=== PATIENT | female | born 1975 | race Two or more races ===

== ENCOUNTER 2020-11-19 09:10 | Emergency (ER) | payer MEDICARE, MEDICAID, SELFPAY ==
--- NOTE | ~2020-11-19 | XR_ITS ---
EXAMINATION: XR ELBOW, RIGHT CLINICAL INFORMATION: Pain right elbow COMPARISON: None TECHNIQUE: AP, lateral, and oblique views of the right elbow. FINDINGS: There is no fracture, dislocation, or elbow capsular effusion. Bony density is normal. There is no joint narrowing or erosive change. XR/XR elbow RT min 3V IMPRESSION: Normal right elbow.
--- NOTE | ~2020-11-19 | US_ITS ---
EXAMINATION: US VENOUS WITH DOPPLER UPPER EXTREMITY, RIGHT CLINICAL INFORMATION: Right upper extremity pain and swelling. Assess for occult DVT. COMPARISON: None TECHNIQUE: Ultrasound of the upper extremity is performed using compression sonography and color and pulse Doppler flow with assessment of augmentation of flow. There is also imaging and Doppler assessment of the jugular and subclavian veins. Spectral analysis with color-flow imaging is performed. FINDINGS: Respiratory variation, normal compression, and augmented flow are noted throughout the upper extremity including the axillary, brachial, cubital, and radial and ulnar veins. There is normal flow in the internal jugular and subclavian veins. There is no visible deep or superficial thrombophlebitis. US/US venous duplex UE RT IMPRESSION: No DVT demonstrated in the right upper extremity.
[2020-11-19 09:14] VITALS: BP 140/81; PULSE 94; RESP 18; TEMP 36.9; O2SAT 97; BMI 35.6
--- NOTE | 2020-11-19 10:20 | ED_ITS ---
HPI - Extremity Problem General Chief complaint: Extremity Problem Stated complaint: rt elbow pain Time Seen by Provider: 11/19/20 09:40 Source: patient Mode of arrival: ambulatory History of Present Illness HPI Narrative: 45-year-old female no significant past medical history presenting to the ED complaining of right elbow/forearm pain x1 month. Reports worsening swelling x1 week, has been taking OTC medications without relief. Denies numbness, tingling, weakness, known injury/trauma or falls, recent travel, history of blood clots, SOB/CP. Does smoke cigarettes Complaint: extremity pain and extremity swelling Related Data Previous Rx's Medication Instructions Recorded acetaminophen [Tylenol Extra 500 mg PO Q6H PRN #20 tab 11/19/20 Strength] cyclobenzaprine 5 mg PO Q8H PRN 5 Days #14 tab 11/19/20 lidocaine [Lidoderm] 1 patch TOPICAL DAILY PRN #30 ea 11/19/20 MDD remove after 12 hours naproxen 500 mg PO BID PRN 10 Days #20 tab 11/19/20 Allergies Allergy/AdvReac Type Severity Reaction Status Date / Time Penicillins [PENICILLINS] Allergy Severe SWELLING/IT Verified 11/19/20 09:13 JOE vancomycin [VANCOMYCIN] Allergy Intermediate RASH AND Verified 11/19/20 09:13 ITCHING penicillin V Allergy Unknown redness Verified 11/19/20 09:13 and itching/ inflammation Review of Systems Review of Systems: Constitutional: No Fever, No Chills Cardiovascular: No Chest Pain, No SOB Respiratory: No Cough Gastrointestinal: No Nausea, No Vomiting, No Diarrhea, No Abdominal pain Musculoskeletal: + joint pain, No Myalgias, +Joint Swelling Skin: No Skin Lesions, No rash Neuro: No Weakness, No Numbness, No Paresthesias Yes all other systems are reviewed and are negative [facility]LY [facility] Past Medical History Attestation statement: The following information was validated with the patient. Social History Social History Advance Directives: No Advance Directives Information Provided: No Physical Exam Vital Signs: Vital Signs: Last Vital Signs Temp 98.5 F 11/19/20 09:14 Pulse 94 11/19/20 09:14 Resp 18 11/19/20 09:14 BP 140/81 H 11/19/20 09:14 Pulse Ox 97 11/19/20 09:14 Body Mass Index 35.6 Const: General: cooperative, healthy appearing, comfortable and no acute distress Orientation/consciousness: patient oriented x3 Limitations: no limitations HENMT: Head: Yes normal to inspection Ears: hearing grossly normal bilaterally General nose exam: Normal external nose present Face and sinus: Yes normal facial exam Eyes: General: appearance normal, both eyes and all related structures EOM: EOMs intact bilaterally Neck: Neck: Yes normal visual inspection Resp: Effort & Inspection: normal respiratory effort Cardio: Rate: regular rate Peripheral pulses: radial pulses present GI: Inspection: Yes normal to inspection Skin: Rashes: no rashes Wounds: no wounds Neuro: General: patient oriented x3, tone normal and moves all extremities Motor exam (neuro): 5/5 motor strength present throughout Extrem: Other: Right elbow with a visible lump/swelling and slight ecchymosis. Tender to palpation. FROM intact. NV intact distally General: Yes normal to inspection Course Course Course Narrative: US venous duplex UE RT IMPRESSION: No DVT demonstrated in the right upper extremity. >> results discussed with patient with community sports coordinator. Is to follow-up with PCP. XR elbow RT min 3V IMPRESSION: Normal right elbow. MDM - Extremity (Nontraumatic) MDM Narrative Medical decision making narrative: 45-year-old female no significant past medical history presenting to the ED complaining of right elbow/forearm pain x1 month. On exam vital signs stable, NAD, well appearing, physical exam as above. Concern for MSK pain vs DVT. Low concern for PE Plan: Venous duplex ultrasound Discharge Plan Discharge Clinical Impression: Elbow pain, right Patient Disposition: Home, Self-Care Instructions: Arthralgia (ED) Additional Instructions: Your x-ray and ultrasound were negative for any acute findings or blood clots. It is important for you to were Rinku wrap for compression/stability. Ice and elevate your arm. Naproxen as an anti-inflammatory/pain medication, take with food. Lidoderm patches or numbing patches, apply to painful area. Flexeril as a muscle relaxer, take at night as it makes you drowsy, do not drive, drink alcohol, or operate machinery while taking it. In addition take Tylenol. Follow up with her primary care doctor If area begins to look infected, is red, or swelling increases please return to the ED Hopkins radiograf?a y ultrasonido fueron negativos para cualquier hallazgo leah o co?gulos de ravindra. Es importante que usted tenga mi envoltura Rinku para la compresi?n / estabilidad. Hielo y levante el brazo. El naproxeno candice m edicamento antiinflamatorio / analg?sico, t?matta con las comidas. Los parches de Lidoderm o los parches adormecedores se aplican en el ?aysha dolorida. Flexeril candice relajante muscular, t?matta por la noche ya que le produce juan j?o, no conduzca, no kalyan alcohol ni maneje maquinaria mientras lo danis. Adem?s, tome Tylenol. Venecia un seguimiento con hopkins m?dico de atenci?n primaria Si el ?aysha comienza a verse infectada, enrojecida o aumenta la hinchaz?n, regrese al servicio de urgencias Prescriptions: New cyclobenzaprine 5 mg tablet 5 mg PO Q8H PRN (Reason: pain (scale score 7-10)) 5 Days Qty: 14 RF: 0 lidocaine [Lidoderm] 5 % adhesive patch,medicated 1 patch topical DAILY MDD remove after 12 hours PRN (Reason: pain) Qty: 30 RF: 0 acetaminophen [Tylenol Extra Strength] 500 mg tablet 500 mg PO Q6H PRN (Reason: pain or fever) Qty: 20 RF: 0 naproxen 500 mg tablet 500 mg PO BID PRN (Reason: pain) 10 Days Qty: 20 RF: 0 Referrals: [facility] [Primary Care Provider] - 2 days Print Language: [place]
[2020-11-19 12:18] VITALS: BP 131/77; PULSE 88; RESP 16; TEMP 36.9; O2SAT 97
== END 2020-11-19 12:33 | disposition home or self-care (01) ==
PROVIDERS: Emergency Provider Emergency Medicine
DX: M25.521 Pain in right elbow (principal); R22.31 Localized swelling, mass and lump, right upper limb; F17.210 Nicotine dependence, cigarettes, uncomplicated
CPT/HCPCS: 73080; 93971; 99284

== ENCOUNTER → 2021-01-02 12:53 | Outpatient (BNVA) | payer MEDICARE, MEDICAID, SELFPAY | PROVIDERS: Visit Provider Physician Assistant | DX: M77.11 Lateral epicondylitis, right elbow (principal) | CPT/HCPCS: 99202; 99212 ==

== ENCOUNTER 2021-02-10 13:30 | Emergency (ER) | payer MEDICARE, MEDICAID, SELFPAY ==
--- NOTE | 2021-02-10 | ECG_ITS ---
Test Reason : HTN,RAPID HR Blood Pressure : / mmHG Vent. Rate : 097 BPM Atrial Rate : 097 BPM P-R Int : 128 ms QRS Dur : 074 ms QT Int : 326 ms P-R-T Axes : 054 056 037 degrees QTc Int : 414 ms Normal sinus rhythm Normal ECG When compared with ECG of 07-AUG-2019 20:20, No significant change was found Referred By: Generic ED Physician Electronically Signed By:BEATRICE RIZZO
--- NOTE | ~2021-02-10 | CT_ITS ---
EXAMINATION: CT HEAD WITHOUT CONTRAST CLINICAL INFORMATION: Headache. Hypertension. COMPARISON: Previous head CT June 2017 TECHNIQUE: Contiguous axial imaging was performed from the skull base to vertex without intravenous administration of contrast. This CT examination was performed using dose optimization techniques as appropriate, variously including the following: *Automated exposure control *Adjustment of mA and/or kV according to patient size (this includes techniques or standardized protocols for targeted exams where dose is matched to indication/reason for exam; i.e. extremities or head) *Use of iterative reconstruction technique DLP: 701 mGy-cm FINDINGS: There is no evidence of acute intracranial hemorrhage or territorial infarction. No abnormal mass effect or midline shift is seen. Hernandez to white matter differentiation is well preserved. No extra-axial fluid collections are identified. The ventricles are normal in size. There is no abnormal attenuation within the brain parenchyma. The osseous structures and soft tissues are normal. The mastoid air cells and visualized portions of the paranasal sinuses are well aerated. CT/CT head/brain wo con IMPRESSION: Unremarkable exam.
--- NOTE | ~2021-02-10 | XR_ITS ---
EXAMINATION: XR CHEST CLINICAL INFORMATION: Chest pain COMPARISON: Previous chest x-ray most recent July 2019 TECHNIQUE: Frontal view of the chest was obtained. FINDINGS: The cardiac and mediastinal contours are normal. The lungs are clear. There is no pleural effusion or pneumothorax. There are degenerative changes of the spine. XR/XR chest 1V IMPRESSION: No evidence for acute disease in the chest.
[2021-02-10 13:35] VITALS: BP 151/74; PULSE 101; RESP 16; TEMP 37; O2SAT 94; BMI 34.0
[2021-02-10 13:58] LABS: MANUAL DIFF FLAG NO
[2021-02-10 14:02] LABS: Basophils Absolute Auto 0.1 X10*3/uL (0.0-0.2); Basophils Percent Auto 0.6 % (0-2); Eosinophils Absolute Auto 0.1 X10*3/uL (0.0-0.4); Hematocrit 41.9 % (37-47); Hemoglobin 14.3 g/dl (12.0-16.0); Imm Gran Abs Auto 0.04 X10*3/uL (0.00-0.03); Imm Gran Pct Auto 0.4 % (0.0-0.4); Lymphocytes Percent Auto 31.2 % (20-40); Mean Corpuscular HGB Conc 34.1 g/dl (31.0-35.0); Mean Corpuscular Hemoglobin 32.1 pg (27.0-33.0); Mean Corpuscular Volume 94.2 fL (80-98); Mean Platelet Volume 11.1 fL (9.4-12.3); Monocytes Absolute Auto 0.7 X10*3/uL (0.1-1.2); Neutrophils Absolute Auto 5.8 X10*3/uL (2.0-8.3); Neutrophils Percent Auto 59.8 % (45-73); Platelet Count 205 X10*3/uL (160-400); Red Blood Count 4.45 X10*6/uL (4.20-5.50); Red Cell Distribution Width 10.7 % (11.0-16.0); White Blood Count 9.7 X10*3/uL (4.8-10.8)
[2021-02-10 14:16] LABS: Anion Gap 11 (12-20); Blood Urea Nitrogen 12 mg/dL (9-16); Calcium 8.8 mg/dL (8.4-10.2); Carbon Dioxide 24 mmol/L (22-29); Chloride 105 mmol/L (96-108); Creatinine Clr Calc Pharmacy 83.7; Estimated Glomerular Filt Rate > 60; Glucose Random 326 mg/dL (60-115); Sodium 136 mmol/L (135-145)
[2021-02-10 16:00] VITALS: RESP 18
--- NOTE | 2021-02-10 16:15 | ECG_ITS ---
Test Reason : WEAK Blood Pressure : / mmHG Vent. Rate : 076 BPM Atrial Rate : 076 BPM P-R Int : 142 ms QRS Dur : 072 ms QT Int : 358 ms P-R-T Axes : 047 047 039 degrees QTc Int : 402 ms Normal sinus rhythm Normal ECG When compared with ECG of 10-FEB-2021 13:32, No significant change was found Referred By: Sheba Woods Electronically Signed By:BEATRICE RIZZO
--- NOTE | 2021-02-10 16:19 | ED_ITS ---
HPI - General Adult General Chief complaint: General Medical Stated complaint: hbp, rapid heartbeat Time Seen by Provider: 02/10/21 15:55 Source: patient Mode of arrival: ambulatory History of Present Illness HPI narrative: 45-year-old female with a past medical history of asthma, diabetes, HTN not on medication, hyperthyroid, presenting to the ED complaining of hypertension noted this morning 161/141 on home BP monitor, headache since T hursday, and intermittent CP. Admits to history of migraines, reports this headache is similar to prior, not maximal onset. Denies lightheadedness/dizziness, new visual change, nausea/vomiting, abdominal pain, SOB, numbness, tingling, weakness. Does not take anticoagulation Onset (ago): day(s) Related Data Previous Rx's Medication Instructions Recorded acetaminophen 500 mg tablet 500 mg PO Q6H PRN #20 tab 11/19/20 (Tylenol Extra Strength) cyclobenzaprine 5 mg tablet 5 mg PO Q8H PRN 5 Days #14 tab 11/19/20 lidocaine 5 % topical patch 1 patch TOPICAL DAILY PRN #30 ea 11/19/20 (Lidoderm) MDD remove after 12 hours naproxen 500 mg tablet 500 mg PO BID PRN 10 Days #20 tab 11/19/20 Allergies Allergy/AdvReac Type Severity Reaction Status Date / Time Penicillins [PENICILLINS] Allergy Severe SWELLING/IT Verified 01/02/21 13:03 JOE vancomycin [VANCOMYCIN] Allergy Intermediate RASH AND Verified 01/02/21 13:03 ITCHING penicillin V Allergy Unknown redness Verified 01/02/21 13:03 and itching/ inflammation Review of Systems Review of Systems: Constitutional: No Fever, No Chills, No Malaise ENT/Mouth: No Ear Pain, No Nasal Congestion, No Hoarseness, No sore throat Eyes: No Eye Pain, No Swelling, No Redness,No Discharge, No Vision Changes Cardiovascular: No Chest Pain, No SOB, No Palpitations Respiratory: No Cough, No Dyspnea Gastrointestinal: No Nausea, No Vomiting, No Diarrhea, No Abdominal pain Genitourinary: No Dysuria, No Urinary Frequency, No Hematuria, No Urinary Incontinence, No Urgency, No Flank Pain Musculoskeletal: No joint pain, No Myalgias Skin: No Skin Lesions, No rash Neuro: No Weakness, No Numbness, No Paresthesias, No Dizziness, + Headache Yes all other systems are reviewed and are negative Neurologic: Denies Abnormal speech present FOR[facility]LY [facility], [facility] Past Medical History Medical History (Updated 02/10/21 @ 17:55 by GABRIELLE Resendiz) Asthma Diabetes Hypertension Hyperthyroidism Social History Social History (Updated 01/02/21 @ 13:04 by Shay Pierre) Advance Directives: No Advance Directives Information Provided: No Current occupational status: disabled Current occupation: rt handed Physical Exam Vital Signs: Vital Signs: Last Vital Signs Temp 98.6 F 02/10/21 13:35 Pulse 101 H 02/10/21 13:35 Resp 18 02/10/21 16:00 BP 151/74 H 02/10/21 13:35 Pulse Ox 94 02/10/21 13:35 Body Mass Index 34.0 Const: General: cooperative, healthy appearing and no acute distress Orientation/consciousness: patient oriented x3 Limitations: no limitations HENMT: Head: Yes normal to inspection Ears: hearing grossly normal bilaterally General nose exam: Normal external nose present Face and sinus: Yes normal facial exam Eyes: General: appearance normal, both eyes and all related structures Pupils: Equal, round and reactive pupils present EOM: EOMs intact bilaterally Neck: Neck: Yes normal visual inspection and Yes no meningeal signs Resp: Effort & Inspection: normal respiratory effort Auscultation: clear to auscultation bilaterally, no rales, no rhonchi and no wheezes Cardio: Rate: regular rate Heart sounds: S1 normal heart sound present and S2 normal heart sound present GI: Inspection: Yes normal to inspection Palpation (GI): Soft to palpation, nontender, no guarding and not rigid Skin: Rashes: no rashes Wounds: no wounds Neuro: General: patient oriented x3, tone normal, moves all extremities, no meningeal signs, no focal motor deficits and CN's II-XI intact bilaterally Cranial nerves: Yes Equal, round and reactive pupils present Cognition (Neuro): normal cognition Speech: No Abnormal speech present Gait exam (Neuro): Normal gait present Motor exam (neuro): 5/5 motor strength present throughout, Pronator motor function not present and no tremor noted Coordination: [id number] test normal Romberg Test: Negative Extrem: General: Yes normal to inspection Course Course Course Narrative: -6704--no leukocytosis. Glucose 326, no anion gap CT head/brain wo con IMPRESSION: Unremarkable exam. XR chest 1V IMPRESSION: No evidence for acute disease in the chest. -1751--repeat POC 163. On re-evaluation patient reports symptomatic improvement. Results discussed with veterinary assistant technician. Discussed with patient she needs to follow up with PCP, in continue monitoring BP is at home. Worrisome signs and symptoms and strict return precautions discussed, she verbalized u nderstanding feel safe for discharge home Medical Decision Making MDM Narrative Medical decision making narrative: 45-year-old female with a past medical history of asthma, diabetes, HTN not on medication, hyperthyroid, presenting to the ED complaining of hypertension noted this morning 161/141 on home BP monitor, headache since , and intermittent CP. On exam initially hypertensive/tachycardic, on my repeat during evaluation BP 137/60, NAD, nontoxic appearing, no focal neuro deficits. Concern for migraine headache vs hypertensive urgency. Low concern for hypertensive emergency with normotensive BP at this time. Low concern for ICH. Rule out ACS although symptoms atypical Plan: EKG, labs, CXR, head CT, symptomatic treatment, reassess Lab Data Result diagrams: 02/10/21 13:43 02/10/21 13:43 Labs: Lab Results 02/10/21 02/10/21 02/10/21 Range/Units 13:43 13:43 16:47 WBC 9.7 (4.8-10.8) X10*3/uL RBC 4.45 (4.20-5.50) X10*6/uL Hgb 14.3 (12.0-16.0) g/dl Hct 41.9 (37-47) % MCV 94.2 (80-98) fL MCH 32.1 (27.0-33.0) pg MCHC 34.1 (31.0-35.0) g/dl RDW 10.7 L (11.0-16.0) % Plt Count 205 (160-400) X10*3/uL MPV 11.1 (9.4-12.3) fL Immature Gran % (Auto) 0.4 (0.0-0.4) % Neut % (Auto) 59.8 (45-73) % Lymph % (Auto) 31.2 (20-40) % [place] % (Auto) 7.0 (2-11) % Eos % (Auto) 1.0 (0-4) % Baso % (Auto) 0.6 (0-2) % Lymph # (Auto) 3.0 (1.2-4.9) X10*3/uL [place] # (Auto) 0.7 (0.1-1.2) X10*3/uL Eos # (Auto) 0.1 (0.0-0.4) X10*3/uL Baso # (Auto) 0.1 (0.0-0.2) X10*3/uL Abs Immat Gran (auto) 0.04 H (0.00-0.03) X10*3/uL Absolute Neuts (auto) 5.8 (2.0-8.3) X10*3/uL Absolute Nucleated RBC 0.000 (0.0-0.012) X10*3/uL Nucleated RBC % (auto) 0.0 (0.0-0.2) /100WBC Sodium 136 (135-145) mmol/L Potassium 4.0 (3.3-5.1) mmol/L Chloride 105 (96-108) mmol/L Carbon Dioxide 24 (22-29) mmol/L Anion Gap 11 L (12-20) BUN 12 (9-16) mg/dL Creatinine 0.74 (0.5-1.4) mg/dL Estim Creat Clear Calc 83.7 Estimated GFR > 60 Random Glucose 326 H (60-115) mg/dL Calcium 8.8 (8.4-10.2) mg/dL Magnesium 2.1 (1.6-2.6) mg/dL Total Bilirubin 0.3 (0.0-1.0) mg/dL Direct Bilirubin < 0.2 (0.0-0.5) mg/dL AST 19 (5-31) U/L ALT 30 (0-31) U/L Alkaline Phosphatase 97 (39-117) U/L Troponin I High Sens (<3.5-17.0) ng/L Total Protein 6.7 (6.5-8.0) g/dL Albumin 3.7 (3.5-5.0) g/dL 02/10/21 Range/Units 16:47 WBC (4.8-10.8) X10*3/uL RBC (4.20-5.50) X10*6/uL Hgb (12.0-16.0) g/dl Hct (37-47) % MCV (80-98) fL MCH (27.0-33.0) pg MCHC (31.0-35.0) g/dl RDW (11.0-16.0) % Plt Count (160-400) X10*3/uL MPV (9.4-12.3) fL Immature Gran % (Auto) (0.0-0.4) % Neut % (Auto) (45-73) % Lymph % (Auto) (20-40) % [place] % (Auto) (2-11) % Eos % (Auto) (0-4) % Baso % (Auto) (0-2) % Lymph # (Auto) (1.2-4.9) X10*3/uL [place] # (Auto) (0.1-1.2) X10*3/uL Eos # (Auto) (0.0-0.4) X10*3/uL Baso # (Auto) (0.0-0.2) X10*3/uL Abs Immat Gran (auto) (0.00-0.03) X10*3/uL Absolute Neuts (auto) (2.0-8.3) X10*3/uL Absolute Nucleated RBC (0.0-0.012) X10*3/uL Nucleated RBC % (auto) (0.0-0.2) /100WBC Sodium (135-145) mmol/L Potassium (3.3-5.1) mmol/L Chloride (96-108) mmol/L Carbon Dioxide (22-29) mmol/L Anion Gap (12-20) BUN (9-16) mg/dL Creatinine (0.5-1.4) mg/dL Estim Creat Clear Calc Estimated GFR Random Glucose (60-115) mg/dL Calcium (8.4-10.2) mg/dL Magnesium (1.6-2.6) mg/dL Total Bilirubin (0.0-1.0) mg/dL Direct Bilirubin (0.0-0.5) mg/dL AST (5-31) U/L ALT (0-31) U/L Alkaline Phosphatase (39-117) U/L Troponin I High Sens < 3.5 (<3.5-17.0) ng/L Total Protein (6.5-8.0) g/dL Albumin (3.5-5.0) g/dL ECG Data Attestation: I personally reviewed and interpreted this ECG as follows: Interpretation: EKG normal sinus rhythm with a rate of 76. Nonischemic/no STEMI Discharge Plan Discharge Clinical Impression: Hypertension Qualifiers: Hypertension type: unspecified Qualified Code(s): I10 - Essential (primary) hypertension Headache Qualifiers: Headache type: unspecified Headache chronicity pattern: unspecified pattern Intractability: not intractable Qualified Code(s): R51.9 - Headache, unspecified Patient Disposition: Home, Self-Care Instructions: Acute Headache (ED), Hypertension (ED) Additional Instructions: Your blood work and head CT were unremarkable today in the ED. Her x-ray was unremarkable. It is very important for you to follow-up with her primary care doctor, you will likely need to be started on a low-dose blood pressure medication. It is important for you to monitor her blood worse at home. If he developed very high blood pressure, headache, lightheadedness, chest pain, dizziness please return to the ED Zelaya an?lisis de ravindra y la tomograf?a computarizada de la filomena no fueron destacables hoy en el servicio de urgencias. Zelaya radiograf?a no tuvo nada especial. Es muy importante que realice un seguimiento con zelaya m?dico de atenci?n primaria, es probable que deba comenzar con un medicamento para la presi?n breonna rial en dosis bajas. Es importante que controle peor zelaya ravindra en casa. Si desarroll? presi?n arterial muy jv, dolor de filomena, aturdimiento, dolor en el pecho, mareos, regrese al servicio de urgencias. Prescriptions: No Action cyclobenzaprine 5 mg tablet 5 mg PO Q8H PRN (Reason: pain (scale score 7-10)) 5 Days Qty: 14 RF: 0 lidocaine [Lidoderm] 5 % adhesive patch,medicated 1 patch topical DAILY MDD remove after 12 hours PRN (Reason: pain) Qty: 30 RF: 0 acetaminophen [Tylenol Extra Strength] 500 mg tablet 500 mg PO Q6H PRN (Reason: pain or fever) Qty: 20 RF: 0 naproxen 500 mg tablet 500 mg PO BID PRN (Reason: pain) 10 Days Qty: 20 RF: 0 Referrals: Nathalie Wang, DEVELOPMENT ANALYST [Primary Care Provider] - 2 days Print Language: Icelandic
[2021-02-10] MEDS: Magnesium Sulfate/H2O 2 GM/50 ML PIGGYBACK IV (16:54)
[2021-02-10] MEDS: Metoclopramide HCl 10 MG/2 ML VIAL IVPUSH (16:54)
[2021-02-10] MEDS: Acetaminophen 325 MG TABLET 650 MG PO (16:54)
[2021-02-10] MEDS: 0.9 % Sodium Chloride 1,000 ML 999 ML IVCONT (16:54)
[2021-02-10] MEDS: diphenhydrAMINE HCL 50 MG/ML VIAL 12.5 MG IVPUSH (16:54)
[2021-02-10 17:18] LABS: Alanine Aminotransferase 30 U/L (0-31); Albumin Level 3.7 g/dL (3.5-5.0); Alkaline Phosphatase 97 U/L (39-117); Aspartate Amino Transferase 19 U/L (5-31); Bilirubin Direct < 0.2 mg/dL (0.0-0.5); Bilirubin Total 0.3 mg/dL (0.0-1.0); Magnesium 2.1 mg/dL (1.6-2.6); Total Protein 6.7 g/dL (6.5-8.0)
[2021-02-10 17:24] LABS: Troponin-I High Sensitivity < 3.5 ng/L (<3.5-17.0)
[2021-02-10 17:53] VITALS: BP 137/70; PULSE 84; RESP 18; O2SAT 99
[2021-02-10 17:53] LABS: Glucose, Whole Blood 163 mg/dL (60-115)
== END 2021-02-10 17:58 | disposition home or self-care (01) ==
PROVIDERS: Physician Assistant; Emergency Provider Internal Medicine; PCP Nurse Practitioner Primary Care
DX: R51.9 Headache, unspecified (principal); I10 Essential (primary) hypertension; E11.9 Type 2 diabetes mellitus without complications
CPT/HCPCS: 36415; 70450; 71045; 80048; 80076; 82947; 83735; 84484; 85025; 93005; 96365; 96366; 96375; 99284; J1200; J2765; J3475

== ENCOUNTER 2021-07-30 13:09 | Emergency (ER) | payer MEDICARE, MEDICAID, SELFPAY ==
--- NOTE | ~2021-07-30 | XR_ITS ---
EXAMINATION: AP PELVIS AND RIGHT HIP AND LUMBAR SPINE. CLINICAL INFORMATION: Hip pain COMPARISON: December 14, 2016 TECHNIQUE: AP pelvis and 2 views of the right hip. 3 views of the lumbar spine. FINDINGS: AP film of the pelvis does not demonstrate any evidence of acute fracture or diastases. Sacroiliac joints appear unremarkable. There is some increased sclerosis seen about the L5-S1 facet joints which may be related to some degree of facet arthropathy. The hip joint spaces appear maintained. There is bilateral greater trochanter spurring present. No destructive bony lesions are evident. 2 views of the right hip demonstrate some mild collar spurring without joint space narrowing. There is some spurring about the greater trochanter. No acute fracture or dislocation is evident. No abnormal lytic or sclerotic lesion is seen. No femoral head collapse is noted. No acute fracture, spondylolisthesis, spondylolysis is seen within the lumbar spine. There is some spurring about the anterior aspect of the lowest lumbar vertebra. The disc spaces are maintained. Pedicles are intact. There is degenerative spurring with some disc space narrowing seen involving the lower thoracic spine. XR/XR lumbar spine 2-3V IMPRESSION: No evidence of acute fracture, spondylolisthesis, or spondylolysis of the lumbar spine. No evidence of acute fracture or dislocation of the right hip. Greater trochanter spurring.
--- NOTE | ~2021-07-30 | XR_ITS ---
EXAMINATION: AP PELVIS AND RIGHT HIP AND LUMBAR SPINE. CLINICAL INFORMATION: Hip pain COMPARISON: December 14, 2016 TECHNIQUE: AP pelvis and 2 views of the right hip. 3 views of the lumbar spine. FINDINGS: AP film of the pelvis does not demonstrate any evidence of acute fracture or diastases. Sacroiliac joints appear unremarkable. There is some increased sclerosis seen about the L5-S1 facet joints which may be related to some degree of facet arthropathy. The hip joint spaces appear maintained. There is bilateral greater trochanter spurring present. No destructive bony lesions are evident. 2 views of the right hip demonstrate some mild collar spurring without joint space narrowing. There is some spurring about the greater trochanter. No acute fracture or dislocation is evident. No abnormal lytic or sclerotic lesion is seen. No femoral head collapse is noted. No acute fracture, spondylolisthesis, spondylolysis is seen within the lumbar spine. There is some spurring about the anterior aspect of the lowest lumbar vertebra. The disc spaces are maintained. Pedicles are intact. There is degenerative spurring with some disc space narrowing seen involving the lower thoracic spine. XR/XR hip RT w PEL1V IMPRESSION: No evidence of acute fracture, spondylolisthesis, or spondylolysis of the lumbar spine. No evidence of acute fracture or dislocation of the right hip. Greater trochanter spurring.
[2021-07-30 13:41] VITALS: BP 128/65; PULSE 100; RESP 19; TEMP 36.6; O2SAT 96; BMI 27.1
[2021-07-30 16:48] VITALS: BP 130/69; PULSE 89; RESP 18; TEMP 36.9
--- NOTE | 2021-07-30 17:43 | ED_ITS ---
HPI - General Adult General Chief complaint: Extremity Injury, Lower Stated complaint: leg pain Time Seen by Provider: 07/30/21 15:21 Source: patient Mode of arrival: ambulatory Limitations: no limitations History of Present Illness HPI narrative: 45-year-old female to ED for right hip pain radiating down leg for the past two weeks. Patient states no fever, chills, nausea, emesis, flank pain, abdominal pain, hematuria, dysurial, or any recent trauma. Related Data Previous Rx's Medication Instructions Recorded acetaminophen 500 mg tablet 500 mg PO Q6H PRN #20 tab 11/19/20 (Tylenol Extra Strength) cyclobenzaprine 5 mg tablet 5 mg PO Q8H PRN 5 Days #14 tab 11/19/20 lidocaine 5 % topical patch 1 patch TOPICAL DAILY PRN #30 ea 11/19/20 (Lidoderm) MDD remove after 12 hours naproxen 500 mg tablet 500 mg PO BID PRN 10 Days #20 tab 11/19/20 ketorolac 10 mg tablet 10 mg PO QID PRN 5 Days #20 tab 07/30/21 prednisone 20 mg tablet 40 mg PO DAILY 5 Days #10 tab 07/30/21 Allergies Allergy/AdvReac Type Severity Reaction Status Date / Time Penicillins [PENICILLINS] Allergy Severe SWELLING/IT Verified 01/02/21 13:03 JOE vancomycin [VANCOMYCIN] Allergy Intermediate RASH AND Verified 01/02/21 13:03 ITCHING penicillin V Allergy Unknown redness Verified 01/02/21 13:03 and itching/ inflammation Review of Systems Review of Systems: Right hip pain Yes all other systems are reviewed and are negative [facility] Past Medical History Medical History (Updated 07/30/21 @ 17:51 by GABRIELLE Hoyos) Asthma Diabetes Hypertension Hyperthyroidism Social History Social History (Updated 01/02/21 @ 13:04 by Shay Pierre) Advance Directives: No Advance Directives Information Provided: No Patient : No Current occupational status: disabled Current occupation: rt handed Physical Exam ED Vital Signs: Vital Signs - 24 hr 07/30/21 13:41 07/30/21 16:48 Temperature 98 F 98.5 F Pulse Rate 100 89 Respiratory Rate 19 18 Blood Pressure 128/65 130/69 Pulse Oximetry 96 BMI result Body Mass Index 27.1 Const General: cooperative, healthy appearing, comfortable, no acute distress, well developed, alert, awake and Physically active Orientation/consciousness: oriented to person, oriented to place, oriented to time and patient oriented x3 [facility] Head: Yes normal to inspection, Yes No palpable skull fracture present, Yes normocephalic, Yes atraumatic and No abrasion Eyes General: appearance normal, both eyes and all related structures Neck Neck: Yes normal visual inspection, Yes full ROM, Yes no lymphadenopathy, Yes no meningeal signs, Yes trachea midline and Yes supple Chest Chest palpation & inspection: normal inspection of the chest and normal palpation of entire chest wall Resp Effort & Inspection: normal respiratory effort and able to speak in complete sentences Auscultation: clear to auscultation bilaterally Cardio Jugular venous distension: no JVD Heart sounds: S1 normal heart sound present and S2 normal heart sound present GI Inspection: Yes normal to inspection and No abdominal wall ecchymosis Palpation (GI): Soft to palpation, not firm, nontender, no guarding and not rig id General: No CVA tenderness and Yes no CVA tenderness Back/Spine/Pelvis Back: no CVA tenderness, No CVA tenderness and No back tenderness Skin General skin exam: no rashes or lesions noted and elasticity normal Neuro General: oriented to person, oriented to place, oriented to time, patient oriented x3, gait normal, no meningeal signs and CN's II-XI intact bilaterally Extrem General: Yes normal to inspection and Yes full ROM Upper/lower leg/hip images: 1. Positive for tenderness on palpation and range of motion. Positive for right lower back pain on right leg straight test. For more pulses intact. Ne gative for any erythema, swelling, ecchymosis, or deformity. Rest of lower extremities normal. Motor/neuro/vascular exam is intact. Psych Appearance: grossly normal, well kempt and not disheveled Course Course Course Narrative: Patient sent for lumbar and hip x-ray Reevaluation(s) Reevaluation #1: Patient x-ray came back positive for lumbar radiculopathy and hip arthlagia. Time: 18:36 Medical Decision Making [facility] Narrative Medical decision making narrative: Lumbar radiculopathy/ hip arthlragia Discharge Plan Discharge Clinical Impression: Arthralgia of hip, Lumbar radiculopathy Patient Disposition: Home, Self-Care Instructions: Lumbar Radiculopathy (ED), Arthralgia (ED) Additional Instructions: Zelaya radiograf?a muestra artritis de la columna lumbar y articulaciones bilaterales de la cadera. Se le natalia? de jv con analg?sicos y esteroides. Regrese al servicio de urgencias de inmediato si empeora el dolor de espalda, la incontinencia urinaria o intestinal, las extremidades inferiores, el dolor en la pantorrilla, la fiebre, los escalofr?os, la tos con ravindra, el dolor tor?cico, la dificultad para respirar o cualquier otro s?ntoma preocupante. Por favor, melida un seguimiento con el proveedor de atenci?n primaria. No tome lorelei?n otro OBED con Toradol. Prescriptions: New ketorolac 10 mg tablet 10 mg PO QID PRN (Reason: pain) 5 Days Qty: 20 0RF Rx Instructions: Patient received 30 mg IM Toradol in the ED. prednisone 20 mg tablet 40 mg PO DAILY 5 Days Qty: 10 0RF No Action cyclobenzaprine 5 mg tablet 5 mg PO Q8H PRN (Reason: pain (scale score 7-10)) 5 Days Qty: 14 0RF lidocaine [Lidoderm] 5 % adhesive patch,medicated 1 patch topical DAILY MDD remove after 12 hours PRN (Reason: pain) Qty: 30 0RF Rx Instructions: leave on most painful area for up to 12 hrs acetaminophen [Tylenol Extra Strength] 500 mg tablet 500 mg PO Q6H PRN (Reason: pain or fever) Qty: 20 0RF naproxen 500 mg tablet 500 mg PO BID PRN (Reason: pain) 10 Days Qty: 20 0RF Stand Alone Forms: Work/School Release Interventions: ED Discharge Assessment Last Done: 07/30/21 18:01 Discharge Date/Time: 07/30/21 18:03 Print Language: Kazakh
[2021-07-30] MEDS: Ketorolac Tromethamine 30 MG/ML VIAL IM (17:49)
== END 2021-07-30 18:03 | disposition home or self-care (01) ==
PROVIDERS: Emergency Provider Emergency Medicine Emergency Medical Services; PCP Nurse Practitioner Primary Care
DX: M54.16 Radiculopathy, lumbar region (principal); M25.551 Pain in right hip; I10 Essential (primary) hypertension; E11.9 Type 2 diabetes mellitus without complications
CPT/HCPCS: 72100; 73502; 96372; 99284; J1885

== ENCOUNTER 2021-08-01 19:40 | Emergency (ER) | payer MEDICARE, MEDICAID, SELFPAY ==
[2021-08-01 20:08] VITALS: BP 110/53; PULSE 107; RESP 18; TEMP 36.9; O2SAT 97; BMI 36.1
[2021-08-01 20:19] LABS: Glucose, Whole Blood 243 mg/dL (60-115)
--- NOTE | 2021-08-01 22:31 | ED.RECABL ---
HPI - Recheck/Abnormal Lab/Rx General Chief Complaint: Recheck/Abnormal Lab/Rx Stated Complaint: elevated blood sugar Time Seen by Provider: 08/01/21 22:14 Source: patient and polysomnography technologist Mode of arrival: ambulatory Limitations: language barrier History of Present Illness HPI narrative: 45-year-old female with a history of insulin-dependent diabetes here with reports of elevated blood sugars for last 2 days. Patient tells me she was seen here for arthritis on July 30 and prescribed prednisone. Since taking the prednisone her blood sugars have been elevated up to 400 and when this happened she feels very weak and tired. She takes [place] once weekly. She denies any additional medications for her blood sugar. No vomiting, diarrhea, abdominal pain, fevers, chills. Patient reports continued pain in the right shoulder, right hip unrelieved with Toradol that was prescribed on 07/30 Related Data Previous Rx's Medication Instructions Recorded acetaminophen 500 mg tablet 500 mg PO Q6H PRN #20 tab 11/19/20 (Tylenol Extra Strength) cyclobenzaprine 5 mg tablet 5 mg PO Q8H PRN 5 Days #14 tab 11/19/20 lidocaine 5 % topical patch 1 patch TOPICAL DAILY PRN #30 ea 11/19/20 (Lidoderm) MDD remove after 12 hours naproxen 500 mg tablet 500 mg PO BID PRN 10 Days #20 tab 11/19/20 ketorolac 10 mg tablet 10 mg PO QID PRN 5 Days #20 tab 07/30/21 prednisone 20 mg tablet 40 mg PO DAILY 5 Days #10 tab 07/30/21 cyclobenzaprine 10 mg tablet 10 mg PO TID PRN #10 tab 08/01/21 Allergies Allergy/AdvReac Type Severity Reaction Status Date / Time Penicillins [PENICILLINS] Allergy Severe SWELLING/IT Verified 08/01/21 20:08 JOE vancomycin [VANCOMYCIN] Allergy Intermediate RASH AND Verified 08/01/21 20:08 ITCHING penicillin V Allergy Unknown redness Verified 08/01/21 20:08 and itching/ inflammation Review of Systems Review of Systems: Yes all other systems are reviewed and are negative Constitutional: Constitutional: Reports no additional constitutional complaints, Denies body ache(s), Denies chills, Denies fever(s), Denies headache(s) and Reports weakness Eyes: Eyes: Reports no additional eye complaints and Denies change in vision ENT: Reports system reviewed and no additional complaints, except as documented, Denies dizziness, Denies headache(s), Denies nasal congestion, Denies nasal discharge and Denies neck pain Cardiovascular: Cardiovascular: Reports no additional cardiovascular complaints, Denies chest pain, Denies leg edema and Denies dyspnea Respiratory: Respiratory: Reports no additional respiratory complaints, Denies cough and Denies dyspnea Gastrointestinal: Gastrointestinal: Reports no additional gastrointestinal complaints, Denies abdominal pain, Denies diarrhea, Denies nausea and Denies vomiting Genitourinary: Genitourinary: Reports no additional female genitourinary complaints and Denies urinary incontinence Musculoskeletal: Musculoskeletal: Reports no additional musculoskeletal complaints, Denies back pain, Reports arthralgias, Denies joint swelling, Denies neck pain, Denies numbness and Denies tingling Integumentary/Breasts: Skin/Breast: Reports system reviewed and no additional complaints, except as docu and Denies rash Neurologic: Reports system reviewed and no additional complaints, except as documented, Denies Abnormal speech present, Denies dizziness, Denies headache(s), Denies numbness, Denies tingling and Reports weakness PMF Past Medical History Attestation statement: The following information was validated with the patient. Source: old records reviewed and nursing notes reviewed Medical History Asthma Diabetes Hypertension Hyperthyroidism Social History Social History Current occupational status: disabled Current occupation: rt handed Physical Exam Vital Signs: Vital Signs: Last Vital Signs Temp 98.5 F 08/01/21 20:08 Pulse 107 H 08/01/21 20:08 Resp 18 08/01/21 20:08 BP 110/53 L 08/01/21 20:08 Pulse Ox 97 08/01/21 20:08 BMI result Body Mass Index 36.1 Const: General: cooperative, healthy appearing, comfortable and no acute distress Orientation/consciousness: patient oriented x3 Limitations: no limitations HENMT: Head: Yes normal to inspection Ears: hearing grossly normal bilaterally General nose exam: Normal external nose present Face and sinus: Yes normal facial exam Mouth: Normal oral and palatal mucosa present Throat: Yes posterior oropharynx normal Eyes: General: appearance normal, both eyes and all related structures Pupils: Equal, round and reactive pupils present Neck: Neck: Yes normal visual inspection Chest: Chest palpation & inspection: normal inspection of the chest Resp: Effort & Inspection: normal respiratory effort Auscultation: clear to auscultation bilaterally Cardio: Rate: regular rate Rhythm: regular rhythm Peripheral pulses: Peripheral pulses 2+ throughout GI: Inspection: Yes normal to inspection Palpation (GI): Soft to palpation and nontender Auscultation: normal bowel sounds Back/Spine/Pelvis: Thoracic/Lumbar Spine: thoracic and lumbar spine normal to inspection Skin: General skin exam: no rashes or lesions noted Neuro: General: patient oriented x3, no focal motor deficits and normal sensation to monofilament Cranial nerves: Yes Equal, round and reactive pupils present Cognition (Neuro): normal cognition Speech: No Abnormal speech present Gait exam (Neuro): Normal gait present Motor exam (neuro): 5/5 motor strength present throughout Extrem: Other: Tenderness over the posterior right shoulder with full range of motion. Tenderness over the right lateral hip with full range of motion General: Yes normal to inspection Course Course Course Narrative: 45-year-old female started on prednisone 2 days ago for arthritis of multiple joints here with reports of elevated blood sugars since starting the prednisone. In triage the patient's blood sugar was 243. Patient is on Trulicity once weekly. Denies any vomiting, abdominal pain, diarrhea, fevers. She is reporting continued joint pain despite taking Toradol and prednisone. No evidence of DKA. Patient well-appearing. Blood sugar only mildly elevated here. We discussed discontinuing prednisone. Will start Flexeril. Recommend continue Toradol. Recommend follow-up with orthopedics and primary care. Reviewed worrisome signs and symptoms of when to return to the emergency department. Comfortable discharge home. MDM - Recheck/Abnormal Lab/Rx Medical Records Attestation: I reviewed the patient's medical records. Lab Data Attestation: I reviewed the patient's lab results. Labs: Lab Results 08/01/21 Range/Units 20:15 POC Glucose 243 H (60-115) mg/dL Discharge Plan Discharge Clinical Impression: Hyperglycemia, Arthritis Patient Disposition: Home, Self-Care Instructions: Osteoarthritis (DC), Diabetic Hyperglycemia (ED) Additional Instructions: Stop it taking the prednisone Start taking the cyclobenzaprine Increase fluids over the next few days Follow-up with your primary care doctor and orthopedic Prescriptions: New cyclobenzaprine 10 mg tablet 10 mg PO TID PRN (Reason: muscle spasm) Qty: 10 0RF No Action cyclobenzaprine 5 mg tablet 5 mg PO Q8H PRN (Reason: pain (scale score 7-10)) 5 Days Qty: 14 0RF lidocaine [Lidoderm] 5 % adhesive patch,medicated 1 patch topical DAILY MDD remove after 12 hours PRN (Reason: pain) Qty: 30 0RF Rx Instructions: leave on most painful area for up to 12 hrs acetaminophen [Tylenol Extra Strength] 500 mg tablet 500 mg PO Q6H PRN (Reason: pain or fever) Qty: 20 0RF naproxen 500 mg tablet 500 mg PO BID PRN (Reason: pain) 10 Days Qty: 20 0RF ketorolac 10 mg tablet 10 mg PO QID PRN (Reason: pain) 5 Days Qty: 20 0RF Rx Instructions: Patient received 30 mg IM Toradol in the ED. prednisone 20 mg tablet 40 mg PO DAILY 5 Days Qty: 10 0RF Referrals: Jaleel Acuña MD [Physician] - 5 days Print Language: Sami
== END 2021-08-01 23:04 | disposition home or self-care (01) ==
LOC: HO.ED 22:49
PROVIDERS: Emergency Provider Internal Medicine; PCP Nurse Practitioner Primary Care
DX: M15.9 Polyosteoarthritis, unspecified (principal); E11.65 Type 2 diabetes mellitus with hyperglycemia; Z79.52 Long term (current) use of systemic steroids
CPT/HCPCS: 82947; 99283

== ENCOUNTER 2021-11-19 14:49 | Outpatient (REF) | payer MEDICARE, MEDICAID, SELFPAY ==
--- NOTE | ~2021-11-19 | US_ITS ---
EXAMINATION: US SOFT TISSUE HEAD/NECK CLINICAL INFORMATION: Posterior neck/upper back subcutaneous lump. COMPARISON: None TECHNIQUE: Linear transducer grayscale and color Doppler examination of the left posterior neck/upper neck. FINDINGS: No lymphadenopathy or solid or cystic soft tissue lesion is seen. US/US soft tiss head and/or neck IMPRESSION: No abnormality appreciated by ultrasound.
== END 2021-11-19 14:50 | disposition home or self-care (01) ==
LOC: HO.US 14:49
PROVIDERS: PCP Nurse Practitioner Primary Care; Visit Provider Nurse Practitioner Primary Care
DX: L72.0 Epidermal cyst (principal)
CPT/HCPCS: 76536; 99202

== ENCOUNTER → 2021-11-24 14:36 | Outpatient (BNVA) | payer MEDICARE, MEDICAID, SELFPAY | PROVIDERS: PCP Nurse Practitioner Primary Care; Visit Provider Surgery | DX: R22.1 Localized swelling, mass and lump, neck (principal) | CPT/HCPCS: 99212 ==

== ENCOUNTER 2022-02-19 12:32 | Emergency (ER) | payer MEDICARE, MEDICAID, SELFPAY ==
[2022-02-19 12:38] VITALS: BP 113/72; PULSE 110; RESP 18; TEMP 36.3; O2SAT 94; BMI 35.5
[2022-02-19 17:55] VITALS: BP 96/59; PULSE 96; O2SAT 96
--- NOTE | 2022-02-19 18:29 | ED_ITS ---
HPI - Eye Problem General Chief complaint: Headache Stated complaint: eye pain/blurred vision,headaches Time Seen by Provider: 02/19/22 18:16 Source: patient and family Mode of arrival: ambulatory History of Present Illness HPI Narrative: Patient is a 46 year old female with PMH of type 2 diabetes, osteoarthritis, hypothyroidism, ? glaucoma presenting with 1 week of left eye pain, redness, and blurred vision that has been worsening. Patient reports symptoms started all of a sudden 1 week ago, denies injury or irritation to the eye. States pain is currently 10 out 10 and throbbing, with associated left-sided headache and light sensitivity. Denies discharge from eye. Patient does report wearing glasses at baseline, denies use of contacts. Has not tried anything to relieve symptoms. Denies nausea, vomiting, dizziness, cough, shortness of breath, chest pain, diarrhea, weakness. MD chief complaint: eye pain, eye redness and vision change Onset (ago): week(s) Onset description: sudden Duration: constant and progressively worsening Location: left eye Related Data Home Medications Medication Instructions Recorded Confirmed albuterol sulfate 90 mcg/actuation inhalation 11/19/21 11/26/21 aerosol inhaler (Ventolin HFA) alcohol swabs (Alcohol Prep Pads) pad topical 11/19/21 11/19/21 betamethasone dipropionate 0.05 % 1 appl topical DAILY PRN 11/19/21 11/19/21 topical cream budesonide-formoterol HFA 160 inhalation 11/19/21 11/19/21 mcg-4.5 mcg/actuation aerosol inhaler (Symbicort) cholecalciferol (vitamin D3) 1,250 1,250 mcg PO QWEEK 11/19/21 11/19/21 mcg (50,000 unit) capsule diclofenac sodium 1 % topical gel 2 g topical QID 11/19/21 11/19/21 (Voltaren Arthritis Pain) insulin regular hum U-500 conc 500 unit subcut 11/19/21 11/19/21 unit/mL(3 mL) subcut pen (Humulin R U-500 (Conc) Insulin Kwikpen) levothyroxine 25 mcg capsule 25 mcg PO DAILY 11/19/21 11/19/21 lisinopril 10 mg tablet mg PO DAILY 11/19/21 11/19/21 meloxicam 15 mg tablet 15 mg PO DAILY 11/19/21 11/19/21 pantoprazole 40 mg tablet,delayed 40 mg PO DAILY 11/19/21 11/19/21 release pen needle, diabetic 31 gauge x #50 ea 11/19/21 11/19/2108/26 (Sure Comfort Pen Needle) semaglutide 1 mg/dose (4 mg/3 mL) mg subcut 11/19/21 11/19/21 subcutaneous pen injector (Ozempic) Previous Rx's Medication Instructions Recorded acetaminophen 500 mg tablet 500 mg PO Q6H PRN pain or fever 11/19/20 (Tylenol Extra Strength) #20 tabs cyclobenzaprine 5 mg tablet 5 mg PO Q8H PRN pain (scale score 11/19/20 7-10) 5 days #14 tabs lidocaine 5 % topical patch 1 patch topical DAILY PRN pain #30 11/19/20 (Lidoderm) ea naproxen 500 mg tablet 500 mg PO BID PRN pain 10 days #20 11/19/20 tabs ketorolac 10 mg tablet 10 mg PO QID PRN pain 5 days #20 07/30/21 tabs cyclobenzaprine 10 mg tablet 10 mg PO TID PRN muscle spasm #10 08/01/21 tabs erythromycin 5 mg/gram (0.5 %) eye 0.5 inch ophthalmic (eye) QID #3.5 02/19/22 ointment grams Allergies Allergy/AdvReac Type Severity Reaction Status Date / Time Penicillins [PENICILLINS] Allergy Severe SWELLING/IT Verified 11/24/21 14:48 JOE vancomycin [VANCOMYCIN] Allergy Intermediate RASH AND Verified 11/24/21 14:48 ITCHING penicillin V Allergy Unknown redness Verified 11/24/21 14:48 and itching/ inflammation Review of Systems Review of Systems: Constitutional: No Fever, No Chills ENT/Mouth: No sore throat, No Rhinorrhea, No Swallowing Difficulty Eyes: + Eye Pain, No Swelling, + Redness, +blurred vision, + light sensitivity Cardiovascular: No Chest Pain, No SOB, No Orthopnea, No Edema Respiratory: No Cough, No Sputum, No Wheezing, No dyspnea Gastrointestinal: No Nausea, No Vomiting, No Diarrhea, No abdominal Pain, No Hematochezia, No Melena Genitourinary: No Dysuria, No Urinary Frequency, No Hematuria Musculoskeletal: No joint pain, No Myalgias Skin: No Skin Lesions, No rash Neuro: No Weakness, No Numbness, No Dizziness, + Headache Psych: No Anxiety/Panic, No Depression Heme/Lymph: No Bruising, No Lymphadenopathy Endocrine: No Polyuria, No Polydipsia PMFSH Past Medical History Medical History Asthma Diabetes Hypertension Hyperthyroidism Surgical History History of cholecystectomy History of removal of cyst History of removal of cyst Social History Social History Advance Directives: No Advance Directives Information Provided: Yes Current occupational status: disabled Current occupation: rt handed Physical Exam Vital Signs: Vital Signs: Last Vital Signs Temp 97.3 F 02/19/22 12:38 Pulse 96 02/19/22 17:55 Resp 18 02/19/22 12:38 BP 96/59 L 02/19/22 17:55 Pulse Ox 96 02/19/22 17:55 O2 Del Method 02/19/22 17:55 BMI result Body Mass Index 35.5 Const: Other: Appearance: Alert. Oriented X3. No acute distress. Eyes: Pupils equal, round and reactive to light. Left eye with medial-sided injection, and small raised lesion/bump directly adjacent to iris, consistent with a pterygium ENT: Pharynx normal. Neck: Normal inspection. Neck supple. CVS: Normal heart rate and rhythm. Pulses normal. Respiratory: No respiratory distress. Breath sounds normal. Abdomen: Soft and nontender. +BS x4 Skin: Skin warm and dry. Normal skin color. Normal skin turgor. No rashes. Extremities: No lower extremity edema. Neuro: Oriented X 3. No motor deficit. No sensory deficit. Course Course Course Narrative: Patient is a 46 year old female with PMH of type 2 diabetes, osteoarthritis, hypothyroidism, ? glaucoma presenting with 1 week of left eye pain, redness, and blurred vision that has been worsening. On exam, left eye with mild medial sided injection and a small raised lesions/bump directly adjacent to iris, consistent with a pterygium. No drainage. Fluorescein stain revealed small linear corneal abrasion, and patient admitted to rubbing her eyes in the past week. IOP WNL at 14. Erythromycin ophthalmologic ointment prescribed due to corneal abrasion. Referral to Ophthalmology for follow-up. At this time patient is stable for discharge Fluoroscein stain: Revealed 2 mm linear corneal abrasion lateral to pupil. Tonometer: 14 mmHg Discharge Plan Discharge Clinical Impression: Abrasion, corneal, Pterygium Patient Disposition: Home, Self-Care Instructions: Corneal Abrasion (ED), Pterygium (ED) Additional Instructions: Apply antibiotic eye ointment as prescribed. Follow-up with Ophthalmology. If you develop new or worsening symptoms call 911 or come back to the ER for further evaluation. Prescriptions: New erythromycin 5 mg/gram (0.5 %) ointment 0.5 inch ophthalmic (eye) QID Qty: 3.5 0RF No Action cyclobenzaprine 5 mg tablet 5 mg PO Q8H PRN (Reason: pain (scale score 7-10)) 5 Days Qty: 14 0RF lidocaine [Lidoderm] 5 % adhesive patch,medicated 1 patch topical DAILY MDD remove after 12 hours PRN (Reason: pain) Qty: 30 0RF Rx Instructions: leave on most painful area for up to 12 hrs acetaminophen [Tylenol Extra Strength] 500 mg tablet 500 mg PO Q6H PRN (Reason: pain or fever) Qty: 20 0RF naproxen 500 mg tablet 500 mg PO BID PRN (Reason: pain) 10 Days Qty: 20 0RF ketorolac 10 mg tablet 10 mg PO QID PRN (Reason: pain) 5 Days Qty: 20 0RF Rx Instructions: Patient received 30 mg IM Toradol in the ED. cyclobenzaprine 10 mg tablet 10 mg PO TID PRN (Reason: muscle spasm) Qty: 10 0RF Humulin R U-500 (Conc) Kwikpen 500 unit/mL (3 mL) insulin pen subcut Ozempic 1 mg/dose (4 mg/3 mL) pen injector subcut (DME) pen needle, diabetic [Sure Comfort Pen Needle] 31 gauge x 3/16 needle See Rx Instructions .ROUTE .MEDSUPPLY Qty: 50 Rx Instructions: As directed alcohol swabs [Alcohol Prep Pads] Pads, Medicated topical lisinopril 10 mg tablet PO DAILY meloxicam 15 mg tablet 15 mg PO DAILY budesonide-formoterol [Symbicort] 160-4.5 mcg/actuation HFA aerosol inhaler inhalation albuterol sulfate [Ventolin HFA] 90 mcg/actuation HFA aerosol inhaler inhalation cholecalciferol (vitamin D3) 1,250 mcg (50,000 unit) capsule 1,250 mcg PO QWEEK diclofenac sodium [Voltaren Arthritis Pain] 1 % gel 2 g topical QID Rx Instructions: apply to single elbow, wrist or hand; for hand includes palm/fingers/back of hand betamethasone dipropionate 0.05 % cream 1 appl topical DAILY PRN pantoprazole 40 mg tablet,delayed release (DR/EC) 40 mg PO DAILY levothyroxine 25 mcg capsule 25 mcg PO DAILY Referrals: Jaxon Gibson [Physician] - Interventions: ED Discharge Assessment Last Done: 02/19/22 20:35 Discharge Date/Time: 02/19/22 20:34 Print Language: Citizen Of [place]
[2022-02-19] MEDS: Acetaminophen 325 MG TABLET 975 MG PO (20:06)
[2022-02-19] MEDS: Fluorescein Sodium STRIP 1 STRIP EYE-LEFT (20:06)
[2022-02-19] MEDS: Tetracaine HCl/PF 0.5% Oph Sol 4 ML DROPS 1 DROP EYE-LEFT (20:06)
[2022-02-19] MEDS: Erythromycin Base 0.5% Oph Oin 1 GM TUBE 1 CM EYE-LEFT (20:24)
== END 2022-02-19 20:34 | disposition home or self-care (01) ==
PROVIDERS: Emergency Provider Emergency Medicine; PCP Nurse Practitioner Primary Care
DX: H11.002 Unspecified pterygium of left eye (principal); R51.9 Headache, unspecified; Z79.899 Other long term (current) drug therapy
CPT/HCPCS: 99283

== ENCOUNTER 2022-05-20 12:56 | Emergency (ER) | payer MEDICARE, MEDICAID, SELFPAY ==
--- NOTE | ~2022-05-20 | US_ITS ---
EXAMINATION: US DIAGNOSTIC BREAST, LEFT CLINICAL INFORMATION: Left breast abscess. COMPARISON: None. TECHNIQUE: Ultrasound of the breast is performed with real-time kennedy scale imaging and color Doppler. FINDINGS: At approximately the 8 o'clock position, 8 to 10 cm from the nipple, there is a complex fluid collection with distal sound enhancement measuring approximately 3.0 x 0.7 x 2.3 cm in size with surrounding hypervascular rim. There does appear to be some vascularity within the low density collection as well. The region is wider than it is tall. By report of technologist, the lesion was hard, painful lump with the skin appearing reddened. US/US breast LT limited IMPRESSION: Left breast complex fluid collection likely representing an abscess measuring 3.0 x 0.7 x 2.3 cm in size. ASSESSMENT: BI-RADS 3: Probably Benign RECOMMENDATION: Clinical management. This patient's information was entered into a reminder system with a target due date for their next mammogram.
[2022-05-20 13:12] VITALS: BP 141/78; PULSE 95; RESP 20; TEMP 36.9; O2SAT 97; BMI 35.0
--- NOTE | 2022-05-20 13:12 | ED_ITS ---
HPI - Skin/Abscess/Foreign Bdy General Chief complaint: Skin/Abscess/Foreign Body Stated complaint: Lump in L breast sent by [facility] Related Data Home Medications Medication Instructions Recorded Confirmed albuterol sulfate 90 mcg/actuation inhalation 11/19/21 11/26/21 aerosol inhaler (Ventolin HFA) alcohol swabs (Alcohol Prep Pads) pad topical 11/19/21 11/19/21 budesonide-formoterol HFA 160 inhalation 11/19/21 11/19/21 mcg-4.5 mcg/actuation aerosol inhaler (Symbicort) cholecalciferol (vitamin D3) 1,250 1,250 mcg PO QWEEK 11/19/21 11/19/21 mcg (50,000 unit) capsule diclofenac sodium 1 % topical gel 2 g topical QID 11/19/21 11/19/21 (Voltaren Arthritis Pain) insulin regular hum U-500 conc 500 unit subcut 11/19/21 11/19/21 unit/mL(3 mL) subcut pen (Humulin R U-500 (Conc) Insulin Kwikpen) levothyroxine 25 mcg capsule 25 mcg PO DAILY 11/19/21 11/19/21 lisinopril 10 mg tablet mg PO DAILY 11/19/21 11/19/21 meloxicam 15 mg tablet 15 mg PO DAILY 11/19/21 11/19/21 pantoprazole 40 mg tablet,delayed 40 mg PO DAILY 11/19/21 11/19/21 release pen needle, diabetic 31 gauge x #50 ea 11/19/21 11/19/21 3/16 (Sure Comfort Pen Needle) semaglutide 1 mg/dose (4 mg/3 mL) mg subcut 11/19/21 11/19/21 subcutaneous pen injector (Ozempic) Previous Rx's Medication Instructions Recorded acetaminophen 500 mg tablet 500 mg PO Q6H PRN pain or fever 11/19/20 (Tylenol Extra Strength) #20 tabs naproxen 500 mg tablet 500 mg PO BID PRN pain 10 days #20 11/19/20 tabs ketorolac 10 mg tablet 10 mg PO QID PRN pain 5 days #20 07/30/21 tabs cyclobenzaprine 10 mg tablet 10 mg PO TID PRN muscle spasm #10 08/01/21 tabs erythromycin 5 mg/gram (0.5 %) eye 0.5 inch ophthalmic (eye) QID #3.5 02/19/22 ointment grams Allergies Allergy/AdvReac Type Severity Reaction Status Date / Time Penicillins [PENICILLINS] Allergy Severe SWELLING/IT Verified 03/11/22 14:11 JOE vancomycin [VANCOMYCIN] Allergy Intermediate RASH AND Verified 03/11/22 14:11 ITCHING penicillin V Allergy Unknown redness Verified 03/11/22 14:11 and itching/ inflammation PMFSH Past Medical History Medical History Asthma Diabetes Hypertension Hyperthyroidism Surgical History History of cholecystectomy History of removal of cyst History of removal of cyst Family History Family History (Updated 03/11/22 @ 14:15 by Kristi Holloway CMA) Mother Cancer Diabetes Hypertension Father No problems noted. Social History Social History (Updated 03/11/22 @ 14:15 by Kristi Holloway CMA) Alcohol intake: never Patient Tobacco Use Status: Never used Tobacco Advance Directives: No Advance Directives Information Provided: No Current occupational status: disabled Current occupation: rt handed Physical Exam Vital Signs: Vital Signs: Last Vital Signs Temp 98.4 F 05/20/22 13:12 Pulse 95 05/20/22 13:12 Resp 20 05/20/22 13:12 BP 141/78 H 05/20/22 13:12 Pulse Ox 97 05/20/22 13:12 O2 Del Method 05/20/22 13:12 BMI result Body Mass Index 35.0 Course Course Course Narrative: This is rapid medical exam. Deferred additional HPI, ROS, PE to primary provider. 46 yo female here with 1 week of redness, swelling, bump to left breast. Walked in to PCP office but no appointments today so came here. On exam at the 7 o'clock position there is a medium-sized abscess with central fluctuance that would benefit from an incision and drainage. Will check ultrasound to evaluate extent will patient is waiting to be seen. VSS Discharge Plan Discharge Clinical Impression: Abscess of skin or subcutaneous tissue Patient Disposition: Elopement Prescriptions: No Action acetaminophen [Tylenol Extra Strength] 500 mg tablet 500 mg PO Q6H PRN (Reason: pain or fever) Qty: 20 0RF naproxen 500 mg tablet 500 mg PO BID PRN (Reason: pain) 10 Days Qty: 20 0RF ketorolac 10 mg tablet 10 mg PO QID PRN (Reason: pain) 5 Days Qty: 20 0RF Rx Instructions: Patient received 30 mg IM Toradol in the ED. erythromycin 5 mg/gram (0.5 %) ointment 0.5 inch ophthalmic (eye) QID Qty: 3.5 0RF cyclobenzaprine 10 mg tablet 10 mg PO TID PRN (Reason: muscle spasm) Qty: 10 0RF Humulin R U-500 (Conc) Kwikpen 500 unit/mL (3 mL) insulin pen subcut Ozempic 1 mg/dose (4 mg/3 mL) pen injector subcut (DME) pen needle, diabetic [Sure Comfort Pen Needle] 31 gauge x 3/16 needle See Rx Instructions .ROUTE .MEDSUPPLY Qty: 50 Rx Instructions: As directed alcohol swabs [Alcohol Prep Pads] Pads, Medicated topical lisinopril 10 mg tablet PO DAILY meloxicam 15 mg tablet 15 mg PO DAILY budesonide-formoterol [Symbicort] 160-4.5 mcg/actuation HFA aerosol inhaler inhalation albuterol sulfate [Ventolin HFA] 90 mcg/actuation HFA aerosol inhaler inhalation cholecalciferol (vitamin D3) 1,250 mcg (50,000 unit) capsule 1,250 mcg PO QWEEK diclofenac sodium [Voltaren Arthritis Pain] 1 % gel 2 g topical QID Rx Instructions: apply to single elbow, wrist or hand; for hand includes palm/fingers/back of hand pantoprazole 40 mg tablet,delayed release (DR/EC) 40 mg PO DAILY levothyroxine 25 mcg capsule 25 mcg PO DAILY Discharge Date/Time: 05/20/22 19:29
== END 2022-05-20 19:29 | disposition left against medical advice (07) ==
PROVIDERS: Emergency Provider Emergency Medicine; PCP Nurse Practitioner Primary Care
DX: N63.0 Unspecified lump in unspecified breast (principal); Z79.899 Other long term (current) drug therapy
CPT/HCPCS: 76642; 99281; 99284

== ENCOUNTER 2022-05-21 18:07 | Emergency (ER) | payer MEDICARE, MEDICAID, SELFPAY ==
--- NOTE | 2022-05-21 18:54 | ED_ITS ---
HPI - General Adult General Chief complaint: Skin/Abscess/Foreign Body <GABRIELLE Lovett - Last Filed: 05/21/22 18:57> Stated complaint: Abdnormal Ultrasound/Called to return <GABRIELLE Lovett - Last Filed: 05/21/22 18:57> Time Seen by Provider: 05/21/22 20:51 <GABRIELLE Lovett - Last Filed: 05/21/22 18:57> Source: patient <Jenae Luis NP - Last Filed: 05/22/22 02:04> Mode of arrival: ambulatory <Jenae Luis NP - Last Filed: 05/22/22 02:04> Limitations: language barrier <Jenae Luis NP - Last Filed: 05/22/22 02:04> History of Present Illness HPI narrative: 46-year-old female presents for left breast pain and known abscess. Sarah whitney presented to the emergency department yesterday, had an ultrasound while she was in the emergency department waiting room, but the wait was over 8 hours long and she left go home because she was hungry and needed her medications. Patient was called back today for ?abnormal lab values?. <Jenae Luis NP - Last Filed: 05/22/22 02:04> Onset (ago): day(s) (5) <Jenae Luis NP - Last Filed: 05/22/22 02:04> Location: left (Her left breast) <Jenae Luis NP - Last Filed: 05/22/22 02:04> Radiation: non-radiation <Jenae Luis NP - Last Filed: 05/22/22 02:04> Severity scale (1-10): 6 <Jenae Luis NP - Last Filed: 05/22/22 02:04> Quality: aching and constant <Jenae Luis NP - Last Filed: 05/22/22 02:04> Pain Consistency: constant <Jenae Luis NP - Last Filed: 05/22/22 02:04> Relieving factors: immobilization <Jenae Luis NP - Last Filed: 05/22/22 02:04> Exacerbating factors: movement <RANDA Baxter Last Filed: 05/22/22 02:04> Associated symptoms: denies other symptoms <Jenae Luis NP - Last Filed: 05/22/22 02:04> Treatments prior to arrival: none <Jenae Luis NP - Last Filed: 05/22/22 02:04> Related Data Home medications: Home Medications Medication Instructions Recorded Confirmed albuterol sulfate 90 mcg/actuation inhalation 11/19/21 11/26/21 aerosol inhaler (Ventolin HFA) alcohol swabs (Alcohol Prep Pads) pad topical 11/19/21 11/19/21 budesonide-formoterol HFA 160 inhalation 11/19/21 11/19/21 mcg-4.5 mcg/actuation aerosol inhaler (Symbicort) cholecalciferol (vitamin D3) 1,250 1,250 mcg PO QWEEK 11/19/21 11/19/21 mcg (50,000 unit) capsule diclofenac sodium 1 % topical gel 2 g topical QID 11/19/21 11/19/21 (Voltaren Arthritis Pain) insulin regular hum U-500 conc 500 unit subcut 11/19/21 11/19/21 unit/mL(3 mL) subcut pen (Humulin R U-500 (Conc) Insulin Kwikpen) levothyroxine 25 mcg capsule 25 mcg PO DAILY 11/19/21 11/19/21 lisinopril 10 mg tablet mg PO DAILY 11/19/21 11/19/21 meloxicam 15 mg tablet 15 mg PO DAILY 11/19/21 11/19/21 pantoprazole 40 mg tablet,delayed 40 mg PO DAILY 11/19/21 11/19/21 release pen needle, diabetic 31 gauge x #50 ea 11/19/21 11/19/21 3/16 (Sure Comfort Pen Needle) semaglutide 1 mg/dose (4 mg/3 mL) mg subcut 11/19/21 11/19/21 subcutaneous pen injector (Ozempic) Previous Rx's Medication Instructions Recorded acetaminophen 500 mg tablet 500 mg PO Q6H PRN pain or fever 11/19/20 (Tylenol Extra Strength) #20 tabs naproxen 500 mg tablet 500 mg PO BID PRN pain 10 days #20 11/19/20 tabs ketorolac 10 mg tablet 10 mg PO QID PRN pain 5 days #20 07/30/21 tabs cyclobenzaprine 10 mg tablet 10 mg PO TID PRN muscle spasm #10 08/01/21 tabs erythromycin 5 mg/gram (0.5 %) eye 0.5 inch ophthalmic (eye) QID #3.5 02/19/22 ointment grams doxycycline monohydrate 100 mg 100 mg PO BID 10 days #20 tabs 05/21/22 tablet <GABRIELLE Lovett - Last Filed: 05/21/22 18:57> Allergies/adverse reactions: Allergies Allergy/AdvReac Type Severity Reaction Status Date / Time Penicillins [PENICILLINS] Allergy Severe SWELLING/IT Verified 03/11/22 14:11 JOE vancomycin [VANCOMYCIN] Allergy Intermediate RASH AND Verified 03/11/22 14:11 ITCHING penicillin V Allergy Unknown redness Verified 03/11/22 14:11 and itching/ inflammation <GABRIELLE Lovett - Last Filed: 05/21/22 18:57> Review of Systems Review of Systems: Constitutional: No Fever, No Chills Cardiovascular: No Chest Pain, No SOB Respiratory: No Cough, No Dyspnea Gastrointestinal: No Nausea, No Vomiting, No Diarrhea, No abdominal Pain Genitourinary: No Dysuria, No Hematuria Musculoskeletal: positive left breast pain, No Myalgias, No Joint Swelling Skin: No Skin lacerations, No rash Neuro: No Weakness, No Numbness, No Paresthesias, No Loss of Consciousness, No Dizziness, No Headache <Jenae Luis NP - Last Filed: 05/22/22 02:04> Yes all other systems are reviewed and are negative <Jenae Luis NP - Last Filed: 05/22/22 02:04> [facility] Past Medical History Attestation statement: The following information was validated with the patient. <Jenae Luis NP - Last Filed: 05/22/22 02:04> Source: old records reviewed <Jenae Luis NP - Last Filed: 05/22/22 02:04> Medical History: Medical History Asthma Diabetes Hypertension Hyperthyroidism <GABRIELLE Lovett - Last Filed: 05/21/22 18:57> Surgical History: Surgical History History of cholecystectomy History of removal of cyst History of removal of cyst <GABRIELLE Lovett - Last Filed: 05/21/22 18:57> Family History Family History: Family History Mother Cancer Diabetes Hypertension Father No problems noted. <GABRIELLE Lovett - Last Filed: 05/21/22 18:57> Social History Social History: Social History Alcohol intake: never Patient Tobacco Use Status: Never used Tobacco Advance Directives: No Advance Directives Information Provided: No Current occupational status: disabled Current occupation: rt handed <GABRIELLE Lovett - Last Filed: 05/21/22 18:57> Physical Exam ED Vital Signs: Vital Signs - 24 hr 05/21/22 18:55 Temperature 97.5 F Pulse Rate 94 Respiratory Rate 16 Blood Pressure 149/71 H Pulse Oximetry 97 Oxygen Delivery Method Room Air BMI result Body Mass Index 32.3 <GABRIELLE Lovett - Last Filed: 05/21/22 18:57> Vital Signs - 24 hr 05/21/22 18:55 Temperature 97.5 F Pulse Rate 94 Respiratory Rate 16 Blood Pressure 149/71 H Pulse Oximetry 97 Oxygen Delivery Method Room Air BMI result Body Mass Index 32.3 <Jenae Luis NP - Last Filed: 05/22/22 02:04> Appearance: Alert. Oriented X3. No acute distress. Eyes: Pupils equal, round and reactive to light. ENT: Pharynx normal. Neck: Normal inspection. Neck supple. CVS: 2 cm area of cellulitis to the left breast at the 3 o'clock position about 3 cm from the nipple. Hard indurated nonfluctuant area noted deep under cellulitis. Normal heart rate and rhythm. Pulses normal. Respiratory: No respiratory distress. Breath sounds normal. Abdomen: Soft and nontender. Skin: Skin warm and dry. Normal skin color. Normal skin turgor. Extremities: No lower extremity edema. Gait well-balanced well coordinated. Neuro: No motor deficit. No sensory deficit. Cranial nerves 2-12 intact. <Jenae Luis NP - Last Filed: 05/22/22 02:04> Course Course Course Narrative: 1854 46 year old female presents w/ bump to left breast was seen here yesterday left due to wait time today got call for abnml US of L breast. Tells me lump has been there for 1 week worsening. No family hx of breast cancer. US shows left breast complex fluid collection likely representing an abscess. PE: benign, will not too sensitive exam in triage due to privacy. Vital signs stable. Plan at this time place patient back in waiting room. <GABRIELLE Lovett - Last Filed: 05/21/22 18:57> 185 46 year old female presents w/ bump to left breast was seen here yesterday left due to wait time today got call for abnml US of L breast. Tells me lump has been there for 1 week worsening. No family hx of breast cancer. US shows left breast complex fluid collection likely representing an abscess. PE: benign, will not too sensitive exam in triage due to privacy. Vital signs stable. Plan at this time place patient back in waiting room. 46-year-old female presents for known left breast abscess. Patient noted to have a red spot on her left breast 4 days ago, states that the swelling and tenderness has increased it to the point where she can not wear a bra or put assured on comfortably. She does not report any fevers or chills. Physical exam indicates a 2 cm area of cellulitis and a hard indurated area without fluctuance underneath that area of cellulitis. Patient states that it is so uncomfortable that she does not want me to touch it any more. She does not have any cervical or axillary lymphadenopathy. Does not report having a mammogram. I did stress the importance of having a mammogram with this patient, and will reach out to Dr. Quinn. 23:[address] Quinn, patient can be treated as an outpatient, will have patient follow up with [facility] for mammogram, and call Dr. Quinn office for surgical consult. Will start doxycycline. Patient verbalized understanding of and agrees to plan of care discharge home. Verbali zed understanding of signs and symptoms indicating need for emergent intervention. <Jenae Luis NP - Last Filed: 05/22/22 02:04> Consultations Consultation #1: Dr. Quinn <Jenae Luis NP - Last Filed: 05/22/22 02:04> Time: 23:10 <Jenae Luis NP - Last Filed: 05/22/22 02:04> Medications Administered Discontinued Medications Generic Name Dose Route Start Last Admin Trade Name Freq PRN Reason Stop Dose Admin Doxycycline Monohydrate 100 mg 05/21/22 23:00 05/21/22 23:10 Doxycycline Monohydrate 100 Mg Capsule PO 05/21/22 23:01 100 mg ONCE ONE Administration <GABRIELLE Lovett - Last Filed: 05/21/22 18:57> Medications Administered Discontinued Medications Generic Name Dose Route Start Last Admin Trade Name Freq PRN Reason Stop Dose Admin Doxycycline Monohydrate 100 mg 05/21/22 23:00 05/21/22 23:10 Doxycycline Monohydrate 100 Mg Capsule PO 05/21/22 23:01 100 mg ONCE ONE Administration <Jenae Luis NP - Last Filed: 05/22/22 02:04> Medical Decision Making Medical Decision Making Differential Diagnoses: Differential diagnosis (Breast cancer, abscess, cellulitis, sepsis) <Jenae Luis NP - Last Filed: 05/22/22 02:04> Consideration of admission/observation: Consideration of Admission/Observation (Admission considered, patient is not septic, able to tolerate fluids, and will follow up with surgery & [facility] for mammogram) <Jenae Luis NP - Last Filed: 05/22/22 02:04> Discussion of management with other physician/healthcare provider/other source (e.g., hospitalist, executive talent acquisition consultant, behavioral health): Discussion w/other physician/healthcare provider (Dr. 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 <Jenae Luis NP - Last Filed: 05/22/22 02:04> Discussion of test interpretation with radiology: Discussion of test interpretation with radiology Breast ultrasound reviewed from 05/20/2022. <Jenae Luis NP - Last Filed: 05/22/22 02:04> Tests considered but not performed: Tests Considered But Not Performed (CT scan of chest, not required as ultrasound with sufficient. Mammogram required.) <Jenae Luis NP - Last Filed: 05/22/22 02:04> Discharge Plan Discharge Clinical Impression: Abscess of breast <GABRIELLE Lovett - Last Filed: 05/21/22 18:57> Patient Disposition: Home, Self-Care <GABRIELLE Lovett - Last Filed: 05/21/22 18:57> Instructions: Abscess (ED) <GABRIELLE Lovett - Last Filed: 05/21/22 18:57> Additional Instructions: Se le evalu? por un absceso en el seno tawnya. Debe hacer un seguimiento con Bridget de la [facility] y hacerse mi mamograf?a. Discut? hopkins amanda con el Dr. Quinn, llame a la oficina para programar mi jenni para la incisi?n quir?rgica y el drenaje. [place] doxiciclina 100 mg dos veces al d?a temi los pr?ximos 10 d?as. Claire por elegir harini departamento de emergencias para hopkins evaluaci?n. Por favor, melida un seguimiento con el m?dico de atenci?n primaria seg?n sea necesario. Regrese al departamento de emergencias por cualquier s?ntoma nuevo, preocupante o que empeore. You were evaluated for abscess to your left breast. You must follow-up with [facility] and have mammogram. I discussed your case with Dr. Quinn, please call the office for an appointment for surgical incision and drainage. Take doxycycline 100 mg twice a day for the next 10 days. Thank you for choosing this emergency department for evaluation. Please follow-up with primary care physician as needed. Return to the emergency department for any new, concerning, or worsening symptoms. <GABRIELLE Lovett - Last Filed: 05/21/22 18:57> Prescriptions: New doxycycline monohydrate 100 mg tablet 100 mg PO BID 10 Days Qty: 20 0RF No Action acetaminophen [Tylenol Extra Strength] 500 mg tablet 500 mg PO Q6H PRN (Reason: pain or fever) Qty: 20 0RF naproxen 500 mg tablet 500 mg PO BID PRN (Reason: pain) 10 Days Qty: 20 0RF ketorolac 10 mg tablet 10 mg PO QID PRN (Reason: pain) 5 Days Qty: 20 0RF Rx Instructions: Patient received 30 mg IM Toradol in the ED. erythromycin 5 mg/gram (0.5 %) ointment 0.5 inch ophthalmic (eye) QID Qty: 3.5 0RF cyclobenzaprine 10 mg tablet 10 mg PO TID PRN (Reason: muscle spasm) Qty: 10 0RF Humulin R U-500 (Conc) Kwikpen 500 unit/mL (3 mL) insulin pen subcut Ozempic 1 mg/dose (4 mg/3 mL) pen injector subcut (DME) pen needle, diabetic [Sure Comfort Pen Needle] 31 gauge x 3/16 needle See Rx Instructions .ROUTE .MEDSUPPLY Qty: 50 Rx Instructions: As directed alcohol swabs [Alcohol Prep Pads] Pads, Medicated topical lisinopril 10 mg tablet PO DAILY meloxicam 15 mg tablet 15 mg PO DAILY budesonide-formoterol [Symbicort] 160-4.5 mcg/actuation HFA aerosol inhaler inhalation albuterol sulfate [Ventolin HFA] 90 mcg/actuation HFA aerosol inhaler inhalation cholecalciferol (vitamin D3) 1,250 mcg (50,000 unit) capsule 1,250 mcg PO QWEEK diclofenac sodium [Voltaren Arthritis Pain] 1 % gel 2 g topical QID Rx Instructions: apply to single elbow, wrist or hand; for hand includes palm/fingers/back of hand pantoprazole 40 mg tablet,delayed release (DR/EC) 40 mg PO DAILY levothyroxine 25 mcg capsule 25 mcg PO DAILY <GABRIELLE Lovett - Last Filed: 05/21/22 18:57> [place]: [facility] [place] [facility] [place] Group] - 1 day (Emergent mammogram needed) Christofer Quinn MD [Physician] - 1 day (Left breast abscess) <GABRIELLE Lovett - Last Filed: 05/21/22 18:57> Interventions: ED Discharge Assessment Last Done: 05/21/22 23:22 <GABRIELLE Lovett - Last Filed: 05/21/22 18:57> Discharge Date/Time: 05/21/22 23:24 <GABRIELLE Lovett - Last Filed: 05/21/22 18:57>
[2022-05-21 18:55] VITALS: BP 149/71; PULSE 94; RESP 16; TEMP 36.4; O2SAT 97; BMI 32.3
[2022-05-21 22:16] LABS: Basophils Absolute Auto 0.1 X10*3/uL (0.0-0.2); Basophils Percent Auto 0.7 % (0-2); Eosinophils Absolute Auto 0.4 X10*3/uL (0.0-0.4); Eosinophils Percent Auto 3.5 % (0-4); Hemoglobin 14.8 g/dl (12.0-16.0); Imm Gran Abs Auto 0.03 X10*3/uL (0.00-0.03); Imm Gran Pct Auto 0.3 % (0.0-0.4); Lymphocytes Absolute Auto 4.1 X10*3/uL (1.2-4.9); Lymphocytes Percent Auto 37.6 % (20-40); MANUAL DIFF FLAG NO; Mean Corpuscular HGB Conc 34.4 g/dl (31.0-35.0); Mean Corpuscular Hemoglobin 31.6 pg (27.0-33.0); Mean Corpuscular Volume 91.7 fL (80.0-98.0); Mean Platelet Volume 10.5 fL (9.4-12.3); Monocytes Absolute Auto 0.8 X10*3/uL (0.1-1.2); Monocytes Percent Auto 7.5 % (2-11); Neutrophils Absolute Auto 5.6 x10*3/uL (2.0-8.3); Neutrophils Percent Auto 50.4 % (45-73); Platelet Count 216 X10*3/uL (160-400); Red Blood Count 4.69 X10*6/uL (4.20-5.50); Red Cell Distribution Width 11.6 % (11.0-16.0)
[2022-05-21 22:35] LABS: Anion Gap 12 (12-20); Blood Urea Nitrogen 23 mg/dL (9-16); Calcium 8.9 mg/dL (8.4-10.2); Carbon Dioxide 24 mmol/L (22-29); Chloride 107 mmol/L (96-108); Creatinine Clr Calc Pharmacy 86.4; Estimated Glomerular Filt Rate > 60; Glucose Random 124 mg/dL (60-115); Potassium 4.8 mmol/L (3.3-5.1); Sodium 138 mmol/L (135-145)
[2022-05-21] MEDS: Doxycycline Monohydrate 100 MG CAPSULE PO (23:10)
== END 2022-05-21 23:24 | disposition home or self-care (01) ==
PROVIDERS: Nurse Practitioner Family; Emergency Provider Emergency Medicine; PCP Nurse Practitioner Primary Care
DX: N61.1 Abscess of the breast and nipple (principal); R93.5 Abnormal findings on diagnostic imaging of other abdominal regions, including retroperitoneum; Z79.899 Other long term (current) drug therapy
CPT/HCPCS: 36415; 80048; 85025; 99282; 99283

== ENCOUNTER 2022-05-27 13:43 | Outpatient (REF) | payer MEDICARE, MEDICAID, SELFPAY | END 2022-05-27 13:44 | disposition home or self-care (01) | LOC: HO.LNP 13:43 | PROVIDERS: Visit Provider Surgery | DX: N61.1 Abscess of the breast and nipple (principal) | CPT/HCPCS: 10160; 87070; 87077; 87186; 87205; 99212 ==

== ENCOUNTER → 2022-06-03 10:00 | Outpatient (BNVA) | payer MEDICARE, MEDICAID, SELFPAY | PROVIDERS: PCP Nurse Practitioner Primary Care; Referring Provider Nurse Practitioner Primary Care; Visit Provider Physician Assistant Surgical | DX: N61.1 Abscess of the breast and nipple (principal) | CPT/HCPCS: 10060; 99212 ==

== ENCOUNTER 2022-06-04 20:59 | Emergency (ER) | payer MEDICARE, MEDICAID, SELFPAY ==
--- NOTE | ~2022-06-04 | XR_ITS ---
EXAMINATION: XR KNEE, LEFT CLINICAL INFORMATION: Left knee pain status post fall. COMPARISON: None
[2022-06-04 21:06] VITALS: BP 118/71; PULSE 110; RESP 18; TEMP 37; O2SAT 98; BMI 32.1
--- NOTE | 2022-06-04 22:28 | ED.FALL ---
HPI - Fall General Chief Complaint: Fall Stated Complaint: fall down stairs Time Seen by Provider: 06/04/22 22:22 Source: patient Mode of arrival: ambulatory Limitations: language barrier History of Present Illness HPI Narrative: 46-year-old female presents for injuries after a slip and fall on the ice. She is reporting left hand left knee and left ankle pain. She does have an abrasion to the left knee and some swelling to the left ankle. She did not hit her head or lose consciousness. MD complaint: fall Onset (ago): hour(s) (Within the hour of arrival) Fall from: standing Fall witnessed: yes, by bystander Place fall occurred: street Loss of consciousness: none Prolonged down time: no Symptoms prior to fall: none Context: tripped/slipped (Ice) Location of injury - extremities: left: knee and ankle Severity: moderate Severity scale (1-10): 6 Quality: aching Associated symptoms (after fall): denies Related Data Home Medications Medication Instructions Recorded Confirmed albuterol sulfate 90 mcg/actuation inhalation 11/19/21 11/26/21 aerosol inhaler (Ventolin HFA) alcohol swabs (Alcohol Prep Pads) pad topical 11/19/21 11/19/21 budesonide-formoterol HFA 160 inhalation 11/19/21 11/19/21 mcg-4.5 mcg/actuation aerosol inhaler (Symbicort) cholecalciferol (vitamin D3) 1,250 1,250 mcg PO QWEEK 11/19/21 11/19/21 mcg (50,000 unit) capsule diclofenac sodium 1 % topical gel 2 g topical QID 11/19/21 11/19/21 (Voltaren Arthritis Pain) insulin regular hum U-500 conc 500 unit subcut 11/19/21 11/19/21 unit/mL(3 mL) subcut pen (Humulin R U-500 (Conc) Insulin Kwikpen) levothyroxine 25 mcg capsule 25 mcg PO DAILY 11/19/21 11/19/21 lisinopril 10 mg tablet mg PO DAILY 11/19/21 11/19/21 meloxicam 15 mg tablet 15 mg PO DAILY 11/19/21 11/19/21 pantoprazole 40 mg tablet,delayed 40 mg PO DAILY 11/19/21 11/19/21 release pen needle, diabetic 31 gauge x #50 ea 11/19/21 11/19/21 3/16 (Sure Comfort Pen Needle) semaglutide 1 mg/dose (4 mg/3 mL) mg subcut 11/19/21 11/19/21 subcutaneous pen injector (Ozempic) Previous Rx's Medication Instructions Recorded acetaminophen 500 mg tablet 500 mg PO Q6H PRN pain or fever 11/19/20 (Tylenol Extra Strength) #20 tabs naproxen 500 mg tablet 500 mg PO BID PRN pain 10 days #20 11/19/20 tabs ketorolac 10 mg tablet 10 mg PO QID PRN pain 5 days #20 07/30/21 tabs cyclobenzaprine 10 mg tablet 10 mg PO TID PRN muscle spasm #10 08/01/21 tabs erythromycin 5 mg/gram (0.5 %) eye 0.5 inch ophthalmic (eye) QID #3.5 02/19/22 ointment grams doxycycline monohydrate 100 mg 100 mg PO BID 10 days #20 tabs 05/21/22 tablet levofloxacin 500 mg tablet 500 mg PO DAILY #7 tabs 06/03/22 ibuprofen 600 mg tablet 600 mg PO Q6H PRN pain #90 tabs 06/05/22 Allergies Allergy/AdvReac Type Severity Reaction Status Date / Time Penicillins [PENICILLINS] Allergy Severe SWELLING/IT Verified 06/03/22 10:41 JEO vancomycin [VANCOMYCIN] Allergy Intermediate RASH AND Verified 06/03/22 10:41 ITCHING penicillin V Allergy Unknown redness Verified 06/03/22 10:41 and itching/ inflammation Review of Systems Review of Systems: Constitutional: No Fever, No Chills Cardiovascular: No Chest Pain, No SOB Respiratory: No Cough, No Dyspnea Gastrointestinal: No abdominal Pain Musculoskeletal: positive left hand, left knee and left ankle pain, No Myalgias, positive left ankle Swelling Skin: No Skin lacerations, No rash Neuro: No Weakness, No Numbness, No Paresthesias, No Loss of Consciousness, No Dizziness, No Headache Yes all other systems are reviewed and are negative [facility] Past Medical History Attestation statement: The following information was validated with the patient. Source: old records reviewed Medical History Asthma Diabetes Hypertension Hyperthyroidism Surgical History History of cholecystectomy History of removal of cyst History of removal of cyst Family History Family History Mother Cancer Diabetes Hypertension Father No problems noted. Social History Social History Alcohol intake: never Patient Tobacco Use Status: Never used Tobacco Advance Directives: No Current occupational status: disabled Current occupation: rt handed Physical Exam Vital Signs: Vital Signs: Last Vital Signs Temp 98.8 F 06/05/22 00:25 Pulse 108 H 06/05/22 00:25 Resp 19 06/05/22 00:25 BP 120/75 06/05/22 00:25 Pulse Ox 94 06/05/22 00:25 O2 Del Method 06/05/22 00:25 BMI result Body Mass Index 32.1 Appearance: Alert. Oriented X3. No acute distress. Eyes: Pupils equal, round and reactive to light. Neck: Normal inspection. Neck supple. CVS: Normal heart rate and rhythm. Pulses normal. Respiratory: No respiratory distress. Breath sounds normal. Skin: Superficial abrasion noted to the right knee. Extremities: Decreased range of motion with flexion extension supination and pronation to the left hand. Consistent with wrist sprain. Right knee has full range of motion, no effusion or tendon laxity noted. Negative anterior-posterior drawer. Left ankle has some lateral malleolar bruising and swelling. Tenderness noted to the malleolar process and the 5th metatarsal. Neuro: No motor deficit. No sensory deficit. Cranial nerves 2-12 intact. Course Course Course Narrative: 46-year-old female presents for injuries sustained from a fall. She slipped on the ice landed on her left wrist, left knee and twisted her left ankle. Patient did not hit her head or lose consciousness. X-rays ordered of the knee and hand. During my physical assessment I did notice that she does have some left malleolar process swelling, bruising, with tenderness to the process and proximal 5th metatarsal. Will add on foot and ankle x-rays. Tdap vaccine is updated. Superficial abrasion to the left knee cleaned with sterile saline and Betadine. 00:24 fracture noted to the lateral aspect of the calcaneus, dorsal navicular, distal fibula. Plan is for boot and crutches. Left wrist negative for fracture. Considering patient has decreased range of motion injuries are consistent with a sprain. Will give velcro wrist splint. Patient does have an appointment with orthopedics on Tuesday. Will add Kiarra to referrals. Patient was advised for nonweightbearing. Medications Administered Discontinued Medications Generic Name Dose Route Start Last Admin Trade Name Yunielq PRN Reason Stop Dose Admin Ibuprofen 600 mg 06/05/22 00:18 06/05/22 00:23 Ibuprofen 600 Mg Tablet PO 06/05/22 00:19 600 mg ONCE ONE Administration Medical Decision Making Differential Diagnosis Differential Diagnoses: The differential diagnosis associated with the presentation includes Fracture, dislocation, effusion abrasion Independent Interpretation I performed an independent interpretation of an: Plain X-Ray Radiology Impression Discussion of test interpretation with radiology: I have reviewed the radiologist's reading. Radiologist Impression: EXAMINATION: XR ANKLE, LEFT XR FOOT, LEFT CLINICAL INFORMATION: Pain status-post fall.? COMPARISON: Radiographs dated 03/31/2019.? TECHNIQUE: AP, lateral, and mortise views of the left ankle. AP, lateral, and oblique views of the left foot. FINDINGS: Bony alignment and mineralization are normal. The ankle mortise is intact. There is a small avulsion fragment newly seen at the lateral aspect of the anterior surface of the calcaneus, adjacent to the calcaneocuboid joint. As well, on the lateral view, a tiny avulsion fragment is newly noted towards the dorsal margin of the navicular bone. There is are small probable fracture fragments situated adjacent to the distal margin of the fibula, possibly acute given adjacent mild soft tissue swelling. Boehler's angle is normal. There are large posterior and mild plantar calcaneal spurs. There is no focal periosteal thickening or bone erosion. No foreign body or soft tissue gas is noted. XR/XR ankle LT min 3V IMPRESSION: There are acute fractures noted of the lateral aspect of the anterior surface of the calcaneus and adjacent to the dorsal navicular bone on the lateral view. Further small fracture fragments are suspected of the distal fibula, possibly acute given mild adjacent soft tissue swelling. Please correlate with clinical findings. Together, these findings could be more fully evaluated with CT, if clinically indicated. EXAMINATION: XR KNEE, LEFT CLINICAL INFORMATION: Left knee pain status post fall.? COMPARISON: None? TECHNIQUE: Four views of the left knee. FINDINGS: Bones and soft tissues are normal. No fracture or joint effusion. Alignment is anatomic. Joint spaces are well maintained. No abnormal soft tissue calcification.? XR/XR knee LT 2V IMPRESSION: Unremarkable left knee. ? EXAMINATION: XR HAND, LEFT CLINICAL INFORMATION: Left hand pain status post fall.? COMPARISON: Left hand radiographs dated 01/04/2013.? TECHNIQUE: PA, lateral, and oblique views of the left hand. FINDINGS: There is no acute fracture or dislocation. The joint spaces are unremarkable. The carpal bones are normally aligned. The distal radius and ulna are intact. There is mild soft tissue swelling. XR/XR hand LT 2V IMPRESSION: Soft tissue swelling, similar to the previous study. No acute underlying osseous abnormality or significant degenerative changes. External Record Review External record reviewed: Prior outpatient radiology Prescription Management I considered prescription management with: Pain Medication Discharge Plan Discharge Clinical Impression: Calcaneus fracture, left, Fracture of distal end of fibula, Fx navicular, foot-closed, Left wrist sprain, Abrasion of knee Patient Disposition: Home, Self-Care Instructions: Crutch Instructions (ED), Foot Fracture in Adults (ED), Calcaneal Fracture (ED), Abrasion (ED), R.I.C.E. Treatment (ED), Wrist Sprain (ED) Additional Instructions: Fue evaluado por lesiones sufridas por mi ca?da. Zelaya tobillo tawnya est? roto en varios lugares. Zelaya hueso escafoides, calc?mayte y peron? distal est?n rotos. Por favor, mant?n zelaya bota puesta. No aplique peso a zelaya pie. Debe usar muletas. Puede considerar comprar o alquilar un scooter de rodilla. Debes hacer un seguimiento con ortopedia. Tienes mi jenni el 30 con Sheri Kiarra ANTHONY. Le enviar? zelaya historial para que pueda estar al tanto de zac nuevas lesiones. Claire por elegir harini departamento de emergencias para zelaya evaluaci?n. Por favor, melida un seguimiento con el m?dico de atenci?n primaria seg?n sea necesario. Regrese al departamento de emergencias por cualquier s?ntoma nuevo, preocupante o que empeore. You were evaluated for injury sustained from a fall. Your left ankle is broken in multiple places. Your navicular bone, calcaneus and distal fibula are broken. Please keep her boot on. Do not apply weight to your foot. You must use crutches. You may consider purchasing or renting a knee scooter. You must follow-up with Orthopedics. You do have an appointment on the with Sheri ANTHONY. I will forward your chart to her so she can be updated on your new injuries. Thank you for choosing this emergency department for evaluation. Please follow-up with primary care physician as needed. Return to the emergency department for any new, concerning, or worsening symptoms. Prescriptions: New ibuprofen 600 mg tablet 600 mg PO Q6H PRN (Reason: pain) Qty: 90 0RF No Action acetaminophen [Tylenol Extra Strength] 500 mg tablet 500 mg PO Q6H PRN (Reason: pain or fever) Qty: 20 0RF naproxen 500 mg tablet 500 mg PO BID PRN (Reason: pain) 10 Days Qty: 20 0RF ketorolac 10 mg tablet 10 mg PO QID PRN (Reason: pain) 5 Days Qty: 20 0RF Rx Instructions: Patient received 30 mg IM Toradol in the ED. erythromycin 5 mg/gram (0.5 %) ointment 0.5 inch ophthalmic (eye) QID Qty: 3.5 0RF cyclobenzaprine 10 mg tablet 10 mg PO TID PRN (Reason: muscle spasm) Qty: 10 0RF doxycycline monohydrate 100 mg tablet 100 mg PO BID 10 Days Qty: 20 0RF levofloxacin 500 mg tablet 500 mg PO DAILY Qty: 7 0RF Humulin R U-500 (Conc) Kwikpen 500 unit/mL (3 mL) insulin pen subcut Ozempic 1 mg/dose (4 mg/3 mL) pen injector subcut (DME) pen needle, diabetic [Sure Comfort Pen Needle] 31 gauge x 3/16 needle See Rx Instructions .ROUTE .MEDSUPPLY Qty: 50 Rx Instructions: As directed alcohol swabs [Alcohol Prep Pads] Pads, Medicated topical lisinopril 10 mg tablet PO DAILY meloxicam 15 mg tablet 15 mg PO DAILY budesonide-formoterol [Symbicort] 160-4.5 mcg/actuation HFA aerosol inhaler inhalation albuterol sulfate [Ventolin HFA] 90 mcg/actuation HFA aerosol inhaler inhalation cholecalciferol (vitamin D3) 1,250 mcg (50,000 unit) capsule 1,250 mcg PO QWEEK diclofenac sodium [Voltaren Arthritis Pain] 1 % gel 2 g topical QID Rx Instructions: apply to single elbow, wrist or hand; for hand includes palm/fingers/back of hand pantoprazole 40 mg tablet,delayed release (DR/EC) 40 mg PO DAILY levothyroxine 25 mcg capsule 25 mcg PO DAILY Referrals: Sheri Plunkett PA-C [Physician Boiler Shop Supervisor] - 3 days (Calcaneus distal fibula and navicular fracture of the left extremity) Stand Alone Forms: Work/School Release
--- NOTE | 2022-06-04 22:47 | PC.NURSE ---
This RN cleaned pt left knee wound out. Some rock debris in the wound. Left to air dry at this time
[2022-06-05 00:25] VITALS: BP 120/75; PULSE 108; RESP 19; TEMP 37.1; O2SAT 94
--- NOTE | 2022-06-05 01:10 | PC.NURSE ---
Reviewed discharge instruction with pt. pt verbalized understanding. Notified RN Isabelle
== END 2022-06-05 01:12 | disposition home or self-care (01) ==
PROVIDERS: Emergency Provider Internal Medicine; PCP Nurse Practitioner Primary Care
DX: S80.212A Abrasion, left knee, initial encounter (principal); S82.402A Unspecified fracture of shaft of left fibula, initial encounter for closed fracture; S92.252A Displaced fracture of navicular [scaphoid] of left foot, initial encounter for closed fracture; S63.502A Unspecified sprain of left wrist, initial encounter; S92.002A Unspecified fracture of left calcaneus, initial encounter for closed fracture; M25.472 Effusion, left ankle; W10.9XXA Fall (on) (from) unspecified stairs and steps, initial encounter; Y93.9 Activity, unspecified; Y92.9 Unspecified place or not applicable; Y99.9 Unspecified external cause status; Z79.899 Other long term (current) drug therapy
CPT/HCPCS: 29125; 73120; 73560; 73610; 73630; 99283; 99284

== ENCOUNTER → 2022-06-09 12:55 | Outpatient (BNVA) | payer MEDICARE, MEDICAID, SELFPAY | PROVIDERS: PCP Nurse Practitioner Primary Care; Visit Provider Physician Assistant Surgical | DX: N61.1 Abscess of the breast and nipple (principal) | CPT/HCPCS: 99212 ==

== ENCOUNTER → 2022-06-11 13:44 | Outpatient (BNVA) | payer MEDICARE, MEDICAID, SELFPAY | PROVIDERS: PCP Nurse Practitioner Primary Care; Visit Provider Physician Assistant | DX: S92.251A Displaced fracture of navicular [scaphoid] of right foot, initial encounter for closed fracture (principal) | CPT/HCPCS: 99202 ==

== ENCOUNTER → 2022-07-06 15:08 | Outpatient (BNVA) | payer MEDICARE, MEDICAID, SELFPAY | PROVIDERS: PCP Nurse Practitioner Primary Care; Visit Provider Physician Assistant | DX: S92.251D Displaced fracture of navicular [scaphoid] of right foot, subsequent encounter for fracture with routine healing (principal) | CPT/HCPCS: 99212 ==

== ENCOUNTER 2022-07-09 16:33 | Outpatient (REF) | payer MEDICARE, MEDICAID, SELFPAY ==
--- NOTE | ~2022-07-09 | XR_ITS ---
EXAMINATION: XR SHOULDER, RIGHT CLINICAL INFORMATION: Pain COMPARISON: None TECHNIQUE: Three views of the right shoulder. FINDINGS: Mild glenohumeral joint arthritis, mild joint space loss, acetabular osteophytes. No acute fracture or dislocation. Mild acromioclavicular arthritis. No abnormal soft tissue calcification. Lucencies projected over the soft tissues of the humerus, seen on the axillary view, could be related to overlapping densities/technical. Clinically correlate. Repeat radiographs as clinically warranted. XR/XR shoulder RT min 2V IMPRESSION: Mild glenohumeral joint arthritis. Mild acromioclavicular arthritis. Lucencies projected over the image on the axillary view, could be technical. Clinically correlate. Repeat radiographs as clinically warranted.
== END 2022-07-09 16:34 | disposition home or self-care (01) ==
LOC: HO.HOSX 16:33
PROVIDERS: Visit Provider Physician Assistant
DX: M75.101 Unspecified rotator cuff tear or rupture of right shoulder, not specified as traumatic (principal)
CPT/HCPCS: 20610; 73030; 99212; J1020

== ENCOUNTER 2022-08-17 14:15 | Outpatient (REF) | payer MEDICARE, MEDICAID, SELFPAY ==
--- NOTE | ~2022-08-17 | XR_ITS ---
EXAMINATION: XR ANKLE, LEFT CLINICAL INFORMATION: Left ankle pain. COMPARISON: None TECHNIQUE: AP, lateral, and mortise views of the left ankle. FINDINGS: The bones and soft tissues are normal. No fracture. Alignment is anatomic. Small plantar and retrocalcaneal spurs are seen. A corticated osseous density is seen subjacent to the lateral malleolus. No joint effusion. XR/XR ankle LT min 3V IMPRESSION: Degenerative changes without acute abnormality.
== END 2022-08-17 14:16 | disposition home or self-care (01) ==
LOC: HO.HOSX 14:15
PROVIDERS: Visit Provider Physician Assistant
DX: S92.252D Displaced fracture of navicular [scaphoid] of left foot, subsequent encounter for fracture with routine healing (principal); M75.101 Unspecified rotator cuff tear or rupture of right shoulder, not specified as traumatic; W00.0XXA Fall on same level due to ice and snow, initial encounter; Y93.9 Activity, unspecified; Y92.9 Unspecified place or not applicable; Y99.9 Unspecified external cause status
CPT/HCPCS: 73610; 99212

== ENCOUNTER 2022-10-08 10:23 | Outpatient (RCR) | payer MEDICARE, MEDICAID, SELFPAY ==
--- NOTE | 2022-10-08 14:08 | MHC.PT.EP ---
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 OBJECTIVE FINDINGS: LIMITED AROM Lt ANKLE AND VERONICA HIPS, TIGHT PSOAS AND CALF MM VERONICA ; DECR STRENGTH IN PROX / LUMBOPELVIC AND Lt LE,ALTERED SENSATION IN Lt LE, AND SIGNIF PAIN IN LEFT DISTAL LE. FUNCTIONALLY, Pt DISPLAYS A COMPENSATORY GAIT-> AMB W ABSENT HEEL STRIKE AND TOE OFF STANCE/ WT BEARING THRU Lt LE- ALTERED STAIR MGMT, DECR STANDING, SQUATTING, AND DECR JOAN TO REG ADLs. Pt IS A GOOD PT CANDIDATE TO GUIDE HER IN ADDRESSING THE ABOVE FINDINGS, DEV A HEP, PAIN MGMT, AND MAXIMIZING FUNCTIONAL INDEPENDENCE. 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 Manual therapy to restore motion and function. Therapeutic exercise to improve strength and flexibility. Neuromuscular re-education for posture and balance. Therapeutic activities to return to functional activities of daily living. Electronically signed by: VASQUEZ ARAMBULA,PT Please sign and return to therapist. Thank you for your referral.
--- NOTE | 2022-10-29 12:26 | MHC.PT.DC ---
[facility] [place] Office [place] Office [place] Office [address] Navin Melgoza [address] [phone] F: [phone] F: [phone] F: [phone] F: [phone] Physical Therapy Discharge Report Diagnosis: FRACTURE OF NAVICULAR BONE Rt FOOT-> ROM, STRENGTHENING Date of Surgery: Date of Evaluation: 10/08/22 Date of Discharge: Treatments to Date: 1 Cancellations to Date: 0 No Shows to Date: 3 Discharge Status: Visit Non-compliance Discharge Summary: Pt IS D/C THIS DATE FROM PT DUE TO POOR ATTENDANCE FOR SCHED PT APPTS, EVEN AFTER PHONING Pt. SHE, THEREFORE, DID NOT MEET HER PT GOALS AND IS D/C THIS DTAE- A HEP WAS INITIATED. Electronically signed by: VASQUEZ ARAMBULA,PT Please sign and return to therapist. Thank you for your referral.
== END 2022-10-29 12:25 | disposition home or self-care (01) ==
LOC: HO.PT 10:23
PROVIDERS: Visit Provider Physician Assistant
DX: S92.251D Displaced fracture of navicular [scaphoid] of right foot, subsequent encounter for fracture with routine healing (principal)
CPT/HCPCS: 97110; 97162

== ENCOUNTER 2022-12-04 14:28 | Emergency (ER) | payer MEDICARE, MEDICAID, SELFPAY ==
--- NOTE | ~2022-12-04 | XR_ITS ---
EXAMINATION: XR CHEST CLINICAL INFORMATION: Rib pain bilaterally. COMPARISON: 02/10/2021. TECHNIQUE: 2 views of the chest were obtained. FINDINGS: No significant abnormality is noted involving the heart, lungs, mediastinum, soft tissues. No pneumothorax or pleural fluid identified. No acute fracture identified. Mild degenerative changes of the spine. Status post cholecystectomy. XR/XR chest 2V IMPRESSION: No acute finding.
[2022-12-04 14:45] VITALS: BP 132/72; PULSE 103; RESP 16; TEMP 36.4; O2SAT 96; BMI 32.5
--- NOTE | 2022-12-04 14:45 | ED_ITS ---
HPI - General Adult General Chief complaint: General Medical Stated complaint: rib pain Time Seen by Provider: 12/04/22 17:08 Source: patient and RN notes reviewed Mode of arrival: ambulatory Limitations: no limitations History of Present Illness HPI narrative: This is a 47-year-old female presenting to the emergency department for evaluation of bilateral anterior rib pain x3 days. Patient reports that over the weekend she was picked up by a male individual and throat over his shoulder at a [employer]. She did not initially have pain however reports that 3 days later she developed this pain. Patient denies any fevers, chills, palpitations, shortness of breath or diarrhea. Patient reports that the pain occurs with movement and with palpation. Patient denies history of blood clots, cancer history, recent travel or surgery, or being on control pills. She has been taking Tylenol for her symptoms without any relief. No other complaints or concerns at this time. MD complaint: Rib pain Onset (ago): day(s) Radiation: non-radiation Severity: mild Quality: aching Pain Consistency: constant Relieving factors: none Exacerbating factors: none Associated symptoms: denies other symptoms Treatments prior to arrival: none Related Data Home Medications Medication Instructions Recorded Confirmed albuterol sulfate 90 mcg/actuation inhalation 11/19/21 11/26/21 aerosol inhaler (Ventolin HFA) alcohol swabs (Alcohol Prep Pads) pad topical 11/19/21 11/19/21 budesonide-formoterol HFA 160 inhalation 11/19/21 11/19/21 mcg-4.5 mcg/actuation aerosol inhaler (Symbicort) cholecalciferol (vitamin D3) 1,250 1,250 mcg PO QWEEK 11/19/21 11/19/21 mcg (50,000 unit) capsule diclofenac sodium 1 % topical gel 2 g topical QID 11/19/21 11/19/21 (Voltaren Arthritis Pain) insulin regular hum U-500 conc 500 unit subcut 11/19/21 11/19/21 unit/mL(3 mL) subcut pen (Humulin R U-500 (Conc) Insulin Kwikpen) levothyroxine 25 mcg capsule 25 mcg PO DAILY 11/19/21 11/19/21 lisinopril 10 mg tablet mg PO DAILY 11/19/21 11/19/21 pantoprazole 40 mg tablet,delayed 40 mg PO DAILY 11/19/21 11/19/21 release pen needle, diabetic 31 gauge x #50 ea 11/19/21 11/19/21/ (Sure Comfort Pen Needle) semaglutide 1 mg/dose (4 mg/3 mL) mg subcut 11/19/21 11/19/21 subcutaneous pen injector (Ozempic) Previous Rx's Medication Instructions Recorded acetaminophen 500 mg tablet 500 mg PO Q6H PRN pain or fever 11/19/20 (Tylenol Extra Strength) #20 tabs naproxen 500 mg tablet 500 mg PO BID PRN pain 10 days #20 11/19/20 tabs ketorolac 10 mg tablet 10 mg PO QID PRN pain 5 days #20 07/30/21 tabs cyclobenzaprine 10 mg tablet 10 mg PO TID PRN muscle spasm #10 08/01/21 tabs erythromycin 5 mg/gram (0.5 %) eye 0.5 inch ophthalmic (eye) QID #3.5 02/19/22 ointment grams doxycycline monohydrate 100 mg 100 mg PO BID 10 days #20 tabs 05/21/22 tablet levofloxacin 500 mg tablet 500 mg PO DAILY #7 tabs 06/03/22 ibuprofen 600 mg tablet 600 mg PO Q6H PRN pain #90 tabs 06/05/22 ibuprofen 600 mg tablet 600 mg PO Q6H PRN pain #30 tabs 12/04/22 Allergies Allergy/AdvReac Type Severity Reaction Status Date / Time Penicillins [PENICILLINS] Allergy Severe SWELLING/IT Verified 12/04/22 14:44 JOE vancomycin [VANCOMYCIN] Allergy Intermediate RASH AND Verified 12/04/22 14:44 ITCHING penicillin V Allergy Unknown redness Verified 12/04/22 14:44 and itching/ inflammation Review of Systems Review of Systems: Constitutional: No Weight loss, No Fever, No Chills, No Night Sweats, No Fatigue, No Malaise ENT/Mouth: No Hearing loss, No Ear Pain, No Nasal Congestion, No Sinus Pain, No Hoarseness, No sore throat, No Rhinorrhea, No Swallowing Difficulty Eyes: No Eye Pain, No Swelling, No Redness, No Foreign Body, No Discharge, No Vision Changes Cardiovascular: No Chest Pain, No SOB, No Dyspnea on Exertion, No Orthopnea, No Edema, No Palpitations Respiratory: No Cough, No Sputum, No Wheezing, No Smoke Exposure, No Dyspnea Gastrointestinal: No Nausea, No Vomiting, No Diarrhea, No Constipation, No Abdominal pain, No Hematochezia, No Melena Genitourinary: No irregular bleeding, No Dysuria, No Urinary Frequency, No Hematuria, No Urinary Incontinence/retention, No Urgency, No Flank Pain, No Urinary Flow Changes, No Hesitancy Musculoskeletal: No joint pain, No Myalgias, No Joint Swelling Skin: No Skin Lesions, No rash Neuro: No Weakness, No Numbness, No Paresthesias, No Loss of Consciousness, No Dizziness, No Headache Psych: No Anxiety/Panic, No Depression, No SI/HI/AH/VH, No Social Issues, Heme/Lymph: No Bruising, No Bleeding,No Lymphadenopathy Endocrine: No Polyuria, No Polydipsia, No Temperature Intolerance Yes all other systems are reviewed and are negative Constitutional: Constitutional: Reports as per [facility] Past Medical History Medical History Asthma Diabetes Hypertension Hyperthyroidism Surgical History History of cholecystectomy History of removal of cyst History of removal of cyst Family History Family History Mother Cancer Diabetes Hypertension Father No problems noted. Social History Social History Alcohol intake: never Patient Tobacco Use Status: Never used Tobacco Smoked in Last 30 Days: Yes Use of substances other than those prescribed or required for medical reasons: No Advance Directives: No Advance Directives Information Provided: Yes Current occupational status: employed Current occupation: [employer]/ rt handed dominant Physical Exam ED Vital Signs: Vital Signs - 24 hr 12/04/22 14:45 12/04/22 17:09 Temperature 97.6 F 98.4 F Pulse Rate 103 H 95 Respiratory Rate 16 18 Blood Pressure 132/72 117/64 Pulse Oximetry 96 95 Oxygen Delivery Method Room Air Room Air BMI result Body Mass Index 32.5 Const General: cooperative, comfortable and no acute distress Orientation/consciousness: patient oriented x3 Limitations: no limitations HENMT Head: Yes normal to inspection, Yes normocephalic and Yes atraumatic Ears: hearing grossly normal bilaterally General nose exam: Normal external nose present Face and sinus: Yes normal facial exam Mouth: Normal oral and palatal mucosa present, oropharynx normal and moist mucous membranes Throat: Yes posterior oropharynx normal Eyes General: appearance normal, both eyes and all related structures Eyelids: Yes eyelids normal Conjunctivae: conjunctivae normal Sclerae: sclerae normal Pupils: Equal, round and reactive pupils present EOM: EOMs intact bilaterally Neck Neck: Yes normal visual inspection, Yes full ROM and Yes no lymphadenopathy Lymphatic: no lymphadenopathy noted Chest Other: Tenderness to palpation along the anterior chest wall bilaterally, just below bilateral breasts. No ecchymosis, or overlying skin changes. Chest palpation & inspection: normal inspection of the chest Chest/axillae images: 1. 2. Resp Effort & Inspection: normal respiratory effort and able to speak in complete sentences Auscultation: clear to auscultation bilaterally, no crackles, no rales, no rhonchi and no wheezes Cardio Rate: regular rate Rhythm: regular rhythm Heart sounds: S1 normal heart sound present and S2 normal heart sound present GI Inspection: Yes normal to inspection Skin General skin exam: no rashes or lesions noted Trauma: no lacerations or abrasions Wounds: no wounds Neuro General: patient oriented x3 and moves all extremities Cranial nerves: Yes Equal, round and reactive pupils present Extrem General: Yes normal to inspection Right upper extremity: normal to inspection Left upper extremity: normal to inspection Right lower extremity: normal to inspection Left lower extremity: normal to inspection Course Course Course Narrative: This is an RME: Additional HPI, ROS, PE not included below will be deferred to primary provider. Patient is a 47-year-old female presents to emergency department for evaluation of rib pain bilaterally, pointing to lower costal margin. Exacerbated by deep inspiration and movement. unrelievevd by tylenol. No precipitating injury. Denies fevers, chills, cough, shortness of breath, difficulty breathing, cold-like symptoms. Denies abdominal pain, nausea, vomiting. Plan: CXR Medical Decision Making Medical Decision Making [facility] Narrative: 47-year-old female presenting to the emergency department for evaluation bilateral pain under bilateral breasts for the last 3 days. Patient was picked up by an individual 5 days ago and has had increasing pain since. Patient reports that the pain worsens with palpation and with movement. On examination, patient heart rate 95 beats per minute, O2 saturation 96% on room air. Patient is afebrile. Patient is PERC negative. No recent illness. Tenderness to pa lpation along the anterior chest, consistent with musculoskeletal pain. Will treat with NSAIDs. Given return precautions if any new or worsening symptoms occur. Patient understands and agrees with plan. Stable for discharge. Differential Diagnosis Differential Diagnoses: The differential diagnosis associated with the presentation includes Rib fracture, rib contusion, rib pain, pneumothorax, Costochondritis, PE Admission/Observation Consideration of admission/observation: Escalation of care including admission/observation considered Given chest wall pain, consideration of admission or observation pending chest x-ray. Chest x-ray was unremarkable without any evidence of pneumothorax or rib fractures. Independent Interpretation I performed an independent interpretation of an: Plain X-Ray Interpretation: I have reviewed the chest x-ray and agree with radiology report. Radiology Impression Discussion of test interpretation with radiology: I have reviewed the radiologist's reading. Radiologist Impression: EXAMINATION: XR CHEST CLINICAL INFORMATION: Rib pain bilaterally. COMPARISON: 02/10/2021. TECHNIQUE: 2 views of the chest were obtained. FINDINGS: No significant abnormality is noted involving the heart, lungs, mediastinum, soft tissues. No pneumothorax or pleural fluid identified. No acute fracture identified. Mild degenerative changes of the spine. Status post cholecystectomy. XR/XR chest 2V IMPRESSION: No acute finding. Dictated By: Marshall Mcginnis Signed By: <Electronically signed by Marshall? Ras in OV> 12/04/22 1656 DD/ 1516 TD/TT:? Outdoor Studies Director: Independent Historian Clinical information obtained from an independent historian. History obtained from or confirmed by: Spouse Discharge Plan Discharge Clinical Impression: Rib pain Patient Disposition: Home, Self-Care Instructions: Musculoskeletal Pain (ED) Additional Instructions: Your x-ray showed no pneumonia or fractures. Your symptoms are likely due to muscle straining. Please take prescribed ibuprofen as directed as needed for your pain and symptoms. This will help reduce inflammation. You may apply ice or heat to the area whichever feels better. Follow-up with your primary care physician regarding this visit. If any new or worsening symptoms occur including but not limited to worsening pain, shortness of breath, palpitations, please return for re-evaluation. Hopkins radiograf?a no mostr? neumon?a ni fracturas. Es probable que zac s?ntomas se deban a un esfuerzo muscular. [place] el ibuprofeno recetado seg?n las indicaciones seg?n sea necesario para hopkins dolor y s?ntomas. Dunlo ayudar? a reducir la inflamaci?n. Puede aplicar hielo o calor en el ?aysha, lo que se sienta mejor. [place] un seguimiento con hopkins m?dico de atenci?n primaria con respecto a esta visita. Si se presentan s?ntomas nuevos o que empeoran, incluidos, entre otros, dolor que empeora, dificultad para respirar, palpitaciones, regrese para mi nueva evaluaci?n. Prescriptions: New ibuprofen 600 mg tablet 600 mg PO Q6H PRN (Reason: pain) Qty: 30 0RF No Action acetaminophen [Tylenol Extra Strength] 500 mg tablet 500 mg PO Q6H PRN (Reason: pain or fever) Qty: 20 0RF naproxen 500 mg tablet 500 mg PO BID PRN (Reason: pain) 10 Days Qty: 20 0RF ketorolac 10 mg tablet 10 mg PO QID PRN (Reason: pain) 5 Days Qty: 20 0RF Rx Instructions: Patient received 30 mg IM Toradol in the ED. erythromycin 5 mg/gram (0.5 %) ointment 0.5 inch ophthalmic (eye) QID Qty: 3.5 0RF cyclobenzaprine 10 mg tablet 10 mg PO TID PRN (Reason: muscle spasm) Qty: 10 0RF doxycycline monohydrate 100 mg tablet 100 mg PO BID 10 Days Qty: 20 0RF ibuprofen 600 mg tablet 600 mg PO Q6H PRN (Reason: pain) Qty: 90 0RF levofloxacin 500 mg tablet 500 mg PO DAILY Qty: 7 0RF Humulin R U-500 (Conc) Kwikpen 500 unit/mL (3 mL) insulin pen subcut Ozempic 1 mg/dose (4 mg/3 mL) pen injector subcut (DME) pen needle, diabetic [Sure Comfort Pen Needle] 31 gauge x 3/16 needle See Rx Instructions .ROUTE .MEDSUPPLY Qty: 50 Rx Instructions: As directed alcohol swabs [Alcohol Prep Pads] Pads, Medicated topical lisinopril 10 mg tablet PO DAILY budesonide-formoterol [Symbicort] 160-4.5 mcg/actuation HFA aerosol inhaler inhalation albuterol sulfate [Ventolin HFA] 90 mcg/actuation HFA aerosol inhaler inhalation cholecalciferol (vitamin D3) 1,250 mcg (50,000 unit) capsule 1,250 mcg PO QWEEK diclofenac sodium [Voltaren Arthritis Pain] 1 % gel 2 g topical QID Rx Instructions: apply to single elbow, wrist or hand; for hand includes palm/fingers/back of hand pantoprazole 40 mg tablet,delayed release (DR/EC) 40 mg PO DAILY levothyroxine 25 mcg capsule 25 mcg PO DAILY Print Language: [place]
[2022-12-04 17:09] VITALS: BP 117/64; PULSE 95; RESP 18; TEMP 36.9; O2SAT 95
== END 2022-12-04 18:00 | disposition home or self-care (01) ==
PROVIDERS: Emergency Provider Internal Medicine; PCP Nurse Practitioner Primary Care
DX: R07.81 Pleurodynia (principal); E11.9 Type 2 diabetes mellitus without complications; I10 Essential (primary) hypertension; Z79.4 Long term (current) use of insulin; Z79.899 Other long term (current) drug therapy
CPT/HCPCS: 71046; 99283; 99284

== ENCOUNTER 2023-03-11 10:29 | Outpatient (REF) | payer MEDICARE, MEDICAID, SELFPAY ==
[2023-03-11 11:58] LABS: Anion Gap 13 (12-20); Blood Urea Nitrogen 13 mg/dL (9-16); Calcium 9.2 mg/dL (8.4-10.2); Carbon Dioxide 23 mmol/L (22-29); Chloride 109 mmol/L (96-108); Cholesterol 171 mg/dL (<200); Estimated Glomerular Filt Rate > 60; Glucose Random 105 mg/dL (60-115); HDL Cholesterol 47 mg/dL (>40); LDL Cholesterol Calculated 108 mg/dL (<100); Potassium 4.1 mmol/L (3.3-5.1); Sodium 141 mmol/L (135-145); Triglycerides 82 mg/dL (<150)
[2023-03-11 12:08] LABS: Creatinine Urine 83.94 mg/dL; Microalbum/Creatinine Ratio Ur 8.3 ug/mg cr (<30)
[2023-03-11 12:16] LABS: TSH reflex Free T4 1.47 uIU/mL (0.32-4.0)
== END 2023-03-11 10:30 | disposition home or self-care (01) ==
LOC: HO.HHCL 10:29
PROVIDERS: Visit Provider Nurse Practitioner Primary Care
DX: E11.3299 Type 2 diabetes mellitus with mild nonproliferative diabetic retinopathy without macular edema, unspecified eye (principal); Z79.4 Long term (current) use of insulin; E03.9 Hypothyroidism, unspecified
CPT/HCPCS: 36415; 80048; 80061; 82043; 82570; 84443

== ENCOUNTER 2023-04-13 13:47 | Outpatient (REF) | payer MEDICARE, MEDICAID, SELFPAY ==
--- NOTE | 2023-04-13 14:09 | EMG_ITS ---
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 Nerve Conduction Studies Anti Sensory Summary Table ?Stim Site NR Onset (ms) Norm Onset (ms) Peak (ms) Norm Peak (ms) O-P Amp (?V) Norm O-P Amp Site1 Site2 Delta-0 (ms) Dist (cm) Vickey (m/s) Norm Vickey (m/s) Left Median Anti Sensory (2nd Digit) Wrist ? 4.1 4.7 <3.6 8.2 >10 Wrist 2nd Digit 4.1 14.0 34 Left Radial Anti Sensory (Thumb) Forearm ? 1.2 2.1 <3.1 43.4 Forearm Thumb 1.2 0.0 Left Ulnar Anti Sensory (5th Digit) Wrist ? 2.6 3.1 <3.7 20.4 >15.0 Wrist 5th Digit 2.6 14.0 54 Motor Summary Table ?Stim Site NR Onset (ms) Norm Onset (ms) O-P Amp (mV) Norm O-P Amp iAmp (mV) Amp (1st) (%) Site1 Site2 Delta-0 (ms) Dist (cm) Vickey (m/s) Norm Vickey (m/s) Left Median Motor (Abd Poll Brev) Wrist ? 4.5 <3.9 8.8 >4.5 10.0 100.0 Elbow Wrist 2.7 16.0 59 >45 Elbow ? 7.2 10.8 12.1 122.7 Left Ulnar Motor (Abd Dig Minimi) Wrist ? 2.4 <3.0 10.5 >5 12.2 100.0 B Elbow Wrist 2.7 15.5 57 >45 B Elbow ? 5.1 10.7 12.5 101.9 A Elbow B Elbow 1.6 10.0 62 >45 A Elbow ? 6.7 10.7 12.8 101.9 EMG ?Side Muscle Nerve Root Ins Act Fibs Psw Amp Dur Poly Recrt Int Pat Comment Left 1stDorInt Ulnar C8-T1 Nml Nml Nml Nml Nml 0 Nml Complete Left FlexCarRad Median C6-7 Nml Nml Nml Nml Nml 0 Nml Complete Left Biceps Musculocut C5-6 Nml Nml Nml Nml Nml 0 Nml Complete Left Triceps Radial C6-7-8 Nml Nml Nml Nml Nml 0 Nml Complete Left Deltoid Axillary C5-6 Nml Nml Nml Nml Nml 0 Nml Complete FINDINGS: Left median motor nerve showed prolonged distal latency, normal amplitude and normal conduction velocity. Left median sensory nerve showed prolonged peak latency and small amplitude. All other nerves tested were within normal. Concentric needle EMG was performed in selected muscles of the left upper extremity. Study did not reveal signs of electric abnormalities as shown in the table below. IMPRESSION: 1. This is an abnormal study. 2. There is electrodiagnostic evidence for left moderate-severe median neuropathy at the wrist, consistent with carpal tunnel syndrome. 3. There is no electrodiagnostic evidence for ulnar neuropathy, brachial plexopathy, or cervical radiculopathy. Thank you for your kind referral. Jeanne Carrillo MD, ANGEL Board Certified, [place] [employer] and [employer] (ABPMR) Board Certified, [place] Board [employer] Electrodiagnostic Medicine (ABEM) CODIN [id number] MTDD
== END 2023-04-13 13:48 | disposition home or self-care (01) ==
LOC: HO.NEURO 13:47
PROVIDERS: PCP Nurse Practitioner Primary Care; Visit Provider Emergency Medicine
DX: M25.532 Pain in left wrist (principal); M25.432 Effusion, left wrist; M21.332 Wrist drop, left wrist
CPT/HCPCS: 95886; 95909

== ENCOUNTER → 2023-04-13 14:09 | Outpatient (BNV) | payer MEDICARE, MEDICAID, SELFPAY | PROVIDERS: PCP Nurse Practitioner Primary Care; Visit Provider Physical Medicine & Rehabilitation | DX: G56.12 Other lesions of median nerve, left upper limb (principal); G56.02 Carpal tunnel syndrome, left upper limb | CPT/HCPCS: 95886; 95909 ==

== ENCOUNTER 2023-09-22 14:38 | Outpatient (AMB) | payer MEDICARE, MEDICAID, SELFPAY ==
--- NOTE | 2023-09-22 14:57 | MHC.OFFVIS ---
Intake Vital Signs 09/22/23 15:10 Height 4 ft 10 in Weight 152 lb BMI 31.8 BP 134/74 Blood Pressure Location Lt brachial Position Sitting Respiration 16 Pulse 100 Pulse Source Pulse Oximeter Pulse Oximetry (%) 97 Oxygen Delivery Method Room Air Intake Visit Reasons: Low back pain radiating to right leg, R hip pain Intake Note: Patient comes in for initial visit was referred by primary care. Reports pain 10/10. Allergies Penicillins [PENICILLINS] Allergy (Severe, Verified 09/22/23 15:09) SWELLING/ITCHING vancomycin [VANCOMYCIN] Allergy (Intermediate, Verified 09/22/23 15:09) RASH AND ITCHING penicillin V Allergy (Unknown, Verified 09/22/23 15:09) redness and itching/ inflammation HPI HPI Comments History of Present Illness Details Heather is very pleasant Moldovan-speaking 47 years old female who presents in my office with widespread pain all over the body. She reports pain in bilateral shoulders bilateral lower back bilateral thighs bilateral hips. She reports that pain started 1 year ago. 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 She can not sleep normally she can not do activities of daily living she can not take care of himself she can not function normally. She is not working for 1 year. She reports that cold weather and weather changes aggravate her pain. The pain is most severe at night. She attempted meloxicam cyclobenzaprine Aleve ibuprofen and diclofenac gel to help her pain. Nothing helps her pain. She had physical therapy 5 months ago with no pain relief. She had x-ray of the lower lumbar spine available and dictated as below. Her past medical history significant for diabetes arthritis asthma and fatigue. She reports some minor procedures for skin abscess and 4 wrist surgery otherwise no surgical history. She denies smoking cigarettes drinking alcohol she denies recreational drugs. [facility] Medical History Asthma Diabetes Hypertension Hyperthyroidism Surgical History History of cholecystectomy History of removal of cyst History of removal of cyst Family History Mother Cancer Diabetes Hypertension Father No problems noted. Social History Alcohol intake: never Patient Tobacco Use Status: Never used Tobacco Current occupational status: employed Current occupation: [employer]/ rt handed dominant Review of Systems Const Denies chills and Denies fever(s) ENT Reports Normal hearing present and Denies dizziness Card Denies chest pain and Denies dyspnea Resp Denies dyspnea GI Denies abdominal pain, Denies nausea and Denies vomiting Skin/Breast Denies erythema and Denies rash Neuro Reports Normal hearing present, Denies Abnormal speech present, Denies confusion, Denies dizziness, Denies focal weakness and Denies Sensory deficit (Neuro) Psych Denies confusion Physical Exam Vital Signs: Last Vital Signs Pulse 100 09/22/23 15:10 Resp 16 09/22/23 15:10 BP 134/74 09/22/23 15:10 Pulse Ox 97 09/22/23 15:10 Oxygen Delivery Method Room Air 09/22/23 15:10 BMI result Body Mass Index 31.8 Const General: no acute distress; No confusion Orientation/consciousness: patient oriented x3 and No confusion Eyes General: appearance normal, both eyes and all related structures Pupils: Equal, round and reactive pupils present EOM: EOMs intact bilaterally Neck Neck: Yes full ROM Chest Chest palpation & inspection: normal inspection of the chest Resp Effort & Inspection: normal respiratory effort, able to speak in complete sentences, normal respiratory pattern, no audible wheezes and no cough Cardio Jugular venous distension: no JVD GI Inspection: Yes normal to inspection Back/Spine/Pelvis Other: Able to stand on bilateral tiptoes in bilateral heels. Denies numbness in bilateral lower extremities. Able to flex herself forward but unable to flex herself backwards reports severe pain in the back with attempt to flex backwards. Reports tenderness on palpation in bilateral paraspinal as well as spinal region over lower lumbar spine. Valsalva maneuver is negative for pain increase. Loading test is positive bilaterally. SLR is negative bilaterally. Dorsiflexion of the foot is negative bilaterally with maximal SLR. Neuro General: patient oriented x3, gait normal and No confusion Cranial nerves: Yes CN's II-XII intact bilaterally, Yes Equal, round and reactive pupils present, Yes Normal hearing present and Yes Ability to bilaterally elevate shoulders present Speech: No Abnormal speech present Gait exam (Neuro): Normal gait present Motor exam (neuro): 5/5 motor strength present throughout Sensory Exam: No Sensory deficit (Neuro) Extrem General: No pedal edema Psych Speech and movement: Normal speech and movement present Affect: normal affect Attitude: cooperative Thought process: Normal thought process present Thought content: Normal thought content present Insight: Good insight present (Psych) Judgement: Good judgement present (Psych) Results Reviewed Results Reviewed: Examination AP pelvis and right hip and lumbar spine 07/30/2021. Findings: AP film of the pelvis does not demonstrate any evidence of acute fracture or diastasis. Sacroiliac joints appear unremarkable. There is some increased sclerotic seen about L5-S1 facet joints which may be related to some degree of facet arthropathy. The hip joint spaces appear maintained. There is bilateral greater trochanter spurring present. No destructive bone lesion is evident. Two views of the right hip demonstrates some mild collar spurring without joint space narrowing. There is some spurring about the greater trochanter. No acute fracture or dislocation is evident. No abnormal lytic or sclerotic lesion is seen. No femoral head collapse is noted. No acute fracture spondylolisthesis spondylolysis is seen within the lumbar spine. There is some spurring about the anterior aspect of the lower lumbar vertebra. The disc spaces are maintained. Pedicles are intact. There is degenerative spurring with some disc space narrowing seen involving lower lumbar spine. 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 This will be her lower back pain. It looks like this pain is secondary to spondylosis of lumbar spine. I offered the patient the bilateral diagnostic L3-L4 L5 medial branch block to help her pain. Patient agreed to go for the procedure. Considering that this widespread pain of the patient could be related to fibromyalgia I will start her on gabapentin 400 mg t.i.d.. I will see this patient as a follow-up after the injection of the medial branches. Sprint PNS can be considered if the injection in the lower lumbar spine will help her pain. Medications: New gabapentin 400 mg PO TID 90 caps 5RF 30 days Patient Instructions: I here by testify that I spent 45 minutes in conversation with this patient as well as evaluating her prior records, evaluating her diagnostic studies and organizing this note. Voice stave inspector Sebastian Mcfadden [id number] was glass tube bender in conversation with this patient day. Coding Level of Care Code New Pt Level 4 (31237) Diagnoses Spondylosis of lumbar region without myelopathy or radiculopathy M47.816 Osteoarthritis, generalized M15.9 Trochanteric bursitis of both hips M70.61; M70.62 Chronic pain syndrome G89.4 Fibromyalgia M79.7
[2023-09-22 15:10] VITALS: BP 134/74; PULSE 100; RESP 16; O2SAT 97; BMI 31.8
== END 2023-09-22 15:38 | disposition home or self-care (01) ==
PROVIDERS: PCP Nurse Practitioner Primary Care; Visit Provider Anesthesiology
DX: M47.816 Spondylosis without myelopathy or radiculopathy, lumbar region (principal); M15.9 Polyosteoarthritis, unspecified; M70.61 Trochanteric bursitis, right hip; M70.62 Trochanteric bursitis, left hip; G89.4 Chronic pain syndrome; M79.7 Fibromyalgia
CPT/HCPCS: 99204

== ENCOUNTER → 2023-09-22 14:38 | Outpatient (BNVA) | payer MEDICARE, MEDICAID, SELFPAY | PROVIDERS: PCP Nurse Practitioner Primary Care; Visit Provider Anesthesiology | DX: M70.61 Trochanteric bursitis, right hip (principal); M70.62 Trochanteric bursitis, left hip; G89.4 Chronic pain syndrome; M79.7 Fibromyalgia; M15.9 Polyosteoarthritis, unspecified; M47.816 Spondylosis without myelopathy or radiculopathy, lumbar region | CPT/HCPCS: 99202 ==

== ENCOUNTER 2023-10-11 06:18 | Outpatient (REF) | payer MEDICARE, MEDICAID, SELFPAY ==
--- NOTE | ~2023-10-11 | FL_ITS ---
EXAMINATION: XR FLUOROSCOPY WITH IMAGES CLINICAL INFORMATION: Lumbar injection. Spondylosis without myelopathy or radiculopathy. COMPARISON: None available. TECHNIQUE: Fluoroscopy Supervised By: Dr. Trent Hernandez. Fluoroscopy Time: 0.6 MIN. Cumulative Dose: 3.3 mGy. DAP: 3.62 Gycm2. Images: 12. FINDINGS: Intraoperative fluoroscopy and spot films were performed during a procedure in the OR. Spinal needles are seen at multiple levels in the lumbar spine with contrast around the tips of the needles. Please see Dr. Trent Hernandez's report for complete details. FL/FL guidance in treatment room IMPRESSION: Intraoperative fluoroscopy and spot films were obtained. Please see Dr. Trent Hernandez's report for complete details.
== END 2023-10-11 06:19 | disposition home or self-care (01) ==
LOC: CF 06:18
PROVIDERS: Visit Provider Anesthesiology
DX: M47.816 Spondylosis without myelopathy or radiculopathy, lumbar region (principal); M15.9 Polyosteoarthritis, unspecified; M70.61 Trochanteric bursitis, right hip; M70.62 Trochanteric bursitis, left hip; G89.4 Chronic pain syndrome; M79.7 Fibromyalgia
CPT/HCPCS: 64493; 64494; J2795; Q9967

== ENCOUNTER 2023-10-11 13:31 | Outpatient (AMB) | payer MEDICARE, MEDICAID, SELFPAY ==
--- NOTE | 2023-10-11 13:58 | A.OFFVIS_ITS ---
Vital Signs 10/11/23 14:54 10/11/23 14:56 Height 4 ft 10 in Weight 152 lb BMI 31.8 BP 116/68 122/74 Blood Pressure Location Lt brachial Lt brachial Position Sitting Sitting Respiration 18 16 Pulse 98 88 Pulse Source Pulse Oximeter Pulse Oximeter Pulse Oximetry (%) 100 98 Oxygen Delivery Method Room Air Room Air Comment Pre-Op Post-Op Intake Visit Reasons: BILATERAL DIAGNOSTIC L3,L4, DRL5 MBB Allergies Penicillins [PENICILLINS] Allergy (Severe, Verified 09/22/23 15:09) SWELLING/ITCHING vancomycin [VANCOMYCIN] Allergy (Intermediate, Verified 09/22/23 15:09) RASH AND ITCHING penicillin V Allergy (Unknown, Verified 09/22/23 15:09) redness and itching/ inflammation PFSH Medical History Asthma Diabetes Hypertension Hyperthyroidism Surgical History History of cholecystectomy History of removal of cyst History of removal of cyst Family History Mother Cancer Diabetes Hypertension Father No problems noted. 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 ? ?Informed consent was explained to the patient. All questions were explained and? answered.? The patient was taken inside the operating room where she was positioned prone on the operating table. Time-out was performed delineating correct site, side, the nature of the procedure, patient's allergy, . All operating room staff was participating in OR time-out procedure. ? ? The lower back was prepped with ChloraPrep and draped with sterile towels.? C- arm was brought over the operating field and sq picture of L4-, L5 vertebra and S1 AREA were delineated on the screen.? Point of interest were delineated as confluence of superior articular process of L4 and L5 vertebra bilaterally with corresponding transverse processes as well as confluence of the sacral alae bilaterally with superior articular process of S1.? The projection of the point of interest to the skin were injected with the small amount of local anesthetic lidocaine 2% 1-1.5 cc.? After that 22 gauge 3.5 inch spinal needle was driven sequentially to the points of interest in tunnel vision fashion. After needles gently contacted the bone at the point of interests the needle was injected with small amount of the contrast.? The injection of the contrast did not demonstrate any intravascular or intrathecal spread of the contrast.? After that injection of the? ropivacaine 0.5%-1cc was performed at each needle location.??after that the needles were removed and Bandaids were applied. ? Upon completion of the injections? needle was? removed and sterile Band-Aids were applied.? The patient tolerated procedure very well. (2) Osteoarthritis, generalized: Code(s): M15.9 - Polyosteoarthritis, unspecified Category: Medical (3) Trochanteric bursitis of both hips: Code(s): M70.61 - Trochanteric bursitis, right hip; M70.62 - Trochanteric bursitis, left hip Category: Medical (4) Chronic pain syndrome: Code(s): G89.4 - Chronic pain syndrome Category: Medical Plan: One (5) Fibromyalgia: Code(s): M79.7 - Fibromyalgia Category: Medical Plan Considering that this pain is widespread I recommend to this patient to concentrate on 1 pain only. This will be her lower back pain. It looks like this pain is secondary to spondylosis of lumbar spine. I offered the patient the bilateral diagnostic L3-L4 L5 medial branch block to help her pain. Patient agreed to go for the procedure. Considering that this widespread pain of the patient could be related to fibro myalgia I will start her on gabapentin 400 mg t.i.d.. I will see this patient as a follow-up after the injection of the medial branches. Sprint PNS can be considered if the injection in the lower lumbar spine will help her pain. Orders: Orders FL guidance in treatment room Today M47.816 - Spondylosis without myelopathy or radiculopathy, lumbar region Coding Level of Care Code Procedure Only Diagnoses Spondylosis of lumbar region without myelopathy or radiculopathy M47.816 Osteoarthritis, generalized M15.9 Trochanteric bursitis of both hips M70.61; M70.62 Chronic pain syndrome G89.4 Fibromyalgia M79.7
[2023-10-11 14:54] VITALS: BP 116/68; PULSE 98; RESP 18; O2SAT 100; BMI 31.8
[2023-10-11 14:56] VITALS: BP 122/74; PULSE 88; RESP 16; O2SAT 98
== END 2023-10-11 14:47 | disposition home or self-care (01) ==
LOC: HO.PMCPRC 13:31
PROVIDERS: PCP Nurse Practitioner Primary Care; Visit Provider Anesthesiology
DX: M47.816 Spondylosis without myelopathy or radiculopathy, lumbar region (principal); M15.9 Polyosteoarthritis, unspecified; M70.61 Trochanteric bursitis, right hip; M70.62 Trochanteric bursitis, left hip; G89.4 Chronic pain syndrome; M79.7 Fibromyalgia
CPT/HCPCS: 64493; 64494

== ENCOUNTER 2023-10-17 13:25 | Outpatient (AMB) | payer MEDICARE, MEDICAID, SELFPAY ==
--- NOTE | 2023-10-17 13:34 | A.OFFVIS_ITS ---
Vital Signs 10/17/23 13:45 Height 4 ft 10 in Weight 149 lb 8 oz BMI 31.2 BP 140/78 H Blood Pressure Location Lt brachial Position Sitting Respiration 16 Pulse 95 Pulse Source Pulse Oximeter Pulse Oximetry (%) 98 Oxygen Delivery Method Room Air Intake Visit Reasons: BILATERAL DIAGNOSTIC L3, L4, DRL5 MBB Intake Note: Patient comes in for post-op appointment. Reports pain 8/10. Allergies Penicillins [PENICILLINS] Allergy (Severe, Verified 10/17/23 13:47) SWELLING/ITCHING vancomycin [VANCOMYCIN] Allergy (Intermediate, Verified 10/17/23 13:47) RASH AND ITCHING penicillin V Allergy (Unknown, Verified 10/17/23 13:47) redness and itching/ inflammation HPI Comments Details: Heather is very pleasant Hebrew-speaking 47 years old female who presents in my office with widespread pain all over the body. The most prominent pain of this patient is actually lower back pain. She went for bilateral diagnostic L3-L4 dorsal ramus L5 bilateral medial branch block 6 days ago. She reported absence of pain for the 1st 7 hours after the procedure. In fact she reported that for 3 days after the procedure she had very minimal pain in her lower back. I explained to the patient sprint PNS. The brochure of sprint PNS was given to the patient. The patient is eager to go for the procedure. The time limitations in activity limitations are explained to the patient. She reports pain in bilateral shoulders bilateral lower back bilateral thighs bilateral hips. She reports that pain started 1 year ago. 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 She can not sleep normally she can not do activities of daily living she can not take care of himself she can not function normally. She is not working for 1 year. She reports that cold weather and weather changes aggravate her pain. The pain is most severe at [facility]. She attempted meloxicam cyclobenzaprine Aleve ibuprofen and diclofenac gel to help her pain. Nothing helps her pain. She had physical therapy 5 months ago with no pain relief. She had x-ray of the lower lumbar spine available and dictated as below. [facility] Medical History Asthma Diabetes Hypertension Hyperthyroidism Surgical History History of cholecystectomy History of removal of cyst History of removal of cyst Family History Mother Cancer Diabetes Hypertension Father No problems noted. Social History Alcohol intake: never Patient Tobacco Use Status: Never used Tobacco Current occupational status: employed Current occupation: [employer]/ rt handed dominant Review of Systems Const All systems reviewed & are unremarkable except as noted in HPI and below ENT Reports Normal hearing present Neuro Reports Normal hearing present, Denies Abnormal speech present, Denies confusion and Denies Sensory deficit (Neuro) Psych Denies confusion Physical Exam Vital Signs: Last Vital Signs Pulse 95 10/17/23 13:45 Resp 16 10/17/23 13:45 BP 140/78 H 10/17/23 13:45 Pulse Ox 98 10/17/23 13:45 Oxygen Delivery Method Room Air 10/17/23 13:45 BMI result Body Mass Index 31.2 Const General: no acute distress; No confusion Orientation/consciousness: patient oriented x3 and No confusion Eyes General: appearance normal, both eyes and all related structures Pupils: Equal, round and reactive pupils present EOM: EOMs intact bilaterally Neck Neck: Yes full ROM Chest Chest palpation & inspection: normal inspection of the chest Resp Effort & Inspection: normal respiratory effort, able to speak in complete sentences, normal respiratory pattern, no audible wheezes and no cough Cardio Jugular venous distension: no JVD GI Inspection: Yes normal to inspection Back/Spine/Pelvis Other: Able to stand on bilateral tiptoes in bilateral heels. Denies numbness in bilateral lower extremities. Able to flex herself forward but unable to flex herself backwards reports severe pain in the back with attempt to flex backwards. Reports tenderness on palpation in bilateral paraspinal as well as spinal region over lower lumbar spine. Valsalva maneuver is negative for pain increase. Loading test is positive bilaterally. SLR is negative bilaterally. Dorsiflexion of the foot is negative bilaterally with maximal SLR. Neuro General: patient oriented x3, gait normal and No confusion Cranial nerves: Yes CN's II-XII intact bilaterally, Yes Equal, round and reactive pupils present, Yes Normal hearing present and Yes Ability to bilaterally elevate shoulders present Speech: No Abnormal speech present Gait exam (Neuro): Normal gait present Motor exam (neuro): 5/5 motor strength present throughout Sensory Exam: No Sensory deficit (Neuro) Extrem General: No pedal edema Psych Speech and movement: Normal speech and movement present Affect: normal affect Attitude: cooperative Thought process: Normal thought process present Thought content: Normal thought content present Insight: Good insight present (Psych) Judgement: Good judgement present (Psych) Assessment & Plan Assessment & Plan (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: Code(s): M47.816 - Spondylosis without myelopathy or radiculopathy, lumbar region Category: Medical (2) Osteoarthritis, generalized: Code(s): M15.9 - Polyosteoarthritis, unspecified Category: Medical (3) Trochanteric bursitis of both hips: Code(s): M70.61 - Trochanteric bursitis, right hip; M70.62 - Trochanteric bursitis, left hip Category: Medical (4) Chronic pain syndrome: Code(s): G89.4 - Chronic pain syndrome Category: Medical Plan: One (5) Fibromyalgia: Code(s): M79.7 - Fibromyalgia Category: Medical Plan Considering that this pain is widespread I recommend to this patient to concentrate on 1 pain only. This will be her lower back pain. Very impressive results of bilateral diagnostic L3 L4-L5 MBB, described as above. Sprint PNS was explained. The patient is eager to go for the procedure. I will schedule her for the sprint PNS trial on the right and then on the left. The left procedure will be scheduled 2 weeks after the right procedure. She will continue gabapentin 400 mg t.i.d.. I will see this patient as a follow-up after the injection of the medial branches. Sprint PNS can be considered if the injection in the lower lumbar spine will help her pain. Coding Level of Care Code Est Pt Level 3 (90953) Diagnoses Spondylosis of lumbar region without myelopathy or radiculopathy M47.816 Osteoarthritis, generalized M15.9 Trochanteric bursitis of both hips M70.61; M70.62 Chronic pain syndrome G89.4 Fibromyalgia M79.7
[2023-10-17 13:45] VITALS: BP 140/78; PULSE 95; RESP 16; O2SAT 98; BMI 31.2
== END 2023-10-17 13:58 | disposition home or self-care (01) ==
PROVIDERS: PCP Nurse Practitioner Primary Care; Visit Provider Anesthesiology
DX: M47.816 Spondylosis without myelopathy or radiculopathy, lumbar region (principal); M15.9 Polyosteoarthritis, unspecified; M70.61 Trochanteric bursitis, right hip; M70.62 Trochanteric bursitis, left hip; G89.4 Chronic pain syndrome; M79.7 Fibromyalgia
CPT/HCPCS: 99213

== ENCOUNTER → 2023-10-17 13:25 | Outpatient (BNVA) | payer MEDICARE, MEDICAID, SELFPAY | PROVIDERS: PCP Nurse Practitioner Primary Care; Visit Provider Anesthesiology | DX: M47.816 Spondylosis without myelopathy or radiculopathy, lumbar region (principal); M15.9 Polyosteoarthritis, unspecified; M70.61 Trochanteric bursitis, right hip; M70.62 Trochanteric bursitis, left hip; M79.7 Fibromyalgia; G89.4 Chronic pain syndrome | CPT/HCPCS: 99212 ==

== ENCOUNTER 2023-11-22 06:13 | Outpatient (REF) | payer MEDICARE, MEDICAID, SELFPAY ==
--- NOTE | ~2023-11-22 | FL_ITS ---
EXAMINATION: XR FLUOROSCOPY WITH IMAGES CLINICAL INFORMATION: Spondylosis, lumbar. COMPARISON: None available. TECHNIQUE: Fluoroscopy Supervised By: Dr. Trent Hernandez. Fluoroscopy Time: 0.1 minute. Cumulative Dose: 2.33 mGy. DAP: 0.0405 Gycm2. Images: 1. FINDINGS: Intraoperative fluoroscopy and spot films were performed during a procedure in the OR. A thin curvilinear structure is seen on the right side of the spine with its tip just beneath the right L5 pedicle. Please correlate with Dr. Trent Hernandez's report for complete details. FL/FL guidance in treatment room IMPRESSION: Intraoperative fluoroscopy and spot films were obtained. Please see Dr. Trent Hernandez's report for complete details.
== END 2023-11-22 06:14 | disposition home or self-care (01) ==
LOC: CF 06:13
PROVIDERS: Visit Provider Anesthesiology
DX: M47.816 Spondylosis without myelopathy or radiculopathy, lumbar region (principal); M15.9 Polyosteoarthritis, unspecified; M70.61 Trochanteric bursitis, right hip; M70.62 Trochanteric bursitis, left hip; M79.7 Fibromyalgia; G89.4 Chronic pain syndrome
CPT/HCPCS: 64555; C1778

== ENCOUNTER 2023-11-22 09:46 | Outpatient (AMB) | payer MEDICARE, MEDICAID, SELFPAY ==
--- NOTE | 2023-11-22 10:35 | MHC.OFFVIS ---
Vital Signs 11/22/23 11:37 11/22/23 11:37 Height 4 ft 10 in Weight 149 lb BMI 31.1 BP 124/68 128/74 Blood Pressure Location Lt brachial Lt brachial Position Sitting Sitting Respiration 18 18 Pulse 88 72 Pulse Source Pulse Oximeter Pulse Oximeter Pulse Oximetry (%) 97 96 Oxygen Delivery Method Room Air Room Air Comment Pre-Op Post-Op Intake Visit Reasons: RIGHT L5 SPRINT PNS TRIAL(POSSIBLE L4, S1) Allergies Penicillins [PENICILLINS] Allergy (Severe, Verified 10/17/23 13:47) SWELLING/ITCHING vancomycin [VANCOMYCIN] Allergy (Intermediate, Verified 10/17/23 13:47) RASH AND ITCHING penicillin V Allergy (Unknown, Verified 10/17/23 13:47) redness and itching/ inflammation PFSH Medical History Asthma Diabetes Hypertension Hyperthyroidism Surgical History History of cholecystectomy History of removal of cyst History of removal of cyst Family History Mother Cancer Diabetes Hypertension Father No problems noted. 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 After the risks, benefits and alternatives were discussed with the patient and informed consent was obtained, patient was placed in the prone position and padded to foster comfort. Time out was performed delineating correct site and side of the procedure , name and of the patient, patient participated in time out procedure. Sterily draped C-arm was brought over the operating field and clear picture of the L5 lamina on the right t was delineated on the screen. The upper central portion of the lamina was chosen as a target of the needle tip insertion . After identifying and marking the intended target, the skin around the planned entry point and the subcutaneous tissues were injected with local anesthetic forming skin wheal.. A percutaneous sleeve and stimulating probe lead introduction system were assembled, inserted and advanced through the skin wheal to the point of interest under C-arm view in tunnel vision fashion, the introducer needle was delivered to a location in proximity to the nerve. Multiple stimulation parameters were used to deliver stimulation to the nerve in concert with stimulating at multiple positions around the nerve. nerve target acquisition was confirmed noting generation of in the corresponding to the nerve being stimulated. Various electrical parameter combinations were tested, and the lead location was adjusted (physically relocated) until the patient indicated overlapping the distribution of the patient?s typical region of pain. The stimulating probe was removed from the introducer and a percutaneous lead was guided through the needle and delivered to a location in similar proximity to the nerve. Final location was verified with electrical stimulation. The introducer needle was removed, and the exposed end of the percutaneous lead was attached to an external stimulator unit. At the end of the case various electrical parameter combinations were again tested until the patient indicated paresthesia or muscle tension overlapping the distribution of the patient?s typical region of pain. After confirming that lead impedance was in the normal range, the external unit was detached, the needle was removed, and the lead was anchored at the skin. The lead was threaded into the connector block and electrical continuity and desired patient response was confirmed. The connector block was attached to the external stimulator unit. The site was covered with a sterile occlusive dressing and a image was taken to document final placement. Upon completion of the procedure the patient was taken outside the OR where she recovered uneventfully he went home without immediate complications (2) Osteoarthritis, generalized: Code(s): M15.9 - Polyosteoarthritis, unspecified Category: Medical (3) Trochanteric bursitis of both hips: Code(s): M70.61 - Trochanteric bursitis, right hip; M70.62 - Trochanteric bursitis, left hip Category: Medical (4) Chronic pain syndrome: Code(s): G89.4 - Chronic pain syndrome Category: Medical Plan: One (5) Fibromyalgia: Code(s): M79.7 - Fibromyalgia Category: Medical Plan Considering that this pain is widespread I recommend to this patient to concentrate on 1 pain only. This will be her lower back pain. Very impressive results of bilateral diagnostic L3 L4-L5 MBB, described as above. Sprint PNS was explained. The patient is eager to go for the procedure. I will schedule her for the sprint PNS trial on the right and then on the left. The left procedure will be scheduled 2 weeks after the right procedure. She will continue gabapentin 400 mg t.i.d.. I will see this patient as a follow-up after the injection of the medial branches. Sprint PNS can be considered if the injection in the lower lumbar spine will help her pain. Orders: Orders [place] guidance in treatment room Today Coral Garrido APRN, PRINCIPAL SECURITY ARCHITECT M47.816 - Spondylosis without myelopathy or radiculopathy, lumbar region AMB Sprint PNS Today Coral Garrido APRN, PRINCIPAL SECURITY ARCHITECT M47.816 - Spondylosis without myelopathy or radiculopathy, lumbar region Medications: New lidocaine (PF) 5 mL subcut ONCE 5 mL 0RF Trent Hernandez MD M47.816 - Spondylosis without myelopathy or radiculopathy, lumbar region Coding Level of Care Code Procedure Only Diagnoses Spondylosis of lumbar region without myelopathy or radiculopathy M47.816 Osteoarthritis, generalized M15.9 Trochanteric bursitis of both hips M70.61; M70.62 Chronic pain syndrome G89.4 Fibromyalgia M79.7
[2023-11-22 11:37] VITALS: BP 124/68; BP 128/74; PULSE 72; PULSE 88; RESP 18; O2SAT 96; O2SAT 97; BMI 31.1
== END 2023-11-22 11:47 | disposition home or self-care (01) ==
LOC: HO.PMCPRC 09:46
PROVIDERS: PCP Nurse Practitioner Primary Care; Visit Provider Anesthesiology
DX: G89.4 Chronic pain syndrome (principal); M47.816 Spondylosis without myelopathy or radiculopathy, lumbar region; M15.9 Polyosteoarthritis, unspecified; M70.61 Trochanteric bursitis, right hip; M70.62 Trochanteric bursitis, left hip; M79.7 Fibromyalgia
CPT/HCPCS: 64555

== ENCOUNTER 2023-11-28 10:33 | Outpatient (AMB) | payer MEDICARE, MEDICAID, SELFPAY ==
--- NOTE | 2023-11-28 10:39 | A.OFFVIS_ITS ---
Vital Signs 11/28/23 10:53 Height 4 ft 10 in Weight 148 lb BMI 30.9 BP 128/82 Blood Pressure Location Lt brachial Position Sitting Respiration 18 Pulse 99 Pulse Source Pulse Oximeter Pulse Oximetry (%) 96 Oxygen Delivery Method Room Air Intake Visit Reasons: RIGHT L5 SPRINT PNS/11/22/23 Intake Note: Patient comes in for post-op appointment. Site was cleared no redness/drainage/swelling at site. Site clean with alcohol prep pad, and new dsd/tegaderm applied. Today stimulation was set at 70 with good tolerance and reports at times she needs to increase stimulation to 100 due to not feeling any stimulations at all. Pain level 8/10. Allergies Penicillins [PENICILLINS] Allergy (Severe, Verified 11/28/23 10:53) SWELLING/ITCHING vancomycin [VANCOMYCIN] Allergy (Intermediate, Verified 11/28/23 10:53) RASH AND ITCHING penicillin V Allergy (Unknown, Verified 11/28/23 10:53) redness and itching/ inflammation HPI Comments Details: Heather is back in my office after insertion of sprint PNS on the right side L5 positioned. Although her level of stimulation is as high as 80 mA patient reports excellent activities and excellent mobility during the daytime. She reports minimal pain at the daytime. At nighttime she was informed to stop the stimulation before she is going to bed and then she reports that this make her not to sleep very well. She wishes that she could continue the stimulation during the nighttime. She is scheduled for left-sided insertion, we will discuss this in the presence of sprint PNS small business sales representative. Prior: very pleasant Greenlandic-speaking 47 years old female who presents in my office with widespread pain all over the body. The most prominent pain of this patient is actually lower back pain. She went for bilateral diagnostic L3-L4 dorsal ramus L5 bilateral medial branch block 6 days ago. She reported absence of pain for the 1st 7 hours after the procedure. In fact she reported that for 3 days after the procedure she had very minimal pain in her lower back. I explained to the patient sprint PNS. The brochure of sprint PNS was given to the patient. The patient is eager to go for the procedure. The time limitations in activity limitations are explained to the patient. She reports pain in bilateral shoulders bilateral lower back bilateral thighs bilateral hips. She reports that pain started 1 year ago. 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 She can not sleep normally she can not do activities of daily living she can not take care of himself she can not function normally. She is not working for 1 year. She reports that cold weather and weather changes aggravate her pain. The pain is most severe at night. She attempted meloxicam cyclobenzaprine Aleve ibuprofen and diclofenac gel to help her pain. Nothing helps her pain. She had physical therapy 5 months ago with no pain relief. She had x-ray of the lower lumbar spine available and dictated as below. [facility] Medical History Asthma Diabetes Hypertension Hyperthyroidism Surgical History History of cholecystectomy History of removal of cyst History of removal of cyst Family History Mother Cancer Diabetes Hypertension Father No problems noted. Social History Alcohol intake: never Patient Tobacco Use Status: Never used Tobacco Current occupational status: employed Current occupation: [employer]/ rt handed dominant Review of Systems Const All systems reviewed & are unremarkable except as noted in HPI and below ENT Reports Normal hearing present Neuro Reports Normal hearing present, Denies Abnormal speech present, Denies confusion and Denies Sensory deficit (Neuro) Psych Denies confusion Physical Exam Vital Signs: Last Vital Signs Pulse 99 11/28/23 10:53 Resp 18 11/28/23 10:53 BP 128/82 11/28/23 10:53 Pulse Ox 96 11/28/23 10:53 Oxygen Delivery Method Room Air 11/28/23 10:53 BMI result Body Mass Index 30.9 Const General: no acute distress; No confusion Orientation/consciousness: patient oriented x3 and No confusion Eyes General: appearance normal, both eyes and all related structures Pupils: Equal, round and reactive pupils present EOM: EOMs intact bilaterally Neck Neck: Yes full ROM Chest Chest palpation & inspection: normal inspection of the chest Resp Effort & Inspection: normal respiratory effort, able to speak in complete sentences, normal respiratory pattern, no audible wheezes and no cough Cardio Jugular venous distension: no JVD GI Inspection: Yes normal to inspection Back/Spine/Pelvis Other: Able to stand on bilateral tiptoes in bilateral heels. Denies numbness in bilateral lower extremities. Able to flex herself forward but unable to flex herself backwards reports severe pain in the back with attempt to flex backwards. Reports tenderness on palpation in bilateral paraspinal as well as spinal region over lower lumbar spine. Valsalva maneuver is negative for pain increase. Loading test is positive bilaterally. SLR is negative bilaterally. Dorsiflexion of the foot is negative bilaterally with maximal SLR. Neuro General: patient oriented x3, gait normal and No confusion Cranial nerves: Yes CN's II-XII intact bilaterally, Yes Equal, round and reactive pupils present, Yes Normal hearing present and Yes Ability to bilaterally elevate shoulders present Speech: No Abnormal speech present Gait exam (Neuro): Normal gait present Motor exam (neuro): 5/5 motor strength present throughout Sensory Exam: No Sensory deficit (Neuro) Extrem General: No pedal edema Psych Speech and movement: Normal speech and movement present Affect: normal affect Attitude: cooperative Thought process: Normal thought process present Thought content: Normal thought content present Insight: Good insight present (Psych) Judgement: Good judgement present (Psych) Assessment & Plan Assessment & Plan (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: Code(s): M47.816 - Spondylosis without myelopathy or radiculopathy, lumbar region Category: Medical (2) Osteoarthritis, generalized: Code(s): M15.9 - Polyosteoarthritis, unspecified Category: Medical (3) Trochanteric bursitis of both hips: Code(s): M70.61 - Trochanteric bursitis, right hip; M70.62 - Trochanteric bursitis, left hip Category: Medical (4) Chronic pain syndrome: Code(s): G89.4 - Chronic pain syndrome Category: Medical Plan: One (5) Fibromyalgia: Code(s): M79.7 - Fibromyalgia Category: Medical Plan The patient's amplitude is increased to 80 milliamper. However she feels very good pain relief on the stimulation when though it is slightly elevated. She wishes to continue the stimulation at night. At night she does not have good night's sleep because she does not have stimulation. We will discuss the situation with the presence of small business sales representative next time she will come for the insertion of the left side device. Possibility exists that the night pain is coming from completely diff and pain generators. Coding Level of Care Code Est Pt Level 3 (64449) Diagnoses Spondylosis of lumbar region without myelopathy or radiculopathy M47.816 Osteoarthritis, generalized M15.9 Trochanteric bursitis of both hips M70.61; M70.62 Chronic pain syndrome G89.4 Fibromyalgia M79.7
[2023-11-28 10:53] VITALS: BP 128/82; PULSE 99; RESP 18; O2SAT 96; BMI 30.9
== END 2023-11-28 10:57 | disposition home or self-care (01) ==
PROVIDERS: PCP Nurse Practitioner Primary Care; Visit Provider Anesthesiology
DX: M47.816 Spondylosis without myelopathy or radiculopathy, lumbar region (principal); M15.9 Polyosteoarthritis, unspecified; M70.61 Trochanteric bursitis, right hip; M70.62 Trochanteric bursitis, left hip; G89.4 Chronic pain syndrome; M79.7 Fibromyalgia
CPT/HCPCS: 99024

== ENCOUNTER → 2023-11-28 10:33 | Outpatient (BNVA) | payer MEDICARE, MEDICAID, SELFPAY | PROVIDERS: PCP Nurse Practitioner Primary Care; Visit Provider Anesthesiology | DX: M47.816 Spondylosis without myelopathy or radiculopathy, lumbar region (principal); M15.9 Polyosteoarthritis, unspecified; M70.61 Trochanteric bursitis, right hip; M70.62 Trochanteric bursitis, left hip; M79.7 Fibromyalgia; G89.4 Chronic pain syndrome | CPT/HCPCS: 99212 ==

== ENCOUNTER 2023-12-06 06:19 | Outpatient (REF) | payer MEDICARE, MEDICAID, SELFPAY | END 2023-12-06 06:20 | disposition home or self-care (01) | LOC: CF 06:19 | PROVIDERS: Visit Provider Anesthesiology | DX: M47.816 Spondylosis without myelopathy or radiculopathy, lumbar region (principal); M15.9 Polyosteoarthritis, unspecified; M70.61 Trochanteric bursitis, right hip; M70.62 Trochanteric bursitis, left hip; G89.4 Chronic pain syndrome; M79.7 Fibromyalgia | CPT/HCPCS: 99212 ==

== ENCOUNTER 2023-12-06 10:13 | Outpatient (AMB) | payer MEDICARE, MEDICAID, SELFPAY ==
--- NOTE | 2023-12-06 10:26 | A.OFFVIS_ITS ---
Vital Signs 12/06/23 10:49 Height 4 ft 10 in Weight 148 lb BMI 30.9 BP 120/82 Blood Pressure Location Lt brachial Position Sitting Respiration 16 Pulse 106 H Pulse Source Pulse Oximeter Pulse Oximetry (%) 98 Oxygen Delivery Method Room Air Comment pre-op Intake Visit Reasons: LEFT L5 SPRINT PNS TRIAL(POSSIBLE L4, S1) Allergies Penicillins [PENICILLINS] Allergy (Severe, Verified 12/06/23 10:52) SWELLING/ITCHING vancomycin [VANCOMYCIN] Allergy (Intermediate, Verified 12/06/23 10:52) RASH AND ITCHING penicillin V Allergy (Unknown, Verified 12/06/23 10:52) redness and itching/ inflammation HPI Comments Details: Heather came today into the office for receiving completion of the procedure of sprint PNS on the lumbar spine. He stated that the right side PNS does not help her pain. She insisted on removal of the right-sided sprint PNS wire instead of completing the procedure. The patient was explained that the completion of the procedure might be required to see the full effect of the stimulation. She also was explained that sometimes it is 3-4 weeks which requires for the both leads to reach maximum effect. Nevertheless patient insisted on removal of the stimulating device. The dressing was removed stimulating device was pulled out sterile I have Band-Aid was applied. No complications were observed no fracture of the lead, no redness no swelling no pathological discharge. The patient was informed that it is unlikely we will be able to help her with anything else. Prior: very pleasant Luxembourger-speaking 47 years old female who presents in my office with widespread pain all over the body. The most prominent pain of this patient is actually lower back pain. She went for bilateral diagnostic L3-L4 dorsal ramus L5 bilateral medial branch block 6 days ago. She reported absence of pain for the 1st 7 hours after the procedure. In fact she reported that for 3 days after the procedure she had very minimal pain in her lower back. I explained to the patient sprint PNS. The brochure of sprint PNS was given to the patient. The patient is eager to go for the procedure. The time limitations in activity limitations are explained to the patient. She reports pain in bilateral shoulders bilateral lower back bilateral thighs bilateral hips. She reports that pain started 1 year ago. 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 She can not sleep normally she can not do activities of daily living she can not take care of himself she can not function normally. She is not working for 1 year. She reports that cold weather and weather changes aggravate her pain. The pain is most severe at night. She attempted meloxicam cyclobenzaprine Aleve ibuprofen and diclofenac gel to help her pain. Nothing helps her pain. She had physical therapy 5 months ago with no pain relief. She had x-ray of the lower lumbar spine available and dictated as below. [facility] Medical History Asthma Diabetes Hypertension Hyperthyroidism Surgical History History of cholecystectomy History of removal of cyst History of removal of cyst Family History Mother Cancer Diabetes Hypertension Father No problems noted. Social History Alcohol intake: never Patient Tobacco Use Status: Never used Tobacco Current occupational status: employed Current occupation: [employer]/ rt handed dominant Review of Systems Const All systems reviewed & are unremarkable except as noted in HPI and below ENT Reports Normal hearing present Neuro Reports Normal hearing present, Denies Abnormal speech present, Denies confusion and Denies Sensory deficit (Neuro) Psych Denies confusion Physical Exam Vital Signs: Last Vital Signs Pulse 106 H 12/06/23 10:49 Resp 16 12/06/23 10:49 BP 120/82 12/06/23 10:49 Pulse Ox 98 12/06/23 10:49 Oxygen Delivery Method Room Air 12/06/23 10:49 BMI result Body Mass Index 30.9 Const General: no acute distress; No confusion Orientation/consciousness: patient oriented x3 and No confusion Eyes General: appearance normal, both eyes and all related structures Pupils: Equal, round and reactive pupils present EOM: EOMs intact bilaterally Neck Neck: Yes full ROM Chest Chest palpation & inspection: normal inspection of the chest Resp Effort & Inspection: normal respiratory effort, able to speak in complete sentences, normal respiratory pattern, no audible wheezes and no cough Cardio Jugular venous distension: no JVD GI Inspection: Yes normal to inspection Back/Spine/Pelvis Other: Able to stand on bilateral tiptoes in bilateral heels. Denies numbness in bilateral lower extremities. Able to flex herself forward but unable to flex herself backwards reports severe pain in the back with attempt to flex backwards. Reports tenderness on palpation in bilateral paraspinal as well as spinal region over lower lumbar spine. Valsalva maneuver is negative for pain increase. Loading test is positive bilaterally. SLR is negative bilaterally. Dorsiflexion of the foot is negative bilaterally with maximal SLR. Neuro General: patient oriented x3, gait normal and No confusion Cranial nerves: Yes CN's II-XII intact bilaterally, Yes Equal, round and reactive pupils present, Yes Normal hearing present and Yes Ability to bilaterally elevate shoulders present Speech: No Abnormal speech present Gait exam (Neuro): Normal gait present Motor exam (neuro): 5/5 motor strength present throughout Sensory Exam: No Sensory deficit (Neuro) Extrem General: No pedal edema Psych Speech and movement: Normal speech and movement present Affect: normal affect Attitude: cooperative Thought process: Normal thought process present Thought content: Normal thought content present Insight: Good insight present (Psych) Judgement: Good judgement present (Psych) Assessment & Plan Assessment & Plan (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 All explanations were given to her. She continued to insist on removal of the device. The device was removed. The patient was informed that it is unlikely we will be able to help her with anything else in this office. Orders: Orders [place] guidance in treatment room Today M47.816 - Spondylosis without myelopathy or radiculopathy, lumbar region Coding Level of Care Code Est Pt Level 3 (04720) Diagnoses Spondylosis of lumbar region without myelopathy or radiculopathy M47.816 Osteoarthritis, generalized M15.9 Trochanteric bursitis of both hips M70.61; M70.62 Chronic pain syndrome G89.4 Fibromyalgia M79.7
[2023-12-06 10:49] VITALS: BP 120/82; PULSE 106; RESP 16; O2SAT 98; BMI 30.9
== END 2023-12-06 10:26 | disposition home or self-care (01) ==
LOC: HO.PMCPRC 10:13
PROVIDERS: PCP Nurse Practitioner Primary Care; Visit Provider Anesthesiology
DX: M47.816 Spondylosis without myelopathy or radiculopathy, lumbar region (principal); M15.9 Polyosteoarthritis, unspecified; M70.61 Trochanteric bursitis, right hip; M70.62 Trochanteric bursitis, left hip; G89.4 Chronic pain syndrome; M79.7 Fibromyalgia
CPT/HCPCS: 99213

== ENCOUNTER 2023-12-10 13:03 | Emergency (ER) | payer MEDICARE, MEDICAID, SELFPAY ==
--- NOTE | ~2023-12-10 | XR_ITS ---
EXAMINATION: XR WRIST, LEFT CLINICAL INFORMATION: Pain and swelling COMPARISON: None available. TECHNIQUE: PA, lateral, and oblique views of the left wrist. 4 views FINDINGS: The bones and soft tissues are normal. No fracture. Alignment is anatomic with normal joint spaces. No erosions or abnormal soft tissue calcifications. XR/XR wrist LT min 3V IMPRESSION: No fracture or dislocation
--- NOTE | ~2023-12-10 | CT_ITS ---
EXAMINATION: CT hand LT w IV con INDICATION: left third finger pain, ?tenosynovitis COMPARISON: Wrist radiograph 12/10/2023 TECHNIQUE: Helical scanning was performed utilizing 0.6 mm axial collimation through the left hand after the uneventful administration of 85 mL Omnipaque 350 intravenous contrast. Sagittal and coronal reformatted images were obtained on the technologist workstation. This CT examination was performed using dose optimization techniques as appropriate, variously including the following: * Automated exposure control * Adjustment of mA and/or kV according to patient size (this includes techniques or standardized protocols for targeted exams where dose is matched to indication/reason for exam; i.e. extremities or head) Use of iterative reconstruction technique DLP: 126 mGy-cm FINDINGS: The third digit flexor digitorum profundus and flexor digitorum superficialis tendons are swollen which could represent fluid within the tendon sheath (series 9 axial image 93). There is surrounding inflammatory stranding (series #9 axial image 87/272). No organized fluid collection. No significant emphysema. The osseous structures of the hand are in anatomic alignment. No acute fracture. CT/CT hand LT w IV con IMPRESSION: Tenosynovitis of the third digit flexor digitorum profundus and flexor digitorum superficialis tendons.
[2023-12-10 13:33] VITALS: BP 151/72; PULSE 91; RESP 16; TEMP 36.1; O2SAT 98; BMI 32.0
--- NOTE | 2023-12-10 13:33 | ED.UPPEXIN ---
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 She denies any recent trauma or injury. She states that she had carpal tunnel surgery performed at [facility] on October 11. There were no complications following the surgery. She states that she has had increased pain, swelling in her hand without any trauma. She denies any fevers, chills, numbness or tingling. She states that the pain worsens with movement and with palpation. Eyes taking any medications at home to treat her current symptoms. No other complaints or concerns at this time. MD complaint: injury to: left and hand Onset (ago): day(s) Other injuries: none Relieving factors: none Exacerbating factors: movement of extremity Associated symptoms: denies other symptoms Related Data Home Medications ?Medication ?Instructions ?Recorded ?Confirmed albuterol sulfate 90 mcg/actuation inhalation 11/19/21 11/26/21 aerosol inhaler (Ventolin HFA) alcohol swabs (Alcohol Prep Pads) pad topical 11/19/21 11/19/21 budesonide-formoterol HFA 160 inhalation 11/19/21 11/19/21 mcg-4.5 mcg/actuation aerosol inhaler (Symbicort) cholecalciferol (vitamin D3) 1,250 1,250 mcg PO QWEEK 11/19/21 11/19/21 mcg (50,000 unit) capsule diclofenac sodium 1 % topical gel 2 g topical QID 11/19/21 11/19/21 (Voltaren Arthritis Pain) insulin regular hum U-500 conc 500 unit subcut 11/19/21 11/19/21 unit/mL(3 mL) subcut pen (Humulin R U-500 (Conc) Insulin Kwikpen) levothyroxine 25 mcg capsule 25 mcg PO DAILY 11/19/21 11/19/21 lisinopril 10 mg tablet mg PO DAILY 11/19/21 11/19/21 pantoprazole 40 mg tablet,delayed 40 mg PO DAILY 11/19/21 11/19/21 release pen needle, diabetic 31 gauge x #50 ea 11/19/21 11/19/21 3/16 (Sure Comfort Pen Needle) semaglutide 1 mg/dose (4 mg/3 mL) mg subcut 11/19/21 11/19/21 subcutaneous pen injector (Ozempic) Previous Rx's ?Medication ?Instructions ?Recorded acetaminophen 500 mg tablet 500 mg PO Q6H PRN pain or fever 11/19/20 (Tylenol Extra Strength) #20 tabs naproxen 500 mg tablet 500 mg PO BID PRN pain 10 days #20 11/19/20 tabs ketorolac 10 mg tablet 10 mg PO QID PRN pain 5 days #20 07/30/21 tabs cyclobenzaprine 10 mg tablet 10 mg PO TID PRN muscle spasm #10 08/01/21 tabs erythromycin 5 mg/gram (0.5 %) eye 0.5 inch ophthalmic (eye) QID #3.5 02/19/22 ointment grams levofloxacin 500 mg tablet 500 mg PO DAILY #7 tabs 06/03/22 ibuprofen 600 mg tablet 600 mg PO Q6H PRN pain #30 tabs 12/04/22 gabapentin 400 mg capsule 400 mg PO TID 30 days #90 caps 09/22/23 clindamycin HCl 300 mg capsule 300 mg PO TID 10 days #30 caps 12/10/23 Allergies Allergy/AdvReac Type Severity Reaction Status Date / Time Penicillins [PENICILLINS] Allergy Severe SWELLING/IT Verified 12/10/23 13:34 JOE vancomycin [VANCOMYCIN] Allergy Intermediate RASH AND Verified 12/10/23 13:34 ITCHING penicillin V Allergy Unknown redness Verified 12/10/23 13:34 and itching/ inflammation Review of Systems Review of Systems: Yes all other systems are reviewed and are negative Constitutional: Constitutional: Reports as per [facility] Past Medical History Medical History Asthma Diabetes Hypertension Hyperthyroidism Surgical History History of cholecystectomy History of removal of cyst History of removal of cyst Family History Family History Mother Cancer Diabetes Hypertension Father No problems noted. Social History Social History Alcohol intake: never Patient Tobacco Use Status: Never used Tobacco Advance Directives: No Advance Directives Information Provided: No Do you have a plan to hurt others: No Plan Current occupational status: employed Current occupation: [employer]/ rt handed dominant Physical Exam Vital Signs: Vital Signs: Last Vital Signs Temp 98.7 F 12/10/23 22:44 Pulse 76 12/10/23 22:44 Resp 16 12/10/23 22:44 BP 106/40 L 12/10/23 22:44 Pulse Ox 97 12/10/23 22:44 O2 Del Method Room Air 12/10/23 22:44 BMI result Body Mass Index 32.0 Const: General: cooperative, comfortable and no acute distress Orientation/consciousness: patient oriented x3 Limitations: no limitations HEENT: Head: Yes normal to inspection, Yes normocephalic and Yes atraumatic Ears: hearing grossly normal bilaterally General nose exam: Normal external nose present Face and sinus: Yes normal facial exam Mouth: Normal oral and palatal mucosa present, oropharynx normal and moist mucous membranes Throat: Yes posterior oropharynx normal Eyes: General: appearance normal, both eyes and all related structures Eyelids: Yes eyelids normal Conjunctivae: conjunctivae normal Sclerae: sclerae normal Pupils: Equal, round and reactive pupils present EOM: EOMs intact bilaterally Neck: Neck: Yes normal visual inspection, Yes full ROM and Yes no lymphadenopathy Lymphatic: no lymphadenopathy noted Chest: Chest palpation & inspection: normal inspection of the chest Resp: Effort & Inspection: normal respiratory effort and able to speak in complete sentences Auscultation: clear to auscultation bilaterally, no crackles, no rales, no rhonchi and no wheezes Cardio: Rate: regular rate Rhythm: regular rhythm Heart sounds: S1 normal heart sound present and S2 normal heart sound present GI: Inspection: Yes normal to inspection Skin: General skin exam: no rashes or lesions noted Trauma: no lacerations or abrasions Wounds: no wounds Neuro: General: patient oriented x3 and moves all extremities Cranial nerves: Yes Equal, round and reactive pupils present Extrem: Other: Left hand palmar aspect, there are well healed surgical incisions noted just inferior to the distal MCP no surrounding erythema or warmth. She also a well-healed surgical scar noted to the palm, no surrounding erythema or warmth. She has tenderness overlying the 3rd digit extending throughout her palm and into her mid forearm. Pain worsens with extension and flexion. She does have range of motion however with significant pain. Strong radial pulse. She does have mild edema noted to her mid lateral forearm, radial aspect, no fluctuance or induration however tenderness palpation in this region, General: Yes normal to inspection Right upper extremity: normal to inspection Left upper extremity: normal to inspection Right lower extremity: normal to inspection Left lower extremity: normal to inspection Course Course Course Narrative: This is a Rapid Medical Examination (RME) performed by Suhail Grant PA-C in triage. Full HPI, ROS, assessment and treatment plan per primary provider in the Main ED. 48 yo panamanian speaking female hx of hyperthyroidism, HTN, asthma, and DM here for eval of 10/10 left wrist pain since (3 days ago). reports taking motrin last night for pain. carpal tunnel surgery x2 months ago at [facility]. did not speak to the surgeon as their office was closed yesterday. vertical scar noted to dorsal left wrist. Plan: xrs ordered Reevaluation(s) Reevaluation #1: Discussed case with orthopedic PA, Lisandro Becerril, due to concern for flexor tenosynovitis. She states that if there is any concerns for cellulitis, can admit to medicine with IV antibiotics. If does not qualify for admission, will dose with IV antibiotics and sent home with p.o. antibiotics and to follow-up with Dr. Miranda. I discussed findings and workup with my attending physician, Dr. Govea, who recommends CT with IV contrast. Labs, CT, and IV clindamycin ordered. Patient has an allergy to penicillin and vanco therefore unable to medicate with those antibiotics. We will continue to closely monitor. Time: 17:16 Reevaluation #2: CT still pending at this time. Sign-out given to my colleague, Tracee Mari PA-C pending CT of the hand. Time: 19:15 Reevaluation #3: Discussed this case with ortho recommends hospital admission for IV antibiotics. CT scan does show evidence of tenosynovitis. Plan hospital admission. Time: 20:54 Additional Reevaluation(s): Patient no longer wants to stay in the hospital and hospitalist do not feel as though it is necessary, hospitalist also discuss this case with ortho who feels the patient can be discharged home with p.o. antibiotics and follow up with Dr. Miranda who is patients hand surgeon strict return percautions given to patient Medications Administered Discontinued Medications Generic Name Dose Route Start Last Admin Trade Name Freq PRN Reason Stop Dose Admin Clindamycin Phosphate 600 mg in 50 mls @ 100 mls/hr 12/10/23 17:51 12/10/23 19:11 Cleocin IV 12/10/23 18:20 Infused ONCE ONE Infusion Iohexol 100 ml 12/10/23 18:57 12/10/23 18:57 Iohexol 350 Mg/Ml 100 Ml Infus..Btl IV 12/10/23 18:58 85 ml ONCE ONE Administration Medical Decision Making Medical Decision Making [facility] Narrative: This is a 48-year-old female who presents emergency department with complaints of left hand pain x2 days. Patient had carpal tunnel surgery performed at [facility] October 11. She states that since she has had increased pain and swelling to her hand particularly over her right 3rd digit extending down into her mid forearm. Pain worsens with extension and flexion. Physical examination concerning for flexor tenosynovitis. Given findings, labs, as well as IV antibiotics and CT of the hand and wrist ordered. X-ray was ordered by previous provider, which was unremarkable. Differential Diagnosis Differential Diagnoses: The differential diagnosis associated with the presentation includes Flexor tenosynovitis, cellulitis, carpal tunnel syndrome Admission/Observation Consideration of admission/observation: Escalation of care including admission/observation considered Consult Healthcare Provider Management of the patient was discussed with: [employer]els Product Manager Lisandro Becerril PA-C - orthopedics Lab Data [facility] Lab Attestation statement: I reviewed the patient's lab results. Patient with slight leukocytosis at 10.9, no inflammatory elevation. Chemistry nondiagnostic. Slight hyperglycemia 118, she is diabetic. 12/10/23 17:47 12/10/23 17:47 Labs: Lab Results 12/10/23 12/10/23 Range/Units 17:47 18:00 WBC 10.9 H (4.8-10.8) X10*3/uL RBC 4.51 (4.20-5.50) X10*6/uL Hgb 14.8 (12.0-16.0) g/dl Hct 42.1 (37.0-47.0) % MCV 93.3 (80.0-98.0) fL MCH 32.8 (27.0-33.0) pg MCHC 35.2 H (31.0-35.0) g/dl RDW 11.9 (11.0-16.0) % Plt Count 221 (160-400) X10*3/uL MPV 10.6 (9.4-12.3) fL Immature Gran % (Auto) 0.5 H (0.0-0.4) % Neut % (Auto) 57.3 (45-73) % Lymph % (Auto) 31.6 (20-40) % [place] % (Auto) 7.3 (2-11) % Eos % (Auto) 2.5 (0-4) % Baso % (Auto) 0.8 (0-2) % Lymph # (Auto) 3.5 (1.2-4.9) X10*3/uL [place] # (Auto) 0.8 (0.1-1.2) X10*3/uL Eos # (Auto) 0.3 (0.0-0.4) X10*3/uL Baso # (Auto) 0.1 (0.0-0.2) X10*3/uL Abs Immat Gran (auto) 0.05 H (0.00-0.03) X10*3/uL Absolute Neuts (auto) 6.3 (2.0-8.3) x10*3/uL Absolute Nucleated RBC 0.000 (0.0-0.012) X10*3/uL Nucleated RBC % (auto) 0.0 (0.0-0.2) /100WBC ESR 13 (0-20) MM/HR Sodium 142 (135-145) mmol/L Potassium 4.0 (3.3-5.1) mmol/L Chloride 109 H (96-108) mmol/L Carbon Dioxide 25 (22-29) mmol/L Anion Gap 12 (12-20) BUN 11 (9-16) mg/dL Creatinine 0.64 (0.5-1.4) mg/dL Estim Creat Clear Calc 90.6 Estimated GFR > 60 Random Glucose 118 H (60-115) mg/dL Calcium 9.5 (8.4-10.2) mg/dL Total Bilirubin 0.3 (0.0-1.0) mg/dL Direct Bilirubin 0.1 (0.0-0.5) mg/dL AST 25 (5-31) U/L ALT 29 (0-31) U/L Alkaline Phosphatase 74 (39-117) U/L C-Reactive Protein 0.24 (< or = 0.50) mg/dL Total Protein 7.5 (6.5-8.0) g/dL Albumin 4.0 (3.5-5.0) g/dL Radiology Impression Discussion of test interpretation with radiology: I have reviewed the radiologist's reading. Radiologist Impression: XR/XR wrist LT min 3V IMPRESSION: No fracture or dislocation Dictated By: Conner Rm MD External Record Review External record reviewed: Inpatient record, Office record, Outpatient record, Prior outpatient labs, Prior outpatient radiology, Primary care record and Outside ED record Critical Care Time Critical Care Time Critical Care Time: Yes Total Critical Care Time: 35 Attestation: I attest to this time spent taking care of the patient, obtaining history, physical, reviewing labs, imaging, speaking to my attending, specialist or hospitalist. Discharge Plan Discharge Clinical Impression: Tenosynovitis Patient Disposition: Home, Self-Care Instructions: Tenosynovitis (ED) Additional Instructions: Take your medications as prescribed. If you were prescribed antibiotics today, it is important that you take your medication to their entirety, do not skip any doses, do not finish them early. Follow-up with your primary care provider this week. Return to the emergency department with new or worsening symptoms. Such as fevers, chills, chest pain, shortness of breath, nausea, vomiting, dizziness, headache, vision changes, lethargy In case of emergency call 911 Please follow-up with your orthopedic surgeon. Prescriptions: New clindamycin HCl 300 mg capsule 300 mg PO TID 10 Days Qty: 30 0RF No Action acetaminophen [Tylenol Extra Strength] 500 mg tablet 500 mg PO Q6H PRN (Reason: pain or fever) Qty: 20 0RF naproxen 500 mg tablet 500 mg PO BID PRN (Reason: pain) 10 Days Qty: 20 0RF ketorolac 10 mg tablet 10 mg PO QID PRN (Reason: pain) 5 Days Qty: 20 0RF Rx Instructions: Patient received 30 mg IM Toradol in the ED. erythromycin 5 mg/gram (0.5 %) ointment 0.5 inch ophthalmic (eye) QID Qty: 3.5 0RF cyclobenzaprine 10 mg tablet 10 mg PO TID PRN (Reason: muscle spasm) Qty: 10 0RF ibuprofen 600 mg tablet 600 mg PO Q6H PRN (Reason: pain) Qty: 30 0RF levofloxacin 500 mg tablet 500 mg PO DAILY Qty: 7 0RF Humulin R U-500 (Conc) Kwikpen 500 unit/mL (3 mL) insulin pen subcut Ozempic 1 mg/dose (4 mg/3 mL) pen injector subcut (DME) pen needle, diabetic [Sure Comfort Pen Needle] 31 gauge x 3/16 needle See Rx Instructions .ROUTE .MEDSUPPLY Qty: 50 Rx Instructions: As directed alcohol swabs [Alcohol Prep Pads] Pads, Medicated topical lisinopril 10 mg tablet PO DAILY budesonide-formoterol [Symbicort] 160-4.5 mcg/actuation HFA aerosol inhaler inhalation albuterol sulfate [Ventolin HFA] 90 mcg/actuation HFA aerosol inhaler inhalation cholecalciferol (vitamin D3) 1,250 mcg (50,000 unit) capsule 1,250 mcg PO QWEEK diclofenac sodium [Voltaren Arthritis Pain] 1 % gel 2 g topical QID Rx Instructions: apply to single elbow, wrist or hand; for hand includes palm/fingers/back of hand pantoprazole 40 mg tablet,delayed release (DR/EC) 40 mg PO DAILY levothyroxine 25 mcg capsule 25 mcg PO DAILY lidocaine (PF) 50 mg/5 mL (1 %) syringe 5 ml subcut ONCE Qty: 5 0RF gabapentin 400 mg capsule 400 mg PO TID 30 Days Qty: 90 5RF Referrals: Nathalie Wang INVENTORY CLERK [Primary Care Provider] - 2 days Stand Alone Forms: Work/School Release Interventions: ED Discharge Assessment Last Done: 12/10/23 22:44 Discharge Date/Time: 12/10/23 22:44 Print Language: Georgian
[2023-12-10 17:19] VITALS: BP 159/74; PULSE 87; RESP 16; TEMP 36.6; O2SAT 99
[2023-12-10 17:52] LABS: MANUAL DIFF FLAG NO
[2023-12-10 17:55] LABS: Basophils Absolute Auto 0.1 X10*3/uL (0.0-0.2); Basophils Percent Auto 0.8 % (0-2); Eosinophils Absolute Auto 0.3 X10*3/uL (0.0-0.4); Eosinophils Percent Auto 2.5 % (0-4); Hematocrit 42.1 % (37.0-47.0); Hemoglobin 14.8 g/dl (12.0-16.0); Imm Gran Abs Auto 0.05 X10*3/uL (0.00-0.03); Imm Gran Pct Auto 0.5 % (0.0-0.4); Lymphocytes Absolute Auto 3.5 X10*3/uL (1.2-4.9); Lymphocytes Percent Auto 31.6 % (20-40); Mean Corpuscular HGB Conc 35.2 g/dl (31.0-35.0); Mean Corpuscular Hemoglobin 32.8 pg (27.0-33.0); Mean Corpuscular Volume 93.3 fL (80.0-98.0); Mean Platelet Volume 10.6 fL (9.4-12.3); Monocytes Absolute Auto 0.8 X10*3/uL (0.1-1.2); Monocytes Percent Auto 7.3 % (2-11); Neutrophils Absolute Auto 6.3 x10*3/uL (2.0-8.3); Neutrophils Percent Auto 57.3 % (45-73); Platelet Count 221 X10*3/uL (160-400); Red Blood Count 4.51 X10*6/uL (4.20-5.50); Red Cell Distribution Width 11.9 % (11.0-16.0); White Blood Count 10.9 X10*3/uL (4.8-10.8)
[2023-12-10 18:04] VITALS: TEMP 36.8; O2SAT 98
[2023-12-10 18:10] LABS: Alanine Aminotransferase 29 U/L (0-31); Alkaline Phosphatase 74 U/L (39-117); Anion Gap 12 (12-20); Aspartate Amino Transferase 25 U/L (5-31); Bilirubin Direct 0.1 mg/dL (0.0-0.5); Bilirubin Total 0.3 mg/dL (0.0-1.0); Blood Urea Nitrogen 11 mg/dL (9-16); C Reactive Protein 0.24 mg/dL (< or = 0.50); Calcium 9.5 mg/dL (8.4-10.2); Carbon Dioxide 25 mmol/L (22-29); Chloride 109 mmol/L (96-108); Creatinine Clr Calc Pharmacy 90.6; Estimated Glomerular Filt Rate > 60; Glucose Random 118 mg/dL (60-115); Sodium 142 mmol/L (135-145); Total Protein 7.5 g/dL (6.5-8.0)
[2023-12-10] MEDS: Clindamycin Phosphate/D5W 600 MG/50 ML PIGGYBACK 100 MG IV (18:11)
[2023-12-10 18:49] LABS: Erythrocyte Sedimentation Rate 13 MM/HR (0-20)
[2023-12-10] MEDS: iohexoL 350 MG/ML 100 ML INFUS..BTL IV (18:57)
[2023-12-10 19:51] VITALS: BP 121/57; PULSE 80; RESP 16; TEMP 37.1; O2SAT 98
--- NOTE | 2023-12-10 21:37 | P.HPHOSP_ITS ---
History of Present Illness Date of Service: 12/10/23 Attending physician on admission: Khadijah Burks Pt is a 48-year-old female with a PMH significant for?asthma, insulin-dependent type 2 diabetes, carpal tunnel syndrome, who presents to the ED with? In the ED pt head stable vitals. Labs were largely unremarkable. Mild leukocytosis of 10.9. Stable H&H. No significant electrolyte abnormalities. Renal and hepatic function baseline. ESR and CRP WNL. CXR showed CT? EKG demonstrated Pt was treated with Pt will be admitted to the hospital [facility] Medical History Asthma Diabetes Hypertension Hyperthyroidism Family History Mother Cancer Diabetes Hypertension Father No problems noted. Surgical History History of cholecystectomy History of removal of cyst History of removal of cyst Social History Alcohol intake: never Patient Tobacco Use Status: Never used Tobacco Advance Directives: No Advance Directives Information Provided: No Do you have a plan to hurt others: No Plan Current occupational status: employed Current occupation: [employer]/ rt handed dominant Meds Allergies Allergy/AdvReac Type Severity Reaction Status Date / Time Penicillins [PENICILLINS] Allergy Severe SWELLING/IT Verified 12/10/23 13:34 JOE vancomycin [VANCOMYCIN] Allergy Intermediate RASH AND Verified 12/10/23 13:34 ITCHING penicillin V Allergy Unknown redness Verified 12/10/23 13:34 and itching/ inflammation Home Medications ?Medication ?Instructions ?Recorded ?Confirmed ?Last Taken ?Type albuterol sulfate 90 mcg/actuation inhalation 11/19/21 11/26/21 Unknown History aerosol inhaler (Ventolin HFA) alcohol swabs (Alcohol Prep Pads) pad topical 11/19/21 11/19/21 Unknown History budesonide-formoterol HFA 160 inhalation 11/19/21 11/19/21 Unknown History mcg-4.5 mcg/actuation aerosol inhaler (Symbicort) cholecalciferol (vitamin D3) 1,250 1,250 mcg PO QWEEK 11/19/21 11/19/21 Unknown History mcg (50,000 unit) capsule diclofenac sodium 1 % topical gel 2 g topical QID 11/19/21 11/19/21 Unknown History (Voltaren Arthritis Pain) insulin regular hum U-500 conc 500 unit subcut 11/19/21 11/19/21 Unknown History unit/mL(3 mL) subcut pen (Humulin R U-500 (Conc) Insulin Kwikpen) levothyroxine 25 mcg capsule 25 mcg PO DAILY 11/19/21 11/19/21 Unknown History lisinopril 10 mg tablet mg PO DAILY 11/19/21 11/19/21 Unknown History pantoprazole 40 mg tablet,delayed 40 mg PO DAILY 11/19/21 11/19/21 Unknown History release pen needle, diabetic 31 gauge x #50 ea 11/19/21 11/19/21 Unknown History 08/26 (Sure Comfort Pen Needle) semaglutide 1 mg/dose (4 mg/3 mL) mg subcut 11/19/21 11/19/21 Unknown History subcutaneous pen injector (Ozempic) Physical Exam 2 Vital Signs and Narrative: Vital Signs: Last Vital Signs Temp 98.7 F 12/10/23 19:51 Pulse 80 12/10/23 19:51 Resp 16 12/10/23 19:51 BP 121/57 L 12/10/23 19:51 Pulse Ox 98 12/10/23 19:51 O2 Del Method Room Air 12/10/23 19:51 BMI result Body Mass Index 32.0 Results Labs 12/10/23 17:47 12/10/23 17:47 Labs: Laboratory Results - last 24 hr 12/10/23 12/10/23 17:47 18:00 MCV 93.3 MCH 32.8 MCHC 35.2 H RDW 11.9 Plt Count 221 MPV 10.6 Immature Gran % (Auto) 0.5 H Neut % (Auto) 57.3 Lymph % (Auto) 31.6 [place] % (Auto) 7.3 Eos % (Auto) 2.5 Baso % (Auto) 0.8 Lymph # (Auto) 3.5 [place] # (Auto) 0.8 Eos # (Auto) 0.3 Baso # (Auto) 0.1 Abs Immat Gran (auto) 0.05 H Absolute Neuts (auto) 6.3 Absolute Nucleated RBC 0.000 Nucleated RBC % (auto) 0.0 ESR 13 Anion Gap 12 Estim Creat Clear Calc 90.6 Estimated GFR > 60 Random Glucose 118 H Calcium 9.5 Total Bilirubin 0.3 Direct Bilirubin 0.1 AST 25 ALT 29 Alkaline Phosphatase 74 C-Reactive Protein 0.24 Total Protein 7.5 Albumin 4.0 Imaging Radiologist's Impressions: Impressions Wrist X-Ray 12/10/23 13:53 IMPRESSION: No fracture or dislocation Hand CT 12/10/23 19:08 IMPRESSION: Tenosynovitis of the third digit flexor digitorum profundus and flexor digitorum superficialis tendons.
[2023-12-10 22:18] VITALS: BP 106/40; PULSE 76; RESP 16; TEMP 37.1; O2SAT 97
--- NOTE | 2023-12-10 22:25 | PM.EVENT ---
Documented by User: GABRIELLE Mireles 12/10/23 22:35 Event Note Date of Service: 12/10/23 Event Note: Patient seen and evaluated for possible hospital admission for tenosynovitis. CT of left hand found evidence of tenosynovitis of 3rd digit flexor digitorum profundus and flexor digitorum superficialis tendons. Patient given IV clindamycin in the ED and she noted almost immediate improvement in her symptoms. Upon physical examination pt with well-healed scars on wrist/palm and on MCP joint of third digit. No evidence of overlying cellulitis: No erythema or swelling of forearm, hand, or fingers. Patient denies fever or chills. No leukocytosis. 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 Does not meet inpatient criteria for admission. Patient can be sent home on clindamycin p.o. with follow-up with Dr. Miranda in orthopedics at [facility]. Patient told to take antibiotics with food and to return to the ED if she develops diarrhea or if symptoms in her hand worsen. Time Spent With Patient Time: Total time managing care of this patient today ____ minutes. Documented by User: Khadijah Burks MD 12/11/23 19:02 Event Note Date of Service: 12/11/23
[2023-12-10 22:44] VITALS: BP 106/40; PULSE 76; RESP 16; TEMP 37.1; O2SAT 97
== END 2023-12-10 22:44 | disposition home or self-care (01) ==
PROVIDERS: Physician Assistant Medical; Emergency Provider Emergency Medicine; PCP Nurse Practitioner Primary Care
DX: M65.9 Synovitis and tenosynovitis, unspecified (principal); M25.532 Pain in left wrist; M79.642 Pain in left hand; Z98.890 Other specified postprocedural states
CPT/HCPCS: 36415; 73110; 73201; 80048; 80076; 85025; 85652; 86140; 87040; 96365; 99283; 99284; J0736; Q9967

== ENCOUNTER 2024-02-07 16:11 | Outpatient (REF) | payer MEDICARE, MEDICAID, SELFPAY ==
[2024-02-07 16:24] LABS: Appearance Urine Clear; Color Urine Yellow; Glucose Urine UA Negative (Negative); Leukocyte Esterase Urine Trace (Negative); Nitrite Urine Negative (Negative); PH 6.5 (5.0-9.0); UMIC TRIGGER UACC YES; Urine Blood Negative (Negative); Urine Ketones Negative (Negative); Urine Protein Negative (Neg-Trace)
[2024-02-07 16:30] LABS: Bacteria Urine None Seen (None Seen); Hyaline Casts Urine 0-2 /LPF (0-2); RBC Urine 0-2 /HPF (0-2); Squamous Epithelial Cell Urine 0-2 /HPF (0-2); WBC Urine 0-5 /HPF (0-5)
== END 2024-02-07 16:12 | disposition home or self-care (01) ==
LOC: HO.HHCLNP 16:11
PROVIDERS: Visit Provider Student in an Organized Health Care Education/Training Program
DX: E11.59 Type 2 diabetes mellitus with other circulatory complications (principal); Z79.4 Long term (current) use of insulin
CPT/HCPCS: 81001

== ENCOUNTER 2024-02-10 08:50 | Outpatient (REF) | payer MEDICARE, MEDICAID, SELFPAY ==
[2024-02-10 12:15] LABS: Alanine Aminotransferase 32 U/L (0-31); Albumin Level 3.7 g/dL (3.5-5.0); Alkaline Phosphatase 80 U/L (39-117); Anion Gap 9 (12-20); Aspartate Amino Transferase 27 U/L (5-31); Bilirubin Total 0.2 mg/dL (0.0-1.0); Blood Urea Nitrogen 13 mg/dL (9-16); Calcium 8.6 mg/dL (8.4-10.2); Carbon Dioxide 23 mmol/L (22-29); Chloride 108 mmol/L (96-108); Cholesterol 156 mg/dL (<200); Estimated Glomerular Filt Rate > 60; Glucose Random 217 mg/dL (60-115); HCG Quantitative < 2 mIU/mL; HDL Cholesterol 35 mg/dL (>40); LDL Cholesterol Calculated 100 mg/dL (<100); Potassium 3.6 mmol/L (3.3-5.1); Sodium 136 mmol/L (135-145); TSH reflex Free T4 1.45 uIU/mL (0.32-4.0); Total Protein 6.8 g/dL (6.5-8.0); Triglycerides 108 mg/dL (<150)
[2024-02-12 16:13] LABS: Follicle Stimulating Hormone 6.4 mIU/mL
[2024-02-17 12:13] LABS: Testosterone, Total 24 ng/dL (2-45)
== END 2024-02-10 08:51 | disposition home or self-care (01) ==
LOC: HO.HHCL 08:50
PROVIDERS: PCP Student in an Organized Health Care Education/Training Program; Visit Provider Nurse Practitioner Primary Care
DX: L68.0 Hirsutism (principal); E08.36 Diabetes mellitus due to underlying condition with diabetic cataract; E11.59 Type 2 diabetes mellitus with other circulatory complications; Z79.4 Long term (current) use of insulin; R93.49 Abnormal radiologic findings on diagnostic imaging of other urinary organs; I15.2 Hypertension secondary to endocrine disorders
CPT/HCPCS: 36415; 80053; 80061; 83001; 83498; 84146; 84402; 84403; 84443; 84702

== ENCOUNTER 2024-04-05 15:29 | Outpatient (REF) | payer MEDICARE, MEDICAID, SELFPAY ==
--- NOTE | ~2024-04-05 | CT_ITS ---
EXAMINATION: CT ABDOMEN WITHOUT AND WITH CONTRAST CLINICAL INFORMATION: 17 hydroxyprogesterone, concern for adrenal hyperplasia. COMPARISON: CT abdomen and pelvis 07/18/2019. TECHNIQUE: Contiguous axial thin section helical images of the abdomen were performed before and after the administration of oral contrast and 85 mL of Omnipaque 350 intravenous contrast. The data set was reformatted in the coronal and sagittal planes and reviewed on an independent workstation. This CT examination was performed using dose optimization techniques as appropriate, variously including the following: *Automated exposure control *Adjustment of mA and/or kV according to patient size (this includes techniques or standardized protocols for targeted exams where dose is matched to indication/reason for exam; i.e. extremities or head) *Use of iterative reconstruction technique DLP: 514 mGy-cm FINDINGS: LUNG BASES: Imaged lung bases are clear bilaterally. Heart size is normal. LIVER, GALLBLADDER, AND BILIARY TREE: Diffuse mild fatty infiltration of the liver. No focal liver lesion. Patent portal veins and hepatic veins. Gallbladder is surgically absent. Normal biliary system. PANCREAS: Normal. SPLEEN: Normal. ADRENAL GLANDS: Normal Bilaterally. No Evidence of Lesion or Hyperplasia. KIDNEYS: There are four 3 mm nonobstructing calculi in the left kidney lower pole. There are approximately 7 tiny 2 mm nonobstructing calculi in the right kidney. No focal renal lesions. No hydronephrosis or hydroureter. Symmetric nephrograms. BOWEL LOOPS: -Normal in appearance. -Probable small type I hiatus hernia at the GE junction. LYMPH NODES: Normal. VASCULAR: Unremarkable. OSSEOUS STRUCTURES: Normal. CT/CT abdomen wo/w IV con IMPRESSION: 1. No evidence of adrenal mass or hyperplasia. 2. Nonobstructing bilateral nephrolithiasis. 3. Fatty infiltration of the liver. No focal liver lesion. 4. Cholecystectomy. Fleischner guidelines were followed. Electronically signed by: Dustin Sparks MD 05/29/2024 10:50 AM SONIA
[2024-04-05] MEDS: iohexoL 350 MG/ML 100 ML INFUS..BTL 85 ML IV (16:06)
[2024-04-06 08:16] LABS: Creatinine POC 0.9 mg/dL (0.5-1.4); GFR POC > 60
== END 2024-04-05 15:30 | disposition home or self-care (01) ==
LOC: HO.CT 15:29
PROVIDERS: PCP Nurse Practitioner Primary Care; Visit Provider Nurse Practitioner Primary Care
DX: R79.89 Other specified abnormal findings of blood chemistry (principal)
CPT/HCPCS: 74170; 82565; Q9967

== ENCOUNTER → 2024-04-05 15:31 | Outpatient (BNV) | payer MEDICARE, MEDICAID, SELFPAY | PROVIDERS: PCP Nurse Practitioner Primary Care; Visit Provider Radiology Diagnostic Radiology | DX: K76.0 Fatty (change of) liver, not elsewhere classified (principal) | CPT/HCPCS: 74170 ==

== ENCOUNTER 2024-12-07 10:37 | Outpatient (REF) | payer MEDICARE, MEDICAID, SELFPAY ==
--- OUTSIDE RECORDS SUMMARY | 2024-12-07 11:30 | XMS_ITS | Encounter Summary ---
Author Organization [employer] Address [address] [place] [address] [address] [place] [address] Care Team Providers Care Melt House Centrifugal Operator Name Role Phone Nathalie Wang Primary Care Provider [phone] Reason for Visit * Reason Onset Date Comments Medication Question 06/24/2023 Prior Authorization 06/24/2023 Ozempic Encounter Details Date Type Department Care Team ([facility] Contact Info) Description 06/24/2023 Telephone [facility] MEDICINE [address] [place] [address] Nathalie Wang ANP [address] [place] [address] Medication Question; Prior Authorization (Ozempic) Social History Tobacco Use Types Packs/Day Years Used Date Smoking Tobacco: Some Days Cigarettes Smokeless Tobacco: Never Alcohol Use Standard Drinks/Week Comments Not Currently 0 (1 standard drink = 0.6 oz pur e alcohol) Housing Stability Answer Date Recorded What is your housing situation today? I have jorden hewitt 05/19/[address] you li ve. Do you have problems with any of the following? None of the above 05/19/2023 Food Insecurity Answer Date Recorded Within the past 12 months, y ou worried that your food would run out before you got money to buy more: Never True 05/12/2023 Within the past 12 months,th e food you bought just didn't last and you didn't have enough money to get more: Never True Transportation Answer Date Recorded In the past 12 months, has l ack of transportation kept you from medical appts, meetings, work or from getting things needed for daily living? No 05/12/2023 Utilities Answer Date Recorded In the past 12 months, has t he electric, gas, oil or water company threatened to shut off services in your home? No 05/12/2023 Depression Answer Date Recorded Patient Health Questionnaire-2 Score 0 05/12/2023 Comments Unknown Sex and Gender Information Value Date Recorded Sex Assigned at Female 04/12/2022 10:22 AM EDT Legal Sex Female 10:22 AM EDT Gender Identity Choose not to disclose 10:22 AM EDT Sexual Orientation Lesbian or Grajeda 04/12/2022 10 :22 AM EDT documented as of this encounter Miscellaneous Notes * Telephone Encounter - VINAYAK Simpson - 06/28/2023 3:39 PM EST Hi - please generate PA for ozempic, perhaps hers ? Thank you * Telephone Encounter - Cinthia Webster - 06/24/2023 2:04 PM EST Tc from pt requesting Semaglutide, 2 MG/DOSE, (Ozempic, 2 MG/DOSE,) 8 MG/3ML solution pen-injector to be sent to [facility]/pharmacy #[id number] [place], [place] - [address] [place] [address]. [facility] pharmacy is currently on backorder and pt has not had injection in 2 weeks. 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
[2024-12-07 13:30] LABS: Estimated Average Glucose 134 mg/dL; Hemoglobin A1C 166.1473 umol/L; Hemoglobin A1c % 6.3 % (<6.0)
[2024-12-07 13:32] LABS: Alanine Aminotransferase 48 U/L (0-31); Albumin Level 3.9 g/dL (3.5-5.0); Alkaline Phosphatase 80 U/L (39-117); Anion Gap 8 (12-20); Aspartate Amino Transferase 31 U/L (5-31); Bilirubin Total 0.2 mg/dL (0.0-1.0); Blood Urea Nitrogen 10 mg/dL (9-16); Calcium 8.4 mg/dL (8.4-10.2); Carbon Dioxide 23 mmol/L (22-29); Chloride 108 mmol/L (96-108); Cholesterol 142 mg/dL (<200); Estimated Glomerular Filt Rate > 60; Glucose Random 168 mg/dL (60-115); HDL Cholesterol 47 mg/dL (>40); LDL Cholesterol Calculated 73 mg/dL (<100); Potassium 4.3 mmol/L (3.3-5.1); Sodium 135 mmol/L (135-145); Total Protein 6.9 g/dL (6.5-8.0); Triglycerides 113 mg/dL (<150)
[2024-12-07 13:38] LABS: Creatinine Urine 44.35 mg/dL; Microalbumin Urine < 5.0 mg/L
== END 2024-12-07 10:38 | disposition home or self-care (01) ==
LOC: HO.HHCL 10:37
PROVIDERS: PCP Nurse Practitioner Primary Care; Visit Provider Nurse Practitioner Primary Care
DX: E11.3293 Type 2 diabetes mellitus with mild nonproliferative diabetic retinopathy without macular edema, bilateral (principal)
CPT/HCPCS: 36415; 80053; 80061; 82043; 82570; 83036

== ENCOUNTER 2025-01-30 08:32 | Outpatient (REF) | payer MEDICARE, MEDICAID, SELFPAY ==
--- NOTE | 2025-01-30 09:04 | PFT_ITS ---
Indication: Asthma Spirometry FEV1 to FVC 82%; FEV1 1.98 L; FVC 2.42 L. There is a significant response to bronchodilators noted. Lung Volumes Total lung capacity 80% predicted; residual volume 92% predicted; expiratory reserve volume 36% predicted Diffusion Capacity DLCO 75% predicted; DLCO corrected for alveolar volume that is 97% predicted Comparisons None Interpretation No obstructive nor restrictive ventilatory defects identified. There is a significant response to bronchodilators noted. The patient also has some evidence of small airways disease suspicious for asthma. Lung volumes are low normal with a decrease in the expiratory reserve volume. In addition to that the patient does have a mild diffusion impairment. If asthma is in the differential, a methacholine challenge will be helpful to assess for hyperreactive airways. Clinical correlation warranted. MTDD
--- OUTSIDE RECORDS SUMMARY | 2025-01-30 09:15 | XMS_ITS | Encounter Summary ---
Author Organization [employer] Address [address] [place] [address] [address] [place] [address] Care Team Providers Care Dock Operations Supervisor Name Role Phone Nathalie Wang Primary Care Provider [phone] Reason for Visit * Reason Onset Date Comments Medication Question 06/24/2023 Prior Authorization 06/24/2023 Ozempic Encounter Details Date Type Department Care Team ([facility] st Contact Info) Description 06/24/2023 Telephone [facility] MEDICINE [address] [place] [address] Nathalie Wang ANP [address] [place] [address] Medication Question; Prior Authorization (Ozempic) Social History [...] MG/3ML solution pen-injector to be sent to [facility]/pharmacy #[id number] [place], [place] - [address] [place] [address]. [facility] pharmacy is currently on backorder and pt has not had injection in 2 weeks. documented in this encounter Plan of Treatment Upcoming Encounters Date Type Department Care Team (Late st Contact Info) Description 02/20/2025 3:45 PM EDT Office Visit [facility] MEDICINE [address] [place] [address] Nathalie Wang ANP [address] [place] [address] documented as of this encounter Visit Diagnoses Diagnosis Type 2 diabetes mellitus without complication, unspecified whether longterm insulin use ([facility]) documented in this encounter Care Teams Dock Operations Supervisor Relationship Specialty Start Date End Date Nathalie Wang ANP [address] [place] [address] PCP - General Family Medicine 05/23/20 documented as of this encounter
--- OUTSIDE RECORDS SUMMARY | 2025-01-30 09:15 | XMS_ITS | Clinical Summary ---
Author Organization [facility] Address [address] [place] [address] Phone Care Team Providers Care Home Energy Auditor Name Role Phone FelipeNathalie Peyton TOLENTINO Primary Care Provider [phone] Allergies Active Allergy Reactions Criticality Noted Date Comments Penicillins Itching,Rash 04/21/1983 Medications acetaminophen (TYLENOL) 500 mg tablet Take 1 tablet (500 mg total) by mouth. 10/12/19 24 Active Ventolin HFA 90 mcg/actuation inhaler 2 puffs every 6 (six) hours if needed for wheezing. Active Alcohol Prep Pads pads, medicated USE THREE TIMES DAILY DIRECTED 07/17/19 25 Active atorvastatin (LIPITOR) 10 mg tablet Take 1 tablet (10 mg total) by mouth. at bedtime. 07/17/19 25 Active blood sugar diagnostic (FreeStyle Lite Strips) test strip USE DIRECTED TO TEST BLOOD SUGAR THREE TIMES DAILY 11/17/19 24 Active clindamycin (CLEOCIN) 300 mg capsule Take 1 capsule (300 mg total) by mouth. 12/16/19 24 Active cyclobenzaprine (FLEXERIL) 10 mg tablet Take 1 tablet (10 mg total) by mouth 2 (two) times a day. for 10 days 09/02/19 24 Active FreeStyle Sondra 2 Sensor kit USE DIRECTED TO TEST BLOOD SUGAR CHANGE EVERY 14 DAYS 07/20/19 25 Active fluticasone HFA (FLOVENT HFA) 110 mcg/actuation inhaler Inhale by mouth. Act kirill gabapentin (NEURONTIN) 400 mg capsule Take 1 capsule (400 mg total) by mouth. 07/17/19 25 Active ibuprofen (ADVIL,MOTRIN) 600 mg tablet Take 1 tablet (600 mg total) by mouth every 8 (eight) hours if needed. for moderate pain 07/17/19 25 Active insulin regular (HumuLIN R U-500, Conc, Kwikpen) 500 unit/mL (3 mL) CONCENTRATED injection pen INJECT UP TO 100 UNITS SUBCUTANEOUSLY AT MEAL TIME IF BLOOD SUGAR > 200 DIRECTED BY SLIDING SCALE 12/01/19 23 Active lactulose (CHRONULAC) solution TAKE 30 ML BY MOUTH EVERY DAY NEEDED, MAY INCREASE TO TWICE DAILY IF no BOWEL MOVEMENT AFTER 2 DAYS 03/22/20 24 Active loratadine (CLARITIN) 10 mg tablet Take 1 tablet (10 mg total) by mouth. 06/15/19 25 Active meloxicam (MOBIC) 7.5 mg tablet Take 1 tablet (7.5 mg total) by mouth 2 (two) times a day. 11/17/19 24 Active metFORMIN (GLUCOPHAGE) 500 mg tablet take 1 tablet by mouth twice daily with breakfast and with dinner 05/14/20 24 Active omeprazole (PriLOSEC) [address] capsule TAKE 1 CAPSULE BY MOUTH EVERY DAY BEFORE BREAKFAST DO NOT BREAK, CRUSH, DISSOLVE OR CHEW 06/15/19 25 Active oxyCODONE (ROXICODONE) 5 mg immediate release tablet Take 1 tablet (5 mg total) by mouth. 10/12/19 24 Active polyvinyl alcohol (ARTIFICIAL TEARS) 1.4 % ophthalmic solution PLACE 1 DROP INTO THE AFFECTED EYE(S) FOUR TIMES DAILY NEEDED 07/17/19 25 Active Ozempic 2 mg/dose (8 mg/3 mL) injection pen Inject 2 MG SUBCUTANEOUSLY EVERY 7 DAYS IN THE ABDOMEN, THIGHS OR UPPER ARM. ROTATE INJECTION SITES. Active Stool Softener-Stimula nt Laxat 8.6-50 mg per tablet TAKE 1 OR 2 TABLETS BY MOUTH EVERY DAY NEEDED FOR CONSTIPATION 03/22/20 24 Active tiZANidine (ZANAFLEX) 2 mg tablet Take as needed for muscle pain, up to TID 05/27/20 23 Active Active Problems Problem Noted Date Diagnosed Date Acquired trigger finger of left index finger Postoperative infection 12/28/2023 Left carpal tunnel syndrome 07/07/2023 Trigger middle finger of left hand 07/07/2023 Essential hypertension 04/02/2022 Mild persistent asthma 04/28/2015 Asthma 03/15/2012 Gastroesophageal reflux disease 01/13/2012 Migraine 11/24/2011 Obesity 11/24/2011 Tobacco dependence syndrome 11/24/2011 Bipolar disorder ([facility] V24, [facility] V28) 10/12 Glaucoma 11/01/2011 Hypothyroidism 06/13/1959 Social History Tobacco Use Types Packs/Day Years Used Date Smoking Tobacco: Never Assessed Comments Unknown Sex and Gender Information Value Date Recorded Sex Assigned at Not on file Legal Sex Female 4:57 AM EST Gender Identity Not on file Sexual Orientation Not on file Last Filed Vital Signs Vital Sign Reading Time Taken Comments Blood Pressure 127/73 09/26/2023 8:33 AM EDT Pulse 105 09/26/2023 8:33 AM EDT Temperature - - Respiratory Rate - - Oxygen Saturation - - Inhaled Oxygen Concentration - - Weight 68 kg (150 lb) 10/23/2024 2:51 PM EDT Height 147.3 cm (4' 9.99 ) 10/23/2024 2:51 PM ED T Body Mass Index 31.36 10/23/2024 2:51 PM EDT Plan of Treatment Health Maintenance Due Date Last Done Comments Breast Cancer Screening 1977 Diabetes: Annual GFR (Glomerular Filtration Rate) 1977 Diabetes: Annual Foot Exam 10/18/1987 Diabetes: Annual Retina Eye Exam 10/18/1987 Hepatitis B Vaccines (1 of 3 - 19+ 3-dose series) 1996 Cervical Cancer Screening: P ap Smear 1998 DTaP,Tdap,and Td Vaccines (2 - Td or Tdap) 11/23/2021 11/24/2011 Colorectal Cancer Screening: Colonoscopy 07/17/2023 Hepatitis C Screening 07/17/2023 Medicare Annual Wellness Visit 07/17/2023 Social Influencers of Health Screening 07/17/2023 Hypertension/CHF/CAD Annual BMP Blood Test 07/29/2023 COVID-19 Vaccine (1 - 2023-2 5 season) 2024 Depression Screening 06/13/2024 Diabetes: Annual Urine Albumin-Creatinine Ratio (uACR) 07/23/2024 Influenza Vaccine (#1) 2025 3, 03/09/2012 Diabetes: Blood Sugar Contro l Test (HGBA1C) 03/15/2025 09/13/2024, 03/27/2024 Cholesterol Screening (Lipid Panel) 02/09/2029 02/10/2024 HIV Screening Completed 05/04/2021 Pneumococcal Vaccine: Pediatrics (0 to 5 Years) and At-Risk Patients (6 to 49 Years) Completed 09/13/2024, 11/24/2011 HIB Vaccines Aged Out No longer eligi ble based on patient's age to complete this topic HPV Vaccines Aged Out No longer eligi ble based on patient's age to complete this topic Hepatitis A Vaccines Aged Out No long er eligible based on patient's age to complete this topic IPV Vaccines Aged Out No longer eligi ble based on patient's age to complete this topic MMR Vaccines Aged Out No longer eligi ble based on patient's age to complete this topic Meningococcal ACWY Vaccine Aged Out N o longer eligible based on patient's age to complete this topic Meningococcal B Vaccine Aged Out No l onger eligible based on patient's age to complete this topic RSV Immunization Patients Under 20 months Aged Out No longer eligible b ased on patient's age to complete this topic Varicella Vaccines Aged Out No longer eligible based on patient's age to complete this topic Insurance MEDICAID - [place] MEDICARE Care Teams Home Energy Auditor Relationship Specialty Start Date End Date Nathalie Wang NP [address] [place] [phone] PCP - General 09/26/23
[2025-01-30 09:40] VITALS: PULSE 93; O2SAT 98
== END 2025-01-30 08:33 | disposition home or self-care (01) ==
LOC: HO.RESP 08:32
PROVIDERS: PCP Nurse Practitioner Primary Care; Visit Provider Nurse Practitioner Primary Care
DX: J45.40 Moderate persistent asthma, uncomplicated (principal); Z87.891 Personal history of nicotine dependence
CPT/HCPCS: 94010; 94640; 94727; 94729

== ENCOUNTER → 2025-01-30 09:04 | Outpatient (BNV) | payer MEDICARE, MEDICAID, SELFPAY | PROVIDERS: PCP Nurse Practitioner Primary Care; Visit Provider Hospitalist | DX: J98.4 Other disorders of lung (principal) | CPT/HCPCS: 94060; 94727; 94729 ==

== ENCOUNTER 2025-05-01 12:56 | Outpatient (AMB) | payer MEDICARE, MEDICAID, SELFPAY ==
--- NOTE | 2025-05-01 13:00 | MHC.OFFVIS ---
Vital Signs 05/01/25 13:01 Height 4 ft 10 in Weight 160 lb BMI 33.4 BP 126/66 Blood Pressure Location Rt brachial Position Sitting Respiration 16 Pulse 98 Pulse Source Pulse Oximeter Pulse Oximetry (%) 99 Oxygen Delivery Method Room Air Intake Visit Reasons: BILATERAL LOW BACK PAIN Sales Support Associate Required: Yes Sales Support Associate Language: Appliance Worker Name: Smiley [id number] Accompanied by: Self / Same As Patient Allergies Penicillins (PENICILLINS) Allergy (Severe, Verified 05/01/25 13:04) SWELLING/ITCHING vancomycin (VANCOMYCIN) Allergy (Intermediate, Verified 05/01/25 13:04) RASH AND ITCHING penicillin V Allergy (Unknown, Verified 05/01/25 13:04) redness and itching/ inflammation HPI Comments Details: Heather is back in my office with complains on axial pain in the cervical thoracic and lumbar spine, pain in bilateral shoulders pain in bilateral arms pain in bilateral thighs and bilateral knees, she also reports severe stiffness and pain I in bilateral hands in the morning lasting no more than 2 3 hours. I suspect that this patient is suffering from rheumatoid arthritis. In the past we attempted to treat her pain with peripheral nerve stimulation sprint PNS. Unfortunately patient did not like results of the stimulation. She was negative about the perspective with the treatment of the stimulation in the past. I will refer this patient to [facility] . I am left under impression that patient is suffering from rheumatoid arthritis.. . She reports that cold weather and weather changes aggravate her pain. The pain is most severe at night. She attempted meloxicam cyclobenzaprine Aleve ibuprofen and diclofenac gel to help her pain. Nothing helps her pain. She had physical therapy 5 months ago with no pain relief. She had x-ray of the lower lumbar spine available and dictated as below. [facility] Medical History Asthma Diabetes Hypertension Hyperthyroidism Surgical History History of cholecystectomy History of removal of cyst History of removal of cyst Family History Mother Cancer Diabetes Hypertension Father No problems noted. Social History Alcohol intake: never Patient Tobacco Use Status: Never used Tobacco Current occupational status: employed Current occupation: [employer]/ rt handed dominant Review of Systems Const All systems reviewed & are unremarkable except as noted in HPI and below ENT Reports Normal hearing present Neuro Reports Normal hearing present, Denies Abnormal speech present, Denies confusion and Denies Sensory deficit (Neuro) Psych Denies confusion Physical Exam Vital Signs: Last Vital Signs Pulse 98 05/01/25 13:01 Resp 16 05/01/25 13:01 BP 126/66 05/01/25 13:01 Pulse Ox 99 05/01/25 13:01 Oxygen Delivery Method Room Air 05/01/25 13:01 BMI result Body Mass Index 33.4 Const General: no acute distress; No confusion Orientation/consciousness: patient oriented x3 and No confusion Eyes General: appearance normal, both eyes and all related structures Pupils: Equal, round and reactive pupils present EOM: EOMs intact bilaterally Neck Neck: Yes full ROM Chest Chest palpation & inspection: normal inspection of the chest Resp Effort & Inspection: normal respiratory effort, able to speak in complete sentences, normal respiratory pattern, no audible wheezes and no cough Cardio Jugular venous distension: no JVD GI Inspection: Yes normal to inspection Back/Spine/Pelvis Other: Able to stand on bilateral tiptoes in bilateral heels. Denies numbness in bilateral lower extremities. Able to flex herself forward but unable to flex herself backwards reports severe pain in the back with attempt to flex backwards. Reports tenderness on palpation in bilateral paraspinal as well as spinal region over lower lumbar spine. Valsalva maneuver is negative for pain increase. Loading test is positive bilaterally. SLR is negative bilaterally. Dorsiflexion of the foot is negative bilaterally with maximal SLR. Neuro General: patient oriented x3, gait normal and No confusion Cranial nerves: Yes CN's II-XII intact bilaterally, Yes Equal, round and reactive pupils present, Yes Normal hearing present and Yes Ability to bilaterally elevate shoulders present Speech: No Abnormal speech present Gait exam (Neuro): Normal gait present Motor exam (neuro): 5/5 motor strength present throughout Sensory Exam: No Sensory deficit (Neuro) Extrem General: No pedal edema Psych Speech and movement: Normal speech and movement present Affect: normal affect Attitude: cooperative Thought process: Normal thought process present Thought content: Normal thought content present Insight: Good insight present (Psych) Judgement: Good judgement present (Psych) Assessment & Plan Assessment & Plan (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: Code(s): M47.816 - Spondylosis without myelopathy or radiculopathy, lumbar region Category: Medical (2) Osteoarthritis, generalized: Code(s): M15.9 - Polyosteoarthritis, unspecified Category: Medical (3) Trochanteric bursitis of both hips: Code(s): M70.61 - Trochanteric bursitis, right hip; M70.62 - Trochanteric bursitis, left hip Category: Medical (4) Chronic pain syndrome: Code(s): G89.4 - Chronic pain syndrome Category: Medical Plan: One (5) Rheumatoid arthritis: Code(s): M06.9 - Rheumatoid arthritis, unspecified Category: Medical Plan The patient is complaining on widespread pain including pain in bilateral shoulders entire spinal column bilateral knees and bilateral hips. She reports stiffness in bilateral hands in the morning. She reports stiffness lasting 2-3 hours after the waking up. My impression is that the patient is suffering from rheumatoid arthritis. I will schedule her for rheumatology consult at [facility]. In the past she tried sprint PNS to treat her axial back pain. She did not like the stimulation she requested us to remove the stimulating wires. Orders: Referrals Rheumatology Referral M06.9 - Rheumatoid arthritis, unspecified Patient Instructions: pulley mortiser operator from voice helped us to maintain conversation in Maltese. Coding Level of Care Code Est Pt Level 3 (02895) Diagnoses Spondylosis of lumbar region without myelopathy or radiculopathy M47.816 Osteoarthritis, generalized M15.9 Trochanteric bursitis of both hips M70.61; M70.62 Chronic pain syndrome G89.4 Rheumatoid arthritis M06.9
[2025-05-01 13:01] VITALS: BP 126/66; PULSE 98; RESP 16; O2SAT 99; BMI 33.4
--- OUTSIDE RECORDS SUMMARY | 2025-05-02 00:45 | XMS_ITS | Encounter Summary ---
Author Organization [employer] [facility] Address [address] [place] [address] [address] [place] [address] Care Team Providers Care Railway Track Plant Operator Name Role Phone Nathalie Wang Primary Care Provider [phone] Reason for Visit * Reason Comments Med Refill Encounter Details Date Type Department Care Team (Late st Contact Info) Description 03/25/2023 Refill [facility] [address] [place] [address] Rajiv Head FNP Pain and swelling of left wrist Social History Tobacco Use Types Packs/Day Years Used Date Smoking Tobacco: Some Days Cigarettes Smokeless Tobacco: Never Alcohol Use Standard Drinks/Week Comments Not Currently 0 (1 standard drink = 0.6 oz pur e alcohol) Comments Unknown Sex and Gender Information Value Date Recorded Sex Assigned at Female 04/12/2022 10:22 AM EDT Legal Sex Female 10:22 AM EDT Gender Identity Choose not to disclose 10:22 AM EDT Sexual Orientation Lesbian or Grajeda 04/12/2022 10 :22 AM EDT documented as of this encounter Plan of Treatment Upcoming Encounters Date Type Department Care Team (Late st Contact Info) Description 06/04/2025 10:15 AM EST Office Visit [facility] [address] [place] [address] Nathalie Wang ANP [address] [place] [address] documented as of this encounter Visit Diagnoses Diagnosis Pain and swelling of left wrist documented in this encounter Care Teams Railway Track Plant Operator Relationship Specialty Start Date End Date Nathalie Wang ANP [address] [place] [address] PCP - General Family Medicine 05/23/20 documented as of this encounter
--- OUTSIDE RECORDS SUMMARY | 2025-05-02 00:45 | XMS_ITS | Encounter Summary ---
Author Organization [employer] Address [address] [place] [address] 7[address] [place] [address] Care Team Providers Care Barrel Inspector Name Role Phone Nathalie Wang Primary Care Provider [phone] Reason for Visit * Reason Onset Date Comments Medication Question 06/24/2023 Prior Authorization 06/24/2023 Ozempic Encounter Details Date Type Department Care Team ([facility] st Contact Info) Description 06/24/2023 Telephone [facility] [address] [place] [address] Nathalie Wang ANP [address] [place] [address] Medication Question; Prior Authorization (Ozempic) Social History [...] MG/3ML solution pen-injector to be sent to [facility]/pharmacy #[id number] [place], [place] - [address] [place] [address]. [facility] pharmacy is currently on backorder and pt has not had injection in 2 weeks. 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
--- OUTSIDE RECORDS SUMMARY | 2025-05-02 00:45 | XMS_ITS | Encounter Summary ---
Author Organization [email or web address] Address [address] [place] [address] 7t [place] [address] Care Team Providers Care Waxer Operator Name Role Phone Nathalie Wang Primary Care Provider [phone] Reason for Visit * Reason Comments Med Refill Encounter Details Date Type Department Care Team (Late st Contact Info) Description 02/04/[address] [facility] [address] [place], [place] [phone] Nathalie Wang ANP [address] [place], [place] [phone] Mild intermittent asthma without complication Social History Tobacco Use Types Packs/Day Years [...] Description 06/04/2025 10:15 AM EST Office Visit [facility] [address] [place] [phone] Nathalie Wang ANP [address] [place], [place] [phone] documented as of this encounter Visit Diagnoses Diagnosis Mild intermittent asthma without complication documented in this encounter Care Teams Waxer Operator Relationship Specialty Start Date End Date Nathalie Wang ANP [address] [place] [address] PCP - General Family Medicine 05/23/20 documented as of this encounter
--- OUTSIDE RECORDS SUMMARY | 2025-05-02 00:45 | XMS_ITS | Encounter Summary ---
Author Organization [employer] Address [address] [place] [address] [address] [place] [address] Care Team Providers Care Travel Freight And Passenger Agent Name Role Phone Nathalie Wang Primary Care Provider [phone] Reason for Visit * Reason Comments Med Refill Encounter Details Date Type Department Care Team (Late st Contact Info) Description 11/29/2022 Refill [facility] [address] [place], [place] [phone] Dino, MD [place] [address] [place] [id number] Mild persistent asthma, unspecified whether complicated Social History Tobacco Use Types Packs/Day Years [...] Description 06/04/2025 10:15 AM EST Office Visit [facility] [address] [place] [address] [phone] Nathalie Wang ANP [address] [place] [address] [phone] documented as of this encounter Visit Diagnoses Diagnosis Mild persistent asthma, unspecified whether complicated documented in this encounter Care Teams Travel Freight And Passenger Agent Relationship Specialty Start Date End Date Nathalie Wang ANP [address] [place] [address] PCP - General Family Medicine 05/23/20 documented as of this encounter
--- OUTSIDE RECORDS SUMMARY | 2025-05-02 00:45 | XMS_ITS | Encounter Summary ---
Author Organization [employer] Address [address] [place] [address] [address] [place] [address] Care Team Providers Care Surgical First Assistant Name Role Phone Nathalie Wang Primary Care Provider [phone] Reason for Visit * Reason Onset Date Comments Nurse Triage 01/21/2023 Encounter Details Date Type Department Care Team ([facility] st Contact Info) Description 01/21/2023 Telephone [facility] [address] [place] [address] Nathalie Wang ANP [address] [place] [address] Nurse Triage Social History Tobacco Use Types Packs/Day Years [...] encounter Miscellaneous Notes * Telephone Encounter - Shama Norris RN - 01/21/2023 9:59 AM EDT Triage call with [place] [id number] Pt reports seeing the eye doctor and is scheduled for cataract removal in March. Pt reports that Pt was advised to follow up with PCP regarding DM prior to surgery. Pt BS this morning was 180. Ptreports it usually isn't that high but, just recently had steroid injection for arthritis and that always increases blood sugar. Apt with PCP for follow up for DM 02/18/23 @ 145pm with PCP Felipe. Pt agrees with this plan. Protocol Used: Vision Loss or Change (Adult) Protocol-Based Disposition: See in Office or Video Visit within 2 Weeks Video visit not offered Positive Triage Question: * Blurred vision or visual changes and gradual onset (e.g., weeks, months) * All higher-acuity triage questions were negative Care Advice Discussed: * Reasons To Call Back - Blurred vision occurs at other times - You become worse * Telephone Encounter - Gianluca Ekcert - 01/21/2023 9:28 AM EDT Symptom: Vision Loss or Change Outcome: Schedule an urgent appointment (within 1 hour) or talk to a nurse or provider soon Reason: Getting worse The caller accepted this outcome Please contact pt at [phone] Italian Speaker documented in this encounter Plan of Treatment Upcoming Encounters Date Type Department Care Team (Late st Contact Info) Description 06/04/2025 10:15 AM EST Office Visit [facility] [address] [place] [address] Nathalie Wang ANP [address] [place] [address] documented as of this encounter Visit Diagnoses Not on filedocumented in this encounter Care Teams Surgical First Assistant Relationship Specialty Start Date End Date Nathalie Wang ANP [address] [place] [address] PCP - General Family Medicine 05/23/20 documented as of this encounter
--- OUTSIDE RECORDS SUMMARY | 2025-05-02 00:46 | XMS_ITS | Encounter Summary ---
Author Organization [employer] Address [address] [place] [address] [address] [place] [address] Care Team Providers Care Trust And Estates Attorney Name Role Phone Nathalie Wang Primary Care Provider [phone] Encounter Details Date Type Department Care Team (Late st Contact Info) Description 05/27/2022 Orders Only [facility] [address] [place] [address] Kayce Ridley LPN Social History Tobacco Use Types Packs/Day Years [...] Description 06/04/2025 10:15 AM EST Office Visit [facility] [address] [place] [address] Nathalie Wang ANP [address] [place] [address] documented as of this encounter Procedures Procedure Name Priority Date/Time Associated Diagnosis Comments GRAM STAIN Routine 05/27/2022 3:39 PM EST documented in this encounter Results * Gram stain (05/27/2022 3:39 PM EST) 05/27/2022 3:39 PM EST 05/27/2022 3:39 PM EST Comment:Breast Narrative [facility] - 05/30/2022 8:55 AM EST Gram stain results: 3+ polys 3+ red blood cells 1+ Gram-positive cocci Klebsiella oxytoca Quant Org ID 2+ Klebsiella oxytoca: Ampicillin >=32(R) Klebsiella oxytoca: Cefazolin <=4(S) Klebsiella oxytoca: Ceftriaxone <=0.25(S) Klebsiella oxytoca: Gentamicin <=1(S) Klebsiella oxytoca: Levofloxacin <=0.12(S) Klebsiella oxytoca: Trimethoprim/Sulfamethoxazole <=20(S) Specimen Source: Breast us [facility] nal Provider LAB MICROBIOLOGY - GENERAL ORDERABLES Final Result Performing Organization Address City/State/[facility] Co de Phone Number [facility] [address] [place] [address] [phone] documented in this encounter Visit Diagnoses Not on filedocumented in this encounter Care Teams Trust And Estates Attorney Relationship Specialty Start Date End Date Nathalie Wang ANP [address] [place] [phone] PCP - General Family Medicine 05/23/20 documented as of this encounter
--- OUTSIDE RECORDS SUMMARY | 2025-05-02 00:46 | XMS_ITS | Clinical Summary ---
Author Organization [employer] Address [address] [place] [address] 7[address] [place] [address] Care Team Providers Care Bed Maker Name Role Phone Nathalie Wang VINAYAK Primary Care Provider [phone] Allergies Active Allergy Reactions Criticality Noted Date Comments Penicillins 11/24/2011 Vancomycin High 12/10/2023 Other Reaction(s): RASH AND ITCHING Medications buffered aspirin 81 MG tablet Active betamethasone dipropionate 0.05 % cream Apply topically at bed time. Active cholecalciferol (Vitamin D-3) 1.25 MG (77101 UT) capsule Active lidocaine (Xylocaine) 5 % ointment Apply topically at bed time. Active lidocaine (Lidoderm) 5 % patch Place 1 patch on the skin at bed time. Active Continuous Blood Gluc Cutting Machine Fixer (FreeStyle Sondra 2 [place]) device Active Sure Comfort [place] 31G X 5 MM misc USE THREE TIMES DAILY WITH HUMALOG KWIKPEN 100 each 5 Active Blood Glucose Monitoring Suppl (FreeStyle Lite) w/Device kit Inject 1 each under the skin 3 times daily. USE TO TEST BLOOD SUGAR THREE TIMES A DAY 1 kit Active Diclofenac Sodium 1 % gelIndications:P ain and swelling of left wrist Apply topically to affected area twice a day as needed for pain 50 g 023 Active fluticasone (Flonase) 50 MCG/ACT nasal sprayIndications :Mild persistent asthma, unspecified whether complicated USE 1-2 SPRAYS IN EACH NOSTRIL DAILY NEEDED 48 g 024 Active lactulose (Chronulac) 10 GM/15ML solutionIndicati ons:Constipation , unspecified constipation type Take 30 mL (20 g) by mouth Once per day. May increase to BID if no BM after 2 days. For short term use. 300 mL 024 Active senna-docusate sodium (Senokot-S) 8.6-50 MG tabletIndication s:Constipation, unspecified constipation type 1-2 tabs daily as needed for constipation 90 tablet 1 024 Active acetaminophen (Tylenol) 325 MG tabletIndication s:Upper respiratory tract infection, unspecified type Take 2 tablets (650 mg) by mouth every 6 (six) hours if needed for mild pain, moderate pain or fever. 90 tablet 1 025 Active Blood Glucose Monitoring Suppl (FreeStyle [place] Lite) w/Device kit Use to test blood sugar TID dx dm 1 kit 025 Active Alcohol Swabs (Alcohol Prep) 70 % pads USE to clean finger prior to checking blood sugar TID 100 each 5 025 Active glucose blood (FREESTYLE LITE) test stripIndications :Type 2 diabetes mellitus without complications (HCC) USE DIRECTED TO TEST BLOOD SUGAR EVERY DAY 100 each 025 Active TRUEplus Lancets 33G misc USE DIRECTED TO TEST BLOOD SUGAR EVERY DAY 100 each 025 Active albuterol 108 (90 Base) MCG/ACT inhalerIndicatio ns:Mild intermittent asthma without complication INHALE 2 PUFFS BY MOUTH EVERY 6 HOURS NEEDED FOR WHEEZING OR SHORTNESS OF BREATH 18 g 1 025 Active polyvinyl alcohol (Liquifilm Tears) 1.4 % ophthalmic solutionIndicati ons:Dry eye PLACE 1 DROP INTO THE AFFECTED EYE(S) FOUR TIMES DAILY NEEDED 15 mL 2 025 Active Ozempic, 2 MG/DOSE, 8 MG/3ML solution pen-injectorIndi cations:Hyperten tati associated with diabetes (HCC),Type 2 diabetes mellitus with other circulatory complication, with long-term current use of insulin ([facility]) Inject 2 MG SUBCUTANEOUSLY EVERY 7 DAYS IN THE ABDOMEN, THIGHS OR UPPER ARM. ROTATE INJECTION SITES. 3 mL 025 Active gabapentin (Neurontin) 400 MG capsule Take 400 mg by mouth 3 times daily. Active lisinopril 10 MG tablet TAKE 1 TABLET BY MOUTH EVERY DAY FOR BLOOD PRESSURE 90 tablet 3 025 Active omeprazole (PriLOSEC) [address] capsuleIndicatio ns:Gastroesophag eal reflux disease, unspecified whether esophagitis present TAKE 1 CAPSULE BY MOUTH EVERY DAY BEFORE BREAKFAST DO NOT BREAK, CRUSH, DISSOLVE OR CHEW 90 capsule 1 025 Active ibuprofen 600 MG tabletIndication s:Chronic right-sided low back pain without sciatica TAKE 1 TABLET BY MOUTH EVERY 8 HOURS NEEDED FOR MODERATE PAIN. TAKE WITH FOOD 60 tablet 025 Active meloxicam (Mobic) 7.5 MG tabletIndication s:Left hand pain TAKE 1 TABLET BY MOUTH TWICE DAILY NEEDED FOR PAIN (HAND) 60 tablet 025 Active albuterol (2.5 MG/3ML) 0.083% nebulizer solutionIndicati ons:Mild persistent asthma, uncomplicated INHALE 1 AMPULE USING A NEBULIZER EVERY 6 HOURS NEEDED FOR COUGH, WHEEZING, OR SHORTNESS OF BREATH 75 mL 1 025 Active fluticasone-salm eterol (Advair HFA) 115-21 MCG/ACT inhalerIndicatio ns:Moderate persistent asthma without complication Inhale 2 puffs in the morning and at bedtime. Rinse mouth with water after use to reduce aftertaste and incidence of candidiasis. Do not swallow. 12 g 11 025 2025 Active Tirzepatide (Mounjaro) 5 MG/0.5ML solution auto-injectorInd ications:Type 2 diabetes mellitus with other circulatory complication, with long-term current use of insulin ([facility]) Inject 5 mg under the skin 1 (one) time per week. 2 mL 2 025 Active metFORMIN XR (Glucophage-XR) 500 MG 24 hr tabletIndication s:Type 2 diabetes mellitus with other circulatory complication, with long-term current use of insulin (HCC) Take 1 tab twice daily with meals. Do not crush, chew, or split. 180 tablet 3 025 Active methocarbamol (Robaxin) 750 MG tablet Take 1 tablet (750 mg) by mouth if needed in the morning, at noon, in the evening, and at bedtime (pain). 40 tablet 025 Active loratadine (Claritin) 10 MG tabletIndication s:Seasonal allergic rhinitis due to other allergic trigger TAKE 1 TABLET BY MOUTH EVERY DAY NEEDED FOR ALLERGIES 90 tablet 3 025 Active atorvastatin (Lipitor) 10 MG tabletIndication s:Type 2 diabetes mellitus with other circulatory complication, with long-term current use of insulin (HCC) TAKE 1 TABLET BY MOUTH AT BEDTIME 90 tablet 3 025 Active Continuous Glucose Sensor (FreeStyle Sondra 2 Sensor) [facility] [place] USE DIRECTED TO TEST BLOOD SUGAR CHANGE EVERY 14 DAYS 2 each 7 025 Active loratadine (Claritin) 10 MG tabletIndication s:Seasonal allergic rhinitis due to other allergic trigger Take 1 tablet (10 mg) by mouth Once daily as needed for allergies. 90 tablet 2 024 2024 Discontinued atorvastatin (Lipitor) 10 MG tabletIndication s:Type 2 diabetes mellitus with other circulatory complication, with long-term current use of insulin (HCC) Take 1 tablet (10 mg) by mouth at bedtime. 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 CHANGE EVERY 2 WEEKS 2 each 7 025 2024 Discontinued Active Problems Problem Noted Date Diagnosed Date Hirsutism 02/07/2024 Spondylosis of lumbar region without myelopathy or radiculopathy 11/22/2023 Overview (11/22/2023): [place] [facility] [place]mt 11/22/23 L side; R side to be scheduled Trochanteric bursitis of both hips 11/22/2023 Mild nonproliferative diabet ic retinopathy of both eyes without macular edema associated with type 2 diabetes mellitus 11/22/2023 Assessment & Plan (02/07/2024 10:53 PM EDT): -Last hb1Ac 05/2023 6.3 and today 7.1 capillary and CBG 123 -Urine dipstick : normal , neg ketones, neg LE,nitrates -12/10/2023 chem wnl Pt w reported home elevated CBGS ,here CBG today is wnl and mild elevated Hb1AC compare w previously checked -UA w reflex cx [place] [facility] [place]add metformin 500 mg daily for 7 days and then to increase to BID and continue ozempic 2 mg weekly -will do am hormonal test for hirsutism may have relationship w insulin resistance -f w PCP -has apt for 03/2024 -Pt to 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 w photographic 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 mechanic for f up -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 w waitstaff to f CBGs in 2 weeks Chronic pain in right shoulder 09/17/2022 Essential hypertension 04/02/2022 Overview (11/22/2023): Lisinopril 10mg Low salt diet Smoking cessation (quit as of Spring 2023, now uses vape) Mild persistent asthma 04/28/2015 Type 2 diabetes mellitus wit h circulatory disorder, with long-term current use of insulin 04/28/2015 Asthma 03/15/2012 Gastroesophageal reflux disease 01/13/2012 Migraine 11/24/2011 Obesity 11/24/2011 Diabetes mellitus due to und erlying condition with both eyes affected by mild nonproliferative retinopathy without macular edema, with long-term current use of insulin 11/24/2011 Bipolar disorder 11/01/2011 Glaucoma 11/01/2011 Hypertension associated with diabetes 06/13/1957 Overview (11/22/2023): Lab Results Component Value Date HGBA1C 6.1 (A) 11/22/2023 HGBA1C 6.3 (A) 05/27/2023 HGBA1C 6.1 (A) 02/18/2023 Doing great w/ ozempic 2mg/wk Used to be on high doses of basal and bolus insulin, has been able to stop both. On ACEi, not on statin or ASA Declines foot exam eye exam 07/18/23 mild nonprolif DM retinopathy at [facility] Declines IZs Lab update b/f follow-up Hypothyroidism 06/13/1959 Resolved Problems Problem Noted Date Diagnosed Date Resolved Date Tobacco dependence syndrome 11/24/2011 02/07/2024 Encounters Date Type Department Care Team Description 04/09/2025 Refill [facility] [address] [place] [address] Nathalie Wang ANP Seasonal allergic rhinitis due to other allergic trigger; Type 2 diabetes mellitus with other circulatory complication, with long-term current use of insulin ([facility]); Type 2 diabetes mellitus without complications (HCC) 04/03/2025 3:00 PM EDT Office Visit [facility] [address] [place] [phone] Lance Escobar MD Acute bilateral low back pain with bilateral sciatica (Primary Dx); Acute bilateral thoracic back pain 04/03/2025 Travel 03/04/2025 Telephone [facility] MED[facility] [address] [place] [phone] Nathalie Wang ANP dec recall 02/25/2025 Telephone [facility] [address] [place] [phone] Nathalie Wang ANP Prior Authorization 02/20/2025 3:45 PM EDT Office Visit [facility] [address] [place] [phone] Nathalie Wang ANP Type 2 diabetes mellitus with other circulatory complication, with long-term current use of insulin ([facility]) (Primary Dx); Screening for colon cancer; Moderate persistent asthma without complication; Diabetes mellitus due to underlying condition with both eyes affected by mild nonproliferative retinopathy without macular edema, with long-term current use of insulin ([facility]) 02/20/2025 Travel 02/19/2025 Telephone [facility] [address] [place] [phone] Nathalie Wang ANP chart prep 02/15/2025 Refill [facility] [address] [place] [phone] Nathalie Wang ANP Mild persistent asthma, uncomplicated 02/08/2025 Refill [facility] [address] [place] [phone] Nathalie Wang ANP Left hand pain; Mild persistent asthma without complication from Last 3 Months Immunizations Immunization Administration Dates Next Due Influenza, Split (incl. purified surface antigen ) 03/22/2013,03/09/2012 Pneumococcal Conjugate PCV 20 09/13/2024 Pneumococcal Polysaccharide PPSV23 11/24/2011 Tdap 11/24/2011 Family History Medical History Relation Name Comments Coronary artery disease Maternal Grandmother Diabetes Maternal Grandmother Glaucoma Mother Relation Name Status Comments Maternal Grandmother Mother Social History Tobacco Use Types Packs/Day Years Used Date Smoking Tobacco: Former Cigarettes Smokeless Tobacco: Current Tobacco Cessation:Ready to Q uit: Not Asked; Counseling Given: Not Answered Comments:Vaping nicotine Alcohol Use Standard Drinks/Week Comments Not Currently 0 (1 standard drink = 0.6 oz pur e alcohol) Depression Answer Date Recorded Patient Health Questionnaire-9 Score 20 11/08/2024 Patient Health Questionnaire-9 Score 20 11/08/2024 Last PHQ-9: Questionnaire Data Not on file 0 11/08/2024 Housing Stability Answer Date Recorded What is [...] Answer Date Recorded Patient Health Questionnaire-2 Score 5 11/08/2024 Internet Access Answer Date Recorded Internet Access Q1 Yes 03/13/2024 Internet Access Q2 Not on file 03/13/2024 Comments Unknown Sex and Gender Information Value Date Recorded Sex Assigned at Female 04/12/2022 10:22 AM EDT Legal Sex Female 10:22 AM EDT Gender Identity Choose not to disclose 10:22 AM EDT Sexual Orientation Lesbian or Grajeda 04/12/2022 10 :22 AM EDT Last Filed Vital Signs Vital Sign Reading Time Taken Comments Blood Pressure 137/76 04/03/2025 3:17 PM EDT Pulse 87 04/03/2025 3:17 PM EDT Temperature 37.1 C (98.7 F) 04/03/2025 3:17 PM EDT Respiratory Rate 20 04/03/2025 3:17 PM EDT Oxygen Saturation 98% 04/03/2025 3:17 PM EDT Inhaled Oxygen Concentration - - Weight 73.1 kg (161 lb 3.2 oz) 04/03/2025 3:17 P M EDT Height 147.3 cm (4' 10 ) 04/03/2025 3:17 PM EDT Body Mass Index 33.69 04/03/2025 3:17 PM EDT Plan of Treatment Upcoming Encounters Date Type Department Care Team (Late st Contact Info) Description 06/04/2025 10:15 AM EST Office Visit [facility] MED[facility] [address] [place], [place] [phone] Nathalie Wang ANP [address] [place], [place] [phone] Health Maintenance Due Date Last Done Comments CT Colonography 1977 Colonoscopy 1977 Colorectal Cancer Screening 1977 FIT DNA/Cologuard 1977 FIT 1977 FOBT 1977 Sigmoidoscopy 1977 Diabetes: Foot Exam 10/18/1987 Family Planning (PISQ) 1992 Hepatitis B Vaccines (1 of 3 - 19+ 3-dose series) 1996 Pap Smear 1998 HPV/Cotest 10/18/2007 Mammogram 2017 COVID-19 Vaccine ( season) 2025 Influenza Vaccine (#1) 2025 03/22/2013, 2011 Depression Monitoring 05/11/2025 11/08/2024, 025 Diabetes: Hemoglobin A1C 05/22/2025 025, 12/07/2024, 09/13/2024, Additional history exists DTaP/Tdap/Td Vaccines (2 - Td or Tdap) 09/13/2025 11/24/2011 Postponed from 11/23/2021 (Patient Refused) Alcohol/Substance Use Screening 10/22/2025 10/22/2024 Disability Screening 10/22/2025 10/22/2024 Eye Exam 11/14/2025 11/14/2024, 06/0 09/2024, 11/14/2024, Additional history exists Diabetes: Urine Protein Screening 12/07/2025 12/07/2024, 03/11/2023, 05/04/2021 Lipid Panel 12/07/2025 12/07/2024, 08/3 , 03/11/2023, Additional history exists Cervical Cancer Screening 02/20/2026 Po stponed from 10/18/2007 (Patient Refused) SDOH Screening 02/20/2026 02/20/2025 Tobacco Screening 04/03/2026 04/03/2025 Zoster Vaccines (1 of 2) 10/18/2027 RSV Patients and Patients Aged 60 years or older (1 - 1-dose 75+ series) 2052 HIV Screening Completed 05/04/2021 Hepatitis C Screening Completed 05/04/2021 Pneumococcal Vaccine: Pediatrics (0 to 5 Years) and At-Risk Patients (6 to 49) Years Completed 09/13/2024, 11/24/2011 HIB Vaccines Aged Out [...] patient's age to complete this topic Meningococcal Vaccine Aged Out No esmer layla eligible based on patient's age to complete this topic RSV under 20 months Aged Out No longe r eligible based on patient's age to complete this topic Rotavirus Vaccines Aged Out No longer eligible based on patient's age to complete this topic Procedures Procedure Name Priority Date/Time Associated Diagnosis Comments POCT GLYCATED HEMOGLOBIN, TOTAL Routine 02/20/2025 3:45 PM EDT Type 2 diabetes mellitus with other circulatory complication, with long-term current use of insulin ([facility]) POCT GLUCOSE Routine 02/20/2025 3:43 PM EDT Type 2 diabetes mellitus with other circulatory complication, with long-term current use of insulin (CMS/HCC) ALBUMIN, RANDOM URINE W/CREATININE Routine 12/07/2024 10:43 AM EDT Mild nonproliferative diabetic retinopathy of both eyes without macular edema associated with type 2 diabetes mellitus (CMS/HCC) LIPID PANEL, STANDARD Routine 12/07/2024 10:43 AM EDT Mild nonproliferative diabetic retinopathy of both eyes without macular edema associated with type 2 diabetes mellitus (CMS/HCC) ZZZ HISTORICAL HEPATITIS C AB W/REFL TO HCV RNA, QN, PCR Routine 05/04/2021 9:54 AM EST HIV 1/2 ANTIGEN/ANTIBODY, FOURTH GENERATION W/RFL Routine 05/04/2021 9:54 AM EST from Last 3 Months or Most Recently Relevant to Health Maintenance Results * (ABNORMAL) POCT Hgb A1c (02/20/2025 3:45 PM EDT) Hemoglobin A1C 6.6(A) 4.0 - 5.7 % QC Media Lot # [id number] Lot# Expiration Date Blood 02/20/2025 3:4 5 PM EDT us Nathalie LICEA POINT OF CARE TEST ENTER/EDIT OR DERABLES Final Result * POCT Glucose (02/20/2025 3:43 PM EDT) Glucose Blood, POC 161 60 - 200 mg/dL QC Media Lot # [id number] Lot# Expiration Date 2606, Blood Capillary blood specimen / Unknown 02/20/2025 3:43 PM EDT us Nathalie LICEA POINT OF CARE TEST ENTER/EDIT OR DERABLES Final Result * Albumin, Random Urine W/Creatinine (12/07/2024 10:43 AM EDT) Creatinine, Urine 44.35 mg/dL [facility] Microalbumin Urine <5.0 mg/L [facility] Microalbum Creatinine Ratio Ur TNP <30 ug/mg cr [facility] Comment:Unable to calculate albumin/creatinine ratio due to lowmicroalbumin or creatinine result. Urine (Urine, Random) 12/07/2024 10:43 AM EDT 12/07/2024 12:56 PM EDT Nathalie Wang ANP LAB URINE ORDERABLES Final Resul t Performing Organization Address City/[facility] Co de Phone Number [facility] [address] [place] [address] [phone] * Lipid Panel, Standard (12/07/2024 10:43 AM EDT) Triglycerides 113 <150 mg/dL [facility] Comment:Desirable Triglyceri de: less than 150 mg/dLBorderline High Triglyceride 150-199 mg/dLHigh Triglyceride: 200-499 mg/dLVery High Triglyceride: greater than or equal to 5OO mg/dL Cholesterol 142 <200 mg/dL [facility] Comment:Desirable Cholestero l: less than 200 mg/dLBorderline High Cholesterol: 200-239 mg/dLHigh Cholesterol: greater than 239 mg/dL LDL Cholesterol Calculated 73 <100 mg/dL [facility] Comment:Desirable LDL: less than 100 mg/dLNear Optimal/Above Optimal LDL: 110- 129 mg/dLBorderline High LDL: 130-159 mg/dLHigh LDL: 160-189 mg/dLVery High LDL: greater than or equal to 190 mg/dL HDL Cholesterol 47 >40 mg/dL [facility] Comment:Desirable HDL: great er than 40 mg/dL Note: This HDL assay may give artificially low results in patients with liver disease. Blood Venous blood specimen / Unknown 12/07/2024 10:43 AM EDT 12/07/2024 1:00 PM EDT us Nathalie Wang ANP LAB BLOOD ORDERABLES Final Resul t Performing Organization Address City/[facility]/ZIP Co de Phone Number [facility] [address] [place] [address] [phone] * HEPATITIS C AB W/REFL TO HCV RNA, QN, PCR (05/04/2021 9:54 AM EST) HEPATITIS C ANTIBODY NON-REACT NELLY NON-REACT NELLY [facility] INDEX 0.01 <1.00 [facility] Comment: HCV antibody was non-reactive. There is no laboratory evidence of HCV infection. In most cases, no further action is required. However, if recent HCV exposure is suspected, a test for HCV RNA (test code 47734) is suggested. For additional information please refer to http://Mango-Mate.Mechio/faq/SDY89s4 (This link is being provided for informational/ educational purposes only.) 05/04/2021 9:54 AM EST Nathalie [facility] HISTORICAL/NON ORDERABLE LABS Fi nal Result [facility] [address] * HIV 1/2 ANTIGEN/ANTIBODY,FOURTH GENERATION W/RFL (05/04/2021 9:54 AM EST) HIV-1/2 ANTIGEN AND ANTIBODIES, 4TH GENERATION W/ REFLEX NON-REACT NELLY NON-REACT NELLY [facility] Comment: HIV-1 antigen and HIV-1/HIV-2 antibodies were not detected. There is no laboratory evidence of HIV infection. PLEASE NOTE: This information has been disclosed to you from records whose confidentiality may be protected by state law. If your state requires such protection, then the state law prohibits you from making any further disclosure of the information without the specific written consent of the person to whom it pertains, or as otherwise permitted by law. A general authorization for the release of medical or other information is NOT sufficient for this purpose. For additional information please refer to http://Mango-Mate.Mechio/faq/DAL178 (This link is being provided for informational/ educational purposes only.) The performance of this assay has not been clinically validated in patients less than 2 years old. 05/04/2021 9:54 AM EST us Nathalie LICEA LAB BLOOD ORDERABLES Final Resul t [facility] [address] from Last 3 Months or Most Recently Relevant to Health Maintenance Insurance STANDARD MEDICARE Care Teams Bed Maker Relationship Specialty Start Date End Date Nathalie Wang ANP [address] [place] [address] [place] [address] PCP - General Family Medicine 05/23/20
--- OUTSIDE RECORDS SUMMARY | 2025-05-02 00:46 | XMS_ITS | Encounter Summary ---
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 ([facility]) Social History Tobacco Use Types Packs/Day Years [...] Description 06/04/2025 10:15 AM EST Office Visit [facility] [address] [place] [address] Nathalie Wang ANP [address] [place] [address] documented as of this encounter Visit Diagnoses Diagnosis Type 2 diabetes mellitus without complication, unspecified whether 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
--- OUTSIDE RECORDS SUMMARY | 2025-05-02 00:46 | XMS_ITS | Encounter Summary ---
Author Organization [employer] Address [address] [place] [address] [address] [place] [address] Care Team Providers Care Poacher Operator Name Role Phone Felipe Nathalie LICEA Primary Care Provider [phone] Reason for Visit * Reason Onset Date Comments Med Refill 12/19/2023 Encounter Details Date Type Department Care Team (Late st Contact Info) Description 12/19/2023 Refill [facility] [address] [place] [address] Sabina Hoang MD [address] [place] [address] Type 2 diabetes mellitus with hyperglycemia (CMS/HCC) Social History Tobacco Use Types Packs/Day Years Used Date Smoking Tobacco: Former Cigarettes Smokeless Tobacco: Current Comments:Vaping nicotine Alcohol Use Standard Drinks/Week Comments [...] Description 06/04/2025 10:15 AM EST Office Visit [facility] MEDICINE [address] [place] [phone] Nathalie Wang ANP [address] [place] [address] documented as of this encounter Visit Diagnoses Diagnosis Type 2 diabetes mellitus with hyperglycemia (HCC) documented in this encounter Care Teams Poacher Operator Relationship Specialty Start Date End Date Nathalie Wang ANP [address] [place] [phone] PCP - General Family Medicine 05/23/20 documented as of this encounter
--- OUTSIDE RECORDS SUMMARY | 2025-05-02 00:46 | XMS_ITS | Encounter Summary ---
Author Organization [employer] Address [address] [place] [address] 7t [place] [address] Care Team Providers Care Distributor Publications Name Role Phone Nathalie Wang Primary Care Provider [phone] Reason for Visit * Reason Onset Date Comments Status Request 01/23/2024 Encounter Details Date Type Department Care Team ([facility] st Contact Info) Description 01/23/2024 Telephone [facility] [address] [place] [address] Nathalie Wang ANP [address] [place] [address] Status Request Social History Tobacco Use Types Packs/Day Years [...] encounter Miscellaneous Notes * Telephone Encounter - Artie Yeboah - 01/23/2024 3:01 PM EDT Tc from [facility] requesting status on physician order form for pt to start Home health services. Please contact [facility] at [phone]. documented in this encounter Plan of Treatment Upcoming Encounters Date Type Department Care Team (Late st Contact Info) Description 06/04/2025 10:15 AM EST Office Visit [facility] [address] [place] [address] Nathalie Wang ANP [address] [place] [address] documented as of this encounter Visit Diagnoses Not on filedocumented in this encounter Care Teams Distributor Publications Relationship Specialty Start Date End Date Nathalie Wang ANP [address] [place] [address] PCP - General Family Medicine 05/23/20 documented as of this encounter
--- OUTSIDE RECORDS SUMMARY | 2025-05-02 00:46 | XMS_ITS | Encounter Summary ---
Author Organization [employer] Address [address] [place] [address] 7t [place] [address] Care Team Providers Care Licensed Loan Officer Assistant Name Role Phone Nathalie Wang Primary Care Provider [phone] Reason for Visit * Reason Comments Med Refill Encounter Details Date Type Department Care Team ([facility] st Contact Info) Description 04/24/2024 Refill [facility] [address] [place] [address] Nathalie Wang ANP [address] [place] [address] Upper respiratory tract infection, unspecified type Social History Tobacco Use Types Packs/Day Years [...] Recorded Patient Health Questionnaire-2 Score 0 05/12/2023 Internet Access Answer Date Recorded Internet Access [...] Description 06/04/2025 10:15 AM EST Office Visit [facility] [address] [place] [address] Nathalie Wang ANP [address] [place] [address] documented as of this encounter Visit Diagnoses Diagnosis Upper respiratory tract infection, unspecified type documented in this encounter Care Teams Licensed Loan Officer Assistant Relationship Specialty Start Date End Date Nathalie Wang ANP [address] [place] [address] PCP - General Family Medicine 05/23/20 documented as of this encounter
--- OUTSIDE RECORDS SUMMARY | 2025-05-02 00:46 | XMS_ITS | Encounter Summary ---
Author Organization [employer] Address [address] [place] [address] 7t [place] [address] Care Team Providers Care Assistant Librarian Name Role Phone Nathalie Wang Primary Care Provider [phone] Encounter Details Date Type Department Care Team ([facility] st Contact Info) Description 11/14/2023 Telephone [facility] [address] [place] [address] Nathalie Wang ANP [address] [place] [address] Social History Tobacco Use Types Packs/Day Years [...] Description 06/04/2025 10:15 AM EST Office Visit [facility] [address] [place] [address] Nathalie Wang ANP [address] [place] [address] documented as of this encounter Visit Diagnoses Not on filedocumented in this encounter Care Teams Assistant Librarian Relationship Specialty Start Date End Date Nathalie Wang ANP [address] [place] [address] PCP - General Family Medicine 05/23/20 documented as of this encounter
--- OUTSIDE RECORDS SUMMARY | 2025-05-02 00:46 | XMS_ITS | Encounter Summary ---
Author Organization [employer] Address [address] [place] [address] 7t [place] [address] Care Team Providers Care Manager Investigations Name Role Phone Nathalie Wang Primary Care Provider [phone] Reason for Visit * Reason Onset Date Comments Call Back Request 08/23/2024 Encounter Details Date Type Department Care Team ([facility] st Contact Info) Description 08/23/2024 Telephone [facility] [address] [place] [address] Nathalie Wang ANP [address] [place] [address] Call Back Request Social History Tobacco Use Types Packs/Day [...] encounter Miscellaneous Notes * Telephone Encounter - Shirley Lisa RN - 08/23/2024 11:27 AM EDT TC placed to Beverley at [facility] who states the the pt has several concerns that need to be addressed.Beverley visits the pt every other month and has noticed that the pt right hand and wrist have been swollen and painful. No injury has been noted but the pt has been concerned with this. The pt also needs some referrals placed out to GI, Pain Management and Endocrinology. The pt did previously see Nathalie Wang but wanted to transfer to a new PCP. The pt did have a transfer pt appt scheduled with Jeane moreno on 06/15 but the pt cancelled. The pt is going to need a transfer pt appt as soon as possible scheduled for this pt. Please help in assisting with this scheduling. * Telephone Encounter - Narciso Holloway - 08/23/2024 10:47 AM EDT Tc from [facility] with [facility] requesting to speak to a nurse Please return call to [phone] documented in this encounter Plan of Treatment Upcoming Encounters Date Type Department Care Team (Late st Contact Info) Description 06/04/2025 10:15 AM EST Office Visit [facility] [address] [place] [address] Nathalie Wang ANP [address] [place] [address] documented as of this encounter Visit Diagnoses Not on filedocumented in this encounter Care Teams Manager Investigations Relationship Specialty Start Date End Date Nathalie Wang ANP [address] [place] [address] PCP - General Family Medicine 05/23/20 documented as of this encounter
--- OUTSIDE RECORDS SUMMARY | 2025-05-02 00:46 | XMS_ITS | Encounter Summary ---
Author Organization [employer] Address [address] [place] [address] 7t [place] [address] Care Team Providers Care Fire Prevention Engineer Name Role Phone Nathalie Wang Primary Care Provider [phone] Reason for Visit * Reason Comments Med Refill Encounter Details Date Type Department Care Team (Late st Contact Info) Description 11/16/2022 Refill [facility] [address] [place], [place] [phone] Nathalie Wang ANP [address] [place], [place] [phone] Mild intermittent asthma without complication Social History [...] Description 06/04/2025 10:15 AM EST Office Visit [facility] MED[facility]INE [address] [place] [phone] Nathalie Wang ANP [address] [place], [place] [phone] documented as of this encounter Visit Diagnoses Diagnosis Mild intermittent asthma without complication documented in this encounter Care Teams Fire Prevention Engineer Relationship Specialty Start Date End Date Nathalie Wang ANP [address] [place] [address] PCP - General Family Medicine 05/23/20 documented as of this encounter
--- OUTSIDE RECORDS SUMMARY | 2025-05-02 00:46 | XMS_ITS | Encounter Summary ---
Author Organization [employer] Address [address] [place] [address] 7t [place] [address] Care Team Providers Care Paper Baler Name Role Phone Felipe Nathalie LICEA Primary Care Provider [phone] Reason for Visit * Reason Onset Date Comments Med Refill 10/06/2023 Encounter Details Date Type Department Care Team (Late st Contact Info) Description 10/06/2023 Refill [facility]EDS [address] [place] [address] Sabina Hoang MD [address] [place] [address] Type 2 diabetes mellitus with hyperglycemia (CMS/HCC) [...] 10:22 AM EDT Sexual Orientation Lesbian or Rgajeda 04/12/2022 10 :22 AM EDT documented as of this encounter Plan of Treatment Upcoming Encounters Date Type Department Care Team (Late st Contact Info) Description 06/04/2025 10:15 AM EST Office Visit [facility] [address] [place] [address] Nathalie Wang ANP [address] [place] [address] documented as of this encounter Visit Diagnoses Diagnosis Type 2 diabetes mellitus with hyperglycemia (HCC) documented in this encounter Care Teams Paper Baler Relationship Specialty Start Date End Date Nathalie Wang ANP [address] [place] [phone] PCP - General Family Medicine 05/23/20 documented as of this encounter
--- OUTSIDE RECORDS SUMMARY | 2025-05-02 00:46 | XMS_ITS | Encounter Summary ---
Author Organization [employer] Address [address] [place] [address] 7t [place] [address] Care Team Providers Care Inspector Machined Parts Name Role Phone Nathalie Wang Primary Care Provider [phone] Reason for Visit * Reason Comments Med Refill Encounter Details Date Type Department Care Team ([facility] st Contact Info) Description 07/22/2024 Refill [facility] [address] [place] [address] Nathalie Wang ANP [address] [place] [address] Upper respiratory tract infection, unspecified type Social [...] Description 06/04/2025 10:15 AM EST Office Visit [facility] [address] [place] [address] Nathalie Wang ANP [address] [place] [address] documented as of this encounter Visit Diagnoses Diagnosis Upper respiratory tract infection, unspecified type documented in this encounter Care Teams Inspector Machined Parts Relationship Specialty Start Date End Date Nathalie Wang ANP [address] [place] [phone] PCP - General Family Medicine 05/23/20 documented as of this encounter
== END 2025-05-01 13:33 | disposition home or self-care (01) ==
LOC: HO.PMC 12:56
PROVIDERS: PCP Nurse Practitioner Primary Care; Visit Provider Anesthesiology
DX: M47.816 Spondylosis without myelopathy or radiculopathy, lumbar region (principal); M15.0 Primary generalized (osteo)arthritis; M70.61 Trochanteric bursitis, right hip; M70.62 Trochanteric bursitis, left hip; G89.4 Chronic pain syndrome; M06.9 Rheumatoid arthritis, unspecified
CPT/HCPCS: 99213

== ENCOUNTER → 2025-05-01 12:56 | Outpatient (BNVA) | payer MEDICARE, MEDICAID, SELFPAY | PROVIDERS: PCP Nurse Practitioner Primary Care; Visit Provider Anesthesiology | DX: M06.9 Rheumatoid arthritis, unspecified (principal); M47.816 Spondylosis without myelopathy or radiculopathy, lumbar region; M70.61 Trochanteric bursitis, right hip; M70.62 Trochanteric bursitis, left hip; M15.9 Polyosteoarthritis, unspecified; G89.29 Other chronic pain | CPT/HCPCS: 99212 ==

== ENCOUNTER 2025-05-21 08:43 | Outpatient (REF) | payer MEDICARE, MEDICAID, SELFPAY ==
--- NOTE | ~2025-05-21 | XR_ITS ---
EXAMINATION: XR CHEST CLINICAL INFORMATION: J45.909 - Unspecified asthma, uncomplicated COMPARISON: Previous chest x-ray November 2022 TECHNIQUE: 2 views of the chest were obtained. FINDINGS: Lungs are clear. No consolidation or pulmonary edema. No pleural effusion or pneumothorax. Cardiac and mediastinal contours are normal. Degenerative changes of the spine. XR/XR chest 2V IMPRESSION: No evidence for acute disease in the chest. Electronically signed by: Claudia Scherer MD 05/21/2025 10:06 AM SONIA
[2025-05-21 09:43] LABS: MANUAL DIFF FLAG NO
[2025-05-21 09:49] LABS: Hematocrit 44.1 % (37.0-47.0); Hemoglobin 14.8 g/dl (12.0-16.0); Imm Gran Abs Auto 0.04 X10*3/uL (0.00-0.03); Imm Gran Pct Auto 0.6 % (0.0-0.4); Lymphocytes Absolute Auto 1.8 X10*3/uL (1.2-4.9); Mean Corpuscular HGB Conc 33.6 g/dl (31.0-35.0); Mean Corpuscular Hemoglobin 31.4 pg (27.0-33.0); Mean Corpuscular Volume 93.6 fL (80.0-98.0); NRBC Abs Auto 0.000 X10*3/uL (0.0-0.012); NRBC Pct Auto 0.0 /100WBC (0.0-0.2); Platelet Count 247 X10*3/uL (160-400); Red Blood Count 4.71 X10*6/uL (4.20-5.50); White Blood Count 7.0 X10*3/uL (4.8-10.8)
[2025-05-21 10:24] LABS: Anion Gap 11 (12-20); Blood Urea Nitrogen 12 mg/dL (9-16); Calcium 9.3 mg/dL (8.4-10.2); Carbon Dioxide 29 mmol/L (22-29); Chloride 107 mmol/L (96-108); Estimated Glomerular Filt Rate > 60; Potassium 4.4 mmol/L (3.3-5.1); Sodium 143 mmol/L (135-145)
[2025-05-21 10:30] LABS: Erythrocyte Sedimentation Rate 16 MM/HR (0-20)
[2025-05-24 02:43] LABS: Class Alternaria alternata 0; Class Aspergillus fumigatus 0; Class Bermuda Grass 0; Class Birch 2; Class Cat Dander 0/1; Class Cladosporium herbarum 0; Class Cockroach 0; Class Common Ragweed 0; Class Cottonwood 0; Class Derm. pterony 0; Class Dermatophagoides farinae 0; Class Dog Dander 0; Class Elm 0; Class Maple Box Elder 0; Class Mountain Cedar 0; Class Mouse Urine Protein 0; Class Mugwort 0; Class Oak 0; Class Penicillium crysogenum 0; Class Rough Pigweed 0; Class Sheep Sorrel 0; Class Sycamore 0; Class Timothy Grass 0; Class Walnut Tree 0; Class White Ash 0; Class White Mulberry 0; D002 - IgE D farinae <0.10 kU/L; E001 - IgE Cat Dander 0.16 kU/L; E005 - IgE Dog Dander <0.10 kU/L; G006 - IgE Timothy Grass <0.10 kU/L; I006-IgE Cockroach, German <0.10 kU/L; M002 - IgE Cladosporium herbar <0.10 kU/L; M003 - IgE Aspergillus fumigat <0.10 kU/L; M006 - IgE Alternaria alternat <0.10 kU/L; T001 IgE Maple/Box Elder <0.10 kU/L; T006 - IgE Cedar, Mountain <0.10 kU/L; T007 - IgE Oak, White <0.10 kU/L; T008 IgE Elm, American <0.10 kU/L; T010 - IgE Walnut <0.10 kU/L; T011 - IgE Maple Leaf Sycamore <0.10 kU/L; T014 - IgE Cottonwood <0.10 kU/L; T015 - IgE Ash, White <0.10 kU/L; T070 - IgE White Mulberry <0.10 kU/L; W001 - IgE Ragweed, Short <0.10 kU/L; W006 - IgE Mugwort <0.10 kU/L; W014 IgE Pigweed, Common <0.10 kU/L; W018 IgE Sheep Sorrel <0.10 kU/L
== END 2025-05-21 08:44 | disposition home or self-care (01) ==
LOC: HO.XRAY 08:43
PROVIDERS: PCP Nurse Practitioner Primary Care; Referring Provider Nurse Practitioner Primary Care; Visit Provider Hospitalist
DX: J45.41 Moderate persistent asthma with (acute) exacerbation (principal); J40 Bronchitis, not specified as acute or chronic; R91.8 Other nonspecific abnormal finding of lung field; R91.1 Solitary pulmonary nodule; T78.40XA Allergy, unspecified, initial encounter
CPT/HCPCS: 36415; 71046; 80048; 82103; 82784; 82785; 85025; 85652; 86003; 86331; 86606; 86609; 99212

== ENCOUNTER 2025-05-21 08:43 | Outpatient (AMB) | payer MEDICARE, MEDICAID, SELFPAY ==
[2025-05-21 08:56] VITALS: BP 112/60; PULSE 94; O2SAT 97; BMI 33.6
--- NOTE | 2025-05-21 08:56 | MHC.OFFVIS ---
Vital Signs 05/21/25 08:56 Height 4 ft 10 in Weight 160 lb 14.999 oz BMI 33.6 BP 112/60 Blood Pressure Location Rt brachial Position Sitting Pulse 94 Pulse Source Pulse Oximeter Pulse Oximetry (%) 97 Oxygen Delivery Method Room Air Intake Visit Reasons: Asthma Sociology Research Assistant Required: Yes Sociology Research Assistant Services: Sociology Research Assistant Offered & Declined Sociology Research Assistant Name: MD speaks tristanian Accompanied by: Self / Same As Patient Allergies Penicillins (PENICILLINS) Allergy (Severe, Verified 05/21/25 08:59) SWELLING/ITCHING vancomycin (VANCOMYCIN) Allergy (Intermediate, Verified 05/21/25 08:59) RASH AND ITCHING penicillin V Allergy (Unknown, Verified 05/21/25 08:59) redness and itching/ inflammation HPI Comments Details: The patient is here for pulmonary evaluation. The patient is a 49 year woman with known history of asthma who presents with worsening cough shortness of breath and productive phlegm. The patient states that she has been like this for many years. Goes off and on. She does use her inhalers with only minimal response. The patient started developing worsening cough with brownish phlegm. Moderate amount. Denies any hemoptysis. We did review her imaging studies. Her last chest x-ray on record is from 2022 without any significant disease. The patient also had blood work. No significant eosinophilia appreciated. The patient does have significant rhonchi and wheezing on exam. Will go ahead and maximize her respiratory medication by place him on Breztri. The patient had been on Symbicort before. In addition to that she does complain about palpitations when she uses albuterol. Will send Xopenex to the pharmacy to help her with that. The patient will start an antibiotic for what appears to be bronchitis. She will go for blood work in addition to an x-ray. [facility] Medical History (Updated 05/21/25 @ 20:15 by Robert Yeboah MD) Allergies Bronchitis Hyperthyroidism Hypertension Asthma Diabetes Surgical History History of removal of cyst History of removal of cyst History of cholecystectomy Family History Mother Cancer Diabetes Hypertension Father No problems noted. Social History Alcohol intake: never Patient Tobacco Use Status: Never used Tobacco Current occupational status: employed Current occupation: [employer]/ rt handed dominant Review of Systems Const Denies fever(s) Eyes Reports no additional complaints ENT Reports nasal congestion and Reports nasal discharge Card Denies chest pain and Reports dyspnea on exertion Resp Reports chest congestion, Reports cough, Reports dyspnea on exertion and Reports wheezing GI Reports heartburn Musc Denies abnormal gait and Reports myalgias Skin/Breast Denies rash Neuro Denies abnormal gait García/Lymph Reports no additional complaints Aller/Immun Reports wheezing Physical Exam Vital Signs: Last Vital Signs Pulse 94 05/21/25 08:56 BP 112/60 05/21/25 08:56 Pulse Ox 97 05/21/25 08:56 Oxygen Delivery Method Room Air 05/21/25 08:56 BMI result Body Mass Index 33.6 Const General: comfortable HEENT Head: Yes normocephalic Neck Neck: Yes supple Chest Chest palpation & inspection: normal inspection of the chest Resp Effort & Inspection: normal respiratory effort and prolonged expiratory phase Auscultation: rhonchi, wheezes and diminished lung sounds Cardio Heart sounds: S1 normal heart sound present and S2 normal heart sound present GI Palpation (GI): Soft to palpation Skin General skin exam: no rashes or lesions noted Extrem General: No cyanosis Assessment & Plan Assessment & Plan (1) Asthma: Code(s): J45.909 - Unspecified asthma, uncomplicated Category: Medical Qualifiers: Asthma severity: moderate Asthma persistence: persistent Asthma complication type: with acute exacerbation Qualified Code(s): J45.41 - Moderate persistent asthma with (acute) exacerbation (2) Bronchitis: Code(s): J40 - Bronchitis, not specified as acute or chronic Category: Medical (3) Allergies: Code(s): T78.40XA - Allergy, unspecified, initial encounter Category: Medical Qualifiers: Encounter type: initial encounter Qualified Code(s): T78.40XA - Allergy, unspecified, initial encounter Plan stop symbicort REJI as needed Start Doxycycline Bloodwork and allergy testing CXR PFTs F/U 6-10 weeks Orders: Orders Basic Metabolic Panel Today J40 - Bronchitis, not specified as acute or chronic, J45.909 - Unspecified asthma, uncomplicated, T78.40XA - Allergy, unspecified, initial encounter Hypersensitive Pneumonitis Prf Today J40 - Bronchitis, not specified as acute or chronic, J45.909 - Unspecified asthma, uncomplicated, R91.8 - Other nonspecific abnormal finding of lung field, T78.40XA - Allergy, unspecified, initial encounter Erythrocyte Sedimentation Rate Today J40 - Bronchitis, not specified as acute or chronic, J45.909 - Unspecified asthma, uncomplicated, T78.40XA - Allergy, unspecified, initial encounter Complete Blood Count Auto Diff Today J40 - Bronchitis, not specified as acute or chronic, J45.909 - Unspecified asthma, uncomplicated, T78.40XA - Allergy, unspecified, initial encounter Immunoglobulins,IgG IgA IgM Today J40 - Bronchitis, not specified as acute or chronic, J45.909 - Unspecified asthma, uncomplicated, T78.40XA - Allergy, unspecified, initial encounter Immunoglobulin E Today J40 - Bronchitis, not specified as acute or chronic, J45.90 - Unspecified asthma, uncomplicated, T78.40XA - Allergy, unspecified, initial encounter Resp Allergy Profile Region I Today J40 - Bronchitis, not specified as acute or chronic, J45. - Unspecified asthma, uncomplicated, R91.1 - Solitary pulmonary nodule, T78.40XA - Allergy, unspecified, initial encounter Alpha 1 Anti-trypsin Today J40 - Bronchitis, not specified as acute or chronic, J45.90 - Unspecified asthma, uncomplicated, T78.40XA - Allergy, unspecified, initial encounter XR chest 2V Today J45. - Unspecified asthma, uncomplicated PFT pulmonary function test Today J45.41 - Moderate persistent asthma with (acute) exacerbation Medications: New doxycycline monohydrate 100 mg PO BID 28 tabs 0RF 14 days fhubdpyeul-wsprnxsk-cphoczrbsu 160-9-4.8 mcg/actuation (Breztri Aerosphere) 2 inhalations inhalation BID 10.7 grams 0RF levalbuterol HCl 1.25 mg (3 mL) inhalation BID 180 mL 0RF 30 days J44.9 - Chronic obstructive pulmonary disease, unspecified Coding Level of Care Code New Pt Level 4 (36885) Diagnoses Moderate persistent asthma with acute exacerbation J45.41 Asthma severity: moderate Asthma persistence: persistent Asthma complication type: with acute exacerbation Bronchitis J40 Allergy, initial encounter T78.40XA Encounter type: initial encounter Time Spent (min) 40
== END 2025-05-21 09:26 | disposition home or self-care (01) ==
LOC: HO.HPS 08:44
PROVIDERS: PCP Nurse Practitioner Primary Care; Referring Provider Nurse Practitioner Primary Care; Visit Provider Hospitalist
DX: J45.41 Moderate persistent asthma with (acute) exacerbation (principal); J40 Bronchitis, not specified as acute or chronic; T78.40XA Allergy, unspecified, initial encounter
CPT/HCPCS: 99214

== ENCOUNTER → 2025-05-21 09:44 | Outpatient (BNV) | payer MEDICARE, MEDICAID, SELFPAY | PROVIDERS: PCP Nurse Practitioner Primary Care; Referring Provider Nurse Practitioner Primary Care; Visit Provider Radiology Diagnostic Radiology | DX: J45.909 Unspecified asthma, uncomplicated (principal) | CPT/HCPCS: 71046 ==

== ENCOUNTER 2025-06-02 01:04 | Emergency (ER) | payer MEDICARE, MEDICAID, SELFPAY ==
--- NOTE | ~2025-06-02 | XR_ITS ---
CLINICAL HISTORY: chest pain 1 view chest x-ray Comparison: 05/21/2025 Findings: Lung inflation is normal. Cardiac and mediastinal silhouettes are normal. Pulmonary venous vasculature is normal. There is no pneumothorax or pleural effusion. No consolidative opacities. Osseous structures are normal. IMPRESSION: 1. No acute cardiopulmonary process. This document has been electronically signed by: Avtar Martinez III, MD PHD on 06/02/2025 04:26:10
--- NOTE | 2025-06-02 01:05 | ECG_ITS ---
Test Reason : CHEST PAIN Blood Pressure : */* mmHG Vent. Rate : 87 BPM Atrial Rate : 87 BPM P-R Int : 136 ms QRS Dur : 68 ms QT Int : 320 ms P-R-T Axes : 61 64 43 degrees QTcB Int : 385 ms Normal sinus rhythm Normal ECG When compared with ECG of 10-Feb-2021 16:30, No significant change was found Referred By: Generic ED Physician Electronically Signed By: Kam Watts
[2025-06-02 01:10] VITALS: BP 127/59; PULSE 83; RESP 18; TEMP 36.7; O2SAT 98; BMI 33.4
[2025-06-02 01:24] LABS: Hematocrit 40.0 % (37.0-47.0); Hemoglobin 13.9 g/dl (12.0-16.0); Imm Gran Abs Auto 0.05 X10*3/uL (0.00-0.03); Imm Gran Pct Auto 0.5 % (0.0-0.4); Lymphocytes Absolute Auto 3.6 X10*3/uL (1.2-4.9); MANUAL DIFF FLAG NO; Mean Corpuscular HGB Conc 34.8 g/dl (31.0-35.0); Mean Corpuscular Hemoglobin 31.7 pg (27.0-33.0); Mean Corpuscular Volume 91.1 fL (80.0-98.0); NRBC Abs Auto 0.000 X10*3/uL (0.0-0.012); NRBC Pct Auto 0.0 /100WBC (0.0-0.2); Platelet Count 226 X10*3/uL (160-400); Red Blood Count 4.39 X10*6/uL (4.20-5.50); White Blood Count 9.3 X10*3/uL (4.8-10.8)
[2025-06-02 01:37] LABS: Alanine Aminotransferase 27 U/L (0-31); Albumin Level 3.9 g/dL (3.5-5.0); Alkaline Phosphatase 72 U/L (39-117); Anion Gap 11 (12-20); Aspartate Amino Transferase 33 U/L (5-31); Blood Urea Nitrogen 12 mg/dL (9-16); Calcium 9.2 mg/dL (8.4-10.2); Carbon Dioxide 21 mmol/L (22-29); Chloride 111 mmol/L (96-108); Creatinine Clr Calc Pharmacy 106.9; Estimated Glomerular Filt Rate > 60; Potassium 4.1 mmol/L (3.3-5.1); Sodium 139 mmol/L (135-145); Total Protein 6.7 g/dL (6.5-8.0)
[2025-06-02 01:49] LABS: Troponin-I High Sensitivity < 2.7 ng/L (<3.5-17.0)
--- NOTE | 2025-06-02 01:54 | ED.CHESTPAIN ---
HPI - Chest Pain General Chief Complaint: Chest Pain Stated Complaint: chest pain Time Seen by Provider: 06/02/25 01:54 Source: patient Mode of arrival: ambulatory Limitations: no limitations History of Present Illness ED Provider: Dr. Berg HPI narrative: 49-year-old female history of rheumatoid arthritis, asthma presented hospital today for 5 days of cough. Also complaining of left-sided chest pain that started yesterday that radiates to her left arm. It is sharp in nature. Continuously there. No alleviation or aggravating factor. Related Data Home Medications ?Medication ?Instructions ?Recorded ?Confirmed albuterol sulfate 90 mcg/actuation inhalation 11/19/21 11/26/21 aerosol inhaler (Ventolin HFA) alcohol swabs (Alcohol Prep Pads) pad topical 11/19/21 11/19/21 budesonide-formoterol HFA 160 inhalation 11/19/21 11/19/21 mcg-4.5 mcg/actuation aerosol inhaler (Symbicort) cholecalciferol (vitamin D3) 1,250 1,250 mcg PO QWEEK 11/19/21 11/19/21 mcg (50,000 unit) capsule diclofenac sodium 1 % topical gel 2 g topical QID 11/19/21 11/19/21 (Voltaren Arthritis Pain) levothyroxine 25 mcg capsule 25 mcg PO DAILY 11/19/21 11/19/21 lisinopril 10 mg tablet mg PO DAILY 11/19/21 11/19/21 pantoprazole 40 mg tablet,delayed 40 mg PO DAILY 11/19/21 11/19/21 release pen needle, diabetic 31 gauge x #50 ea 11/19/21 11/19/21/16 (Sure Comfort Pen Needle) tirzepatide 5 mg/0.5 mL 5 mg subcut QWEEK 05/21/25 subcutaneous pen injector (Debbie) Previous Rx's ?Medication ?Instructions ?Recorded acetaminophen 500 mg tablet 500 mg PO Q6H PRN pain or fever 11/19/20 (Tylenol Extra Strength) #20 tabs naproxen 500 mg tablet 500 mg PO BID PRN pain 10 days #20 11/19/20 tabs ketorolac 10 mg tablet 10 mg PO QID PRN pain 5 days #20 07/30/21 tabs cyclobenzaprine 10 mg tablet 10 mg PO TID PRN muscle spasm #10 08/01/21 tabs ibuprofen 600 mg tablet 600 mg PO Q6H PRN pain #30 tabs 12/04/22 gabapentin 400 mg capsule 400 mg PO TID 30 days #90 caps 05/14/24 budesonide 160 mcg-glycopyr 9 2 inh inhalation BID #10.7 grams 05/21/25 mcg-formot 4.8 mcg/actuation HFA inhaler (Breztri Aerosphere) doxycycline monohydrate 100 mg 100 mg PO BID 14 days #28 tabs 05/21/25 tablet levalbuterol HCl 1.25 mg/3 mL 1.25 mg (3 mL) inhalation BID 30 05/21/25 solution for nebulization days #180 mL benzonatate 200 mg capsule 200 mg PO TID PRN cough #20 caps 06/02/25 prednisone 20 mg tablet 20 mg PO DAILY 7 days #7 tabs 06/02/25 Allergies Allergy/AdvReac Type Severity Reaction Status Date / Time Penicillins (PENICILLINS) Allergy Severe SWELLING/IT Verified 06/02/25 01:12 JOE vancomycin (VANCOMYCIN) Allergy Intermediate RASH AND Verified 06/02/25 01:12 ITCHING penicillin V Allergy Unknown redness Verified 06/02/25 01:12 and itching/ inflammation Review of Systems Review of Systems: Pertinent review of systems as mentioned in HPI. All other system otherwise negative. [facility] Past Medical History [facility] Narrative: Medical history as mentioned in HPI Medical History (Updated 06/02/25 @ 02:51 by Yuliya Berg DO) Allergies Bronchitis Hyperthyroidism Hypertension Asthma Diabetes Surgical History History of removal of cyst History of removal of cyst History of cholecystectomy Family History Family History Mother Cancer Diabetes Hypertension Father No problems noted. Social History Social History Alcohol intake: never Patient Tobacco Use Status: Never used Tobacco Advance Directives: No Advance Directives Information Provided: Yes Do you have a plan to hurt others: No Plan Current occupational status: employed Current occupation: [employer]/ rt handed dominant Physical Exam Exam: Exam: General: Pleasant, no distress, interacting appropriately Head: Normacephalic, atraumatic ENT: oral mucosa moist, neck supple, no tracheal deviation Cardiovascular: regular rate, regular rhythm, no murmurs, rubbing, gallops Respiratory: CTAB, no wheeze, rales, rhonchi, patient appears to be Voluntarily stacking her breath. No sign of tachypnea. does not appear to be in acute respiratory distress. Gastrointestinal: Soft, non distended, non tender, non guarding Neurological: Awake and alert, no facial droop noted Skin: Warm and dry Psychiatric: Appropriate mood and thoughts Vital Signs: Vital Signs: Last Vital Signs Temp 98.0 F 06/02/25 01:10 Pulse 95 06/02/25 02:37 Resp 18 06/02/25 02:37 BP 127/59 L 06/02/25 01:10 Pulse Ox 98 06/02/25 01:10 O2 Del Method Room Air 06/02/25 01:10 BMI result Body Mass Index 33.4 Medications Administered Discontinued Medications Generic Name Dose Route Start Last Admin Trade Name Freq PRN Reason Stop Dose Admin Ipratropium [place] 0.5 mg 06/02/25 02:41 06/02/25 02:43 Ipratropium [place] 0.5 Mg/2.5 Ml Solution INHALE 06/02/25 02:42 0.5 mg ONCE ONE Administration Medical Decision Making Medical Decision Making [facility] Narrative: 49-year-old female presented hospital today for left-sided chest pain that radiates to left arm. EKG did not show any signs of STEMI. Troponins negative here. CBC chemistries unremarkable. Chest x-ray pending at this time. We will plan to give patient a dose of Atrovent here. Patient states she can not take albuterol as it causes tachycardia. Tylenol ibuprofen will be given her chest pain. I suspect this is muscular in nature given her coughing for the past couple of days. Low suspicion of ACS cause chest pain. No sign of consolidation on chest x-ray. We will plan to discharge patient with a course of prednisone to take for her coughing. Encouraged her to follow up with her primary care doctor. Tessalon Perles will also be prescribed for cough. Patient appears to be stable does not appear to be in acute distress. I do not think patient is in respiratory distress on time of evaluation. Differential Diagnosis Differential Diagnoses: The differential diagnosis associated with the presentation includes ACS, STEMI, pneumonia, costochondritis, asthma Lab Data MDM Lab Attestation statement: I reviewed the patient's lab results. 06/02/25 01:17 06/02/25 01:18 Labs: Lab Results 06/02/25 06/02/25 Range/Units 01:17 01:18 WBC 9.3 (4.8-10.8) X10*3/uL RBC 4.39 (4.20-5.50) X10*6/uL Hgb 13.9 (12.0-16.0) g/dl Hct 40.0 (37.0-47.0) % MCV 91.1 (80.0-98.0) fL MCH 31.7 (27.0-33.0) pg MCHC 34.8 (31.0-35.0) g/dl RDW 11.9 (11.0-16.0) % Plt Count 226 (160-400) X10*3/uL MPV 10.3 (9.4-12.3) fL Immature Gran % (Auto) 0.5 H (0.0-0.4) % Neut % (Auto) 47.9 (45-73) % Lymph % (Auto) 39.0 (20-40) % [place] % (Auto) 8.6 (2-11) % Eos % (Auto) 3.0 (0-4) % Baso % (Auto) 1.0 (0-2) % Lymph # (Auto) 3.6 (1.2-4.9) X10*3/uL [place] # (Auto) 0.8 (0.1-1.2) X10*3/uL Eos # (Auto) 0.3 (0.0-0.4) X10*3/uL Baso # (Auto) 0.1 (0.0-0.2) X10*3/uL Abs Immat Gran (auto) 0.05 H (0.00-0.03) X10*3/uL Absolute Neuts (auto) 4.4 (2.0-8.3) x10*3/uL Absolute Nucleated RBC 0.000 (0.0-0.012) X10*3/uL Nucleated RBC % (auto) 0.0 (0.0-0.2) /100WBC Sodium 139 (135-145) mmol/L Potassium 4.1 (3.3-5.1) mmol/L Chloride 111 H (96-108) mmol/L Carbon Dioxide 21 L (22-29) mmol/L Anion Gap 11 L (12-20) BUN 12 (9-16) mg/dL Creatinine 0.55 (0.5-1.4) mg/dL Estim Creat Clear Calc 106.9 Estimated GFR > 60 Random Glucose 137 H (60-115) mg/dL Calcium 9.2 (8.4-10.2) mg/dL Total Bilirubin 0.4 (0.0-1.0) mg/dL AST 33 H (5-31) U/L ALT 27 (0-31) U/L Alkaline Phosphatase 72 (39-117) U/L Troponin I High Sens < 2.7 (<3.5-17.0) ng/L Total Protein 6.7 (6.5-8.0) g/dL Albumin 3.9 (3.5-5.0) g/dL Influenza Type A (PCR) NEGATIVE (Negative) Influenza Type B (PCR) NEGATIVE (Negative) RSV RNA Qual (PCR) NEGATIVE (Negative) SARS-CoV-2 RNA (RT-PCR) NEGATIVE (Negative) Independent Interpretation I performed an independent interpretation of an: EKG and Plain X-Ray Discharge Plan Discharge Clinical Impression: Chest wall pain Cough Qualifiers: Cough type: acute Qualified Code(s): R05.1 - Acute cough Patient Disposition: Home, Self-Care Instructions: Chest Wall Pain (ED) Additional Instructions: Your chest pain is from your coughing. Take the cough medicine as needed. You may take 1000mg tylenol every 8 hours or ibuprofen 400mg every 8 hours. Follow up with your primary care doctor. Prescriptions: New prednisone 20 mg tablet 20 mg PO DAILY 7 Days Qty: 7 0RF benzonatate 200 mg capsule 200 mg PO TID PRN (Reason: cough) Qty: 20 0RF No Action gabapentin 400 mg capsule 400 mg PO TID 30 Days Qty: 90 5RF acetaminophen [Tylenol Extra Strength] 500 mg tablet 500 mg PO Q6H PRN (Reason: pain or fever) Qty: 20 0RF naproxen 500 mg tablet 500 mg PO BID PRN (Reason: pain) 10 Days Qty: 20 0RF ketorolac 10 mg tablet 10 mg PO QID PRN (Reason: pain) 5 Days Qty: 20 0RF Rx Instructions: Patient received 30 mg IM Toradol in the ED. cyclobenzaprine 10 mg tablet 10 mg PO TID PRN (Reason: muscle spasm) Qty: 10 0RF ibuprofen 600 mg tablet 600 mg PO Q6H PRN (Reason: pain) Qty: 30 0RF (DME) pen needle, diabetic [Sure Comfort Pen Needle] 31 gauge x 3/16 needle See Rx Instructions .ROUTE .MEDSUPPLY Qty: 50 Rx Instructions: As directed alcohol swabs [Alcohol Prep Pads] Pads, Medicated topical lisinopril 10 mg tablet PO DAILY budesonide-formoterol [Symbicort] 160-4.5 mcg/actuation HFA aerosol inhaler inhalation albuterol sulfate [Ventolin HFA] 90 mcg/actuation HFA aerosol inhaler inhalation cholecalciferol (vitamin D3) 1,250 mcg (50,000 unit) capsule 1,250 mcg PO QWEEK diclofenac sodium [Voltaren Arthritis Pain] 1 % gel 2 g topical QID Rx Instructions: apply to single elbow, wrist or hand; for hand includes palm/fingers/back of hand pantoprazole 40 mg tablet,delayed release (DR/EC) 40 mg PO DAILY levothyroxine 25 mcg capsule 25 mcg PO DAILY lidocaine (PF) 50 mg/5 mL (1 %) syringe 5 ml subcut ONCE Qty: 5 0RF Mounjaro 5 mg/0.5 mL pen injector 5 mg subcut QWEEK doxycycline monohydrate 100 mg tablet 100 mg PO BID 14 Days Qty: 28 0RF Breztri Aerosphere 160-9-4.8 mcg/actuation HFA aerosol inhaler 2 inh inhalation BID Qty: 10.7 0RF levalbuterol HCl 1.25 mg/3 mL solution for nebulization 1.25 mg inhalation BID 30 Days Qty: 180 0RF Print Language: Arabic
[2025-06-02 02:00] LABS: Resp Syncy Virus RNA Qual PCR NEGATIVE (Negative); SARS COV2 PCR INHOUSE NEGATIVE (Negative)
--- OUTSIDE RECORDS SUMMARY | 2025-06-02 02:22 | XMS_ITS | Encounter Summary ---
Author Organization [employer] Address [address] [place] [address] [address] [place] [address] Care Team Providers Care Manager Pe Name Role Phone Nathalie Wang Primary Care Provider [phone] Encounter Details Date Type Department Care Team (Late st Contact Info) Description 05/27/2022 Orders Only [facility] CH[facility] MED & PEDS [address] [place] [address] Kayce Ridley LPN Social History Tobacco Use [...] Description 06/04/2025 10:15 AM EST Office Visit [facility] MEDICINE [address] [place] [address] Nathalie Wang ANP [address] [place] [address] documented as of this encounter Procedures Procedure Name Priority Date/Time Associated Diagnosis Comments GRAM STAIN Routine 05/27/2022 3:39 PM EST documented in this encounter Results * Gram stain (05/27/2022 3:39 PM EST) 05/27/2022 3:39 PM EST 05/27/2022 3:39 PM EST Comment:Breast Narrative [facility] - 05/30/2022 8:55 AM EST Gram stain results: 3+ polys 3+ red blood cells 1+ Gram-positive cocci Klebsiella oxytoca Quant Org ID [id number] Klebsiella oxytoca: Ampicillin >=32(R) Klebsiella oxytoca: Cefazolin <=4(S) Klebsiella oxytoca: Ceftriaxone <=0.25(S) Klebsiella oxytoca: Gentamicin <=1(S) Klebsiella oxytoca: Levofloxacin <=0.12(S) Klebsiella oxytoca: Trimethoprim/Sulfamethoxazole <=20(S) Specimen Source: Breast us [facility] Exter nal Provider LAB MICROBIOLOGY - GENERAL ORDERABLES Final Result Performing Organization Address City/State/[facility] Co de Phone Number [facility] [address] [place] [address] [phone] documented in this encounter Visit Diagnoses Not on filedocumented in this encounter Care Teams Manager Pe Relationship Specialty Start Date End Date Nathalie Wang ANP [address] [place] [id number] PCP - General Family Medicine 05/23/20 documented as of this encounter
--- OUTSIDE RECORDS SUMMARY | 2025-06-02 02:22 | XMS_ITS | Encounter Summary ---
Author Organization [employer] Address [address] [place] [address] 7t [place] [address] Care Team Providers Care Fur Mixer Operator Name Role Phone Nathalie Wang Primary Care Provider [phone] Reason for Visit * Reason Onset Date Comments Med Refill 05/02/2025 Encounter Details Date Type Department Care Team ([facility] st Contact Info) Description 05/02/2025 Refill [facility] MEDICINE [address] [place] [address] Nathalie Wang ANP [address] [place] [address] Type 2 diabetes mellitus with other circulatory complication, with long-term current use of insulin ([facility]) Social History Tobacco Use Types Packs/Day Years [...] Description 06/04/2025 10:15 AM EST Office Visit [facility] MEDICINE [address] [place] [address] Nathalie Wang ANP [address] [place], [place] [phone] documented as of this encounter Goals Goal Patient Goal Type Associated Problems Recent Progress Patient-Stated? Author Help patients manage their type 2 diabetes Care Plan Help patients manage their type 2 diabetes Kayce Dc LPN Weekly blood pressure task Care Plan Weekly blood pressure task No Kayce Ridley LPN Help patients manage their type 2 diabetes Care Plan Help patients manage their type 2 diabetes No Kayce Ridley LPN Patient has diabetic eye disease Care Plan Patient has diabetic eye disease No Kayce Ridley LPN Help patients manage their type 2 diabetes Care Plan Help patients manage their type 2 diabetes Kayce Dc LPN Patient has chronic kidney disease Care Plan Patient has chronic kidney disease Kayce Dc LPN Weekly blood pressure task Care Plan Weekly blood pressure task No Kayce Ridley LPN Weekly blood pressure task Care Plan Weekly blood pressure task No Kayce Ridley LPN Patient has diabetic eye disease Care Plan Patient has diabetic eye disease No Kayce Ridley LPN Patient has diabetic eye disease Care Plan Patient has diabetic eye disease No Kayce Ridley LPN Patient has chronic kidney disease Care Plan Patient has chronic kidney disease No Kayce Ridley LPN Patient has chronic kidney disease Care Plan Patient has chronic kidney disease No Kayce Ridley LPN documented as of this encounter Visit Diagnoses Diagnosis Type 2 diabetes mellitus with other circulatory complication, with long-term current use of insulin (HCC) documented in this encounter Additional Health Concerns Active Problems Noted Date Diagnosed Date Help patients manage their type 2 diabetes 05/02 Weekly blood pressure task 05/02/2025 Help patients manage their type 2 diabetes 05/02 Patient has diabetic eye disease 05/02/2025 Help patients manage their type 2 diabetes 05/02 Patient has chronic kidney disease 05/02/2025 Weekly blood pressure task 05/02/2025 Weekly blood pressure task 05/02/2025 Patient has diabetic eye disease 05/02/2025 Patient has diabetic eye disease 05/02/2025 Patient has chronic kidney disease 05/02/2025 Patient has chronic kidney disease 05/02/2025 Assessment Noted Time PHQ-9 Depression Total Score: 025 12:02 PM EDT documented as of this encounter Care Teams Fur Mixer Operator Relationship Specialty Start Date End Date Nathalie Wang ANP [address] [place] [id number] PCP - General Family Medicine 05/23/20 documented as of this encounter
--- OUTSIDE RECORDS SUMMARY | 2025-06-02 02:22 | XMS_ITS | Encounter Summary ---
Author Organization [employer] Address [address] [place] [address] 7t [place] [address] Care Team Providers Care Tool Crib Lead Name Role Phone Nathalie Wang Primary Care Provider [phone] Reason for Visit * Reason Onset Date Comments Status Request 01/23/2024 Encounter Details Date Type Department Care Team ([facility] st Contact Info) Description 01/23/2024 Telephone [facility] MEDICINE [address] [place] [address] Nathalie Wang ANP [address] [place] [address] Status Request Social History Tobacco Use Types [...] 3:01 PM EDT Tc from [facility] with [facility] requesting status on physician order form for pt to start Home health services. Please contact [facility] at [phone]. documented in this encounter Plan of Treatment Upcoming Encounters Date Type Department Care Team (Late st Contact Info) Description 06/04/2025 10:15 AM EST Office Visit [facility] MEDICINE [address] [place] [address] Nathalie Wang ANP [address] [place] [address] documented as of this encounter Visit Diagnoses Not on filedocumented in this encounter Care Teams Tool Crib Lead Relationship Specialty Start Date End Date Nathalie Wang ANP [address] [place] [address] PCP - General Family Medicine 05/23/20 documented as of this encounter
--- OUTSIDE RECORDS SUMMARY | 2025-06-02 02:22 | XMS_ITS | Encounter Summary ---
Author Organization [employer] Address [address] [place] [address] 7[address] [place] [address] Care Team Providers Care Cheese Specialist Name Role Phone Nathalie Wang Primary Care Provider [phone] Reason for Visit * Reason Onset Date Comments Medication Question 06/24/2023 Prior Authorization 06/24/2023 Ozempic Encounter Details Date Type Department Care Team ([facility] Contact Info) Description 06/24/2023 Telephone [facility] MED[facility] [address] [place] [address] Nathalie Wang ANP [address] [place] [address] Medication Question; Prior Authorization (Ozempic) Social History [...] MG/3ML solution pen-injector to be sent to [facility]/pharmacy #[id number] [place], [place] - [address] [place] [address]. [facility] pharmacy is currently on backorder and pt has not had injection in 2 weeks. documented in this encounter Plan of Treatment Upcoming Encounters Date Type Department Care Team (Late st Contact Info) Description 06/04/2025 10:15 AM EST Office Visit [facility] [address] [place] [address] Nathalie Wang ANP [address] [place] [address] documented as of this encounter Visit Diagnoses Diagnosis Type 2 diabetes mellitus without complication, unspecified whether intermediate designer insulin use documented in this encounter Care Teams Cheese Specialist Relationship Specialty Start Date End Date Nathalie Wang ANP [address] [place] [address] PCP - General Family Medicine 05/23/20 documented as of this encounter
--- OUTSIDE RECORDS SUMMARY | 2025-06-02 02:22 | XMS_ITS | Encounter Summary ---
Author Organization [employer] Address [address] [place] [address] 7[address] [place] [address] Care Team Providers Care Fountain Dispenser Name Role Phone Nathalie Wang Primary Care Provider [phone] Reason for Visit * Reason Comments Med Refill Encounter Details Date Type Department Care Team ([facility] st Contact Info) Description 04/24/2024 Refill [facility] MEDICINE [address] [place] [address] Nathalie Wang ANP [address] [place] [address] Upper respiratory tract infection, unspecified type Social [...] Description 06/04/2025 10:15 AM EST Office Visit [facility] MEDICINE [address] [place] [address] Nathalie Wang ANP [address] [place] [phone] documented as of this encounter Visit Diagnoses Diagnosis Upper respiratory tract infection, unspecified type documented in this encounter Care Teams Fountain Dispenser Relationship Specialty Start Date End Date Nathalie Wang ANP [address] [place] [phone] PCP - General Family Medicine 05/23/20 documented as of this encounter
--- OUTSIDE RECORDS SUMMARY | 2025-06-02 02:22 | XMS_ITS | Encounter Summary ---
Author Organization [employer] Address [address] [place] [address] [address] [address] Care Team Providers Care General Store Manager Name Role Phone Nathalie Wang Primary Care Provider [phone] Reason for Visit * Reason Onset Date Comments Med Refill 03/29/2023 Encounter Details Date Type Department Care Team (Late st Contact Info) Description 03/29/2023 Refill [facility] CHC MED & PEDS [address] [place] [address] Ra Jacinto MD [address] [place] [address] Type 2 diabetes mellitus without complication, unspecified whether termite control service representative insulin use ([facility]) Social History Tobacco Use Types Packs/Day Years [...] 10:15 AM EST Office Visit [facility] MEDICINE [address] [place] [address] Nathalie Wang ANP [address] [place] [address] documented as of this encounter Visit Diagnoses Diagnosis Type 2 diabetes mellitus without complication, unspecified whether termite control service representative insulin use documented in this encounter Care Teams General Store Manager Relationship Specialty Start Date End Date Nathalie Wang ANP [address] [place] [address] PCP - General Family Medicine 05/23/20 documented as of this encounter
--- OUTSIDE RECORDS SUMMARY | 2025-06-02 02:22 | XMS_ITS | Encounter Summary ---
Author Organization [employer] Address [address] [place] [address] 7[address] [place] [address] Care Team Providers Care Heating Repair Technician Name Role Phone Nathalie Wang Primary Care Provider [phone] Reason for Visit * Reason Onset Date Comments Nurse Triage 01/21/2023 Encounter Details Date Type Department Care Team ([facility] st Contact Info) Description 01/21/2023 Telephone [facility] MEDICINE [address] [place] [address] Nathalie Wang ANP [address] [place] [address] Nurse Triage Social History Tobacco Use Types [...] 01/21/2023 9:59 AM EDT Triage call with [facility] [place] [id number] Pt reports seeing the eye doctor and [...] become worse * Telephone Encounter - Gianluca Eckert - 01/21/2023 9:28 AM EDT Symptom: Vision Loss or Change Outcome: Schedule an urgent appointment (within 1 hour) or talk to a nurse or provider soon Reason: Getting worse The caller accepted this outcome Please contact pt at [phone] American [employer] documented in this encounter Plan of Treatment Upcoming Encounters Date Type Department Care Team (Late st Contact Info) Description 06/04/2025 10:15 AM EST Office Visit [facility] MEDICINE [address] [place] [address] Nathalie Wang ANP [address] [place] [address] documented as of this encounter Visit Diagnoses Not on filedocumented in this encounter Care Teams Heating Repair Technician Relationship Specialty Start Date End Date Nathalie Wang ANP [address] [place] [address] PCP - General Family Medicine 05/23/20 documented as of this encounter
--- OUTSIDE RECORDS SUMMARY | 2025-06-02 02:22 | XMS_ITS | Encounter Summary ---
Author Organization [employer] Address [address] [place] [address] [address] [place] [address] Care Team Providers Care Director Of Accounts Receivable Name Role Phone Nathalie Wang Primary Care Provider [phone] Reason for Visit * Reason Comments Med Refill Encounter Details Date Type Department Care Team (Late st Contact Info) Description 11/16/2022 Refill [facility] CHC MED & PEDS [address] [place], [place] [phone] Nathalie Wang ANP [address] [place], [place] [phone] Mild intermittent asthma without complication Social History [...] Description 06/04/2025 10:15 AM EST Office Visit [facility] MEDICINE [address] [place] [phone] Nathalie Wang ANP [address] [place], [place] [phone] documented as of this encounter Visit Diagnoses Diagnosis Mild intermittent asthma without complication documented in this encounter Care Teams Director Of Accounts Receivable Relationship Specialty Start Date End Date Nathalie Wang ANP [address] [place] [address] PCP - General Family Medicine 05/23/20 documented as of this encounter
--- OUTSIDE RECORDS SUMMARY | 2025-06-02 02:22 | XMS_ITS | Encounter Summary ---
Author Organization [employer] Address [address] [place] [address] [address] [place] [address] Care Team Providers Care Licensed Sales Assistant Name Role Phone Nathalie Wang Primary Care Provider [phone] Reason for Visit * Reason Comments Med Refill Encounter Details Date Type Department Care Team ([facility] st Contact Info) Description 05/09/2025 Refill [facility] [address] [place] [address] Nathalie Wang ANP [address] [place] [address] Type 2 diabetes mellitus with other circulatory complication, with long-term current use of insulin (HCC) Social History Tobacco Use Types Packs/Day Years [...] 10:15 AM EST Office Visit [facility] [address] [place] [address] Nathalie Wang, ANP [address], [place] [phone] documented as of this encounter Goals Goal [...] 2 diabetes Kayce Dc LPN Patient has diabetic eye disease Care [...] chronic kidney disease No Kayce Ridley LPN Weekly blood pressure task Care Plan Weekly blood pressure task No Murphy Shawna Weekly blood pressure task Care Plan Weekly blood pressure task No Murphy, Shawna Weekly blood pressure task Care Plan Weekly blood pressure task No Murphy, Shawna Patient has diabetic eye disease Care Plan Patient has diabetic eye disease No Murphy Shawna Patient has diabetic eye disease Care Plan Patient has diabetic eye disease No Murphy, Shawna Patient has diabetic eye disease Care Plan Patient has diabetic eye disease No Murphy Shawna Patient has chronic kidney disease Care Plan Patient has chronic kidney disease No Murphy Shawna Patient has chronic kidney disease Care Plan Patient has chronic kidney disease No Murphy Shawna Patient has chronic kidney disease Care Plan Patient has chronic kidney disease No Murphy Shawna documented as of this encounter Visit Diagnoses [...] 05/02/2025 Patient has chronic kidney disease 05/02/2025 Weekly blood pressure task 05/08/2025 Weekly blood pressure task 05/08/2025 Weekly blood pressure task 05/08/2025 Patient has diabetic eye disease 05/08/2025 Patient has diabetic eye disease 05/08/2025 Patient has diabetic eye disease 05/08/2025 Patient has chronic kidney disease 05/08/2025 Patient has chronic kidney disease 05/08/2025 Patient has chronic kidney disease 05/08/2025 Assessment Noted Time PHQ-9 Depression Total Score: 20 025 12:02 PM EDT documented as of this encounter Care Teams Licensed Sales Assistant Relationship Specialty Start Date End Date Nathalie Wang ANP [address] [place] [address] PCP - General Family Medicine 05/23/20 documented as of this encounter
--- OUTSIDE RECORDS SUMMARY | 2025-06-02 02:22 | XMS_ITS | Encounter Summary ---
Author Organization [employer] Address [address] [place] [address] [address] [place] [address] Care Team Providers Care Tribal Delegate Name Role Phone Nathalie Wang Primary Care Provider [phone] Encounter Details Date Type Department Care Team ([facility] st Contact Info) Description 11/14/2023 Telephone [facility] [address] [place] [address] Nathalie Wang ANP [address] [place] [address] Social History Tobacco Use Types Packs/Day Years [...] Description 06/04/2025 10:15 AM EST Office Visit [facility] [address] [place] [address] Nathalie Wang ANP [address] [place] [address] documented as of this encounter Visit Diagnoses Not on filedocumented in this encounter Care Teams Tribal Delegate Relationship Specialty Start Date End Date Nathalie Wang ANP [address] [place] [id number] PCP - General Family Medicine 05/23/20 documented as of this encounter
--- OUTSIDE RECORDS SUMMARY | 2025-06-02 02:22 | XMS_ITS | Clinical Summary ---
Author Organization [employer] Address [address] [place] [address] [address] [place] [address] Care Team Providers Care Special Procedures Tech Name Role Phone Leon Wright VINAYAK Primary Care Provider [phone] Allergies Active Allergy Reactions Criticality Noted Date Comments Penicillins 11/24/2011 Vancomycin High 12/10/2023 Other Reaction(s): RASH AND ITCHING Medications buffered aspirin 81 MG tablet Active betamethasone dipropionate 0.05 % cream Apply topically at bed time. Active cholecalciferol (Vitamin D-3) 1.25 MG (90717 UT) capsule Active lidocaine (Xylocaine) 5 % ointment Apply topically at bed time. Active lidocaine (Lidoderm) 5 % patch Place 1 patch on the skin at bed time. Active Continuous Blood Gluc Training Designer (FreeStyle Sondra 2 [place]) device Active Sure Comfort [place] 31G X 5 MM misc USE THREE [...] 025 Active Blood Glucose Monitoring Suppl (FreeStyle [place] Lite) w/Device kit Use to test blood sugar TID dx dm 1 kit 025 Active Alcohol Swabs (Alcohol Prep) 70 % pads USE to clean finger prior to checking blood sugar TID 100 each 5 025 Active glucose blood (FREESTYLE LITE) test stripIndications :Type 2 diabetes mellitus without complications (HCC) USE DIRECTED TO TEST BLOOD SUGAR EVERY DAY 100 each 11 05/17/20 25 1:07 PM EST 025 Active TRUEplus Lancets 33G misc USE DIRECTED TO TEST BLOOD SUGAR EVERY DAY 100 each 4 05/17/20 25 1:07 PM EST 025 Active albuterol 108 (90 Base) MCG/ACT inhalerIndicatio ns:Mild intermittent asthma without complication INHALE 2 PUFFS BY MOUTH EVERY 6 HOURS NEEDED FOR WHEEZING OR SHORTNESS OF BREATH 18 g 1 025 Active polyvinyl alcohol (Liquifilm Tears) 1.4 % ophthalmic solutionIndicati ons:Dry eye PLACE 1 DROP INTO THE AFFECTED EYE(S) FOUR TIMES DAILY NEEDED 15 mL 2 025 Active gabapentin (Neurontin) 400 MG capsule [...] swallow. 12 g 11 025 2025 Active metFORMIN XR (Glucophage-XR) 500 MG 24 [...] Continuous Glucose Sensor (FreeStyle Sondra 2 Sensor) misc USE DIRECTED TO TEST BLOOD SUGAR CHANGE EVERY 14 DAYS 2 each 7 05/17/20 1:07 PM EST Active Mounjaro 5 MG/0.5ML solution auto-injectorInd ications:Type 2 diabetes mellitus with other circulatory complication, with long-term current use of insulin ([facility]) INJECT ONE PEN (=5MG) SUBCUTANEOUSLY ONCE A WEEK DIRECTED 2 mL 2 05/17/20 1:07 PM EST Active Ozempic, 2 MG/DOSE, 8 MG/3ML solution pen-injectorIndi cations:Hyperten tati associated with diabetes (HCC),Type 2 diabetes mellitus with other circulatory complication, with long-term current use of insulin ([facility]) Inject 2 MG SUBCUTANEOUSLY EVERY 7 DAYS IN THE ABDOMEN, THIGHS OR UPPER ARM. ROTATE INJECTION SITES. 3 mL 11 025 2024 Discontinued(F ormulary change) Tirzepatide (Mounjaro) 5 MG/0.5ML solution auto-injectorInd ications:Type 2 diabetes mellitus with other circulatory complication, with long-term current use of insulin ([facility]) Inject 5 mg under the skin 1 (one) time per week. 2 mL 2 025 2024 Discontinued Active Problems Problem Noted Date Diagnosed Date Hirsutism 02/07/2024 Spondylosis of lumbar region without myelopathy or radiculopathy 11/22/2023 Overview (11/22/2023): s/p Sprint [place] [place] [facility] [place] 11/22/23 L side; R side [...] reflex cx sent today [place] [facility] [place]add metformin 500 mg daily for 7 days and then to increase to BID and continue ozempic 2 mg weekly -will do am hormonal test for hirsutism may have relationship w insulin resistance -f w PCP -has apt for 03/2024 -Pt to 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 w rejogger for f up -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 w staff weapons officer to f CBGs in 2 weeks Chronic [...] Encounters Date Type Department Care Team Description 05/21/2025 Orders Only GENERIC EXTERNAL DATA DEPARTMENT Provider, Generic External Data 05/09/2025 Refill [facility] [address] [place] [address] [phone] Wright, Leon, ANP Type 2 diabetes mellitus with other circulatory complication, with long-term current use of insulin (HCC) 05/07/2025 Refill [facility] [address] [place] [address] Leon Wright ANP Type 2 diabetes mellitus with other circulatory complication, with long-term current use of insulin (HCC) 05/02/2025 Refill [facility] [address] [place] [address] Leon Wright ANP Type 2 diabetes mellitus with other circulatory complication, with long-term current use of insulin ([facility]) 04/09/2025 Refill [facility] [address] [place] [address] Leon Wright ANP Seasonal allergic rhinitis due to other allergic trigger; Type 2 diabetes mellitus with other circulatory complication, with long-term current use of insulin (HCC); Type 2 diabetes mellitus without complications ([facility]) 04/03/2025 3:00 PM EDT Office Visit [facility] [address] [place] [address] Lance Escobar MD Acute bilateral low back pain with bilateral sciatica (Primary Dx); Acute bilateral thoracic back pain 04/03/2025 Travel 03/04/2025 Telephone [facility] [address] [place] [address] Leon Wright ANP dec recall from Last 3 Months Immunizations Immunization Administration [...] Answer Date Recorded Patient Health Questionnaire-9 Score 11/08/2024 Patient Health Questionnaire-9 Score 11/08/2024 Last PHQ-9: Questionnaire Data Not on [...] Description 06/04/2025 10:15 AM EST Office Visit [facility] [address] [place], [place] [phone] Leon Wright ANP [address] [place] [phone] Health Maintenance Due Date Last Done Comments [...] on patient's age to complete this topic Goals Goal Patient Goal Type Associated Problems [...] diabetes No Kayce Ridley LPN Patient has chronic [...] Care Plan Weekly blood pressure task No Ivonne Arringtona Weekly blood pressure task Care Plan Weekly blood pressure task No Murphy Shawna Patient has diabetic eye disease Care Plan Patient has diabetic eye disease No Murphy, Shawna Patient has diabetic eye disease Care Plan Patient has diabetic eye disease No Murphy, Shawna Patient has diabetic eye disease Care Plan Patient has diabetic eye disease No Murphy, Shawna Patient has chronic kidney disease Care Plan Patient has chronic kidney disease No Murphy, Shawna Patient has chronic kidney disease Care Plan Patient has chronic kidney disease No Murphy Shawna Patient has chronic kidney disease Care Plan Patient has chronic kidney disease No Ivonne Arringtona Procedures Procedure Name Priority Date/Time Associated Diagnosis Comments HIGH SENSITIVITY TROPONIN I Routine 06/02/2025 1:18 AM EST COMPREHENSIVE METABOLIC PANEL Routine 06/02/2025 1:18 AM EST CBC WITH AUTO DIFFERENTIAL Routine 06/02/2025 1:17 AM EST SARS COV2/INFLUENZA A/B AND RSV RNA QL NAAT Routine 06/02/2025 1:17 AM EST XR CHEST 2 VIEWS Routine 05/21/2025 10:02 AM EST RAST ALLERGEN (NON ORDERABLE) Routine 05/21/2025 9:42 AM EST HYPERSENSITIVITY PNUEMONITIS PROFILE Routine 05/21/2025 9:42 AM EST RESPIRATORY ALLERGY PROFILE REGION I Routine 05/21/2025 9:42 AM EST IMMUNOGLOBULIN E Routine 05/21/2025 9:42 AM EST [id number] QN Routine 9:42 AM EST IMMUNOGLOBULINS, QUANTITATIVE, IGA, IGG, IGM Routine 05/21/2025 9:42 AM EST SED RATE BY MODIFIED WESTERGREN Routine 05/21/2025 9:42 AM EST BASIC METABOLIC PANEL Routine 05/21/2025 9:42 AM EST CBC WITH AUTO DIFFERENTIAL Routine 05/21/2025 9:42 AM EST POCT GLYCATED HEMOGLOBIN, TOTAL Routine 02/20/2025 3:45 [...] Recently Relevant to Health Maintenance Results * High Sensitivity Troponin I (06/02/2025 1:18 AM EST) TROPONIN I HIGH SENSITIVITY <2.7 <3.5 - 17.0 ng/L [facility] Comment:The Garcia high sens itivity Troponin-I results should beused in conjunction with other diagnostic information suchas ECG, clinical observations and information, and patientsymptoms to aid in the diagnosis of AK. 06/02/2025 1:18 AM EST 06/02/2025 1:21 AM EST us Generic External Data Provider LAB BLOOD ORDERAB LES Final Result [facility] [address] [place] [phone] * (ABNORMAL) Comprehensive Metabolic Panel (06/02/2025 1:18 AM EST) Sodium 139 135 - 145 mmol/L [facility] Potassium 4.1 3.3 - 5.1 mmol/L [facility] Chloride 111(H) 96 - 108 mmol/L [facility] Carbon Dioxide 21(L) 22 - 29 mmol/L [facility] Anion Gap 11(L) 12 - 20 [facility] Urea Nitrogen (BUN) 12 9 - 16 mg/dL [facility] Creatinine, Serum 0.55 0.5 - 1.4 mg/dL [facility] Creatinine Clr Calc Pharmacy 106.9 [facility] Comment:Provided height and weight: 147.32 cm,72.575 kg.eGFR (calculated from the MDRD study equation) and eCrCl(calculated from the Cockcroft-Gault equation) are based ondifferent parameters and may not yield comparable results.If eCrCl result is absurd, please check patient'sheight/weight. Estimated Glomerular Filt Rate >60 [facility] Comment:Chronic Kidney Disea se: Estimated GFR < 60 mL/min/1.55m8Ijzdij Kidney Disease: Estimated GFR < 15 mL/min/1.73m2 Glucose 137(H) 60 - 115 mg/dL [facility] Calcium 9.2 8.4 - 10.2 mg/dL [facility] Bilirubin, Total 0.4 0.0 - 1.0 mg/dL [facility] Aspartate Amino Transferase 33(H) 5 - 31 U/L [facility] Alanine Aminotransferase 27 0 - 31 U/L [facility] Total Protein 6.7 6.5 - 8.0 g/dL [facility] Albumin Level 3.9 3.5 - 5.0 g/dL [facility] Alkaline Phosphatase 72 39 - 117 U/L [facility] 06/02/2025 1:18 AM EST 06/02/2025 1:21 AM EST Generic External Data Provider LAB BLOOD ORDERAB LES Final Result Performing Organization Address [facility] de Phone Number [facility] [address] [place] [phone] * SARS-CoV-2 RNA, Influenza A/B, and RSV RNA, Ql NAAT (06/02/2025 1:17 AM EST) Influenza A PCR NEGATIVE Negative [facility] Influenza B PCR NEGATIVE Negative [facility] Resp Syncy Virus RNA Qual PCR NEGATIVE Negative [facility] SARS COV2 PCR NEGATIVE Negative [facility] Comment:All test results mus t be correlated with clinical findings.Negative results do not preclude SARS-CoV2, influenza Avirus, influenza B virus and/or RSV infectionand should not be used as the sole basis for treatment orother patient management decisions. Negative results must becombined with clinical observations, patient history, andepidemiological information.This test has not been evaluated for monitoring treatment ofinfection.This test has been authorized by the FDA under an EmergencyUse Authorization (EUA) for use by authorized laboratories.Testing performed on the [employer] GeneXpert utilizingreal-time RT-PCR.All SARS CoV2 and positive influenza A/B results arereported to [facility]. 06/02/2025 1:17 AM EST 06/02/2025 1:21 AM EST Generic External Data Provider LAB MICROBIOLOGY - GENERAL ORDERABLES Final Result Performing Organization Address [facility] Co de Phone Number [facility] [address] [place] [phone] * (ABNORMAL) CBC auto differential (06/02/2025 1:17 AM EST) Only the most recent of2 resultswithin the time period is included. White Blood Count 9.3 4.8 - 10.8 X10*3/uL [facility] Red Blood Count 4.39 4.20 - 5.50 X10*6/uL [facility] Hemoglobin 13.9 12.0 - 16.0 g/dl [facility] Hematocrit 40.0 37.0 - 47.0 % [facility] Mean Corpuscular Volume 91.1 80.0 - 98.0 fL [facility] Mean Corpuscular Hemoglobin 31.7 27.0 - 33.0 pg [facility] Mean Corpuscular HGB Conc 34.8 31.0 - 35.0 g/dl [facility] Red Cell Distribution Width 11.9 11.0 - 16.0 % [facility] Platelet Count 226 160 - 400 X10*3/uL [facility] Mean Platelet Volume 10.3 9.4 - 12.3 fL [facility] Neutrophils Percent Auto 47.9 45 - 73 % [facility] Imm Gran Pct Auto 0.5(H) 0.0 - 0.4 % [facility] Lymphocytes Percent Auto 39.0 20 - 40 % [facility] Monocytes Percent Auto 8.6 2 - 11 % [facility] Eosinophils Percent Auto 3.0 0 - 4 % [facility] Basophils Percent Auto 1.0 0 - 2 % [facility] NRBC Pct Auto 0.0 0.0 - 0.2 /100WBC [facility] Neutrophils Absolute Auto 4.4 2.0 - 8.3 x10*3/uL [facility] Imm Gran Abs Auto 0.05(H) 0.00 - 0.03 X10*3/uL [facility] Lymphocytes Absolute Auto 3.6 1.2 - 4.9 X10*3/uL [facility] Monocytes Absolute Auto 0.8 0.1 - 1.2 X10*3/uL [facility] Eosinophils Absolute Auto 0.3 0.0 - 0.4 X10*3/uL [facility] Basophils Absolute Auto 0.1 0.0 - 0.2 X10*3/uL [facility] NRBC Abs Auto 0.000 0.0 - 0.012 X10*3/uL [facility] 06/02/2025 1:17 AM EST 06/02/2025 1:21 AM EST us Generic External Data Provider LAB BLOOD ORDERAB LES Final Result [facility] [address] [place] [phone] * XR Chest 2 Views (05/21/2025 10:02 AM EST) Anatomical Region Laterality Modality Chest Radiographic Lupe ging 05/21/2025 10:0 2 AM EST Narrative 05/21/2025 10:09 AM EST [address] [address] XRay Report Signed Patient: Heather Pulido MR#: [id number] : 1975 Acct:[id number] Age/Sex: 49 / F ADM Date: 05/21/25 Loc: [facility] Attending Dr: Robert Yeboah MD Ordering Physician: Robert Yeboah MD Date of Service: 05/21/25 Procedure(s): XR chest 2V Accession Number(s): [id number] cc: Robert Yeboah MD; LEON WRIGHT NP Reason for Exam: J45.909 - Unspecified asthma, uncomplicated EXAMINATION: XR CHEST CLINICAL INFORMATION: J45.909 - Unspecified asthma, uncomplicated COMPARISON: Previous chest x-ray November 2022 TECHNIQUE: 2 views of the chest were obtained. FINDINGS: Lungs are clear. No consolidation or pulmonary edema. No pleural effusion or pneumothorax. Cardiac and mediastinal contours are normal. Degenerative changes of the spine. XR/XR chest 2V IMPRESSION: No evidence for acute disease in the chest. Electronically signed by: Claudia Scherer MD 05/21/2025 10:06 AM EST Dictated By: Claudia Scherer MD Signed By: <Electronically signed by Claudia Scherer MD in OV> 05/21/25 1006 DD/ 1002 TD/TT: 05/21/25 1003 Electrical Transmission Engineer: RENALDO Procedure Note Donotuseinterpreter, Image - 05/21/2025 [place] [address] XRay Report Signed Patient: Heather Pulido MR#: [id number] : 1975Acct:[id number] Age/Sex: 49 / FADM Date: 05/21/25 Loc: [facility] Attending Dr: Robert Yeboah MD Ordering Physician: Robert Yeboah MD Date of Service: 05/21/25 Procedure(s): XR chest 2V Accession Number(s): [id number] cc: Robert Yeboah MD; LEON WRIGHT NP Reason for Exam: J45.909 - Unspecified asthma, uncomplicated EXAMINATION: XR CHEST CLINICAL INFORMATION: J45.909 - Unspecified asthma, uncomplicated COMPARISON: Previous chest x-ray November 2022 TECHNIQUE: 2 views of the chest were obtained. FINDINGS: Lungs are clear. No consolidation or pulmonary edema. No pleural effusion or pneumothorax. Cardiac and mediastinal contours are normal. Degenerative changes of the spine. XR/XR chest 2V IMPRESSION: No evidence for acute disease in the chest. Electronically signed by: Claudia Scherer MD 05/21/2025 10:06 AM EST RP Dictated By: Claudia Scherer MD Signed By: <Electronically signed by Claudia Scherer MD in OV> 05/21/25 1006 DD/ 1002 TD/TT: 05/21/25 1003 Electrical Transmission Engineer: RENALDO [facility] External Provider IMG XR PROCEDURES Final Result * Rast Allergen (05/21/2025 9:42 AM EST) Rast Allergen SEE NOTE [facility] Comment:SEE SCANNED REPORT I N EMR 05/21/2025 9:42 AM EST 05/31/2025 8:13 AM EST Narrative [facility] - 05/31/2025 8:14 AM EST CAT DANDER REFLEX us Generic External Data Provider HISTORICAL/NON OR DERABLE LABS Final Result [facility] [address] [place] [phone] * (ABNORMAL) Respiratory Allergy Profile Region I (05/21/2025 9:42 AM EST) Mouse Urine Proteins (E72) IgE <0.10 kU/L [facility] Class 0 [facility] Cockroach (I6) IgE <0.10 kU/L [facility] Class 0 [facility] Dermatophagoides farinae (D2) IgE <0.10 kU/L [facility] Class 0 [facility] Cat Dander (E1) IgE 0.16(A) kU/L [facility] Class 0/1 [facility] Comment:THIS TEST WAS PERFOR MED AT:[facility] [address] [phone] MAYA MD Dog Dander (E5) IgE <0.10 kU/L [facility] Class 0 [facility] Comment:THIS TEST WAS PERFOR MED AT:[facility] [address] [phone] MAYA MD [place]amiro Grass (G6) IgE <0.10 kU/L [facility] Class 0 [facility] Cladosporium herbarum (M2) IgE <0.10 kU/L [facility] Class 0 [facility] Aspergillus Fumigatis (M3) IgE <0.10 kU/L [facility] Class 0 [facility] Alternaria alternata (M6) IgE <0.10 kU/L [facility] Class 0 [facility] Comment:THIS TEST WAS PERFOR MED AT:[facility] [address] [phone] MAYA MD [place] (t6) IgE <0.10 kU/L [facility] Class 0 [facility] [place] (T7) IgE <0.10 kU/L [facility] Class 0 [facility] [place] Tree (T10) IgE <0.10 kU/L [facility] Class 0 [facility] Co[place] (T11) IgE <0.10 kU/L [facility] Class 0 [facility] Yancey (T14) IgE <0.10 kU/L [facility] Class 0 [facility] White Erasmo (t15) IgE <0.10 kU/L [facility] Class 0 [facility] White [place] (T70) IgE <0.10 kU/L [facility] Class 0 [facility] Common Ragweed (Short) (W1) IgE <0.10 kU/L [facility] Class 0 [facility] Mugwort (w6) IgE <0.10 kU/L [facility] Class 0 [facility] Dermatophagoides pteronyssinus (D1) IgE <0.10 kU/L [facility] Class 0 [facility] B[place] Grass (g2) IgE <0.10 kU/L [facility] Class 0 [facility] Penicillium Notatum (M1) IgE <0.10 kU/L [facility] Class 0 [facility] Birch (T3) IgE 2.56(A) kU/L [facility] Class 2 [facility] Elm (t8) IgE <0.10 kU/L [facility] Class 0 [facility] Maple ([place]) (T1) IgE <0.10 kU/L [facility] Class 0 [facility] Rough Pigweed (W14) IgE <0.10 kU/L [facility] Class 0 [facility] Sheep [place] (W18) IgE <0.10 kU/L [facility] Class 0 [facility] Allergen Comment See Below [facility] Comment: Specific Level of AllergenIGE Class kU/L Specific IGE Antibody ----- --------- 0 <0.10 Absent/Undetectable 0/1 0.10-0.34 Very Low Level 1 0.35-0.69 Low Level 2 0.70-3.49 Moderate Level 3 3.50-17.4 High Level 4 17.5-49.9 Very High Level 5 50-100 Very High Level 6 >100 Very High LevelThe clinical relevance of allergen results of0.10-0.34 kU/L are undetermined and intended forspecialist use.Allergens denoted with a include results usingone or more analyte specific reagents. In thosecases, the test was developed and its analyticalperformance characteristics have been determined by[employer]. It has not been cleared or approvedby the U.S. Food and Drug Administration. This assayhas been validated pursuant to the CLIA regulationsand is used for clinical purposes.THIS TEST WAS PERFORMED AT:[facility] [place] [phone] MAYA MD 05/21/2025 9:42 AM EST 05/21/2025 9:42 AM EST us Generic External Data Provider LAB BLOOD ORDERAB LES Final Result [facility] [address] [place] [phone] * Yxlhl-9-Liwdyfmzgeu, Quantitative (05/21/2025 9:42 AM EST) Fpgad-5-Scngtzua sin QN 158 83 - 199 mg/dL [facility] Comment:THIS TEST WAS PERFOR MED AT:[facility] [place] [phone] MAYA MD 05/21/2025 9:42 AM EST 05/21/2025 9:42 AM EST us Generic External Data Provider LAB BLOOD ORDERAB LES Final Result Performing Organization Address [facility]/ZIP Co de Phone Number [facility] [address] [place] [phone] * Hypersensitivity Pneumonitis Screen (05/21/2025 9:42 AM EST) Aspergillus fumigatus Ab NEGATIVE [facility] Comment:REFERENCE RANGE NEGA TIVE Micropolyspora Faeni NEGATIVE [facility] Comment:REFERENCE RANGE NEGA TIVE [place] Serum Abs NEGATIVE [facility] Comment:REFERENCE RANGE NEGA TIVE Thermoactinomyces candidus NEGATIVE [facility] Comment:REFERENCE RANGE NEGA TIVE Thermoactinomyces vulgaris Ab NEGATIVE [facility] Comment:REFERENCE RANGE NEGA TIVE Saccharomonospora viridis Ab NEGATIVE [facility] Comment:REFERENCE RANGE NEGA TIVE 05/21/2025 9:42 AM EST 05/21/2025 9:42 AM EST us Generic External Data Provider LAB BLOOD ORDERAB LES Final Result Performing Organization Address [facility] Co de Phone Number [facility] [address] [place] [phone] * Sed Rate by Modified Romelren (05/21/2025 9:42 AM EST) Erythrocyte Sedimentation Rate 16 0 - 20 MM/HR [facility] Comment:Patients with polycy themia and many hemoglobin abnormalitiesmay have depressed sed rates whereas patients with anemiamay have elevated sed rates. 05/21/2025 9:42 AM EST 05/21/2025 9:42 AM EST us Generic External Data Provider LAB BLOOD ORDERAB LES Final Result Performing Organization Address City/[facility]/ZIP Co de Phone Number [facility] [address] [place] [phone] * Immunoglobulins, Quantitative, IgA, IgG, IgM (05/21/2025 9:42 AM EST) IMMUNOGLOBULIN G 1434 600 - 1640 mg/dL [facility] IMMUNOGLOBULIN A 285 47 - 310 mg/dL [facility] Immunoglobulin M 203 50 - 300 mg/dL [facility] Comment:THIS TEST WAS PERFOR MED AT:[facility] [place] [phone] MAYA MD 05/21/2025 9:42 AM EST 05/21/2025 9:42 AM EST Generic External Data Provider LAB BLOOD ORDERAB LES Final Result Performing Organization Address [facility] Co de Phone Number [facility] [address] [place] [phone] * Immunoglobulin E (05/21/2025 9:42 AM EST) Pathologist [facility] Immunoglobulin E 52 <IK=182 kU/L [facility] 05/21/2025 9:42 AM EST 05/21/2025 9:42 AM EST Generic External Data Provider LAB BLOOD ORDERAB LES Final Result Performing Organization Address [facility] Phone Number [facility] [address] [place] [phone] * (ABNORMAL) Basic Metabolic Panel (05/21/2025 9:42 AM EST) Pathologist [facility] Sodium 143 135 - 145 mmol/L [facility] Potassium 4.4 3.3 - 5.1 mmol/L [facility] Chloride 107 96 - 108 mmol/L [facility] Carbon Dioxide 29 22 - 29 mmol/L [facility] Anion Gap 11(L) 12 - 20 [facility] Urea Nitrogen (BUN) 12 9 - 16 mg/dL [facility] Creatinine, Serum 0.61 0.5 - 1.4 mg/dL [facility] Estimated Glomerular Filt Rate >60 [facility] Comment:Chronic Kidney Disea se: Estimated GFR < 60 mL/min/1.69h4Mstarb Kidney Disease: Estimated GFR < 15 mL/min/1.73m2 Glucose 116(H) 60 - 115 mg/dL [facility] Calcium 9.3 8.4 - 10.2 mg/dL [facility] 05/21/2025 9:42 AM EST 05/21/2025 9:42 AM EST us Generic External Data Provider LAB BLOOD ORDERAB LES Final Result Performing Organization Address [facility] Co de Phone Number [facility] [address] [place] [phone] * (ABNORMAL) POCT Hgb A1c (02/20/2025 3:45 PM EDT) Hemoglobin A1C 6.6(A) 4.0 - 5.7 % QC Media Lot # [id number] Lot# Expiration Date 976 Blood 02/20/2025 3:45 PM EDT Leon LICEA POINT OF CARE TEST ENTER/EDIT OR DERABLES Final Result * Albumin, Random Urine W/Creatinine (12/07/2024 10:43 AM EDT) Creatinine, Urine 44.35 mg/dL [facility] Microalbumin Urine <5.0 mg/L [facility] Microalbum Creatinine Ratio Ur TNP <30 ug/mg cr [facility] Comment:Unable to calculate albumin/creatinine ratio due to lowmicroalbumin or creatinine result. Urine (Urine, Random) 12/07/2024 10:43 AM EDT 12/07/2024 12:56 PM EDT us Leon Wright ANP LAB URINE ORDERABLES Final Resul t Performing Organization Address [facility] Co de Phone Number [facility] [address] [place] [phone] * Lipid Panel, Standard (12/07/2024 10:43 AM EDT) Triglycerides 113 <150 mg/dL [facility] Comment:Desirable Triglyceri de: less than 150 mg/dLBorderline High Triglyceride 150-199 mg/dLHigh Triglyceride: 200-499 mg/dLVery High Triglyceride: greater than or equal to 5OO mg/dL Cholesterol 142 <200 mg/dL [facility] Comment:Desirable Cholestero l: less than 200 mg/dLBorderline High Cholesterol: 200-239 mg/dLHigh Cholesterol: greater than 239 mg/dL LDL Cholesterol Calculated 73 <100 mg/dL [facility] Comment:Desirable LDL: less than 100 mg/dLNear Optimal/Above Optimal LDL: 110- 129 mg/dLBorderline High LDL: 130-159 mg/dLHigh LDL: 160-189 mg/dLVery High LDL: greater than or equal to 190 mg/dL HDL Cholesterol 47 >40 mg/dL [facility] Comment:Desirable HDL: great er than 40 mg/dL Note: This HDL assay may give artificially low results in patients with liver disease. Blood Venous blood specimen / Unknown 12/07/2024 10:43 AM EDT 12/07/2024 1:00 PM EDT [facility] LAB BLOOD ORDERABLES Final Resul t [facility] [address] [place] [address] [phone] * HEPATITIS C AB W/REFL TO HCV RNA, QN, PCR (05/04/2021 9:54 AM EST) HEPATITIS C ANTIBODY NON-REACT NELLY NON-REACT NELLY [facility] INDEX 0.01 <1.00 [facility] Comment: HCV antibody was non-reactive. There is no laboratory evidence of HCV infection. In most cases, no further action is required. However, if recent HCV exposure is suspected, a test for HCV RNA (test code 19799) is suggested. For additional information please refer to http://education.LookMedBook/faq/HVJ15z8 (This link is being provided for informational/ educational purposes only.) 05/04/2021 9:54 AM EST Leon Wright ANP HISTORICAL/NON ORDERABLE LABS Fi nal Result Performing Organization Address [facility] de Phone Number [facility] [address] * HIV 1/2 ANTIGEN/ANTIBODY,FOURTH GENERATION W/RFL (05/04/2021 9:54 AM EST) HIV-1/2 ANTIGEN AND ANTIBODIES, 4TH GENERATION W/ REFLEX NON-REACT NELLY NON-REACT NELLY [facility] Comment: HIV-1 antigen and HIV-1/HIV-2 [...] purpose. For additional information please refer to http://education.Trapmine.zwoor.com/faq/KUY456 (This link is being provided for informational/ educational purposes only.) The performance of this assay has not been clinically validated in patients less than 2 years old. 05/04/2021 9:54 AM EST Leon Wright ANP LAB BLOOD ORDERABLES Final Resul t Performing Organization Address [facility] Co de Phone Number [facility] [address] from Last 3 Months or Most Recently Relevant to Health Maintenance Additional Health Concerns Active Problems Noted Date [...] 05/08/2025 Patient has chronic kidney disease 05/08/2025 Insurance [facility] STANDARD MEDICARE Care Teams Special Procedures Tech Relationship Specialty Start Date End Date Leon Wright ANP [address] [place] [phone] PCP - General Family Medicine 05/23/20
--- OUTSIDE RECORDS SUMMARY | 2025-06-02 02:22 | XMS_ITS | Encounter Summary ---
Author Organization [employer] Address [address] [place] [address] 7t [place] [address] Care Team Providers Care Hand Reamer Name Role Phone Felipe Nathalie LICEA Primary Care Provider [phone] Reason for Visit * Reason Onset Date Comments Med Refill 12/19/2023 Encounter Details Date Type Department Care Team (Late st Contact Info) Description 12/19/2023 Refill [facility] & PEDS [address] [place] [address] Sabina Hoang MD [address] [place] [address] Type 2 diabetes mellitus with hyperglycemia (CMS/HCC) [...] Description 06/04/2025 10:15 AM EST Office Visit [facility] [address] [place] [phone] Nathalie Wang ANP [address] [place] [address] documented as of this encounter Visit Diagnoses Diagnosis Type 2 diabetes mellitus with hyperglycemia (HCC) documented in this encounter Care Teams Hand Reamer Relationship Specialty Start Date End Date Nathalie Wang ANP [address] [place] [phone] PCP - General Family Medicine 05/23/20 documented as of this encounter
--- OUTSIDE RECORDS SUMMARY | 2025-06-02 02:22 | XMS_ITS | Encounter Summary ---
Author Organization [employer] Address [address] [place] [address] 7t [place] [address] Care Team Providers Care Body Fitter Name Role Phone Nathalie Wang Primary Care Provider [phone] Reason for Visit * Reason Comments Med Refill Encounter Details Date Type Department Care Team ([facility] st Contact Info) Description 07/22/2024 Refill [facility] [address] [place] [address] Nathalie Wang ANP [address] [place] [address] Upper respiratory tract infection, unspecified type Social [...] Description 06/04/2025 10:15 AM EST Office Visit [facility] [address] [place] [phone] Nathalie Wang ANP [address] [place] [phone] documented as of this encounter Visit Diagnoses Diagnosis Upper respiratory tract infection, unspecified type documented in this encounter Care Teams Body Fitter Relationship Specialty Start Date End Date Nathalie Wang ANP [address] [place] [phone] PCP - General Family Medicine 05/23/20 documented as of this encounter
--- OUTSIDE RECORDS SUMMARY | 2025-06-02 02:22 | XMS_ITS | Encounter Summary ---
Author Organization [employer] Address [address] [place] [address] 7t [place] [address] Care Team Providers Care Foreign Service Teacher Name Role Phone Nathalie Wang Primary Care Provider [phone] Reason for Visit * Reason Onset Date Comments Call Back Request 08/23/2024 Encounter Details Date Type Department Care Team ([facility] st Contact Info) Description 08/23/2024 Telephone [facility] [address] [place] [address] Nathalie Wang ANP [address] [place] [address] Call Back Request Social History Tobacco Use [...] AM EDT TC placed to Beverley at [facility] who states the the pt has [...] - 08/23/2024 10:47 AM EDT Tc from [facility] requesting to speak to a nurse Please return call to [phone] documented in this encounter Plan of Treatment Upcoming Encounters Date Type Department Care Team (Late st Contact Info) Description 06/04/2025 10:15 AM EST Office Visit [facility] [address] [place] [address] Nathalie Wang ANP [address] [place] [address] documented as of this encounter Visit Diagnoses Not on filedocumented in this encounter Care Teams Foreign Service Teacher Relationship Specialty Start Date End Date Nathalie Wang ANP [address] [place] [address] PCP - General Family Medicine 05/23/20 documented as of this encounter
--- OUTSIDE RECORDS SUMMARY | 2025-06-02 02:22 | XMS_ITS | Encounter Summary ---
Author Organization [employer] Address [address] [place] [address] 7t [place] [address] Care Team Providers Care Nursing Clerk Name Role Phone Felipe Nathalie LICEA Primary Care Provider [phone] Reason for Visit * Reason Onset Date Comments Med Refill 10/06/2023 Encounter Details Date Type Department Care Team ([facility] st Contact Info) Description 10/06/2023 Refill [facility] MED & PEDS [address] [place] [address] Sabina Hoang MD [address] [place] [address] Type 2 diabetes mellitus with hyperglycemia (CMS/HCC) [...] Description 06/04/2025 10:15 AM EST Office Visit [facility] MEDICINE [address] [place] [phone] Nathalie Wang ANP [address] [place] [phone] documented as of this encounter Visit Diagnoses Diagnosis Type 2 diabetes mellitus with hyperglycemia (HCC) documented in this encounter Care Teams Nursing Clerk Relationship Specialty Start Date End Date Nathalie Wang ANP [address] [place] [phone] PCP - General Family Medicine 05/23/20 documented as of this encounter
--- OUTSIDE RECORDS SUMMARY | 2025-06-02 02:22 | XMS_ITS | Encounter Summary ---
Author Organization [employer] Address [address] [place] [address] 7[address] [place] [address] Care Team Providers Care Quill Fixer Name Role Phone aNthalie Wang Primary Care Provider [phone] Reason for Visit * Reason Comments Med Refill Encounter Details Date Type Department Care Team (Late st Contact Info) Description 11/29/[address] [facility] MED & PEDS [address] [place], [place] [phone] Dino, MD Mich [address] [place] [phone] Mild persistent asthma, unspecified whether complicated Social [...] 06/04/2025 10:15 AM EST Office Visit [facility] [address] [place] [address] [phone] Nathalie Wang ANP [address] [place] [address] [phone] documented as of this encounter Visit Diagnoses Diagnosis Mild persistent asthma, unspecified whether complicated documented in this encounter Care Teams Quill Fixer Relationship Specialty Start Date End Date Nathalie Wang ANP [address] [place] [address] PCP - General Family Medicine 05/23/20 documented as of this encounter
--- OUTSIDE RECORDS SUMMARY | 2025-06-02 02:22 | XMS_ITS | Encounter Summary ---
Author Organization [facility] Address [address] [place] [address] 7t [place] [address] Care Team Providers Care Agency Appointments Supervisor Name Role Phone Nathalie Wnag Primary Care Provider [phone] Reason for Visit * Reason Comments Med Refill Encounter Details Date Type Department Care Team (Late st Contact Info) Description 03/25/2023 Refill [facility] [address] [place] [address] Rajiv Head FNP Pain and swelling of [...] Description 06/04/2025 10:15 AM EST Office Visit [facility] [address] [place] [address] Nathalie Wang ANP [address] [place] [address] documented as of this encounter Visit Diagnoses Diagnosis Pain and swelling of left wrist documented in this encounter Care Teams Agency Appointments Supervisor Relationship Specialty Start Date End Date Nathalie Wang ANP [address] [place] [address] PCP - General Family Medicine 05/23/20 documented as of this encounter
--- OUTSIDE RECORDS SUMMARY | 2025-06-02 02:22 | XMS_ITS | Clinical Summary ---
Author Organization [facility] Address [address] [place] [address] Phone Care Team Providers Care Religious Education Teacher Name Role Phone FelipeNathalie Peyton TOLENTINO Primary Care Provider Allergies Active Allergy Reactions Criticality Noted Date [...] 11/24/2011 Tobacco dependence syndrome 11/24/2011 Bipolar disorder 11/01/2011 Glaucoma 11/01/2011 Hypothyroidism 06/13/1957 Social History Tobacco [...] Last Done Comments Breast Cancer Screening 1977 Colorectal Cancer Screening: Colonoscopy 1977 Diabetes: Annual GFR (Glomerular Filtration Rate) 1977 Diabetes: Annual Foot Exam 10/18/1987 Diabetes: Annual Retina Eye Exam 10/18/1987 Hepatitis B Vaccines (1 of 3 - 19+ 3-dose series) 1996 Cervical Cancer Screening: P ap Smear 1998 DTaP,Tdap,and Td Vaccines (2 - Td or Tdap) 11/23/2021 11/24/2011 Hepatitis C Screening 07/17/2023 Medicare Annual Wellness Visit 07/17/2023 Social Influencers of Health Screening 07/17/2023 Hypertension/CHF/CAD Annual BMP Blood Test 07/29/2023 Depression Screening 06/13/2024 Diabetes: Annual Urine Albumin-Creatinine Ratio (uACR) 07/23/2024 COVID-19 Vaccine (1 - 2024-2 6 season) 2025 Influenza Vaccine (#1) 2025 3, 03/09/2012 Diabetes: Blood Sugar Contro l Test (HGBA1C) 03/15/2025 09/13/2024, 03/27/2024 Cholesterol Screening (Lipid Panel) 02/09/2029 02/10/2024 RSV Immunization Adult Patients (1 - 1-dose 75+ series) 2052 HIV Screening Completed 05/04/2021 Pneumococcal Vaccine: Pediatrics [...] to complete this topic Insurance [place] - [place] MEDICARE Care Teams Religious Education Teacher Relationship Specialty Start Date End Date Nathalie Wang NP [address] [phone] PCP - General 09/26/23
--- OUTSIDE RECORDS SUMMARY | 2025-06-02 02:22 | XMS_ITS | Encounter Summary ---
Author Organization [employer] Address [address] [place] [address] 7t [place] [address] Care Team Providers Care Brass Cutter Name Role Phone Nathalie Wang Primary Care Provider [phone] Reason for Visit * Reason Comments Med Refill Encounter Details Date Type Department Care Team (Late st Contact Info) Description 02/04/2023 Refill [facility] MED & PEDS [address] [place], [place] [phone] Nathalie Wang ANP [address] [place], [place] [phone] Mild intermittent asthma without complication Social History [...] 06/04/2025 10:15 AM EST Office Visit [facility] MEDICINE [address] [place] [address] [phone] Nathalie Wang ANP [address] [place], [place] [phone] documented as of this encounter Visit Diagnoses Diagnosis Mild intermittent asthma without complication documented in this encounter Care Teams Brass Cutter Relationship Specialty Start Date End Date Nathalie Wang ANP [address] [place] [address] PCP - General Family Medicine 05/23/20 documented as of this encounter
[2025-06-02 02:37] VITALS: PULSE 95; RESP 18; O2SAT 96
[2025-06-02] MEDS: Ipratropium Bromide 0.5 MG/2.5 ML SOLUTION INHALE (02:43)
[2025-06-02 03:09] VITALS: BP 127/59; PULSE 83; RESP 18; TEMP 36.6; O2SAT 98
== END 2025-06-02 03:10 | disposition home or self-care (01) ==
PROVIDERS: Emergency Provider Student in an Organized Health Care Education/Training Program; PCP Nurse Practitioner Primary Care
DX: R07.89 Other chest pain (principal); R05.9 Cough, unspecified; Z03.818 Encounter for observation for suspected exposure to other biological agents ruled out; E11.9 Type 2 diabetes mellitus without complications; I10 Essential (primary) hypertension; Z79.899 Other long term (current) drug therapy
CPT/HCPCS: 71045; 80053; 84484; 85025; 87637; 93005; 94640; 99284

== ENCOUNTER → 2025-06-02 01:05 | Outpatient (BNV) | payer MEDICARE, MEDICAID, SELFPAY | PROVIDERS: Emergency Provider Student in an Organized Health Care Education/Training Program; PCP Nurse Practitioner Primary Care; Visit Provider Internal Medicine Cardiovascular Disease | DX: R07.9 Chest pain, unspecified (principal) | CPT/HCPCS: 93010 ==

== ENCOUNTER → 2025-06-02 02:42 | Outpatient (BNV) | payer MEDICARE, MEDICAID, SELFPAY | PROVIDERS: Emergency Provider Student in an Organized Health Care Education/Training Program; PCP Nurse Practitioner Primary Care; Visit Provider Radiology Diagnostic Radiology | DX: R07.9 Chest pain, unspecified (principal) | CPT/HCPCS: 71045 ==

== ENCOUNTER 2025-06-12 11:06 | Outpatient (AMB) | payer MEDICARE, MEDICAID, SELFPAY ==
--- NOTE | 2025-06-12 11:08 | MHC.OFFVIS ---
Vital Signs 06/12/25 11:09 Height 4 ft 10 in Weight 159 lb 6.307 oz BMI 33.3 BP 128/72 Blood Pressure Location Lt brachial Position Sitting Pulse 91 Pulse Source Pulse Oximeter Pulse Oximetry (%) 97 Oxygen Delivery Method Room Air Intake Visit Reasons: RA/ Internal Ref Intake Note: Patient is a new patient, internally referred by Dr. Hernandez for Rheumatoid arthritis. Target Aircraft Controller Required: Yes Target Aircraft Controller Services: Target Aircraft Controller Present Target Aircraft Controller Name: [id number] Information Interpreted: non-clinical & clinical Accompanied by: Self / Same As Patient Allergies Penicillins (PENICILLINS) Allergy (Severe, Verified 06/12/25 11:17) SWELLING/ITCHING vancomycin (VANCOMYCIN) Allergy (Intermediate, Verified 06/12/25 11:17) RASH AND ITCHING penicillin V Allergy (Unknown, Verified 06/12/25 11:17) redness and itching/ inflammation HPI Comments Details: 49 year old female with a history asthma, chronic pain, diabetes presenting as a new patient for evaluation of joint pain. She is being referred by pain management to rule out rheumatoid arthritis. Patient reports that she has chronic pain. She states she has pain starting in the neck going down the shoulders and then down the back in to legs. T 0 his pain is burning. She also has pain in both shoulder joints, in both knees and in both hips. She has pain in both hands. She endorses pain in the all the joints in her MCPS PIPS She has no morning stiffness pain is constant all day. She also had carpal tunnel surgery in left hand 1.5 years ago.This didn't help her numbness and tingling and she states the surgery made it worse She takes naproxen 500mg bid and ibuprofen as needed and she says it doesn't help her and none of these medication help her She was taking prednisone 20mg for 7 days last week for asthma and while on it it didn't improve her joint pain AT ALL. Shoulder x-rays were done which showed mild arthritis. Hand x-rays in 2021 showed mild soft tissue swelling, there was no erosions. Foot x-rays showed acute fractures noted of the calcaneus and navicular bone on the left side. Knee x-rays were unremarkable,. hip x-rays showed unremarkable SI joints from 2021. She has seen pain Medicine in the past, she has had stimulation done to treat her back pain however patient reports this did not work for her ROS: no photosensitivity, no oral ulcers, no SOB, no pleuritic chest pain no dry eyes, she has dry mouth has diabetes, no bloody urine no bloody diarrhea , no raynauds, no blood clot,no skin rashes PHYSICAL EXAM General: Comfortable CVS: RRR Skin: No lesions seen MSK:.patient is able to make a fist bilaterally, patient has tender MCPs and PIPs throughout. There is no active synovitis in the joints. Patient has good range of motion the shoulders, strength is 5/5. Patient has limited range of motion in the hips, limited due to pain. Crepitus noted in both knees on flexion-extension. [facility] Medical History (Updated 06/12/25 @ 12:10 by Robina Gavin MD) Allergies Bronchitis Hyperthyroidism Hypertension Asthma Diabetes Surgical History (Updated 06/12/25 @ 11:22 by Luz Morillo [facility]) H/O hand surgery History of removal of cyst History of removal of cyst History of cholecystectomy Family History Mother Cancer Diabetes Hypertension Father No problems noted. Social History Alcohol intake: never Patient Tobacco Use Status: Never used Tobacco Current occupational status: employed Current occupation: [employer]/ rt handed dominant Physical Exam Vital Signs: Last Vital Signs Pulse 91 06/12/25 11:09 BP 128/72 06/12/25 11:09 Pulse Ox 97 06/12/25 11:09 Oxygen Delivery Method Room Air 06/12/25 11:09 BMI result Body Mass Index 33.3 Assessment & Plan Assessment & Plan (1) Polyarthralgia: Code(s): M25.50 - Pain in unspecified joint Category: Medical (2) Chronic pain: Code(s): G89.29 - Other chronic pain Category: Medical Qualifiers: Chronic pain type: chronic pain syndrome Qualified Code(s): G89.4 - Chronic pain syndrome (3) Fibromyalgia: Code(s): M79.7 - Fibromyalgia Category: Medical (4) Sleep apnea: Code(s): G47.30 - Sleep apnea, unspecified Category: Medical Qualifiers: Sleep apnea type: unspecified type Qualified Code(s): G47.30 - Sleep apnea, unspecified Plan 49 year old female with a history asthma, chronic pain, diabetes presenting as a new patient for evaluation of joint pain. She is being referred by pain management to rule out rheumatoid arthritis. Patient reports that she has chronic pain. Her pain is chronic in nature, widespread and diffuse . Based on her history, physical exam do not see any signs suggestive of an autoimmune rheumatic disease upon my evaluation. She does not exhibit any signs of rheumatoid arthritis, psoriatic arthritis, other connective tissue disease. However I will complete my workup. I will order WEST, WEST subsets, RF, CCP, ESR, CRP. I will also order bilateral hand x-rays updated to see any signs of inflammatory arthritis. I also obtain x-ray of the SI joint to look for any evidence of sacroiliitis, back pain seems to be less likely inflammatory, as it is constant, not improved with activity. Patient may also have fibromyalgia superimposed on her current clinical picture of chronic pain. Discussed management of fibromyalgia with patient. Is a noninflammatory, non-autoimmune central afferent processing disorder leading to a diffuse pain syndrome. I suggested that patient try to address her underlying psychiatric issues, anxiety/depression. I suggested evaluation by a therapist and/or a psychiatrist. Consider a referral for a sleep study to rule out BERNARD. Try to follow sleep hygiene practices. Patient would benefit from increased physical activity, either through formal physical therapy or by joining a gym. Advised patient that she should start activity slowly and increase as tolerated. Consider low-impact exercises such as walking, swimming, aqua therapy stretching, yoga. Follow-up in 3 weeks for discussion of results and imaging Orders: Orders XR Hand Cortes 2V Today G89.29 - Other chronic pain, M25.50 - Pain in unspecified joint C Reactive Protein Today R76.0 - Raised antibody titer Complement C4 Today R76.0 - Raised antibody titer WEST Reflex Titer and Pattern Today R76.0 - Raised antibody titer Anti DNA DS Antibody Today R76.0 - Raised antibody titer Sjogren's Antibodies Today R76.0 - Raised antibody titer Scleroderma 12 Panel Today R76.0 - Raised antibody titer Scleroderma 70 Antibody Today R76.0 - Raised antibody titer Anti-Centromere B Antibodies Today R76.0 - Raised antibody titer Thyroglobulin Antibodies Today R76.0 - Raised antibody titer Protein Creatinine Ratio, Ur Today R76.0 - Raised antibody titer UA ClnCatch+Micro w/rflx Cult Today R76.0 - Raised antibody titer Erythrocyte Sedimentation Rate Today R76.0 - Raised antibody titer Complement C3 Today R76.0 - Raised antibody titer DNA Double Stranded-Crithidia Today R76.0 - Raised antibody titer Cyclic Citrullinated Peptide Today R76.0 - Raised antibody titer Rheumatoid Factor Today R76.0 - Raised antibody titer Thyroid Stimulating Hormone Today R76.0 - Raised antibody titer Thyroid Peroxidase Antibodies Today R76.0 - Raised antibody titer Sm Sm/SONG PLUGGER Antibodies Today R76.0 - Raised antibody titer XR sacroiliac joint 1-2V Today M25.50 - Pain in unspecified joint Referrals Sleep Medicine Referral G47.30 - Sleep apnea, unspecified, M79.7 - Fibromyalgia Medications: Discontinued ketorolac Patient received 30 mg IM Toradol in the ED. Discontinued Reason: Patient no longer taking 10 mg PO QID 5 days PRN 20 tabs 0RF pain Coding Level of Care Code New Pt Level 4 (40205) Diagnoses Polyarthralgia M25.50 Chronic pain syndrome G89.4 Chronic pain type: chronic pain syndrome Fibromyalgia M79.7 Sleep apnea, unspecified type G47.30 Sleep apnea type: unspecified type
[2025-06-12 11:09] VITALS: BP 128/72; PULSE 91; O2SAT 97; BMI 33.3
--- OUTSIDE RECORDS SUMMARY | 2025-06-12 12:45 | XMS_ITS | Encounter Summary ---
Author Organization [employer] Address [address] [place] [address] [address] [place] [address] Care Team Providers Care Wrestling Coach Name Role Phone Nathalie Wang Primary Care Provider [phone] Reason for Visit * Reason Onset Date Comments Nurse Triage 01/21/2023 Encounter Details Date Type Department Care Team ([facility] st Contact Info) Description 01/21/2023 Telephone [facility] [address] [place] [address] Nathalie Wang ANP [address] [place] [address] Nurse Triage Social History Tobacco Use Types [...] 01/21/2023 9:59 AM EDT Triage call with [employer] Tool Engineer [place] [id number] Pt reports seeing the eye doctor and [...] accepted this outcome Please contact pt at [phone] Mosotho Speaker documented in this encounter Plan of Treatment Upcoming Encounters Date Type Department Care Team (Late st Contact Info) Description 09/02/2025 11:15 AM EDT Office Visit [facility] [address] [place] [address] Nathalie Wang ANP [address] [place] [address] documented as of this encounter Visit Diagnoses Not on filedocumented in this encounter Care Teams Wrestling Coach Relationship Specialty Start Date End Date Nathalie Wang ANP [address] [place] [id number] PCP - General Family Medicine 05/23/20 documented as of this encounter
--- OUTSIDE RECORDS SUMMARY | 2025-06-12 12:45 | XMS_ITS | Encounter Summary ---
Author Organization [employer] Address [address] [place] [address] [address] [place] [address] Care Team Providers Care Axle Bearing Polisher Name Role Phone Nathalie Wang Primary Care Provider [phone] Reason for Visit * Reason Comments Med Refill Encounter Details Date Type Department Care Team (Late st Contact Info) Description 02/04/2023 Refill [facility] [address] [place], [place] [phone] Nathalie Wang ANP [address] [place], [place] [phone] Mild intermittent asthma without complication Social History [...] Description 09/02/2025 11:15 AM EDT Office Visit [facility] [address] [place] [address] [phone] Nathalie Wang ANP [address] [place], [place] [phone] documented as of this encounter Visit Diagnoses Diagnosis Mild intermittent asthma without complication documented in this encounter Care Teams Axle Bearing Polisher Relationship Specialty Start Date End Date Nathalie Wang ANP [address] [place] [address] PCP - General Family Medicine 05/23/20 documented as of this encounter
--- OUTSIDE RECORDS SUMMARY | 2025-06-12 12:45 | XMS_ITS | Clinical Summary ---
Author Organization [employer] Address [address] [place] [address] [address] [place] [address] Care Team Providers Care Cell Coverer Name Role Phone Leon Wright VINAYAK Primary Care Provider [phone] Allergies Active Allergy Reactions Criticality Noted Date Comments Penicillins 11/24/2011 Vancomycin High 12/10/2023 Other Reaction(s): RASH AND ITCHING Medications buffered aspirin 81 MG tablet 09/10/19 12 Active betamethasone dipropionate 0.05 % cream Apply topically at bed time. 03/18/20 20 Active cholecalciferol (Vitamin D-3) 1.25 MG (81072 UT) capsule 05/11/20 21 Active lidocaine (Xylocaine) 5 % ointment Apply topically at bed time. 09/02/19 22 Active lidocaine (Lidoderm) 5 % patch Place 1 patch on the skin at bed time. 04/02/20 22 Active Continuous Blood Gluc Aviation Mechanic (FreeStyle Sondra 2 [place]) device 01/02/20 22 Active Sure Comfort Pen [place] 31G X 5 MM misc USE THREE TIMES DAILY WITH HUMALOG KWIKPEN 100 each 5 01/19/20 23 Active Blood Glucose Monitoring Suppl (FreeStyle Lite) w/Device kit Inject 1 each under the skin 3 times daily. USE TO TEST BLOOD SUGAR THREE TIMES A DAY 1 kit 03/31/20 23 Active Diclofenac Sodium 1 % gelIndications:P ain and swelling of left wrist Apply topically to affected area twice a day as needed for pain 50 g 04/22/20 23 Active fluticasone (Flonase) 50 MCG/ACT nasal sprayIndications :Mild persistent asthma, unspecified whether complicated USE 1-2 SPRAYS IN EACH NOSTRIL DAILY NEEDED 48 g 11/22/19 24 Active lactulose (Chronulac) 10 GM/15ML solutionIndicati ons:Constipation , unspecified constipation type Take 30 mL (20 g) by mouth Once per day. May increase to BID if no BM after 2 days. For short term use. 300 mL 03/22/20 24 Active senna-docusate sodium (Senokot-S) 8.6-50 MG tabletIndication s:Constipation, unspecified constipation type 1-2 tabs daily as needed for constipation 90 tablet 1 03/22/20 24 Active acetaminophen (Tylenol) 325 MG tabletIndication s:Upper respiratory tract infection, unspecified type Take 2 tablets (650 mg) by mouth every 6 (six) hours if needed for mild pain, moderate pain or fever. 90 tablet 1 07/04/19 25 Active Blood Glucose Monitoring Suppl (FreeStyle [place] Lite) w/Device kit Use to test blood sugar TID dx dm 1 kit 07/13/19 25 Active Alcohol Swabs (Alcohol Prep) 70 % pads USE to clean finger prior to checking blood sugar TID 100 each 5 07/13/19 25 Active glucose blood (FREESTYLE LITE) test stripIndications :Type 2 diabetes mellitus without complications (HCC) USE DIRECTED TO TEST BLOOD SUGAR EVERY DAY 100 each 11 5 1:07 PM EST 07/23/19 25 Active TRUEplus Lancets 33G misc USE DIRECTED TO TEST BLOOD SUGAR EVERY DAY 100 each 4 5 1:07 PM EST 07/23/19 25 Active albuterol 108 (90 Base) MCG/ACT inhalerIndicatio ns:Mild intermittent asthma without complication INHALE 2 PUFFS BY MOUTH EVERY 6 HOURS NEEDED FOR WHEEZING OR SHORTNESS OF BREATH 18 g 1 09/05/19 25 Active polyvinyl alcohol (Liquifilm Tears) 1.4 % ophthalmic solutionIndicati ons:Dry eye PLACE 1 DROP INTO THE AFFECTED EYE(S) FOUR TIMES DAILY NEEDED 15 mL 2 10/17/19 25 Active gabapentin (Neurontin) 400 MG capsule Take 400 mg by mouth 3 times daily. Active lisinopril 10 MG tablet TAKE 1 TABLET BY MOUTH EVERY DAY FOR BLOOD PRESSURE 90 tablet 3 11/28/19 25 Active omeprazole (PriLOSEC) [address] capsuleIndicatio ns:Gastroesophag eal reflux disease, unspecified whether esophagitis present TAKE 1 CAPSULE BY MOUTH EVERY DAY BEFORE BREAKFAST DO NOT BREAK, CRUSH, DISSOLVE OR CHEW 90 capsule 1 12/07/19 25 Active ibuprofen 600 MG tabletIndication s:Chronic right-sided low back pain without sciatica TAKE 1 TABLET BY MOUTH EVERY 8 HOURS NEEDED FOR MODERATE PAIN. TAKE WITH FOOD 60 tablet 12/20/19 25 Active meloxicam (Mobic) 7.5 MG tabletIndication s:Left hand pain TAKE 1 TABLET BY MOUTH TWICE DAILY NEEDED FOR PAIN (HAND) 60 tablet 02/09/20 25 Active albuterol (2.5 MG/3ML) 0.083% nebulizer solutionIndicati ons:Mild persistent asthma, uncomplicated INHALE 1 AMPULE USING A NEBULIZER EVERY 6 HOURS NEEDED FOR COUGH, WHEEZING, OR SHORTNESS OF BREATH 75 mL 1 02/16/20 25 Active metFORMIN XR (Glucophage-XR) 500 MG 24 hr tabletIndication s:Type 2 diabetes mellitus with other circulatory complication, with long-term current use of insulin (HCC) Take 1 tab twice daily with meals. Do not crush, chew, or split. 180 tablet 3 02/21/20 25 Active methocarbamol (Robaxin) 750 MG tablet Take 1 tablet (750 mg) by mouth if needed in the morning, at noon, in the evening, and at bedtime (pain). 40 tablet 04/03/20 25 Active loratadine (Claritin) 10 MG tabletIndication s:Seasonal allergic rhinitis due to other allergic trigger TAKE 1 TABLET BY MOUTH EVERY DAY NEEDED FOR ALLERGIES 90 tablet 3 04/10/20 25 Active atorvastatin (Lipitor) 10 MG tabletIndication s:Type 2 diabetes mellitus with other circulatory complication, with long-term current use of insulin (HCC) TAKE 1 TABLET BY MOUTH AT BEDTIME 90 tablet 3 04/10/20 25 Active Continuous Glucose Sensor (FreeStyle Sondra 2 Sensor) [facility] [place] DIRECTED TO TEST BLOOD SUGAR CHANGE EVERY 14 DAYS 2 each 7 5 1:07 PM EST 04/10/20 25 Active Tirzepatide (Mounjaro) 7.5 MG/0.5ML solution auto-injectorInd ications:Hyperte nsion associated with diabetes (HCC) Inject 7.5 mg under the skin 1 (one) time per week. 2 mL 2 5 3:21 PM EST 06/04/20 Active Breztri Aerosphere 160-9-4.8 MCG/ACT aerosol INHALE 2 PUFFS BY MOUTH TWICE DAILY RINSE MOUTH AFTER USING. 05/21/20 Active hydrOXYzine pamoate (Vistaril) 25 MG capsuleIndicatio ns:Anxiety Take 1 capsule as needed for anxiety up to TID 60 capsule 5 1:30 PM EST 06/04/20 Active fluticasone-salm eterol (Advair HFA) 115-21 MCG/ACT inhalerIndicatio ns:Moderate persistent asthma without complication Inhale 2 puffs in the morning and at bedtime. Rinse mouth with water after use to reduce aftertaste and incidence of candidiasis. Do not swallow. 12 g 11 02/21/20 25 025 Discontin ued(Alter wesley therapy) Mounjaro 5 MG/0.5ML solution auto-injectorInd ications:Type 2 diabetes mellitus with other circulatory complication, with long-term current use of insulin (HCC) INJECT ONE PEN (=5MG) SUBCUTANEOUSLY ONCE A WEEK DIRECTED 2 mL 2 5 1:07 PM EST 05/07/20 025 Discontin ued(Dose adjustmen t) Active Problems Problem Noted Date Diagnosed Date Hirsutism 02/07/2024 Spondylosis of lumbar region without myelopathy or radiculopathy 11/22/2023 Overview (11/22/2023): [place] [facility] [place] [facility] [place]/22/23 L side; R side [...] -UA w reflex cx [place] [facility] [place] 500 mg daily for 7 days and then to increase to BID and continue ozempic 2 mg weekly -will do am hormonal test for hirsutism may have relationship w insulin resistance -f w PCP -has apt for 03/2024 -Pt to 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 w hop picker for f up -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 w industrial staff nurse to f CBGs in 2 weeks Chronic pain in right shoulder 09/17/2022 Essential hypertension 04/02/2022 Overview (11/22/2023): Lisinopril 10mg Low salt diet Smoking cessation (quit as of Spring 2023, now uses vape) Mild persistent asthma 04/28/2015 Type 2 diabetes mellitus wit h circulatory disorder, with long-term current use of insulin 04/28/2015 Asthma 03/15/2012 Gastroesophageal reflux disease 01/13/2012 Migraine 11/24/2011 Obesity 11/24/2011 Type 2 diabetes mellitus wit h both eyes affected by mild nonproliferative retinopathy [...] Encounters Date Type Department Care Team Description 06/04/2025 10:15 AM EST Office Visit [facility] [address] [place] [phone] Leon WrightVINAYAK Mild nonproliferative diabetic retinopathy of both eyes without macular edema associated with type 2 diabetes mellitus (HCC) (Primary Dx); Type 2 diabetes mellitus with other circulatory complication, with long-term current use of insulin (HCC); Hypertension associated with diabetes (HCC); Dietary counseling; Exercise counseling; Tachycardia; Anxiety; Atypical chest pain 06/04/2025 Travel 06/03/2025 Telephone [facility] [address] [place] [address] Leon Wright ANP chart prep 05/21/2025 Orders Only GENERIC EXTERNAL DATA DEPARTMENT Provider, Generic External Data 05/09/2025 Refill [facility] [address] [place] [address] Leon Wright ANP Type 2 diabetes mellitus with other circulatory complication, with long-term current use of insulin (HCC) 05/07/2025 Refill [facility] [address] [place] [address] Leon Wright ANP Type 2 diabetes mellitus with other circulatory complication, with long-term current use of insulin (HCC) 05/02/2025 Refill [facility] [address] [place] [address] Leon Wright ANP Type 2 diabetes mellitus with other circulatory complication, with long-term current use of insulin ([facility]) 04/09/2025 Refill [facility] [address] [place] [address] Leon Wright ANP Seasonal allergic rhinitis due to other allergic trigger; Type 2 diabetes mellitus with other circulatory complication, with long-term current use of insulin (HCC); Type 2 diabetes mellitus without complications (HCC) 04/03/2025 3:00 PM EDT Office Visit [facility] [address] [place] [address] Lance Escobar MD Acute bilateral low back pain with bilateral sciatica (Primary Dx); Acute bilateral thoracic back pain 04/03/2025 Travel from Last 3 Months Immunizations Immunization Administration Dates Next Due Influenza, Split (incl. eduardo fied surface antigen) 03/26/2013,03/22/2013,03/09/2012 Pneumococcal Conjugate PCV 20 09/13/2024 Pneumococcal Polysaccharide [...] Sign Reading Time Taken Comments Blood Pressure 110/72 06/04/2025 9:51 AM EST Pulse 92 06/04/2025 9:51 AM EST Temperature 36.3 C (97.3 F) 06/04/2025 9:51 AM EST Respiratory Rate 20 06/04/2025 9:51 AM EST Oxygen Saturation 98% 06/04/2025 9:51 AM EST Inhaled Oxygen Concentration - - Weight 73.5 kg (162 lb 2 oz) 06/04/2025 9:51 AM EST Height 147.3 cm (4' 10 ) 06/04/2025 9:51 AM EST Body Mass Index 33.88 06/04/2025 9:51 AM EST Plan of Treatment Upcoming Encounters Date Type Department Care Team (Late st Contact Info) Description 09/02/2025 11:15 AM EDT Office Visit [facility] [address] [place] [address] Leon Wright, ANP [address] [place] [address] Health Maintenance Due Date Last Done Comments CT Colonography 1977 Colonoscopy 1977 Colorectal Cancer Screening 1977 FIT DNA/Cologuard 1977 FIT 1977 FOBT 1977 Sigmoidoscopy 1977 Family Planning (PISQ) 1992 Hepatitis B Vaccines (1 of 3 - 19+ 3-dose series) 1996 Pap Smear 1998 HPV/Cotest 10/18/2007 Mammogram 2017 COVID-19 Vaccine ( season) 2025 Influenza Vaccine (#1) 2025 3, 03/22/2013, 03/09/2012 Depression Monitoring 05/11/2025 11/08/2024, 025 Diabetes: Hemoglobin A1C 09/02/2025 025, 02/20/2025, 12/07/2024, Additional history exists DTaP/Tdap/Td Vaccines (2 - [...] 10/18/2007 (Patient Refused) SDOH Screening 02/20/2026 02/20/2025 Diabetes: Foot Exam 06/04/2026 06/04/2025, 06/04/2025, 06/04/2025 Tobacco Screening 06/04/2026 06/04/2025 Zoster Vaccines (1 of 2) 10/18/2027 RSV [...] task Care Plan Weekly blood pressure task Kayce Dc LPN Help patients manage their type 2 diabetes Care Plan Help patients manage their type 2 diabetes Kayce Dc LAUNDRY MARKER SUPERVISOR Patient has diabetic eye disease Care Plan Patient has diabetic eye disease No KeyanaSangeeta steinfer LAUNDRY MARKER SUPERVISOR Help patients manage their type 2 diabetes Care Plan Help patients manage their type 2 diabetes No Sangeeta Ridleyfer LAUNDRY MARKER SUPERVISOR Patient has chronic kidney disease Care Plan Patient has chronic kidney disease No Kayce Ridley LAUNDRY MARKER SUPERVISOR Weekly blood pressure task Care Plan Weekly blood pressure task No KeyanaSangeeta steinfer LAUNDRY MARKER SUPERVISOR Weekly blood pressure task Care Plan Weekly blood pressure task No Sangeeta Ridleyfer LAUNDRY MARKER SUPERVISOR Patient has diabetic eye disease Care Plan Patient has diabetic eye disease No KeyanaSangeeta steinfer LAUNDRY MARKER SUPERVISOR Patient has diabetic eye disease Care Plan Patient has diabetic eye disease No Sangeeta Ridleyfer LAUNDRY MARKER SUPERVISOR Patient has chronic kidney disease Care Plan Patient has chronic kidney disease No Kayce Ridley, LAUNDRY MARKER SUPERVISOR Patient has chronic kidney disease Care Plan Patient has chronic kidney disease No Kayce Ridley, LAUNDRY MARKER SUPERVISOR Weekly blood pressure task Care Plan Weekly [...] Patient has chronic kidney disease No Murphy, [place]an Patient has chronic kidney disease Care Plan Patient has chronic kidney disease No Murphy Shawna Patient has chronic kidney disease Care Plan Patient has chronic kidney disease No Murphy, Shawna Weekly blood pressure task Care Plan Weekly blood pressure task No Sohan Summers MA Weekly blood pressure task Care Plan Weekly blood pressure task No Sohan Summers MA Weekly blood pressure task Care Plan Weekly blood pressure task No Angela SummersiRHODA Patient has diabetic eye disease Care Plan Patient has diabetic eye disease No Sohan Summers [place] Patient has diabetic eye disease Care Plan Patient has diabetic eye disease No Sohan Sumemrs [place] Patient has diabetic eye disease Care Plan Patient has diabetic eye disease No Sohan Summers [place] Patient has chronic kidney disease Care Plan Patient has chronic kidney disease No Sohan Summers [place] Patient has chronic kidney disease Care Plan Patient has chronic kidney disease No Sohan Summers [place] Patient has chronic kidney disease Care Plan Patient has chronic kidney disease No Sohan Summers MA Weekly blood pressure task Care Plan Weekly blood pressure task No Leon Wright ANP Weekly blood pressure task Care Plan Weekly blood pressure task No Leon Wright ANP Weekly blood pressure task Care Plan Weekly blood pressure task No Leon Wright ANP Patient has diabetic eye disease Care Plan Patient has diabetic eye disease No Leon Wright ANP Patient has diabetic eye disease Care Plan Patient has diabetic eye disease No Leon Wright ANP Patient has diabetic eye disease Care Plan Patient has diabetic eye disease No Leon Wright ANP Patient has chronic kidney disease Care Plan Patient has chronic kidney disease No Leon Wright ANP Patient has chronic kidney disease Care Plan Patient has chronic kidney disease No Leon Wright ANP Patient has chronic kidney disease Care Plan Patient has chronic kidney disease No Leon Wright ANP Procedures Procedure Name Priority Date/Time Associated Diagnosis Comments POCT GLYCATED HEMOGLOBIN, TOTAL Routine 06/04/2025 9:54 AM EST Mild nonproliferative diabetic retinopathy of both eyes without macular edema associated with type 2 diabetes mellitus (HCC) POCT GLUCOSE (CPT-61043) Routine 06/04/2025 9:53 AM EST Mild nonproliferative diabetic retinopathy of both eyes without macular edema associated with type 2 diabetes mellitus (HCC) XR CHEST 1 VIEW Routine 06/02/2025 4:26 AM EST HIGH SENSITIVITY TROPONIN I Routine 06/02/2025 1:18 [...] IMMUNOGLOBULIN E Routine 05/21/2025 9:42 AM EST [id number] QN Routine 9:42 AM EST IMMUNOGLOBULINS, QUANTITATIVE, IGA, IGG, IGM Routine 05/21/2025 9:42 AM EST SED RATE BY MODIFIED WESTERGREN Routine 05/21/2025 9:42 AM EST BASIC METABOLIC PANEL Routine 05/21/2025 9:42 AM EST CBC WITH AUTO DIFFERENTIAL Routine 05/21/2025 9:42 AM EST ALBUMIN, RANDOM URINE W/CREATININE Routine 12/07/2024 10:43 [...] Maintenance Results * (ABNORMAL) POCT Hgb A1c (06/04/2025 9:54 AM EST) Hemoglobin A1C 6.1(A) 4.0 - 5.7 % QC Media Lot # [id number] Lot# Expiration Date Blood 06/04/2025 9:54 AM EST us Leon Wright ANP POINT OF CARE TEST ENTER/EDIT OR DERABLES Final Result * POCT Glucose (06/04/2025 9:53 AM EST) Glucose Blood, POC 161 60 - 200 mg/dL QC Media Lot # [id number] Lot# Expiration Date ,026 Blood Capillary blood specimen / Unknown 06/04/2025 9:53 AM EST us Leon Wright ANP POINT OF CARE TEST ENTER/EDIT OR DERABLES Final Result * XR Chest 1 View (06/02/2025 4:26 AM EST) Anatomical Region Laterality Modality Chest Radiographic Lupe ging 06/02/2025 4:26 AM EST Narrative 06/02/2025 4:27 AM EST [place] [id number] XRay Report Signed Patient: Heather Pulido MR#: [id number] : 1975 Acct:[id number] Age/Sex: 49 / F ADM Date: 06/02/25 Loc: .ED Attending Dr: Ordering Physician: Yuliya Berg DO Date of Service: 06/02/25 Procedure(s): XR chest 1V Accession Number(s): [id number] cc: Yuliya Berg DO; LEON WRIGHT NP Reason for Exam: chest pain CLINICAL HISTORY: chest pain 1 view chest x-ray Comparison: 05/21/2025 Findings: Lung inflation is normal. Cardiac and mediastinal silhouettes are normal. Pulmonary venous vasculature is normal. There is no pneumothorax or pleural effusion. No consolidative opacities. Osseous structures are normal. IMPRESSION: 1. No acute cardiopulmonary process. This document has been electronically signed by: Avtar Martinez III, MD PHD on 06/02/2025 04:26:10 Dictated By: Avtar Martinez MD Signed By: <Electronically signed by Avtar Martinez MD in OV> 06/02/25425 DD/ 5 TD/TT: 06/02/25425 Gun Welder: Procedure Note Donotuseinterpreter, Image - 06/02/[address] [address] XRay Report Signed Patient: Heather Pulido MR#: [id number] : 1975Acct:[id number] Age/Sex: 49 / FADM Date: 06/02/25 Loc: .ED Attending Dr: Ordering Physician: Yuliya Berg DO Date of Service: 06/02/25 Procedure(s): XR chest 1V Accession Number(s): [id number] cc: Yuliya Berg DO; LEON WRIGHT NP Reason for Exam: chest pain CLINICAL HISTORY: chest pain 1 view chest x-ray Comparison: 05/21/2025 Findings: Lung inflation is normal. Cardiac and mediastinal silhouettes are normal. Pulmonary venous vasculature is normal. There is no pneumothorax or pleural effusion. No consolidative opacities. Osseous structures are normal. IMPRESSION: 1. No acute cardiopulmonary process. This document has been electronically signed by: Avtar Martinez III, MD PHD on 06/02/2025 04:26:10 Dictated By: Avtar Martinez MD Signed By: <Electronically signed by Avtar Martinez MD in OV> 06/02/25425 DD/ 5 TD/TT: 06/02/25425 Gun Welder: [facility] External Provider IMG XR PROCEDURES Edited Result - Final * High Sensitivity Troponin I (06/02/2025 1:18 AM EST) TROPONIN I HIGH SENSITIVITY <2.7 <3.5 - 17.0 ng/L [facility] Comment:The Garcia high sens itivity Troponin-I results should beused in conjunction with other diagnostic information suchas ECG, clinical observations and information, and patientsymptoms to aid in the diagnosis of IL. 06/02/2025 1:18 AM EST 06/02/2025 1:21 AM EST us Generic External Data Provider LAB BLOOD ORDERAB LES Final Result [facility] [address] [place] [address] [phone] * (ABNORMAL) Comprehensive Metabolic Panel (06/02/2025 1:18 AM EST) Sodium 139 135 - 145 mmol/L [facility] Potassium 4.1 3.3 - 5.1 mmol/L [facility] Chloride 111(H) 96 - 108 mmol/L [facility] Carbon Dioxide 21(L) 22 - 29 mmol/L [facility] Anion Gap 11(L) 12 - 20 [facility] Urea Nitrogen (BUN) 12 9 - 16 mg/dL [facility] Creatinine, Serum 0.55 0.5 - 1.4 mg/dL [facility] Creatinine Clr Calc Pharmacy 106.9 [facility] Comment:Provided height and weight: 147.32 cm,72.575 kg.eGFR (calculated from the MDRD study equation) and eCrCl(calculated from the Cockcroft-Gault equation) are based ondifferent parameters and may not yield comparable results.If eCrCl result is absurd, please check patient'sheight/weight. Estimated Glomerular Filt Rate >60 [facility] Comment:Chronic Kidney Disea se: Estimated GFR < 60 mL/min/1.31x8Esosdf Kidney Disease: Estimated GFR < 15 mL/min/1.73m2 Glucose 137(H) 60 - 115 mg/dL [facility] Calcium 9.2 8.4 - 10.2 mg/dL [facility] Bilirubin, Total 0.4 0.0 - 1.0 mg/dL [facility] Aspartate Amino Transferase 33(H) 5 - 31 U/L [facility] Alanine Aminotransferase 27 0 - 31 U/L [facility] Total Protein 6.7 6.5 - 8.0 g/dL [facility] Albumin Level 3.9 3.5 - 5.0 g/dL [facility] Alkaline Phosphatase 72 39 - 117 U/L [facility] 06/02/2025 1:18 AM EST 06/02/2025 1:21 AM EST Generic External Data Provider LAB BLOOD ORDERAB LES Final Result Performing Organization Address [facility] Co de Phone Number [facility] [address] [place] [phone] * SARS-CoV-2 RNA, Influenza A/B, and RSV RNA, Ql NAAT (06/02/2025 1:17 AM EST) Influenza A PCR NEGATIVE Negative [facility] Influenza B PCR NEGATIVE Negative [facility] Resp Syncy Virus RNA Qual PCR NEGATIVE Negative [facility] SARS COV2 PCR NEGATIVE Negative [facility] Comment:All test results mus t be [...] use by authorized laboratories.Testing performed on the [employer] GeneXpert utilizingreal-time RT-PCR.All SARS CoV2 and positive influenza A/B results arereported to [facility]. 06/02/2025 1:17 AM EST 06/02/2025 1:21 AM EST us Generic External Data Provider LAB MICROBIOLOGY - GENERAL ORDERABLES Final Result Performing Organization Address City/[facility]/ZIP Co de Phone Number [facility] [address] [place] [address] [phone] * (ABNORMAL) CBC auto differential (06/02/2025 1:17 AM EST) Only the most recent of2 resultswithin the time period is included. White Blood Count 9.3 4.8 - 10.8 X10*3/uL [facility] Red Blood Count 4.39 4.20 - 5.50 X10*6/uL [facility] Hemoglobin 13.9 12.0 - 16.0 g/dl [facility] Hematocrit 40.0 37.0 - 47.0 % [facility] Mean Corpuscular Volume 91.1 80.0 - 98.0 fL [facility] Mean Corpuscular Hemoglobin 31.7 27.0 - 33.0 pg [facility] Mean Corpuscular HGB Conc 34.8 31.0 - 35.0 g/dl [facility] Red Cell Distribution Width 11.9 11.0 - 16.0 % [facility] Platelet Count 226 160 - 400 X10*3/uL [facility] Mean Platelet Volume 10.3 9.4 - 12.3 fL [facility] Neutrophils Percent Auto 47.9 45 - 73 % [facility] Imm Gran Pct Auto 0.5(H) 0.0 - 0.4 % [facility] Lymphocytes Percent Auto 39.0 20 - 40 % [facility] Monocytes Percent Auto 8.6 2 - 11 % [facility] Eosinophils Percent Auto 3.0 0 - 4 % [facility] Basophils Percent Auto 1.0 0 - 2 % [facility] NRBC Pct Auto 0.0 0.0 - 0.2 /100WBC [facility] Neutrophils Absolute Auto 4.4 2.0 - 8.3 x10*3/uL [facility] Imm Gran Abs Auto 0.05(H) 0.00 - 0.03 X10*3/uL [facility] Lymphocytes Absolute Auto 3.6 1.2 - 4.9 X10*3/uL [facility] Monocytes Absolute Auto 0.8 0.1 - 1.2 X10*3/uL [facility] Eosinophils Absolute Auto 0.3 0.0 - 0.4 X10*3/uL [facility] Basophils Absolute Auto 0.1 0.0 - 0.2 X10*3/uL [facility] NRBC Abs Auto 0.000 0.0 - 0.012 X10*3/uL [facility] 06/02/2025 1:17 AM EST 06/02/2025 1:21 AM EST us Generic External Data Provider LAB BLOOD ORDERAB LES Final Result Performing Organization Address City/State/[facility] Co de Phone Number [facility] [address] [place] [phone] * XR Chest 2 Views (05/21/2025 10:02 AM EST) Anatomical Region Laterality Modality Chest Radiographic Lupe ging 05/21/2025 10:0 2 AM EST Narrative 05/21/2025 10:09 AM EST [address] [address] XRay Report Signed Patient: Heather Pulido MR#: [id number] : 1975 Acct:[id number] Age/Sex: 49 / F ADM Date: 05/21/25 Loc: [facility] Attending Dr: Robert Yeboah MD Ordering Physician: Robert Yeboah MD Date of Service: 05/21/25 Procedure(s): XR chest 2V Accession Number(s): [id number] cc: Robert Yeboah MD; LEON WRIGTH NP Reason for Exam: [id number] - Unspecified [...] Scherer MD in OV> 05/21/25 1006 DD/ 01 TD/TT: 05/21/25 100 Gun Welder: RENALDO Procedure Note Donotuseinterpreter, Image - 05/21/[address] [address] XRay Report Signed Patient: Heather Pulido MR#: [id number] : 1975Acct:[id number] Age/Sex: 49 / FADM Date: 05/21/25 Loc: HO.XRAY Attending Dr: Robert Yeboah MD Ordering Physician: Robert Yeboah MD Date of Service: 05/21/25 Procedure(s): XR chest 2V Accession Number(s): [id number] cc: Robert Yeboah MD; LEON WRIGHT NP [...] in the chest. Electronically signed by: Claudia Shcerer MD 05/21/2025 10:06 AM EST RP Dictated By: Claudia Scherer MD Signed By: <Electronically signed by Claudia Scherer MD in OV> 05/21/25 1006 DD/ 1002 TD/TT: 05/21/25 100 Gun Welder: RENALDO [facility] External Provider IMG XR PROCEDURES Final Result * Rast Allergen (05/21/2025 9:42 AM EST) Rast Allergen SEE NOTE [facility] Comment:SEE SCANNED REPORT I N EMR 05/21/2025 9:42 AM EST 05/31/2025 8:13 AM EST Narrative [facility] - 05/31/2025 8:14 AM EST CAT DANDER REFLEX us Generic External Data Provider HISTORICAL/NON OR DERABLE LABS Final Result [facility] [address] [place] [address] [phone] * (ABNORMAL) Respiratory Allergy Profile Region I (05/21/2025 9:42 AM EST) Pathologist [facility] Mouse Urine Proteins (E72) IgE <0.10 kU/L [facility] Class 0 [facility] Cockroach (I6) IgE <0.10 kU/L [facility] Class 0 [facility] Dermatophagoides farinae (D2) IgE <0.10 kU/L [facility] Class 0 [facility] Cat Dander (E1) IgE 0.16(A) kU/L [facility] Class 0/1 [facility] Comment:THIS TEST WAS PERFOR MED AT:[employer] [address] [id number] MAYA MD Dog Dander (E5) IgE <0.10 kU/L [facility] Class 0 [facility] Comment:THIS TEST WAS PERFOR MED AT:[employer] [place] [id number] MAYA MD Ramiro Grass (G6) IgE <0.10 kU/L [facility] Class 0 [facility] Cladosporium herbarum (M2) IgE <0.10 kU/L [facility] Class 0 [facility] Aspergillus Fumigatis (M3) IgE <0.10 kU/L [facility] Class 0 [facility] Alternaria alternata (M6) IgE <0.10 kU/L [facility] Class 0 [facility] Comment:THIS TEST WAS PERFOR MED AT:[employer] [place] [id number] Suzi ESCOBAR [place] (t6) IgE <0.10 kU/L [facility] Class 0 [facility] [place] (T7) IgE <0.10 kU/L [facility] Class 0 [facility] [place] (T10) IgE <0.10 kU/L [facility] Class 0 [facility] Kiln (T11) IgE <0.10 kU/L [facility] Class 0 [facility] [place] (T14) IgE <0.10 kU/L [facility] Class 0 [facility] White Erasmo (t15) IgE <0.10 kU/L [facility] Class 0 [facility] White [place] (T70) IgE <0.10 kU/L [facility] Class 0 [facility] Common Ragweed (Short) (W1) IgE <0.10 kU/L [facility] Class 0 [facility] Mugwort (w6) IgE <0.10 kU/L [facility] Class 0 [facility] Dermatophagoides pteronyssinus (D1) IgE <0.10 kU/L [facility] Class 0 [facility] Bermuda Grass (g2) IgE <0.10 kU/L [facility] Class 0 [facility] Penicillium Notatum (M1) IgE <0.10 kU/L [facility] Class 0 [facility] Birch (T3) IgE 2.56(A) kU/L [facility] Class 2 [facility] Elm (t8) IgE <0.10 kU/L [facility] Class 0 [facility] Maple ([place]) (T1) IgE <0.10 kU/L [facility] Class 0 [facility] Rough Pigweed (W14) IgE <0.10 kU/L [facility] Class 0 [facility] Sheep [place] (W18) IgE <0.10 kU/L [facility] Class 0 [facility] Allergen Comment See Below [facility] Comment: Specific Level of AllergenIGE Class [...] and its analyticalperformance characteristics have been determined by[employer]. It has not been cleared or approvedby the U.S. Food and Drug Administration. This assayhas been validated pursuant to the CLIA regulationsand is used for clinical purposes.THIS TEST WAS PERFORMED AT:[employer] [place] [id number] MAYA MD 05/21/2025 9:42 AM EST 05/21/2025 9:42 AM EST us Generic External Data Provider LAB BLOOD ORDERAB LES Final Result [facility] [address] [place] [address] [phone] * Hxwne-7-Bialcuaoccx, Quantitative (05/21/2025 9:42 AM EST) Adfyj-0-Pbliiley sin QN 158 83 - 199 mg/dL [facility] Comment:THIS TEST WAS PERFOR MED AT:[employer] [place] [id number] MAYA MD 05/21/2025 9:42 AM EST 05/21/2025 9:42 AM EST us Generic External Data Provider LAB BLOOD ORDERAB LES Final Result [facility] [address] [place] [address] [phone] * Hypersensitivity Pneumonitis Screen (05/21/2025 9:42 AM EST) Aspergillus fumigatus Ab NEGATIVE [facility] Comment:REFERENCE RANGE NEGA TIVE Micropolyspora Faeni NEGATIVE [facility] Comment:REFERENCE RANGE NEGA TIVE Sumter Serum Abs NEGATIVE [facility] Comment:REFERENCE RANGE NEGA TIVE Thermoactinomyces candidus NEGATIVE [facility] Comment:REFERENCE RANGE NEGA TIVE Thermoactinomyces vulgaris Ab NEGATIVE [facility] Comment:REFERENCE RANGE NEGA TIVE Saccharomonospora viridis Ab NEGATIVE [facility] Comment:REFERENCE RANGE NEGA TIVE 05/21/2025 9:42 AM EST 05/21/2025 9:42 AM EST us Generic External Data Provider LAB BLOOD ORDERAB LES Final Result Performing Organization Address [facility] Co de Phone Number [facility] [address] [place] [address] [phone] * Sed Rate by Gogo Subramanian (05/21/2025 9:42 AM EST) Erythrocyte Sedimentation Rate 16 0 - 20 MM/HR [facility] Comment:Patients with polycy themia and many hemoglobin abnormalitiesmay have depressed sed rates whereas patients with anemiamay have elevated sed rates. 05/21/2025 9:42 AM EST 05/21/2025 9:42 AM EST us Generic External Data Provider LAB BLOOD ORDERAB LES Final Result [facility] [address] [place] [phone] * Immunoglobulins, Quantitative, IgA, IgG, IgM (05/21/2025 9:42 AM EST) Pathologist [facility] IMMUNOGLOBULIN G 1434 600 - 1640 mg/dL [facility] IMMUNOGLOBULIN A 285 47 - 310 mg/dL [facility] Immunoglobulin M 203 50 - 300 mg/dL [facility] Comment:THIS TEST WAS PERFOR MED AT:[employer] [place] [id number] MAYA MD 05/21/2025 9:42 AM EST 05/21/2025 9:42 AM EST Generic External Data Provider LAB BLOOD ORDERAB LES Final Result Performing Organization Address [facility] Co de Phone Number [facility] [address] [place] [phone] * Immunoglobulin E (05/21/2025 9:42 AM EST) Pathologist [facility] Immunoglobulin E 52 <CB=144 kU/L [facility] 05/21/2025 9:42 AM EST 05/21/2025 9:42 AM EST Generic External Data Provider LAB BLOOD ORDERAB LES Final Result Performing Organization Address [facility] de Phone Number [facility] [address] [place] [phone] * (ABNORMAL) Basic Metabolic Panel (05/21/2025 9:42 AM EST) Pathologist [facility] Sodium 143 135 - 145 mmol/L [facility] Potassium 4.4 3.3 - 5.1 mmol/L [facility] Chloride 107 96 - 108 mmol/L [facility] Carbon Dioxide 29 22 - 29 mmol/L [facility] Anion Gap 11(L) 12 - 20 [facility] Urea Nitrogen (BUN) 12 9 - 16 mg/dL [facility] Creatinine, Serum 0.61 0.5 - 1.4 mg/dL [facility] Estimated Glomerular Filt Rate >60 [facility] Comment:Chronic Kidney Disea se: Estimated GFR < 60 mL/min/1.66e9Wfntcv Kidney Disease: Estimated GFR < 15 mL/min/1.73m2 Glucose 116(H) 60 - 115 mg/dL [facility] Calcium 9.3 8.4 - 10.2 mg/dL [facility] 05/21/2025 9:42 AM EST 05/21/2025 9:42 AM EST [facility] External Data Provider LAB BLOOD ORDERAB LES Final Result Performing Organization Address [facility]/ZIP Co de Phone Number [facility] [address] [place] [phone] * Albumin, Random Urine W/Creatinine (12/07/2024 10:43 AM EDT) Creatinine, Urine 44.35 mg/dL [facility] Microalbumin Urine <5.0 mg/L [facility] Microalbum Creatinine Ratio Ur TNP <30 ug/mg cr [facility] Comment:Unable to calculate albumin/creatinine ratio due to lowmicroalbumin or creatinine result. Urine (Urine, Random) 12/07/2024 10:43 AM EDT 12/07/2024 12:56 PM EDT us [facility] ANP LAB URINE ORDERABLES Final Resul t Performing Organization Address [facility]/ZIP Co de Phone Number [facility] [address] [place] [address] [phone] * Lipid Panel, Standard (12/07/2024 10:43 AM EDT) Triglycerides 113 <150 mg/dL [facility] Comment:Desirable Triglyceri de: less than 150 mg/dLBorderline High Triglyceride 150-199 mg/dLHigh Triglyceride: 200-499 mg/dLVery High Triglyceride: greater than or equal to 5OO mg/dL Cholesterol 142 <200 mg/dL [facility] Comment:Desirable Cholestero l: less than 200 mg/dLBorderline High Cholesterol: 200-239 mg/dLHigh Cholesterol: greater than 239 mg/dL LDL Cholesterol Calculated 73 <100 mg/dL [facility] Comment:Desirable LDL: less than 100 mg/dLNear Optimal/Above Optimal LDL: 110- 129 mg/dLBorderline High LDL: 130-159 mg/dLHigh LDL: 160-189 mg/dLVery High LDL: greater than or equal to 190 mg/dL HDL Cholesterol 47 >40 mg/dL [facility] Comment:Desirable HDL: great er than 40 mg/dL Note: This HDL assay may give artificially low results in patients with liver disease. Blood Venous blood specimen / Unknown 12/07/2024 10:43 AM EDT 12/07/2024 1:00 PM EDT us Leon LICEA LAB BLOOD ORDERABLES Final Resul t Performing Organization Address [facility] de Phone Number [facility] [address] [place] [address] [phone] * HEPATITIS C AB W/REFL TO HCV RNA, QN, PCR (05/04/2021 9:54 AM EST) HEPATITIS C ANTIBODY NON-REACT [facility] NON-REACT [facility] INDEX 0.01 <1.00 [facility] Comment: HCV antibody was non-reactive. There is no laboratory evidence of HCV infection. In most cases, no further action is required. However, if recent HCV exposure is suspected, a test for HCV RNA (test code 08438) is suggested. For additional information please refer to http://education.Flavorvanil.AUTOFACT/faq/MHO69w1 (This link is being provided for informational/ educational purposes only.) 05/04/2021 9:54 AM EST us Leon LICEA HISTORICAL/NON ORDERABLE LABS Fi nal Result Performing Organization Address [facility] Co de Phone Number [facility] [address] * HIV 1/2 ANTIGEN/ANTIBODY,FOURTH GENERATION W/RFL (05/04/2021 9:54 AM EST) HIV-1/2 ANTIGEN AND ANTIBODIES, 4TH GENERATION W/ REFLEX NON-REACT NELLY NON-REACT NELLY [facility] Comment: HIV-1 antigen and HIV-1/HIV-2 [...] purpose. For additional information please refer to http://education.Microstim/faq/DKI014 (This link is being provided for informational/ educational purposes only.) The performance of this assay has not been clinically validated in patients less than 2 years old. 05/04/2021 9:54 AM EST Leon LICEA LAB BLOOD ORDERABLES Final Resul t [facility] [address] from Last 3 Months or Most [...] 05/08/2025 Patient has chronic kidney disease 05/08/2025 Weekly blood pressure task 06/03/2025 Weekly blood pressure task 06/03/2025 Weekly blood pressure task 06/03/2025 Patient has diabetic eye disease 06/03/2025 Patient has diabetic eye disease 06/03/2025 Patient has diabetic eye disease 06/03/2025 Patient has chronic kidney disease 06/03/2025 Patient has chronic kidney disease 06/03/2025 Patient has chronic kidney disease 06/03/2025 Weekly blood pressure task 06/04/2025 Weekly blood pressure task 06/04/2025 Weekly blood pressure task 06/04/2025 Patient has diabetic eye disease 06/04/2025 Patient has diabetic eye disease 06/04/2025 Patient has diabetic eye disease 06/04/2025 Patient has chronic kidney disease 06/04/2025 Patient has chronic kidney disease 06/04/2025 Patient has chronic kidney disease 06/04/2025 Insurance [facility] ST[facility] MEDICARE Care Teams Cell Coverer Relationship Specialty Start Date End Date Leon Wright ANP [address] [place] [phone] PCP - General Family Medicine 05/23/20
--- OUTSIDE RECORDS SUMMARY | 2025-06-12 12:45 | XMS_ITS | Encounter Summary ---
Author Organization [employer] Address [address] [place] [address] [address]t [place] [address] Care Team Providers Care Vocal Teacher Name Role Phone Nathalie Wang Primary Care Provider [phone] Reason for Visit * Reason Onset Date Comments Med Refill 05/02/2025 Encounter Details Date Type Department Care Team ([facility] st Contact Info) Description 05/02/2025 Refill [facility] [address] [place] [address] Nathalie Wang ANP [address] [place] [address] Type 2 diabetes mellitus with other circulatory complication, with long-term current use of insulin ([facility]) Social History Tobacco Use Types [...] Description 09/02/2025 11:15 AM EDT Office Visit [facility] [address] [place] [address] Nathalie Wang ANP [address] [place], [place] [phone] documented as of this encounter Goals Goal [...] Care Plan Patient has diabetic eye disease Kayce Dc LPN Patient has chronic kidney disease Care Plan Patient has chronic kidney disease No Kayce Ridley LPN Patient has chronic kidney disease Care Plan Patient has chronic kidney disease Kayce Dc LPN documented as of this encounter Visit [...] documented as of this encounter Care Teams Vocal Teacher Relationship Specialty Start Date End Date Nathalie Wang ANP [address] [place] [phone] PCP - General Family Medicine 05/23/20 documented as of this encounter
--- OUTSIDE RECORDS SUMMARY | 2025-06-12 12:45 | XMS_ITS | Encounter Summary ---
Author Organization [employer] Address [address] [place] [address] [address] [place] [address] Care Team Providers Care Phosphoric Acid Supervisor Name Role Phone Nathalie Wang Primary Care Provider [phone] Reason for Visit * Reason Comments Med Refill Encounter Details Date Type Department Care Team (Late Contact Info) Description 11/29/2022 Refill [facility] [address] [place], [place] [phone] Dino, MD [place] [address] [place] [phone] Mild persistent asthma, unspecified whether complicated Social [...] Description 09/02/2025 11:15 AM EDT Office Visit [facility] [address] [place] [address] [phone] Nathalie Wang ANP [address] [place] [phone] documented as of this encounter Visit Diagnoses Diagnosis Mild persistent asthma, unspecified whether complicated documented in this encounter Care Teams Phosphoric Acid Supervisor Relationship Specialty Start Date End Date Nathalie Wang ANP [address] [place] [address] PCP - General Family Medicine 05/23/20 documented as of this encounter
--- OUTSIDE RECORDS SUMMARY | 2025-06-12 12:45 | XMS_ITS | Encounter Summary ---
Author Organization [employer] Address [address] [place] [address] [address] [place] [address] Care Team Providers Care Automatic Beam Warper Tender Name Role Phone Felipe Nathalie LICEA Primary Care Provider [phone] Reason for Visit * Reason Onset Date Comments Med Refill 12/19/2023 Encounter Details Date Type Department Care Team (Late st Contact Info) Description 12/19/2023 Refill [facility] [address] [place] [address] Sabina Hoang MD [address] [place] [address] Type 2 diabetes mellitus with hyperglycemia (CMS/HCC) [...] Description 09/02/2025 11:15 AM EDT Office Visit [facility] [address] [place] [phone] Nathalie Wang ANP [address] [place] [address] documented as of this encounter Visit Diagnoses Diagnosis Type 2 diabetes mellitus with hyperglycemia (HCC) documented in this encounter Care Teams Automatic Beam Warper Tender Relationship Specialty Start Date End Date Nathalie Wang ANP [address] [place] [phone] PCP - General Family Medicine 05/23/20 documented as of this encounter
--- OUTSIDE RECORDS SUMMARY | 2025-06-12 12:45 | XMS_ITS | Encounter Summary ---
Author Organization [employer] Address [address] [place] [address] [address] [place] [address] Care Team Providers Care Artificial Glass Eye Maker Name Role Phone Nathalie Wang Primary Care Provider [phone] Reason for Visit * Reason Onset Date Comments Status Request 01/23/2024 Encounter Details Date Type Department Care Team ([facility] st Contact Info) Description 01/23/2024 Telephone [facility] [address] [place] [address] Nathalie Wang ANP [address] [place] [address] Status Request Social History Tobacco Use Types [...] Miscellaneous Notes * Telephone Encounter - Artie Obinna - 01/23/2024 3:01 PM EDT Tc from [facility] with [facility] requesting status on physician order form for pt to start Home health services. Please contact [facility] at [phone]. documented in this encounter Plan of Treatment Upcoming Encounters Date Type Department Care Team (Late st Contact Info) Description 09/02/2025 11:15 AM EDT Office Visit [facility] [address] [place] [address] Nathalie Wang ANP [address] [place] [address] documented as of this encounter Visit Diagnoses Not on filedocumented in this encounter Care Teams Artificial Glass Eye Maker Relationship Specialty Start Date End Date Nathalie Wang ANP [address] [place] [address] PCP - General Family Medicine 05/23/20 documented as of this encounter
--- OUTSIDE RECORDS SUMMARY | 2025-06-12 12:45 | XMS_ITS | Encounter Summary ---
Author Organization [employer] Address [address] [place] [address] [address] [place] [address] Care Team Providers Care Flare Breaker Name Role Phone Nathalie Wang Primary Care Provider [phone] Reason for Visit * Reason Comments Med Refill Encounter Details Date Type Department Care Team ([facility] st Contact Info) Description 07/22/[address] [facility] [address] [place] [address] Nathalie Wang ANP [address] [place] [address] Upper respiratory tract infection, unspecified type Social [...] Description 09/02/2025 11:15 AM EDT Office [address] [facility] [address] [place] [phone] Nathalie Wang ANP [address] [place] [address] documented as of this encounter Visit Diagnoses Diagnosis Upper respiratory tract infection, unspecified type documented in this encounter Care Teams Flare Breaker Relationship Specialty Start Date End Date Nathalie Wang ANP [address] [place] [phone] PCP - General Family Medicine 05/23/20 documented as of this encounter
--- OUTSIDE RECORDS SUMMARY | 2025-06-12 12:45 | XMS_ITS | Encounter Summary ---
Author Organization [employer] Address [address] [place] [address] [address] [place] [address] Care Team Providers Care Fbi Profiler Name Role Phone Nathalie Wang Primary Care Provider [phone] Reason for Visit * Reason Onset Date Comments Medication Question 06/24/2023 Prior Authorization 06/24/2023 Ozempic Encounter Details Date Type Department Care Team ([facility] Contact Info) Description 06/24/2023 Telephone [facility] [address] [place] [address] Nathalie Wang ANP [address] [place] [address] Medication Question; Prior Authorization (Ozempic) Social History [...] MG/3ML solution pen-injector to be sent to [facility]/pharmacy #[id number] [place], [place] - [address] [place] [address]. [facility] pharmacy is currently on backorder and pt has not had injection in 2 weeks. documented in this encounter Plan of Treatment Upcoming Encounters Date Type Department Care Team (Late st Contact Info) Description 09/02/2025 11:15 AM EDT Office Visit [facility] [address] [place] [address] Nathalie Wang ANP [address] [place] [address] documented as of this encounter Visit Diagnoses Diagnosis Type 2 diabetes mellitus without complication, unspecified whether intermediate teacher insulin use documented in this encounter Care Teams Fbi Profiler Relationship Specialty Start Date End Date Nathalie Wang ANP [address] [place] [address] PCP - General Family Medicine 05/23/20 documented as of this encounter
--- OUTSIDE RECORDS SUMMARY | 2025-06-12 12:45 | XMS_ITS | Encounter Summary ---
Author Organization [employer] Address [address] [place] [address] [address] [place] [address] Care Team Providers Care Kiln Setter Name Role Phone Nathalie Wang Primary Care Provider [phone] Reason for Visit * Reason Comments Med Refill Encounter Details Date Type Department Care Team ([facility] st Contact Info) Description 05/09/2025 Refill [facility] [address] [place] [address] Nathalie Wang ANP [address] [place] [address] Type 2 diabetes mellitus with other circulatory [...] Description 09/02/2025 11:15 AM EDT Office Visit [facility] [address] [place] [address] Nathalie Wang ANP [address] [place], [place] [phone] documented as of this encounter Goals Goal [...] documented as of this encounter Care Teams Kiln Setter Relationship Specialty Start Date End Date Nathalie Wang ANP [address] [place] [address] PCP - General Family Medicine 05/23/20 documented as of this encounter
--- OUTSIDE RECORDS SUMMARY | 2025-06-12 12:45 | XMS_ITS | Encounter Summary ---
Author Organization [employer] Address [address] [place] [address] 7t [place] [address] Care Team Providers Care Residential Interior Designer Name Role Phone Nathalie Wang Primary Care Provider [phone] Reason for Visit * Reason Onset Date Comments Call Back Request 08/23/2024 Encounter Details Date Type Department Care Team ([facility] st Contact Info) Description 08/23/2024 Telephone [facility] MED[facility] [address] [place] [address] Nathalie Wang ANP [address] [place] [address] Call Back Request Social History Tobacco Use [...] AM EDT TC placed to Beverley at [facility] who states the the pt has several [...] a transfer pt appt scheduled with Jeane Pang back on 06/15 but the pt cancelled. The pt is going to need a transfer pt appt as soon as possible scheduled for this pt. Please help in assisting with this scheduling. * Telephone Encounter - Narciso Holloway - 08/23/2024 10:47 AM EDT Tc from [facility] with [facility] requesting to speak to a nurse Please return call to [phone] documented in this encounter Plan of Treatment Upcoming Encounters Date Type Department Care Team (Late st Contact Info) Description 09/02/2025 11:15 AM EDT Office Visit [facility] [address] [place] [address] Nathalie Wang ANP [address] [place] [address] documented as of this encounter Visit Diagnoses Not on filedocumented in this encounter Care Teams Residential Interior Designer Relationship Specialty Start Date End Date Nathalie Wang ANP [address] [place] [address] PCP - General Family Medicine 05/23/20 documented as of this encounter
--- OUTSIDE RECORDS SUMMARY | 2025-06-12 12:45 | XMS_ITS | Encounter Summary ---
Author Organization [employer] Address [address] [place] [address] [address] [place] [address] Care Team Providers Care Human Relations Teacher Name Role Phone Nathalie Wang Primary Care Provider [phone] Reason for Visit * Reason Onset Date Comments Med Refill 03/29/2023 Encounter Details Date Type Department Care Team (Late st Contact Info) Description 03/29/2023 Refill [facility] [address] [place] [address] Ra Jacinto MD [address] [place] [address] Type 2 diabetes mellitus without complication, unspecified whether termite treater insulin use ([facility]) Social History Tobacco Use Types Packs/Day [...] Description 09/02/2025 11:15 AM EDT Office Visit [facility] [address] [place] [address] Nathalie Wang ANP [address] [place] [address] documented as of this encounter Visit Diagnoses Diagnosis Type 2 diabetes mellitus without complication, unspecified whether termite treater insulin use documented in this encounter Care Teams Human Relations Teacher Relationship Specialty Start Date End Date Nathalie Wang ANP [address] [place] [address] PCP - General Family Medicine 05/23/20 documented as of this encounter
--- OUTSIDE RECORDS SUMMARY | 2025-06-12 12:45 | XMS_ITS | Encounter Summary ---
Author Organization [email or web address] Address [address] [place] [address] 7t [place] [address] Care Team Providers Care Money Position Officer Name Role Phone Nathalie Wang Primary Care Provider [phone] Reason for Visit * Reason Comments Med Refill Encounter Details Date Type Department Care Team ([facility] st Contact Info) Description 04/24/2024 Refill [facility] [address] [place] [address] Nathalie Wang ANP [address] [place] [address] Upper respiratory tract infection, unspecified type Social [...] Description 09/02/2025 11:15 AM EDT Office Visit [facility] MEDICINE [address] [place] [address] Nathalie Wang ANP [address] [place] [address] documented as of this encounter Visit Diagnoses Diagnosis Upper respiratory tract infection, unspecified type documented in this encounter Care Teams Money Position Officer Relationship Specialty Start Date End Date Nathalie Wang ANP [address] [place] [address] PCP - General Family Medicine 05/23/20 documented as of this encounter
--- OUTSIDE RECORDS SUMMARY | 2025-06-12 12:45 | XMS_ITS | Encounter Summary ---
Author Organization [employer] Address [address] [place] [address] 7t [place] [address] Care Team Providers Care Hardboard Supervisor Name Role Phone Nathalie Wang Primary Care Provider [phone] Encounter Details Date Type Department Care Team ([facility] st Contact Info) Description 11/14/2023 Telephone [facility] MEDICINE [address] [place] [address] Nathalie Wang ANP [address] [place] [address] Social History Tobacco Use Types Packs/Day Years [...] Description 09/02/2025 11:15 AM EDT Office Visit [facility] MEDICINE [address] [place] [address] Nathalie Wang ANP [address] [place] [address] documented as of this encounter Visit Diagnoses Not on filedocumented in this encounter Care Teams Hardboard Supervisor Relationship Specialty Start Date End Date Nathalie Wang ANP [address] [place] [id number] PCP - General Family Medicine 05/23/20 documented as of this encounter
--- OUTSIDE RECORDS SUMMARY | 2025-06-12 12:45 | XMS_ITS | Encounter Summary ---
Author Organization [employer] Address [address] [place] [address] 7t [place] [address] Care Team Providers Care Rubber Goods Tester Water Name Role Phone Nathalie Wang Primary Care Provider [phone] Reason for Visit * Reason Comments Med Refill Encounter Details Date Type Department Care Team (Late st Contact Info) Description 11/16/2022 Refill [facility] MED & PEDS [address] [place], [place] [phone] Nathalie Wang ANP [address] [place], [place] [phone] Mild intermittent asthma without complication Social History [...] Description 09/02/2025 11:15 AM EDT Office Visit [facility] MEDICINE [address] [place] [phone] Nathalie Wang ANP [address] [place], [place] [phone] documented as of this encounter Visit Diagnoses Diagnosis Mild intermittent asthma without complication documented in this encounter Care Teams Rubber Goods Tester Water Relationship Specialty Start Date End Date Nathalie Wang ANP [address] [place] [address] PCP - General Family Medicine 05/23/20 documented as of this encounter
--- OUTSIDE RECORDS SUMMARY | 2025-06-12 12:45 | XMS_ITS | Encounter Summary ---
Author Organization [employer] [facility] Address [address] [place] [address] 7t [place] [address] Care Team Providers Care Protein Specialist Name Role Phone Nathalie Wang Primary Care Provider [phone] Reason for Visit * Reason Comments Med Refill Encounter Details Date Type Department Care Team (Late st Contact Info) Description 03/25/2023 Refill [facility] [address] [place], [place] [phone] Rajiv Head FNP Pain and swelling of [...] Description 09/02/2025 11:15 AM EDT Office Visit [facility] MEDICINE [address] [place] [phone] Nathalie Wang ANP [address] [place] [address] documented as of this encounter Visit Diagnoses Diagnosis Pain and swelling of left wrist documented in this encounter Care Teams Protein Specialist Relationship Specialty Start Date End Date Nathalie Wang ANP [address] [place] [address] PCP - General Family Medicine 05/23/20 documented as of this encounter
--- OUTSIDE RECORDS SUMMARY | 2025-06-12 12:45 | XMS_ITS | Clinical Summary ---
Author Organization [address] [facility] Address [address] [place] [address] Phone Care Team Providers Care Breaker Off Name Role Phone FelipeNathalie Peyton TOLENTINO Primary Care Provider [phone] Allergies Active Allergy Reactions Criticality Noted Date [...] Insurance MEDICAID - [place] MEDICARE Care Teams Breaker Off Relationship Specialty Start Date End Date Nathalie Wang NP [address] [phone] PCP - General 09/26/23
--- OUTSIDE RECORDS SUMMARY | 2025-06-12 12:45 | XMS_ITS | Encounter Summary ---
Author Organization [employer] Address [address] [place] [address] 7t [place] [address] Care Team Providers Care College Counselor Name Role Phone Felipe Nathalie LICEA Primary Care Provider [phone] Reason for Visit * Reason Onset Date Comments Med Refill 10/06/2023 Encounter Details Date Type Department Care Team ([facility] st Contact Info) Description 10/06/2023 Refill [facility] MED & PEDS [address] [place] [address] Sabina Hoang MD [address] [place] [address] Type 2 diabetes mellitus with hyperglycemia (CMS/HCC) [...] Description 09/02/2025 11:15 AM EDT Office Visit [facility] MEDICINE [address] [place] [address] Nathalie Wang ANP [address] [place] [phone] documented as of this encounter Visit Diagnoses Diagnosis Type 2 diabetes mellitus with hyperglycemia (HCC) documented in this encounter Care Teams College Counselor Relationship Specialty Start Date End Date Nathalie Wang ANP [address] [place] [id number] PCP - General Family Medicine 05/23/20 documented as of this encounter
--- OUTSIDE RECORDS SUMMARY | 2025-06-12 12:45 | XMS_ITS | Encounter Summary ---
Author Organization [employer] Address [address] [place] [address] 7[address] [place] [address] Care Team Providers Care General Technician Name Role Phone Nathalie Wang Primary Care Provider [phone] Encounter Details Date Type Department Care Team (Late st Contact Info) Description 05/27/2022 Orders Only [facility]EDS [address] [place] [address] Kayce Ridley LPN Social History Tobacco Use [...] Description 09/02/2025 11:15 AM EDT Office Visit [facility] MEDICINE [address] [place] [address] Nathalie Wang ANP [address] [place] [address] documented as of this encounter Procedures Procedure Name Priority Date/Time Associated Diagnosis Comments GRAM STAIN Routine 05/27/2022 3:39 PM EST documented in this encounter Results * Gram stain (05/27/2022 3:39 PM EST) 05/27/2022 3:39 PM EST 05/27/2022 3:39 PM EST Comment:Breast Narrative [facility] - 05/30/2022 8:55 AM EST Gram stain results: 3+ polys 3+ red blood cells 1+ Gram-positive cocci Klebsiella oxytoca Quant Org ID 2+ Klebsiella oxytoca: Ampicillin >=32(R) Klebsiella oxytoca: Cefazolin <=4(S) Klebsiella oxytoca: Ceftriaxone <=0.25(S) Klebsiella oxytoca: Gentamicin <=1(S) Klebsiella oxytoca: Levofloxacin <=0.12(S) Klebsiella oxytoca: Trimethoprim/Sulfamethoxazole <=20(S) Specimen Source: Breast us [facility] Exter nal Provider LAB MICROBIOLOGY - GENERAL ORDERABLES Final Result Performing Organization Address City/State/[facility] Co de Phone Number [facility] [address] [place] [address] [phone] documented in this encounter Visit Diagnoses Not on filedocumented in this encounter Care Teams General Technician Relationship Specialty Start Date End Date Nathalie Wang ANP [address] [place] [id number] PCP - General Family Medicine 05/23/20 documented as of this encounter
== END 2025-06-12 12:03 | disposition home or self-care (01) ==
LOC: HO.RHES 11:07
PROVIDERS: PCP Nurse Practitioner Primary Care; Visit Provider Student in an Organized Health Care Education/Training Program
DX: M25.50 Pain in unspecified joint (principal); G89.4 Chronic pain syndrome; M79.7 Fibromyalgia; G47.30 Sleep apnea, unspecified
CPT/HCPCS: 99204

== ENCOUNTER → 2025-06-12 11:06 | Outpatient (BNVA) | payer MEDICARE, MEDICAID, SELFPAY | PROVIDERS: PCP Nurse Practitioner Primary Care; Visit Provider Student in an Organized Health Care Education/Training Program | DX: M25.50 Pain in unspecified joint (principal); M25.511 Pain in right shoulder; M25.512 Pain in left shoulder; M25.541 Pain in joints of right hand; M25.542 Pain in joints of left hand; M25.551 Pain in right hip; M25.552 Pain in left hip; M25.561 Pain in right knee; M25.562 Pain in left knee; G89.4 Chronic pain syndrome; M79.7 Fibromyalgia; G47.30 Sleep apnea, unspecified | CPT/HCPCS: 99202 ==